=== PATIENT | male | born 1965 | race Caucasian/White ===

== ENCOUNTER 2016-08-10 16:01 | Emergency (ER) | payer OTHER ==
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
[2016-08-10 16:53] LABS: Basophils % (A) 0 %; CH 30.3; CHCM 35.5; Eosinophils # (A) 0.1 k/uL (0-0.7); Eosinophils % (A) 1 %; HDW 2.39; HGB 14.5 gm/dL (13.0-17.5); Luc % (Auto) 4; Lymphocytes % (A) 25 %; MCH 29.4 pg (25.0-35.0); MCHC 34.4 g/dL (31.0-37.0); MCV 85.5 fL (80.0-100.0); Mean Platelet Volume 6.6; Monocytes # (A) 0.4 k/uL (0-1.0); Monocytes % (A) 6 %; Neutrophils # (A) 5.1 k/uL (1.3-7.7); Neutrophils % (A) 64 %; RBC 4.92 m/uL (4.30-5.90); RDW 12.1 % (11.5-15.5); WBC (Perox) 7.83
[2016-08-10 17:05] LABS: ALT 38 U/L (21-72); AST 32 U/L (17-59); Alkaline Phosphatase 45 U/L (38-126); Anion Gap 7 mmol/L; Blood Urea Nitrogen 19 mg/dL (9-20); Calcium 7.9 mg/dL (8.4-10.2); Carbon Dioxide 29 mmol/L (22-30); Chloride 106 mmol/L (98-107); Glucose 89 mg/dL (74-99); Non-African American GFR(MDRD) >60 (>60 ml/min/1.73 sqM); Potassium 3.8 mmol/L (3.5-5.1); Sodium 142 mmol/L (137-145); Total Bilirubin 1.6 mg/dL (0.2-1.3); Total Protein 6.5 g/dL (6.3-8.2)
--- NOTE | 2016-08-10 17:14 | XR ---
EXAMINATION TYPE: XR chest 2V DATE OF EXAM: 08/10/2016 5:04 PM COMPARISON: 04/23/2012 HISTORY: Nausea and vomiting TECHNIQUE: Frontal and lateral views of the chest are obtained. FINDINGS: Heart and mediastinum are normal. Lungs are clear. Diaphragm is normal. Bony thorax appear s normal. IMPRESSION: Normal chest. No change.
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
[2016-08-10] MEDS ORDERED: ONDANSETRON ODT 4 MG TAB PO STA (18:44)
[2016-08-10] MEDS ORDERED: CEPHALEXIN 500MG STARTER PACK 4 CAP BTL PO STA (18:45)
[2016-08-10 18:50] LABS: Appearance,Urine Clear (Clear); Bilirubin,Urine Negative (Negative); Glucose,Urine (UA) Negative (Negative); Ketones,Urine Negative (Negative); Leukocyte Esterase,Urine Negative (Negative); Nitrite,Urine Negative (Negative); Protein,Urine Negative (Negative); UA Billing (MACRO vs. MICRO) CHEM; Urobilinogen,Urine <2.0 mg/dL (<2.0)
[2016-08-10] MEDS ORDERED: IBUPROFEN 600 MG TAB PO STA (20:01)
[2016-08-10 20:15] VITALS: BP 143/81; PULSE 60; RESP 18; TEMP 97.6
== END 2016-08-10 20:14 | disposition home or self-care (01) ==
LOC: EC 16:01
DX: F07.81 Postconcussional syndrome (principal); M54.2 Cervicalgia; R11.0 Nausea; Z91.041 Radiographic dye allergy status; Z91.030 Bee allergy status; W01.198A Fall on same level from slipping, tripping and stumbling with subsequent striking against other object, initial encounter
CPT/HCPCS: 36415; 70450; 70486; 71020; 72125; 80053; 81003; 85025; 87086; 99284

== ENCOUNTER 2016-12-02 10:39 | Observation (INO) | payer OTHER ==
[2016-12-02] MEDS ORDERED: SODIUM CHLORIDE 0.9% 1,000 ML IV STA ×2 (10:40)
[2016-12-02] MEDS ORDERED: FAMOTIDINE 20 MG/2 ML VIAL IV STA (10:41)
[2016-12-02] MEDS ORDERED: methylPREDNISolone SOD SUCCI 125 MG/2 ML VIAL IV STA (10:41)
[2016-12-02] MEDS ORDERED: diphenhydrAMINE 50 MG/ML 1 ML VIAL IVP STA (10:41)
[2016-12-02] MEDS ORDERED: RX INFO: IV CONTRAST WAS GIVEN 1 EACH MISC MISCELLANE PRN (10:41)
[2016-12-02 11:02] LABS: Basophils # (A) 0.1 k/uL (0-0.2); Basophils % (A) 1 %; CH 31.2; Eosinophils # (A) 0.1 k/uL (0-0.7); Eosinophils % (A) 1 %; HCT 41.7 % (39.0-53.0); HDW 2.41; HGB 14.4 gm/dL (13.0-17.5); Luc # (Auto) 0.29; Luc % (Auto) 3; Lymphocytes # (A) 2.4 k/uL (1.0-4.8); Lymphocytes % (A) 23 %; MCH 30.1 pg (25.0-35.0); MCHC 34.6 g/dL (31.0-37.0); Mean Platelet Volume 7.6; Monocytes # (A) 0.9 k/uL (0-1.0); Monocytes % (A) 8 %; Neutrophils # (A) 6.8 k/uL (1.3-7.7); Neutrophils % (A) 64 %; RBC 4.79 m/uL (4.30-5.90); RDW 13.6 % (11.5-15.5); WBC 10.5 k/uL (3.8-10.6)
[2016-12-02 11:20] LABS: Partial Thromboplastin Time 22.7 sec (22.0-30.0); Prothrombin Time 10.5 sec (9.0-12.0)
[2016-12-02 11:21] LABS: ALT 32 U/L (21-72); AST 23 U/L (17-59); Alkaline Phosphatase 34 U/L (38-126); Anion Gap 10 mmol/L; Blood Urea Nitrogen 16 mg/dL (9-20); Calcium 7.7 mg/dL (8.4-10.2); Carbon Dioxide 23 mmol/L (22-30); Chloride 109 mmol/L (98-107); Glucose 103 mg/dL (74-99); Magnesium 1.6 mg/dL (1.6-2.3); Non-African American GFR(MDRD) >60 (>60 ml/min/1.73 sqM); Phosphorus 5.2 mg/dL (2.5-4.5); Sodium 142 mmol/L (137-145); Total Bilirubin 1.1 mg/dL (0.2-1.3); Total Protein 6.1 g/dL (6.3-8.2)
[2016-12-02 11:28] LABS: Creatine Kinase 125 U/L (55-170)
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
[2016-12-02 11:30] LABS: Potassium 4.3 mmol/L (3.5-5.1)
[2016-12-02 11:42] LABS: Creatine Kinase MB 2.1 ng/mL (0.0-2.4); Troponin I <0.012 ng/mL (0.000-0.034)
--- NOTE | 2016-12-02 13:25 | CT ---
EXAMINATION TYPE: CT angio head neck DATE OF EXAM: 12/02/2016 COMPARISON: CT 08/10/2016 HISTORY: 51-year-old male blindness for 20 minutes, eye pain TECHNIQUE: Contiguous axial scanning of the brain and neck performed with IV Contrast, patient inject ed with 65 ml mL of Omnipaque 350. Coronal/sagittal MIP reconstructions performed. 3-D reconstruction s generated on a dedicated independent workstation. Detailed analysis with 3-D vessel probe of the ca rotid vasculature. CT DLP: 424.0 mGycm Automated exposure control for dose reduction was used. FINDINGS: NECK: Visualized upper lungs are clear. There is bovine configuration to the aortic arch. Arch vessels are grossly patent. The vertebral arteries including their origins are patent. The bilateral common and internal carotid arteries are patent. There is very mild atherosclerotic toña cification at the right carotid bulb without any significant narrowing. There is asymmetric effacement of the left aryepiglottic fold, axial image 61 which should be correla mikey with patient's symptoms and direct visualization. Head: The internal carotid, vertebral, and basilar arteries are patent. There is fusiform dilatation of 3.5 mm involving the terminal basilar artery. Otherwise, no aneurysma l change seen. The anterior and posterior circulations appear grossly patent. IMPRESSION: 1. NECK: NO GREAT VESSEL/ICA STENOSIS. 2. BRAIN: NO LARGE VESSEL INTRACRANIAL OCCLUSION. 3.5 MM FUSIFORM ECTASIA OF THE DISTAL BASILAR ARTER Y. 3. ASYMMETRIC EFFACEMENT OF THE LEFT ARYEPIGLOTTIC FOLD. CLINICAL CORRELATION RECOMMENDED. DIRECT VIS UALIZATION CAN EXCLUDE AN UNDERLYING MUCOSAL SPACE LESION.
[2016-12-02] MEDS ORDERED: ASPIRIN 325 MG TAB PO STA (13:32)
[2016-12-02] MEDS ORDERED: SODIUM CHLORIDE 0.9% 1,000 ML IV SCH (13:45)
[2016-12-02 15:43] VITALS: BMI 25.7
[2016-12-02] MEDS ORDERED: DICYCLOMINE 10 MG CAP PO PRN (16:48)
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
[2016-12-02] MEDS ORDERED: CALCIUM CARB-VIT D 500MG-200UN 1 EACH TAB PO SCH (17:00)
--- NOTE | 2016-12-02 17:44 | US ---
EXAMINATION TYPE: US carotid duplex BILAT DATE OF EXAM: 12/02/2016 COMPARISON: CTA same day CLINICAL HISTORY: 51 year-old male evaluate for stenosis. headache. Temp lt eye blindness. TECHNIQUE: Carotid duplex ultrasound examination. Indirect Doppler criteria was utilized. FINDINGS: Minimal atherosclerotic change in the right greater than left carotid bulbs. EXAM MEASUREMENTS: RIGHT: Peak Systolic Velocity (PSV) cm/sec ----- Right CCA: 66.9 ----- Right ICA: 82.2 ----- Right ECA: 98.7 ICA/CCA ratio: 1.2 RIGHT: End Diastole cm/sec ----- Right CCA: 20.6 ----- Right ICA: 35.9 ----- Right ECA: 13.9 LEFT: Peak Systolic Velocity (PSV) cm/sec ----- Left CCA: 93.2 ----- Left ICA: 83.3 ----- Left ECA: 77.8 ICA/CCA ratio: 0.9 LEFT: End Diastole cm/sec ----- Left CCA: 29.3 ----- Left ICA: 40.3 ----- Left ECA: 10.6 VERTEBRALS (direction of flow): Right Vertebral: Antegrade Left Vertebral: Antegrade Rhythm: Normal IMPRESSION: No hemodynamically significant stenosis appreciated in either internal carotid artery. Criteria for Assigning % of Stenosis / Diameter reduction (Estimation based on the indirect measurements of the internal carotid artery velocities (ICA PSV). 1. Normal (no stenosis)=ICA PSV < 125 cm/s: ratio < 2.0: ICA EDV<40 cm/s. 2. Less than 50% stenosis=ICA PSV < 125 cm/s: ratio < 2.0: ICA EDV<40 cm/s. 3. 50 to 69% stenosis=ICA PSV of 125 to 230 cm/s: ration 2.0 ? 4.0: ICA EDV 40-100 cm/s. 4. Greater than 70% stenosis to near occlusion= ICA PSV > 230 cm/s: ratio > 4.0: ICA EDV > 100 cm/s. 5. Near occlusion= ICA PSV velocities may be low or undetectable: variable ratio and ICA EDV. 6. Total occlusion=unable to detect flow.
--- NOTE | 2016-12-02 18:24 | ECHOF ---
Referral Reason:Thrombus MEASUREMENTS -------- HEIGHT: 180.3 cm WEIGHT: 86.2 kg BP: 151/90 IVSd: 1.0 cm (0.6 - 1.1) LVIDd: 4.6 cm (3.9 - 5.3) LVPWd: 1.2 cm (0.6 - 1.1) IVSs: 1.7 cm LVIDs: 2.4 cm LVPWs: 1.5 cm Ao Diam: 3.5 cm (2.0 - 3.7) AV Cusp: 2.2 cm (1.5 - 2.6) LA Diam: 3.1 cm (2.7 - 3.8) MV EXCURSION: 25.054 mm (> 18.000) MV EF SLOPE: 215 mm/s (70 - 150) EPSS: 0.4 cm MV E [place]: 0.57 m/s MV DecT: 195 ms MV A [place]: 0.33 m/s MV E/A Ratio: 1.74 RAP: 5.00 mmHg RVSP: 17.13 mmHg FINDINGS -------- Resting bradycardia (HR<60bpm). This was a technically good study. Left ventricular wall thickness is normal. Overall left ventricular systolic function is normal with, an EF between 55 - 60 %. The right ventricle is normal in size and function. The left atrium is normal in size. The right atrium is normal in size. The aortic valve is trileaflet, and appears structurally normal. No aortic stenosis or regurgitation. There is trace mitral regurgitation. Trace tricuspid regurgitation present. The right ventricular systolic pressure, as measured by Doppler, is 17.13mmHg. Pulmonic valve appears structurally normal. The aortic root size is normal. Normal inferior vena cava with normal inspiratory collapse consistent with estimated right atrial pressure of 5 mmHg. The pericardium is normal. CONCLUSIONS -------- 1. Resting bradycardia (HR<60bpm). 2. Trace tricuspid regurgitation present. 3. The right ventricular systolic pressure, as measured by Doppler, is 17.13mmHg. 4. Pulmonic valve appears structurally normal. 5. The aortic root size is normal. 6. Normal inferior vena cava with normal inspiratory collapse consistent with estimated right atrial pressure of 5 mmHg. 7. The pericardium is normal. 8. This was a technically good study. 9. Left ventricular wall thickness is normal. 10. Overall left ventricular systolic function is normal with, an EF between 55 - 60 %. 11. The right ventricle is normal in size and function. 12. The left atrium is normal in size. 13. The right atrium is normal in size. 14. The aortic valve is trileaflet, and appears structurally normal. No aortic stenosis or regurgitation. 15. There is trace mitral regurgitation. VAPOR COATER: Ness Hinojosa RDCS
[2016-12-02] MEDS: HYDROcodone/APAP 10-325MG 1 EACH TAB PO PRN ×2 (18:25→21:49)
--- NOTE | 2016-12-02 18:39 | CT ---
EXAMINATION TYPE: CT brain wo con DATE OF EXAM: 12/02/2016 COMPARISON: 08/10/2016 HISTORY: Swelling and vision loss. CT DLP: 1066.8 mGycm Automated exposure control for dose reduction was used. FINDINGS: Ventricles have normal size. There is no mass effect nor midline shift. There is no sign of intracran ial hemorrhage. The calvarium is intact. IMPRESSION: NEGATIVE CT SCAN OF THE BRAIN. NO CHANGE.
[2016-12-02] MEDS: ETODOLAC 400 MG TAB PO SCH (20:14)
[2016-12-02] MEDS: CALCITRIOL 0.25 MCG CAP PO SCH ×2 (20:14→23:48)
[2016-12-02] MEDS: PREGABALIN 50 MG CAP PO SCH (20:16)
[2016-12-02] MEDS: MELATONIN 5 MG TABLET PO SCH (23:47)
[2016-12-03] MEDS: CALCIUM CARB-VIT D 500MG-200UN 1 EACH TAB PO SCH ×5 (06:29→23:34)
[2016-12-03] MEDS: LEVOTHYROXINE 100 MCG TAB PO SCH (06:30)
[2016-12-03] MEDS: CALCITRIOL 0.25 MCG CAP PO SCH ×5 (06:30→23:34)
[2016-12-03 07:13] LABS: Basophils % (A) 0 %; CH 30.6; CHCM 35.1; Eosinophils % (A) 0 %; HCT 40.4 % (39.0-53.0); HDW 2.37; HGB 13.9 gm/dL (13.0-17.5); Luc # (Auto) 0.38; Luc % (Auto) 2; Lymphocytes # (A) 1.1 k/uL (1.0-4.8); Lymphocytes % (A) 5 %; MCH 30.2 pg (25.0-35.0); MCHC 34.5 g/dL (31.0-37.0); MCV 87.7 fL (80.0-100.0); Mean Platelet Volume 7.2; Monocytes % (A) 5 %; Neutrophils % (A) 88 %; RBC 4.61 m/uL (4.30-5.90); RDW 12.9 % (11.5-15.5); WBC 20.5 k/uL (3.8-10.6); WBC (Perox) 20.71
[2016-12-03] MEDS: HYDROcodone/APAP 10-325MG 1 EACH TAB PO PRN ×2 (07:15→16:01)
[2016-12-03 07:53] LABS: ALT 32 U/L (21-72); AST 17 U/L (17-59); Alkaline Phosphatase 45 U/L (38-126); Anion Gap 11 mmol/L; Blood Urea Nitrogen 17 mg/dL (9-20); Calcium 7.7 mg/dL (8.4-10.2); Carbon Dioxide 22 mmol/L (22-30); Chloride 107 mmol/L (98-107); Cholesterol 179 mg/dL (<200); Glucose 138 mg/dL (74-99); HDL Cholesterol 66 mg/dL (40-60); Magnesium 1.6 mg/dL (1.6-2.3); Non-African American GFR(MDRD) >60 (>60 ml/min/1.73 sqM); Potassium 4.2 mmol/L (3.5-5.1); Sodium 140 mmol/L (137-145); Total Bilirubin 0.4 mg/dL (0.2-1.3); Total Protein 5.5 g/dL (6.3-8.2)
[2016-12-03] MEDS: ETODOLAC 400 MG TAB PO SCH ×3 (08:26→20:34)
[2016-12-03] MEDS: PREGABALIN 50 MG CAP PO SCH ×2 (08:28→20:33)
[2016-12-03] MEDS ORDERED: predniSONE 20 MG TAB PO SCH (09:00)
--- NOTE | 2016-12-03 09:02 | P.PN ---
Progress Note - Text Hospitalist Interval Note: Patient seen and examined at bedside. His headache is much improved. He has not had any more visual disturbances. Telemetry, echo, and carotid Dopplers were all negative. Suspect complex migraine as ESR and CRP negative. Currently awaiting neurologic evaluation. Patient appears stable for discharge once cleared by neurology. Formal progress note or discharge summary to follow pending neurology evaluation.
[2016-12-03] MEDS: ASPIRIN 325 MG TAB PO SCH (11:20)
--- NOTE | 2016-12-03 13:35 | P.PN ---
Subjective Principal diagnosis: left visual loss and headache Patient is a 51-year-old male with a past medical history of thyroid cancer status post thyroid and parathyroidectomy, arthritis with neurodegenerative condition, and posttraumatic stress disorder who presented via EMS with left-sided visual loss and headache. In the ER he underwent an extensive evaluation. His initial vital signs were unremarkable. Initial blood work showed a slightly low calcium and slightly high phosphorus which he states is chronic for him. CTA of the head and neck was unremarkable. He was admitted to the selective care unit for further evaluation of possible TIA. He complained of a left-sided headache associated with the visual loss. ESR and CRP were within normal limits. CT of the head was normal. Echocardiogram and carotid Dopplers were normal. Neurology consultation was requested. By the morning after admission he had not had any recurrent visual deficits. He continued to have slight left-sided headache. Patient seen and examined at bedside. He denies any chest pain, shortness of breath, nausea, vomiting, or diarrhea. He continues to have a left sided headache which is now a pressure in nature and is a 1 out of 10. He does have some pressure behind his eyes as well. He denies any recurrent visual loss. He does not have any blurry vision or double vision. Objective - Vital Signs Vital signs: Vital Signs Temp 97.0 F L 12/03/16 12:00 Pulse 64 12/03/16 12:00 Resp 16 12/03/16 12:00 BP 138/79 12/03/16 12:00 Pulse Ox 97 12/03/16 12:00 Intake & Output 12/02/16 12/03/16 12/03/16 18:59 06:59 18:59 Intake Total 1200 1087 Balance 1200 1087 Weight 86.183 kg 86.7 kg Intake: IV 10 Invasive Line 1 10 Intake, IV Titration 1200 Amount Sodium Chloride 0.9% 1, 1200 000 ml @ 100 mls/hr IV . Q10H [facility] Rx#:[id number] Oral 1077 Other: Voiding Method Toilet Toilet Urinal Urinal # Voids 1 - Exam General: non toxic, no distress, appears at stated age Derm: no rashes, no lesions Head: atraumatic, normocephalic, symmetric Eyes: EOMI, no lid lag, anicteric sclera ENT: no post nasal drip, no thrush Mouth: no lip lesion, mucus membranes moist Cardiovascular: S1S2 reg, no murmur, positive posterior tibial pulse bilateral, Lungs: CTA bilateral, no rhonchi, no rales , no accessory muscle use Abdominal: soft, nontender to palpation, no guarding, no appreciable organomegaly Ext: no gross muscle atrophy, no edema, no contractures Neuro: CN II-XI grossly intact, no focal neuro deficits Psych: Alert, oriented, appropriate affect - Labs CBC & Chem 7: 12/03/16 06:38 12/03/16 06:00 Labs: Abnormal Lab Results - Last 24 Hours (Table) 12/03/16 12/03/16 Range/Units 06:00 06:38 WBC 20.5 H (3.8-10.6) k/uL Neutrophils # 18.0 H (1.3-7.7) k/uL Glucose 138 H (74-99) mg/dL Calcium 7.7 L (8.4-10.2) mg/dL Total Protein 5.5 L (6.3-8.2) g/dL Albumin 3.2 L (3.5-5.0) g/dL HDL Cholesterol 66 H (40-60) mg/dL Assessment and Plan Plan: #Transient left sided visual loss associated with headache -head CT negative - 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 -ESR and CRP normal, stop prednisone. -Ophthalmology and neurology consultation pending. #Hypocalcemia -Per patient this is his normal range will continue with calcium supplementation -Hypothyroidism, surgical -Continue Synthroid #Arthritis -Continue with NSAIDs, as needed [place], and add prednisone #Degenerative joint disease -Pain control DVT prophylaxis: SCD Discussed with: Patient, nursing Anticipated discharge: today if cleared by neurology Anticipated discharge place: home A total of 30 minutes was spent on the care of this complex patient more than 50 % of the time was spent in counseling and care coordination.
[2016-12-03] MEDS: BUTA/APAP/CAF/COD 50-325-40-30 CAP PO PRN (20:32)
[2016-12-03] MEDS: MELATONIN 5 MG TABLET PO SCH (20:34)
--- NOTE | 2016-12-03 22:39 | CONS ---
CONSULTATION DATE OF SERVICE: 12/03/2016. CHIEF COMPLAINT: Transient ischemic attack. HISTORY OF PRESENT ILLNESS: Mr. Chapman is a pleasant 51-year-old, male, who is being evaluated by the Neurology Service per the request of Dr. Coello for a transient ischemic attack. The patient states that he was driving to work yesterday when he suddenly noticed visual changes involving his left eye. He noticed that the left visual field in the left eye was quite distorted. His symptoms lasted approximately 20 minutes and resolved spontaneously. He states that he did have a similar episode approximately 6 years ago, but he was not placed on any anti-platelet therapy. A CT scan of the brain was done when he arrived to the emergency room and no intracranial abnormalities were seen. The patient's symptoms had resolved by the time he arrived to the emergency room. A carotid Doppler was done, which showed no hemodynamically significant stenosis. His comprehensive metabolic profile was normal except for mild hypocalcemia at 7.7. His alkaline phosphatase was slightly elevated at 5.2. His cardiac enzymes were normal and his fasting lipid panel was normal. His CBC showed leukocytosis at 20.5. At the time of my evaluation, the patient is lying in his bed and appears to be in no acute distress. He denies any recurrence of any visual changes. He denies any lateralizing numbness or weakness. He is complaining of a headache, which he describes as a dull to burning pain involving his left parietal region. He rates it at 3/10 in intensity. PAST MEDICAL HISTORY: Thyroid cancer, rheumatological disorder, degenerative joint disease, degenerative disk disease, history of lumbar spine surgery, thyroidectomy, parathyroidectomy. He also has a history of posttraumatic stress disorder. SOCIAL HISTORY: He denies any tobacco, alcohol, or drug use. FAMILY HISTORY: Positive for heart disease and dyslipidemia. HOME MEDICATIONS: Reviewed in the chart. ALLERGIES: Iodine, IV contrast, bee stings. REVIEW OF SYSTEMS: CONSTITUTIONAL: Negative. EYES: As mentioned above. EENT: Negative. CARDIOVASCULAR: Negative. RESPIRATORY: Negative. NEUROLOGICAL: As mentioned above. GASTROINTESTINAL: Negative. MUSCULOSKELETAL: Positive for frequent joint pain and low back pain. DERMATOLOGICAL: Negative. ENDOCRINE: Positive for hypothyroidism status post thyroidectomy. PSYCHIATRIC: Positive for history of posttraumatic stress disorder. PHYSICAL EXAM: VITAL SIGNS: Temperature of 98.6, pulse 75, respirations 17, blood pressure 127/76. GENERAL APPEARANCE: The patient is a well-developed male, who appears to be in no acute distress. HEENT: Normocephalic, atraumatic. No facial asymmetry is seen, extraocular muscles are intact. NECK: Supple with no masses felt. CARDIOVASCULAR: Regular rate and rhythm. ABDOMEN: Nontender nondistended. EXTREMITIES: Mild joint swelling both hands. No significant edema is seen. NEUROLOGIC: The patient is alert aware and oriented x3. Speech and language are normal. Cranial nerve testing showed no facial asymmetry. His visual field testing is intact. Strength is full in all 4 extremities. Sensory exam was normal to light touch in all 4 extremities. No tremors or seizure-like activity is seen. ASSESSMENT: 1. Transient ischemic attack. 2. Left eye visual changes, resolved. 3. Headache. 4. Leukocytosis. RECOMMENDATIONS: The patient does appear to have suffered a transient ischemic attack with a transient episode of distorted vision involving the left visual field. His symptoms continue to be resolving and he denies any recurrence. He has been started on aspirin 325 mg daily. The patient was told to continue this regimen after discharge. I will order a serum homocystine level. His fasting lipid panel was normal. I will also order an EEG along with an MRI/MRA of the brain without contrast, mostly due to his continued headache. I do recommend further workup regarding his leukocytosis. His neck is quite supple on my examination, and I doubt any intracranial etiology for his leukocytosis. Continue neuro checks. I will continue to follow with you. Further recommendations to follow. Thank you for allowing me to participate in the care of your patient. If you have any questions, please feel free to contact me. MMBLAISEL / IJN: [id number] /
[2016-12-04] MEDS: HYDROcodone/APAP 10-325MG 1 EACH TAB PO PRN (04:25)
[2016-12-04] MEDS: BUTA/APAP/CAF/COD 50-325-40-30 CAP PO PRN (06:07)
[2016-12-04] MEDS: LEVOTHYROXINE 100 MCG TAB PO SCH (06:08)
[2016-12-04 07:57] LABS: CH 29.8; CHCM 33.7; HCT 40.9 % (39.0-53.0); HDW 2.36; HGB 13.8 gm/dL (13.0-17.5); MCHC 33.8 g/dL (31.0-37.0); MCV 88.8 fL (80.0-100.0); Mean Platelet Volume 7.6; RBC 4.61 m/uL (4.30-5.90); RDW 12.2 % (11.5-15.5); WBC 13.2 k/uL (3.8-10.6)
[2016-12-04] MEDS: ETODOLAC 400 MG TAB PO SCH ×2 (09:07→16:01)
[2016-12-04] MEDS: CALCITRIOL 0.25 MCG CAP PO SCH ×3 (09:08→16:01)
[2016-12-04] MEDS: CALCIUM CARB-VIT D 500MG-200UN 1 EACH TAB PO SCH ×3 (09:08→16:01)
[2016-12-04] MEDS: ASPIRIN 325 MG TAB PO SCH (09:09)
[2016-12-04] MEDS: PREGABALIN 50 MG CAP PO SCH (09:10)
[2016-12-04 10:09] VITALS: RESP 16
--- NOTE | 2016-12-04 10:36 | P.PN ---
Subjective Principal diagnosis: left visual loss and headache Patient is a 51-year-old male with a past medical history of thyroid cancer status post thyroid and parathyroidectomy, arthritis with neurodegenerative condition, and posttraumatic stress disorder who presented via EMS with left-sided visual loss and headache. In the ER he underwent an extensive evaluation. His initial vital signs were unremarkable. Initial blood work showed a slightly low calcium and slightly high phosphorus which he states is chronic for him. CTA of the head and neck was unremarkable. He was admitted to the selective care unit for further evaluation of possible TIA. He complained of a left-sided headache associated with the visual loss. ESR and CRP were within normal limits. CT of the head was normal. Echocardiogram and carotid Dopplers were normal. Neurology consultation was requested. By the morning after admission he had not had any recurrent visual deficits. He continued to have slight left-sided headache. Neurology evaluated him and felt that this was likely a TIA. They recommended MRI, MRA, and EEG for further evaluation. On the evening of 01/02 his headache came back with increasing intensity Patient seen and examined at bedside. He continues to have a left-sided headache. He has not had recurrent visual changes. Denies any chest pain, shortness of breath, nausea, or vomiting. He states that his pain medications are helping. Objective - Vital Signs Vital signs: Vital Signs Temp 97.3 F L 12/04/16 08:00 Pulse 75 12/04/16 08:00 Resp 16 12/04/16 08:00 BP 131/76 12/04/16 08:00 Pulse Ox 96 12/04/16 08:00 Intake & Output 12/03/16 12/04/16 12/04/16 18:59 06:59 18:59 Intake Total 1841 250 Balance 1841 250 Weight 88.4 kg Intake: IV 10 10 Invasive Line 1 10 Normal Saline 10 Oral 1831 240 Other: Voiding Method Toilet Toilet Urinal Urinal # Voids 3 1 - Exam General: non toxic, no distress, appears at stated age Derm: no rashes, no lesions Head: atraumatic, normocephalic, symmetric Eyes: EOMI, no lid lag, anicteric sclera ENT: no post nasal drip, no thrush Mouth: no lip lesion, mucus membranes moist Cardiovascular: S1S2 reg, no murmur, positive posterior tibial pulse bilateral, Lungs: CTA bilateral, no rhonchi, no rales , no accessory muscle use Abdominal: soft, nontender to palpation, no guarding, no appreciable organomegaly Ext: no gross muscle atrophy, no edema, no contractures Neuro: CN II-XI grossly intact, no focal neuro deficits Psych: Alert, oriented, appropriate affect - Labs CBC & Chem 7: 12/04/16 06:05 12/03/16 06:00 Labs: Abnormal Lab Results - Last 24 Hours (Table) 12/04/16 Range/Units 06:05 WBC 13.2 H (3.8-10.6) k/uL Assessment and Plan Plan: #TIA Transient left sided visual loss associated with headache -head CT negative - refused to work with PT, [employer]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 - neuro recs appreciated MRI/MRA/EEG pending # Headache - MRI and MRA pending - neuro recs appreciated - continue with fioricet # leukocytosis secnodary to steroids - improving off steroids #Hypocalcemia -Per patient this is his normal range will continue with calcium supplementation -Hypothyroidism, surgical -Continue Synthroid #Arthritis -Continue with NSAIDs, as needed [place], and add prednisone #Degenerative joint disease -Pain control Likely home once OK with neuro and testing back. DVT prophylaxis: SCD Discussed with: Patient, nursing Anticipated discharge: today if cleared by neurology Anticipated discharge place: home A total of 30 minutes was spent on the care of this complex patient more than 50 % of the time was spent in counseling and care coordination.
--- NOTE | 2016-12-04 11:21 | MR ---
EXAMINATION TYPE: MR angio head wo con DATE OF EXAM: 12/04/2016 COMPARISON: 12/02/2016 CT HISTORY: Headache, TIA TECHNIQUE: Utilizing 3-D buvc-fo-bqozcu intracranial MRA of the [place] of [place] was performed. FINDINGS: The vertebrobasilar and carotid systems are patent. There is mild ectasia of the distal basilar dora ry stable from the recent CT scan. There is no sizable saccular aneurysm or vascular malformation. IMPRESSION: 1. No evidence of sizable saccular aneurysm. Mild fusiform prominence of the distal basilar artery st able from the CTA report of 12/02/2016.
--- NOTE | 2016-12-04 11:28 | MR ---
EXAMINATION TYPE: MR brain wo con DATE OF EXAM: 12/04/2016 COMPARISON: CT brain 12/02/2016 HISTORY: Headache, TIA T1-weighted sagittal, T2, FLAIR, and diffusion axial, and T2 coronal coronal views of the brain are s ubmitted. There is no evidence of acute ischemia. The ventricles, basal cisterns, and sulci overlying the conv exities are consistent with the patient's age. There is no mass effect. Craniocervical junction maintained. Sella turcica has a normal appearance. No cerebellopontine angle mass. Changes of chronic sinusitis noted. White matter: There are 2 punctate less than 5 mm areas of abnormal signal in the right parietal whit e matter. No lesions perpendicular to the ventricular system. No callosal lesions. IMPRESSION: 1. No acute intracranial process. 2. There are 2 nonspecific less than 5 mm areas of abnormal white matter signal.
[2016-12-04 14:38] VITALS: BP 128/79; PULSE 73; TEMP 97.1
--- NOTE | 2016-12-04 15:03 | P.DS ---
Providers Date of admission: 12/02/16 13:32 Expected date of discharge: 12/04/16 Attending physician: Alcira Coello DO Consults: 12/02/16 16:44 Consult Physician Routine Consulting Provider: Zhou Moore Consult Reason/Comments: headache and loss of vision Do you want consulting provider notified?: Yes 12/02/16 16:45 Consult Physician Routine Consulting Provider: Travis Mckenna Consult Reason/Comments: vision loss left eye- transient with headache Do you want consulting provider notified?: Yes Primary care physician: Physician Nonstaff - Discharge Diagnosis(es) (1) Migraine with aura Status: Acute (2) Leukocytosis Status: Acute (3) Visual field loss Status: Acute (4) TIA (transient ischemic attack) Status: Acute (5) Hypocalcemia Status: Acute Hospital Course: Patient is a 51-year-old male with a past medical history of thyroid cancer status post thyroid and parathyroidectomy, arthritis with neurodegenerative condition, and posttraumatic stress disorder who presented via EMS with left-sided visual loss and headache. In the ER he underwent an extensive evaluation. His initial vital signs were unremarkable. Initial blood work showed a slightly low calcium and slightly high phosphorus which he states is chronic for him. CTA of the head and neck was unremarkable. He was admitted to the selective care unit for further evaluation of possible TIA. He complained of a left-sided headache associated with the visual loss. ESR and CRP were within normal limits. CT of the head was normal. Echocardiogram and carotid Dopplers were normal. Neurology consultation was requested. By the morning after admission he had not had any recurrent visual deficits. He continued to have slight left-sided headache. Neurology evaluated him and felt that this was likely a TIA. They recommended MRI, MRA, and EEG for further evaluation. On the evening of 01/02 his headache came back with increasing intensity. He was placed on Fioricet with codeine by neurology. He underwent MRI and MRA which demonstrated 25 mm white matter changes and a fusiform prominence of the basilar artery. EEG was obtained. By the afternoon of the his headache had greatly improved. His pain level was the best it had been at months. He had not had any re-current visual field deficits. He was determined stable for outpatient follow-up with neurology. He was started on aspirin and Fioricet. [facility] Patient seen and examined at bedside. Headache has subsided, no recurrent visual field deficits. States his swelling has improved and he feels the best he has felt in years. For physical exam please see progress note for December 04 A total of 25 minutes of time were spent preparing this complex discharge summary . Pertinent Studies: MRA of the brain 12/04-mild fusiform predominance of the distal basilar artery MRI of the brain-2 nonspecific less than 5 mm areas of abnormal white matter signal CT Brain-no acute process CTA head and neck- mild fusiform predominance of the distal basilar artery Echocardiogram-preserved ejection fraction, no valvular abnormalities Carotid Dopplers-no significant flow-limiting lesions Procedures: None Patient Condition at Discharge: Stable Plan - Discharge Summary New Discharge Prescriptions: New Aspirin EC [Ecotrin Low Dose] 81 mg PO DAILY #[address] Mustafa/APAP/Caf/Cod [id number] [Fioricet w/Cod 78-264-06-30MG] 2 each PO Q6HR PRN #30 cap PRN Reason: Headache Continue Calcitriol [Rocaltrol] 0.25 mcg PO 5XD Dicyclomine [Bentyl] 20 mg PO HS PRN PRN Reason: RECTAL SPASMS Calcium Carbonate [Calcium] 600 mg PO DAILY Pregabalin [Lyrica] 150 mg PO BID Etodolac [Lodine] 400 mg PO TID HYDROcodone/APAP 10-325MG [[place] 10-325] 1 tab PO TID PRN PRN Reason: Pain Levothyroxine Sodium [Synthroid] 100 mcg PO DAILY Discharge Medication List Calcitriol [Rocaltrol] 0.25 mcg PO 5XD 12/02/16 [History] Calcium Carbonate [Calcium] 600 mg PO DAILY 12/02/16 [History] Dicyclomine [Bentyl] 20 mg PO HS PRN 12/02/16 [History] Etodolac [Lodine] 400 mg PO TID 12/02/16 [History] HYDROcodone/APAP 10-325MG [[place] 10-325] 1 tab PO TID PRN 12/02/16 [History] Levothyroxine Sodium [Synthroid] 100 mcg PO DAILY 12/02/16 [History] Pregabalin [Lyrica] 150 mg PO BID 12/02/16 [History] Aspirin EC [Ecotrin Low Dose] 81 mg PO DAILY #30 tablet. 12/04/16 [Rx] [place]/APAP/Caf/Cod [id number] [Fioricet w/Cod [id number]] 2 each PO Q6HR PRN #30 cap 12/04/16 [Rx] Follow up Appointment(s)/Referral(s): Zhou Moore MD [STAFF PHYSICIAN] - 1 Week (Message left on appointment line with patients name, , and phone number. Office will call with appointment.) Nonstaff,Physician [Primary Care Provider] - 12/06/16 4:00 pm (Called the [facility] in [place] and attempted to make appointment with the [facility] which patient sees. Spoke with Michael at the [facility] and appointment made. ) Patient Instructions/Handouts: Transient Ischemic Attack (DC) Activity/Diet/Wound Care/Special Instructions: low cholesterol diet, activity as tolerated. Seek medical attention if visual changes reoccur or headache gets worse. Discharge Disposition: HOME SELF-CARE
--- NOTE | 2016-12-04 20:45 | EEG ---
ELECTROENCEPHALOGRAM REPORT DATE OF SERVICE: 12/04/2016 REASON FOR TESTING: Transient ischemic attack. DESCRIPTION OF THE PROCEDURE: This EEG was performed using a 21 channel digital electroencephalograph, following international 10-20 system. DESCRIPTION OF THE RECORDING: From the beginning of the tracing, and with patient's eyes closed, the background rhythm was mostly consisting of 8-9 Hz alpha frequency in the posterior occipital leads. No obvious asymmetry is seen. Photic stimulation was performed with a good driving response seen. No pathological waves were elicited. Hyperventilation was not performed. The patient remains awake throughout the tracing. No epileptiform discharges were seen. His EKG lead showed a regular rate and rhythm. INTERPRETATION: This awake EEG can be considered within normal limits. There is no asymmetry seen. No epileptiform discharges were noticed. The absence of epileptiform discharges does not rule out the diagnosis of epilepsy, therefore clinical correlation is recommended. MMJUAN / NURIA: [id number] /
== END 2016-12-04 16:18 | disposition home or self-care (01) ==
LOC: EC 10:39 → 6SEL 13:32
PROVIDERS: ADMIT Internal Medicine; ATTEND Internal Medicine
DX: G43.109 Migraine with aura, not intractable, without status migrainosus (principal); G45.9 Transient cerebral ischemic attack, unspecified; H53.122 Transient visual loss, left eye; E83.51 Hypocalcemia; E89.0 Postprocedural hypothyroidism; D72.829 Elevated white blood cell count, unspecified; T38.0X5A Adverse effect of glucocorticoids and synthetic analogues, initial encounter; F43.10 Post-traumatic stress disorder, unspecified; E66.9 Obesity, unspecified; Z68.25 Body mass index [BMI] 25.0-25.9, adult; M19.90 Unspecified osteoarthritis, unspecified site; Z91.030 Bee allergy status; Z91.041 Radiographic dye allergy status; Z85.850 Personal history of malignant neoplasm of thyroid; Z87.820 Personal history of traumatic brain injury; Z82.49 Family history of ischemic heart disease and other diseases of the circulatory system; Z79.899 Other long term (current) drug therapy
CPT/HCPCS: 99285 ×2; 96374 ×2; 96375 ×3; 96361 ×6; 36415; 94760; 95819; 93306; 92523; 80061; 80053 ×2; 85652; 82550; 82553; 83735 ×2; 84100; 84484; 85025 ×2; 85027; 85610; 85730; 86140; 83090; 93880; 70496; 70450; 70498; 70544; 70551; G0378 ×3; J1200; J2930; Q9967; 96366

== ENCOUNTER → 2017-07-22 | Day surgery (SDC) | payer OTHER ==
[2017-07-17 16:10] VITALS: BMI 27.6
[~2017-07-22] MED LIST: IV FLUID CONTINUATION 1,000 ML IV ONE; LACTATED RINGERS 1,000 ML IV ONE; LACTATED RINGERS 1,000 ML IV SCH; LIDOCAINE 1% 20 ML VIAL (10MG/ML) FOR IV START INTRADERMA ONE
[2017-07-22 07:40] VITALS: TEMP 97.9
[2017-07-22 07:49] LABS: Glucose,Whole Blood 94 mg/dL (75-99)
[2017-07-22 08:33] VITALS: RESP 18
[2017-07-22 08:56] VITALS: BP 152/98; PULSE 61
--- NOTE | 2017-07-22 09:11 | P.PCN ---
Date of Procedure: 07/22/17 Surgeon: Morris Ceballos Pathology: none sent Condition: stable Disposition: PACU Description of Procedure: PREOPERATIVE DIAGNOSIS: 1) Lumbar post laminectomy syndrome; 2) knee OA POSTOPERATIVE DIAGNOSIS: 1) Lumbar post laminectomy syndrome; 2) knee OA PROCEDURE: 1. Caudal epidural steroid injection under fluoroscopic guidance. 2. Caudal epidurogram. 3. Right knee injection with fluoroscopy ANESTHESIA: Local with 1% lidocaine; IV sedation with Versed/fentanyl EBL: None. PROCEDURE INDICATION: This is a patient with postlaminectomy syndrome and knee arthritis with uncontrolled pain who presents for caudal ALL and right knee injection today. No use of blood thinners. PROCEDURE DESCRIPTION: The patient was seen and identified in the preoperative area. Risks, benefits, complications, and alternatives were discussed with the patient including but not limited to bleeding, infection, nerve damage, incomplete pain relief, and allergic reactions to medications. The patient agreed to proceed with the procedure and signed the consent. IV was started, and vital signs were stable. Patient was taken to the OR and time out was completed to verify correct procedure, laterality, and allergies to medications. The patient was placed in the supine position on the procedure table and right knee was prepped and draped in the usual sterile fashion. The medial joint space between the patella and tibia was identified by fluoroscopy. Block solution was prepared with 40 mg of Kenalog in 7 ml of 0.5% bupivacaine preservative-free. After localization with 1% lidocaine, a 22-gauge 3.5-inch needle was advanced through the aforementioned site into the intraarticular space, and after negative aspiration , all 8 mL of block solution was injected. Needle was withdrawn intact, skin was cleansed, and bandage was applied. The patient was then placed in the prone position on procedure table and a pillow was placed under the abdomen to reduce lumbar lordosis. The lumbosacral area was prepped and draped in the usual sterile fashion. Vital signs were closely monitored during the procedure. Using lateral fluoroscopy the anterior-posterior plates of the sacrum were identified and the skin and deeper tissues corresponding into sacrococcygeal ligament were anesthetized using approximately 3 mL of 1% lidocaine. Then under fluoroscopy, a 3-1/2-inch 20-gauge Tuohy epidural needle/22-guage 3-1/2 inch spinal needle was guided through the sacrococcygeal ligament, and into the epidural space. After negative aspiration, 1 mL of Isovue 200 contrast dye was injected with excellent epidurogram. Again after negative aspiration for CSF, blood, and with no paresthesias, a solution containing Depo Medrol 40 mg, 2ml of 1% preservative free lidocaine with 7 ml of preservative free normal saline ( total of 10 ml) solution was injected with washout of epidurogram. Needle was withdrawn intact. Skin was cleansed, and bandage was applied. COMPLICATIONS: None. COMMENTS: DISPOSITION / PLANS: The patient was placed in a supine position and transferred to the recovery area in a stable condition for observation and was discharged from the recovery room after meeting discharge criteria. Home discharge instructions given to the patient by the staff. The patient was reexamined prior to discharge. The patient will schedule a follow up in clinic in 4-6 weeks to discuss efficacy.
--- NOTE | 2017-07-22 09:35 | FL ---
EXAMINATION TYPE: FL guided pain mgmt statistic DATE OF EXAM: 07/22/2017 FLUOROSCOPY Fluoroscopy time of 16 seconds was used during caudal epidural steroid injection as well as right kne e injection. 2 image/s document/s the procedure.
== END ==
LOC: ORPAIN 07:18
PROVIDERS: ATTEND Anesthesiology
DX: M96.1 Postlaminectomy syndrome, not elsewhere classified (principal); M17.11 Unilateral primary osteoarthritis, right knee; I10 Essential (primary) hypertension; F32.9 Major depressive disorder, single episode, unspecified; Z88.8 Allergy status to other drugs, medicaments and biological substances; Z91.030 Bee allergy status; Z91.041 Radiographic dye allergy status
CPT/HCPCS: 20610; 62323; J2250; J1030; J3301; J3010; 99152

== ENCOUNTER → 2017-08-12 | Outpatient (CLI) | payer OTHER ==
[2017-08-12 14:12] VITALS: BP 143/96; PULSE 76; RESP 16
--- NOTE | 2017-08-12 14:24 | P.PN ---
Progress Note - Text Progress Note Date: 08/12/17 Patient returns for followup for chronic back and right knee pain. Patient recently underwent LESI + R knee injection, which provided some relief for interval since procedure. Patient continues on medications for pain from [facility] with some relief. Patient denies adverse drug effects from medications. Today , pt denies new-onset weakness, bowel/bladder incontinence, or any other signs or symptoms of cauda equina syndrome. There are no signs of acute intoxication, and no indications of medication diversion or overuse. In addition to above, 13-point review of systems is also negative for chest pain , shortness of breath, changes in vision, changes in hearing, new onset weakness , abdominal pain, diarrhea, extreme fatigue, malaise, fever, skin changes, homicidal or suicidal ideation, or bowel or bladder incontinence. Vital Signs: Reviewed in EMR Gen: WDWN, AAOx3, NAD HEENT: NCAT, EOMI, hearing grossly normal Pulm: resp unlabored Abd: soft, NT, ND Neck: supple, trachea midline ROM in flexion lumbar spine: reduced ROM in extension lumbar spine: reduced Lumbar paravertebral tenderness: + Facet loading: + bilateral SI joint tenderness: + R side Herbert's test: neg Straight leg raise: + RLE at 10 degrees Imaging: Reviewed in EMR Assessment: 1. lumbar radiculitis 2. knee OA 3. chronic pain syndrome Plan: 1. Explanation: Opioid and psychological risk scores were reviewed. Diagnoses , prognoses, and multiple treatment options including but not limited to physical therapy, interventional therapies, adjuvant medical therapies, narcotic medication therapies, and surgery were discussed with the patient and all questions were answered to the patient's satisfaction. 2. Opioid agreement: no opioids prescribed today 3. Counseling: The patient was counseled extensively on BODY MASS INDEX, EXERCISE. Specifically, the patient was instructed regarding the importance of weight control, and exercise in the context of both chronic pain and overall health. 4. Procedures: repeat LESI + R knee injection 5. Consultations: None 6. Investigations: MAPS queried and appropriate 7. Medications: none prescribed 8. Morphine equivalents per day prescribed: zero 9. Disposition: f/u for procedure as scheduled. TENS unit prescribed. PQRS measures: 1-Patient's medications are documented in the chart. 2-Tobacco use is negative 3-Patient has not had a pneumococcal vaccine. 4-Advanced care planning discussed, patient unable to give. 5-Opioid contract NOT signed with the patient. 6-Pain positive, follow-up visit or procedure scheduled 7-Patient's blood pressure measured and documented, and patient will follow up with the primary care due to hypertension. 8-Patient's weight was measured, and body mass index ABOVE the normal limits, and counseling was done. Patient instructed to follow up with PCP. 9-Patient WAS NOT identified as an unhealthy alcohol user.
== END | disposition home or self-care (01) ==
LOC: PNWHC3 13:33
PROVIDERS: ATTEND Anesthesiology
DX: G89.4 Chronic pain syndrome (principal); M25.561 Pain in right knee; M54.9 Dorsalgia, unspecified; M54.16 Radiculopathy, lumbar region; M17.9 Osteoarthritis of knee, unspecified; Z79.891 Long term (current) use of opiate analgesic
CPT/HCPCS: 99211

== ENCOUNTER 2017-08-19 07:33 | Day surgery (SDC) | payer OTHER ==
[2017-08-14 16:17] VITALS: BMI 27.1
[2017-08-19 08:00] VITALS: RESP 16; TEMP 97.7
[2017-08-19] MEDS ORDERED: LACTATED RINGERS 1,000 ML IV ONE (08:03)
[2017-08-19] MEDS ORDERED: LIDOCAINE 1% 20 ML VIAL (10MG/ML) FOR IV START INTRADERMA ONE (08:04)
[2017-08-19 08:45] VITALS: PULSE 68
[2017-08-19] MEDS ORDERED: IV FLUID CONTINUATION 1,000 ML IV ONE (08:47)
[2017-08-19 08:56] VITALS: BP 126/80
--- NOTE | 2017-08-19 09:22 | P.PCN ---
Date of Procedure: 08/19/17 Surgeon: Morris Ceballos Pathology: none sent Condition: stable Disposition: PACU Description of Procedure: PREOPERATIVE DIAGNOSIS: 1) Lumbar post laminectomy syndrome; 2) knee OA POSTOPERATIVE DIAGNOSIS: 1) Lumbar post laminectomy syndrome; 2) knee OA PROCEDURE: 1. Caudal epidural steroid injection under fluoroscopic guidance. 2. Right knee injection with fluoroscopy ANESTHESIA: Local with 1% lidocaine; IV sedation with Versed/fentanyl EBL: None. PROCEDURE INDICATION: This is a patient with postlaminectomy syndrome and knee arthritis with uncontrolled pain who presents for caudal ALL and right knee injection today after good relief from first procedure done in July. No use of blood thinners. PROCEDURE DESCRIPTION: The patient was seen and identified in the preoperative area. Risks, benefits, complications, and alternatives were discussed with the patient including but not limited to bleeding, infection, nerve damage, incomplete pain relief, and allergic reactions to medications. The patient agreed to proceed with the procedure and signed the consent. IV was started, and vital signs were stable. Patient was taken to the OR and time out was completed to verify correct procedure, laterality, and allergies to medications. The patient was placed in the supine position on the procedure table and right knee was prepped and draped in the usual sterile fashion. The medial joint space between the patella and tibia was identified by fluoroscopy. Block solution was prepared with 40 mg of Kenalog in 7 ml of 0.5% ropivacaine preservative-free. After localization with 1% lidocaine, a 22-gauge 3.5-inch needle was advanced through the aforementioned site into the intraarticular space, and after negative aspiration , all 8 mL of block solution was injected. Needle was withdrawn intact, skin was cleansed, and bandage was applied. The patient was then placed in the prone position on procedure table and a pillow was placed under the abdomen to reduce lumbar lordosis. The lumbosacral area was prepped and draped in the usual sterile fashion. Vital signs were closely monitored during the procedure. Using lateral fluoroscopy the anterior-posterior plates of the sacrum were identified and the skin and deeper tissues corresponding into sacrococcygeal ligament were anesthetized using approximately 3 mL of 1% lidocaine. Then under fluoroscopy, a 3-1/2-inch 18-gauge Tuohy epidural needle was guided through the sacrococcygeal ligament, and into the epidural space. Again after negative aspiration for CSF, blood, and with no paresthesias, a solution containing Depo Medrol 40 mg, 2ml of 1% preservative free lidocaine with 7 ml of preservative free normal saline (total of 10 ml) solution was injected with washout of epidurogram. Needle was withdrawn intact. Skin was cleansed, and bandage was applied. COMPLICATIONS: None. COMMENTS: DISPOSITION / PLANS: The patient was placed in a supine position and transferred to the recovery area in a stable condition for observation and was discharged from the recovery room after meeting discharge criteria. Home discharge instructions given to the patient by the staff. The patient was reexamined prior to discharge and there were no issues. The patient will schedule a follow up in clinic in 4-6 weeks to discuss efficacy, as he has been taking oral steroids for the last three months.
--- NOTE | 2017-08-19 09:25 | FL ---
EXAMINATION TYPE: FL guided pain mgmt statistic DATE OF EXAM: 08/19/2017 COMPARISON: NONE HISTORY: Right knee injection and caudal injection. TECHNIQUE: Fluoroscopy. FINDINGS/IMPRESSION: Fluoroscopic guidance was provided during procedure performed by Dr. Ceballos. A total of 9 seconds of fluoroscopic time was utilized during the procedure and 2 spot images was acqui red during a right knee and caudal injection.
[2017-08-19] MEDS ORDERED: LACTATED RINGERS 1,000 ML IV SCH (09:30)
== END 2017-08-19 09:14 | disposition home or self-care (01) ==
LOC: ORPAIN 07:33
PROVIDERS: ATTEND Anesthesiology
DX: G89.4 Chronic pain syndrome (principal); M96.1 Postlaminectomy syndrome, not elsewhere classified; M17.11 Unilateral primary osteoarthritis, right knee; Z91.041 Radiographic dye allergy status; Z88.8 Allergy status to other drugs, medicaments and biological substances; Z79.52 Long term (current) use of systemic steroids
CPT/HCPCS: 62323; 20610; J2250; J1030; J3301; J3010; 99152

== ENCOUNTER → 2017-09-04 | Outpatient (CLI) | payer OTHER ==
[2017-09-04 13:08] VITALS: BP 126/87; PULSE 79; RESP 16
--- NOTE | 2017-09-04 13:36 | P.PN ---
Subjective Progress Note Date: 09/04/17 Principal diagnosis: Neck pain This is a 52-year-old with history of widespread body pain and swelling all over the body that has resolved. The patient states that he has a mysterious autoimmune disease. He had an injection in the right knee joints and the caudal epidural steroid injection by our clinic previously which helped his pain tremendously as she states. Today he is here for neck pain and he states that he has multiple ruptured disc in his cervical spine. I do not have any access to his cervical spine MRI. His pain does not radiate down his arms. He occasionally gets numbness and tingling in both hands but he denies any weakness in the upper or lower extremities or any bowel or bladder dysfunction. Objective - Vital Signs Vital signs: Vital Signs Temp Pulse 79 09/04/17 12:57 Resp 16 09/04/17 12:57 BP 126/87 09/04/17 12:57 Pulse Ox 97 09/04/17 12:57 Intake & Output 09/03/17 09/04/17 09/04/17 18:59 06:59 18:59 Weight 91.626 kg - Constitutional General appearance: Present: average body habitus - EENT Eyes: Present: PERRLA - Respiratory Respiratory: bilateral: CTA - Cardiovascular Rhythm: regular Heart sounds: normal: S1, S2 - Neurologic Neurologic: Present: CNII-XII intact - Psychiatric Psychiatric: Present: A&O x's 3, appropriate affect, intact judgment & insight - Additional findings Additional findings: Neuro exam of the upper extremities showed normal muscle strength bilaterally and symmetrically and normal deep tendon reflexes. He has tenderness in the left side of his cervical spine in the paravertebral area. Assessment and Plan Plan: This is a 52-year-old male with axial neck pain and normal neurologic examination the upper extremities. The patient may benefit from getting trigger point injections in the cervical paravertebral area mostly on the left side of the spine. We do not prescribe medications for this patient. The procedure was explained to the patient and he was agreeable to it.
== END | disposition home or self-care (01) ==
LOC: PNWHC3 12:45
PROVIDERS: ATTEND Anesthesiology
DX: M54.2 Cervicalgia (principal)
CPT/HCPCS: 99211

== ENCOUNTER 2017-09-23 07:24 | Day surgery (SDC) | payer OTHER ==
--- NOTE | 2017-09-18 07:57 | P.PCN ---
Date of Procedure: 09/18/17 Procedure(s) Performed: Preoperative diagnoses= 1-myofascial pain syndrome and cervical paravertebral muscles and suprascapular muscles Postoperative diagnoses= same as preoperative diagnosis. Procedure= right-sided trapezius muscle, and right suprascapular muscle steroid injections Anesthesia= moderate sedation with Versed 1 mg and fentanyl 50 micrograms . Estimated blood loss=minimal. Procedure indication= the patient had a history of severe and chronic cervical and upper back pain, diagnosed with a myofascial pain syndrome she is here to have trigger point injections Procedure description= the patient was seen and identified in the preoperative holding area, risks and benefits and alternative of the procedure and possible complications discussed with the patient, and he agreed with the preceding, patient signed the consent, an IV was started, and vital signs were monitored and were stable throughout the procedure, patient was placed in the sitting position or table and the cervical and upper back area was prepped and draped in standard fashion, then after that the right trapezius muscle on the right suprascapular muscle each one of them injected with ropivacaine 0.5% , total of 6 ML of the ropivacaine mixed with 40 mg of Kenalog and 3 ML of the mixture injected at each muscle after negative aspiration and there was no paresthesia during the injection ,Patient tolerated the procedure well without any complication, The patient returned to supine position after the back was cleaned and a Band- Aid applied, the patient transported to recovery room in stable condition and he was monitored for 30 minutes before he was discharged home and then patient was reexamined before going home and patient was discharged in stable condition and patient will follow up with the pain clinic in a few weeks
[2017-09-18 14:58] VITALS: BMI 27.1
[~2017-09-23 07:24] MED LIST changes: -IV FLUID CONTINUATION 1,000 ML IV ONE; -LACTATED RINGERS 1,000 ML IV ONE; -LIDOCAINE 1% 20 ML VIAL (10MG/ML) FOR IV START INTRADERMA ONE
[2017-09-23 08:41] VITALS: TEMP 97.7
[2017-09-23] MEDS ORDERED: LIDOCAINE 1% 20 ML VIAL (10MG/ML) FOR IV START INTRADERMA ONE (09:05)
--- NOTE | 2017-09-23 09:35 | P.PCN ---
Date of Procedure: 09/23/17 Preoperative Diagnosis: Myofascial pain on the left side of the posterior neck Postoperative Diagnosis: Same as above Procedure(s) Performed: Trigger point injection in the left trapezius muscle, left splenius capitis, and left latissimus dorsi Anesthesia: other (IV conscious sedation with 2 mg of Versed and 100 mg of fentanyl) Surgeon: Zonia Tobias Pathology: none sent Condition: stable Disposition: PACU Description of Procedure: The patient was seen in preop holding area consent was obtained then he was brought into the procedure room and placed in the right lateral ventricles position. Skin was prepped with Chloraprep. The trigger points were previously marked at the skin level. I then used 25-gauge 1-1/2 inch needle to go through the skin and into the muscles mentioned above and injected 2 MLS of a mixture solution in each muscle and the solution contains 5 MLS of ropivacaine 0.5% +40 mg of Kenalog. Patient tolerated procedure well. He was taken to PACU in stable condition. We will see him in the office in as follow- up.
[2017-09-23] MEDS ORDERED: IV FLUID CONTINUATION 1,000 ML IV ONE (09:36)
[2017-09-23 09:39] VITALS: RESP 18
[2017-09-23 09:51] VITALS: BP 124/78; PULSE 78
== END 2017-09-23 10:10 | disposition home or self-care (01) ==
LOC: ORPAIN 07:24
PROVIDERS: ATTEND Anesthesiology
DX: M79.1 Myalgia (principal); Z88.8 Allergy status to other drugs, medicaments and biological substances; Z91.030 Bee allergy status; Z91.041 Radiographic dye allergy status
CPT/HCPCS: 20553; J2250; J3301; J3010

== ENCOUNTER → 2017-10-22 | Outpatient (CLI) | payer OTHER ==
[2017-10-22 14:06] VITALS: BP 120/80; PULSE 80; RESP 18; TEMP 98.7
--- NOTE | 2017-10-23 21:02 | P.PAINPG ---
Subjective Progress Note Date: 10/22/17 This is follow-up visit for this patient with a history of severe and chronic low back pain secondary , diagnosed with postlaminectomy pain syndrome, in the past we have done a caudal epidural steroid injections which helped his low back pain significantly, recently he was diagnosed with myofascial pain syndrome and cervical area and we did trigger point injection in the left side cervical paravertebral muscles left latissimus dorsi muscle, left trapezius muscles, he reported a trigger point injection helped his neck pain significantly, and his complaining of recurrence of the pain on the left side cervical area Patients currently on Lyrica 50 mg twice a day and Tylenol 3 twice a day Ant prescription refills from his primary care Patient denies any side effects of the medication, denies excessive drowsiness or sleepiness, denies suicidal ideation, and reports that the current pain medication is helping to control the pain ,and improve activity of daily living , is complaining of some pain and numbness from the wrist area to the inguinal areas on both hands Patient denies any motor or sensory deficit , patient denies any fever or night sweats, denies any change in the bowel movements or urination Physical Examinations : 1-Constitutional : Cooperative , not in acute distress . 2-HEENT : nech ; supple , no Lymphadenopathy , no Thyromegaly , normal thyroid size . eyes : no ptosis , no icterus, no photophobia . ENT : normal of hearing , normal oropharynx , no Thrush . 3- Respiratory : Chest clear to auscultations Bilaterally , no wheezing , no Rhonchi . 4- Cardiovascular : regular rate and rhythem , S1 , S2 , no S3 , no S4. 5- Gastrointestinal : abdomen soft no tenderness , bowel sounds positive all four quadrents , no organomegally . 6- Genitourinary : Defferred . 7- neurologic: Cranial nerve II to XII intact , no focal neurological deffecit . 8- Psychatric: alert , oriented X 3 , appropriate affect , intact judgment and insight . 9- Lymphatic : no Lymphadenopathy . 10- Musculoskeltal : exams of the cervical spine = motor strength normal bilateral upper extremities Positive trigger points in the left side cervical paravertebral muscles and latissimus dorsi muscle and left trapezius muscles exams of the [place] spine =motor strength lower extremities ,thigh and legs .5/5 Assessment and plan = Chronic low back pain secondary to lumbar postlaminectomy pain syndrome, low back pain improved after caudal epidural steroid injection Myofascial pain syndrome cervical paravertebral muscles, patient had excellent pain relief after trigger point injection, and currently is complaining of recurrence of the pain on the left side ,and he would be good candidate to have repeat trigger points in the left side cervical paravertebral muscles. Bilateral wrist and hand pain and numbness could be secondary to carpal tunnel syndrome , patient seen Dr. Melara in the past, and he would like to follow up with him Objective - Vital Signs Vital signs: Vital Signs Temp 98.7 F 10/22/17 13:56 Pulse 80 10/22/17 13:56 Resp 18 10/22/17 13:56 BP 120/80 10/22/17 13:56 Pulse Ox PQRS Measure Charge Sheet Measure #130: Documentation of Current Meds in Medical Chart: Patient's medications documented in chart Measure #226: Tobacco Use: Screen & Cessation Intervention: Pt not a tobacco user Measure #111: Pneumonia Vaccination: Pneumococcal vaccine NOT administered or previously given Measure #47: Advance Care Plan: Advance care planning discussed & documented, pt chose/unable to give Measure #412: Opioid Treatment Agreement: No documentation of signed opioid treatment agreement Measure #408: Opioid Therapy Follow-up Evaluation: Patient had NO f/u eval minimum every 3 months during opioid therapy Measure #317: Preventitive Care & Scrn High Bld Press & F/U: Normal blood pressure, f/u not required Measure #128: Body Mass Index (BMI) Screening & Follow-up: BMI documented ABOVE normal parameters - f/u documented Measure #131: Pain Assessment & Follow-up: Pain positive & plan documented, Follow-up scheduled Measure #431: Unhealthy Alcohol Use Preventative Care & Scrn: Patient not identified as an unhealthy alcohol user PQRS Narrative: Smoking Status Never smoker Do You Want the Pneumonia No Vaccine AT THIS TIME? Blood Pressure 120/80 Pain Intensity [Upper Back] 4 Pain Intensity [Neck] 6 Hx Alcohol Use (MH) No Home Medications: Ambulatory Orders Calcitriol [Rocaltrol] 0.25 mcg PO 5XD 12/02/16 Aspirin EC [Ecotrin Low Dose] 81 mg PO DAILY #30 tablet. 12/04/16 Acetaminophen-Codeine 300-30mg [Tylenol #3] 1 tab PO BID PRN 06/16/17 Calcium Citrate/Vitamin D3 [Calcium Cit 315-Vit D3 250mg Tab] 1 each PO 5XD 11/25 DULoxetine HCL [Cymbalta] 20 mg PO DAILY 06/16/17 SUMAtriptan SUCCINATE [Imitrex] 50 mg PO DIRECTED PRN 06/16/17 Thyroid,Pork [[place] Thyroid] 180 mg PO DAILY 06/16/17 Vitamin E (Unknown Dose) 1 cap PO DAILY 06/16/17 predniSONE 5 mg PO DAILY 06/16/17 Pregabalin [Lyrica] 150 mg PO BID 09/23/17 Methotrexate Sodium [Methotrexate] PO WEEKLY 10/22/17 Controlled Substance Measures - Controlled Substance Measures Is patient prescribed a controlled substance at discharge?: No When asked, does pt state using other controlled substances?: No If prescribed controlled substance>3 days was MAPS reviewed?: No If Rx opioid, was Start Talking consent form obtained?: No If opioid is for acute pain is fill amount 7 days or less?: No Was information provided regarding opioid addiction?: No
== END | disposition home or self-care (01) ==
LOC: PNWHC3 13:34
PROVIDERS: ATTEND Specialist
DX: G89.29 Other chronic pain (principal); M96.1 Postlaminectomy syndrome, not elsewhere classified; M79.1 Myalgia; Z79.899 Other long term (current) drug therapy; Z79.82 Long term (current) use of aspirin
CPT/HCPCS: 99211

== ENCOUNTER 2017-11-19 06:34 | Day surgery (SDC) | payer OTHER ==
[2017-11-19 07:02] VITALS: RESP 16; TEMP 97.8
[2017-11-19] MEDS ORDERED: LACTATED RINGERS 1,000 ML IV ONE (07:09)
[2017-11-19] MEDS ORDERED: LIDOCAINE 1% 20 ML VIAL (10MG/ML) FOR IV START INTRADERMA ONE (07:10)
[2017-11-19 07:28] LABS: Glucose,Whole Blood 99 mg/dL (75-99)
[2017-11-19] MEDS ORDERED: IV FLUID CONTINUATION 1,000 ML IV ONE (07:38)
--- NOTE | 2017-11-19 07:39 | P.PCN ---
Date of Procedure: 11/19/17 Surgeon: Jose Souza Description of Procedure: Preoperative Diagnosis: myofascial pain syndrome of left trapezius Postoperative diagnosis: Same Anesthesia: Local Surgeon: Jose Souza MD Indications for procedure: This is a patient with myofascial pain and palpable trigger points in left trapezius muscles. The patient consents for an injection after an explanation of risks including but not limited to bleeding and infection, benefits, and alternatives and the patient has signed a consent form indicating understanding of all of them. Description of procedure: After informed consent was obtained the patient's back was sterilely prepped in the usual fashion with ChloraPrep. 3 trigger points were identified via palpation of the indicated muscles and marked sterilely. Each trigger point was injected with a 25-gauge half inch needle, with 1 mL of solution consisting of 0.5% Marcaine and 40 mg of Kenalog. The patient's vital signs were stable afterwards and the procedure was tolerated well. Patient was discharged home with follow-up instructions. The patient was specifically instructed to follow his blood sugar closely after this procedure as he may experience hyperglycemia from the steroid medication. This can be repeated on an as-needed basis.
[2017-11-19] MEDS ORDERED: LACTATED RINGERS 1,000 ML IV SCH (08:00)
[2017-11-19 08:09] VITALS: BP 127/82; PULSE 58
== END 2017-11-19 08:19 | disposition home or self-care (01) ==
LOC: ORPAIN 06:34
PROVIDERS: ATTEND Anesthesiology
DX: G89.29 Other chronic pain (principal); M79.1 Myalgia; M96.1 Postlaminectomy syndrome, not elsewhere classified; Z79.899 Other long term (current) drug therapy; Z79.82 Long term (current) use of aspirin; Z79.890 Hormone replacement therapy; Z79.52 Long term (current) use of systemic steroids; Z88.8 Allergy status to other drugs, medicaments and biological substances; Z91.041 Radiographic dye allergy status
CPT/HCPCS: 20552; J3301

== ENCOUNTER → 2018-01-07 | Day surgery (SDC) | payer OTHER ==
[2018-01-05 16:06] VITALS: BMI 26.0
[2018-01-07 07:00] VITALS: RESP 16; TEMP 98.4
--- NOTE | 2018-01-07 07:31 | P.PCN ---
Date of Procedure: 01/07/18 Surgeon: Zonia Tobias Pathology: none sent Condition: stable Disposition: PACU Description of Procedure: Preoperative Diagnosis: myofascial pain syndrome of left trapezius, and left cervical paravertebral musculature Postoperative diagnosis: Same Anesthesia: Local Surgeon: Zonia Tobias MD Indications for procedure: This is a patient with myofascial pain and palpable trigger points in left trapezius muscles, and left cervical paravertebral musculature. The patient consents for an injection after an explanation of risks including but not limited to bleeding and infection, benefits, and alternatives and the patient has signed a consent form indicating understanding of all of them. Description of procedure: After informed consent was obtained the patient's back was sterilely prepped in the usual fashion with ChloraPrep. 3 trigger points were identified via palpation of the indicated muscles and marked sterilely. Each trigger point was injected with a 25-gauge half inch needle, with 1 mL of solution consisting of 0.5% Marcaine and 40 mg of Kenalog. The patient's vital signs were stable afterwards and the procedure was tolerated well. A total of 30 mg of Kenalog were given. Patient was discharged home with follow-up instructions. The patient was specifically instructed to follow his blood sugar closely after this procedure as he may experience hyperglycemia from the steroid medication. This can be repeated on an as-needed basis.
[2018-01-07 08:07] VITALS: BP 133/99; PULSE 110
== END | disposition home or self-care (01) ==
LOC: ORPAIN 06:36
PROVIDERS: ATTEND Anesthesiology
DX: M79.18 Myalgia, other site (principal); Z88.8 Allergy status to other drugs, medicaments and biological substances; Z91.041 Radiographic dye allergy status
CPT/HCPCS: 20552; J3301

== ENCOUNTER → 2018-01-26 | Outpatient (CLI) | payer OTHER ==
[2018-01-26 12:58] VITALS: BP 128/87; PULSE 83; RESP 16
--- NOTE | 2018-01-26 14:17 | P.PN ---
Subjective Progress Note Date: 01/26/18 Principal diagnosis: Polyarthritis Kathy presents today for follow-up. He continues to complain of polyarthralgia pain in his hands and his knees. He reports that his right knee is starting to bother him again. He's had a knee injection there previously which significantly improved his pain. 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 He reports that his hands continue to bother him and he continues to participate in occupational therapy but he feels that over the past 1 or 2 months has not improved significantly. To refresh your all of this arthritic pain began after he started Synthroid about 12 years ago and significantly improve after stopping the Synthroid and switching to thyroid [place]. At this point he continues to work with his doctors but feels that [facility] not [facility] and is not coordinated very well. He is inquiring about some type of injections for his hands but is unsure if there is anything that can help all of his hand symptoms Objective - Vital Signs Vital signs: Vital Signs Temp Pulse 83 01/26/18 12:52 Resp 16 01/26/18 12:52 BP 128/87 01/26/18 12:52 Pulse Ox 99 01/26/18 12:52 Intake & Output 01/25/18 01/26/18 01/26/18 18:59 06:59 18:59 Weight 88.451 kg - Exam General: Awake and alert oriented 3 no distress Respiratory exam: No audible wheezing no accessory muscle usage Cardiovascular exam: regular rate, palpable bilateral pulses, no lower extremity edema Abdominal exam: No distention nontender to palpation Cervical spine: Normal alignment, Spurling's negative, facet loading negative Lumbar spine: Loss of lumbar lordosis, normal alignment, non-tender to palpation over bilateral paraspinal muscles, facet loading is positive negative Straight leg raise is negative. Sacroiliac joints: Nontender to palpation, ILAN is negative, [place] negative Right knee: Nontender to palpation no obvious swelling, Moura cysts palpable in the medial aspect of the posterior knee. There is pain with internal and external rotation to knee joint. Neuro exam: Normal sensation in bilateral upper extremities, deep tendon reflexes are 2+ bilateral upper extremities. Normal sensation in bilateral lower extremities. Deep tendon reflexes are 2+ in lower extremities Psych exam: Cooperative, appropriate mood Assessment and Plan Assessment: Knee osteoarthritis Polyarthralgia Plan: Plan is to perform a right knee steroid injection under fluoroscopy. I will also prescribe the patient biomed cream for his hands to see if the office of any improvement in his symptoms. Patient continues take prednisone 5 mg daily and is trying to get off of the medications so as to looking for other options to stop the prednisone and this but we will try the biomed cream at this time Time with Patient: Less than 30
== END | disposition home or self-care (01) ==
LOC: PNWHC3 12:19
PROVIDERS: ATTEND Hospitalist
DX: M17.10 Unilateral primary osteoarthritis, unspecified knee (principal); M71.20 Synovial cyst of popliteal space [Baker], unspecified knee; M25.542 Pain in joints of left hand; M25.541 Pain in joints of right hand; M25.562 Pain in left knee; M25.561 Pain in right knee; Z79.52 Long term (current) use of systemic steroids
CPT/HCPCS: 99211

== ENCOUNTER 2018-02-01 09:47 | Emergency (ER) | payer OTHER ==
[2018-02-01 09:56] VITALS: BP 126/82; PULSE 80; RESP 16; TEMP 97.8
[2018-02-01] MEDS ORDERED: LIDOCAINE 1% INJ 10MG/ML (20 ML MDV) SQ STA (10:04)
[2018-02-01] MEDS ORDERED: KETOROLAC 60 MG/2 ML VIAL IM STA (10:29)
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
--- NOTE | 2018-02-01 10:44 | XR ---
EXAMINATION TYPE: XR hand complete LT DATE OF EXAM: 02/01/2018 CLINICAL HISTORY: pain TECHNIQUE: Frontal, lateral and oblique images of the left hand are obtained. COMPARISON: None. FINDINGS: There is no acute fracture/dislocation evident. The joint spaces appear within normal limi ts. Subcutaneous air throughout the fourth digit compatible with laceration. No foreign body seen. IMPRESSION: There is no acute fracture or dislocation. ICD 10 NO FRACTURE, INITIAL EVALUATION
[2018-02-01] MEDS ORDERED: ceFAZolin 1,000 MG VIAL IM STA (12:05)
== END 2018-02-01 13:41 | disposition home or self-care (01) ==
LOC: EC 09:47
DX: S61.215A Laceration without foreign body of left ring finger without damage to nail, initial encounter (principal); E07.9 Disorder of thyroid, unspecified; Z85.850 Personal history of malignant neoplasm of thyroid; Z90.89 Acquired absence of other organs; Z79.52 Long term (current) use of systemic steroids; Z79.899 Other long term (current) drug therapy; Z88.8 Allergy status to other drugs, medicaments and biological substances; Z91.041 Radiographic dye allergy status; W29.8XXA Contact with other powered hand tools and household machinery, initial encounter; Y92.009 Unspecified place in unspecified non-institutional (private) residence as the place of occurrence of the external cause; Y93.89 Activity, other specified
CPT/HCPCS: 73130; 99283; 12001; 96372 ×2; J0690; J2001; J1885

== ENCOUNTER 2018-02-16 06:10 | Day surgery (SDC) | payer OTHER ==
[2018-02-12 15:39] VITALS: BMI 27.1
[2018-02-16] MEDS ORDERED: LACTATED RINGERS 1,000 ML IV ONE (06:40)
[2018-02-16] MEDS ORDERED: LIDOCAINE 1% 20 ML VIAL (10MG/ML) FOR IV START INTRADERMA ONE (06:40)
[2018-02-16 06:48] VITALS: RESP 16; TEMP 98.2
[2018-02-16 06:48] LABS: Glucose,Whole Blood 95 mg/dL (75-99)
[2018-02-16] MEDS ORDERED: SODIUM CHLORIDE 0.9% 500 ML 500 ML IV SCH (07:00)
[2018-02-16] MEDS ORDERED: IV FLUID CONTINUATION 1,000 ML IV ONE (07:28)
--- NOTE | 2018-02-16 07:30 | P.PCN ---
Date of Procedure: 02/16/18 Procedure(s) Performed: Procedure= Right Knee joints steroid injection under fluoroscopy guidance Preoperative diagnosis= 1-right knee arthralgia Postoperative diagnosis=1-right knee arthralgia Complication = none Condition= stable Anesthesia= moderate sedation with intravenous Versed 2 mg , and fentanyl 50 micrograms . Indication for the procedure= patient complaining of Right pain,failed conservative treatment, for this reason he was good candidate for right knee joint steroid injection. Description of the procedure= procedure risk and benefits discussed with the patient, including but not limited, risk of infection and bleeding, and ALLERGIC reaction to the medication and not complete pain relief and patient agreed with the preceding patient taken to the operating room, placed in supine position or standard monitors applied to the patient then after induction of anesthesia back prepped with chlorhexidine 3 times , Then under strict sterile technique, first I did the right knee joint the which was identified under fluoroscopy guidance been local infiltration of the skin and subcu interstitial with lidocaine 1% then 22-gauge Quincke Needle advanced slowly under fluoroscopy and placed in the right knee joint needle placement confirmed with AP and oblique and lateral view and after appropriate needle placement confirmed and after negative aspiration, or heme , then Ropivacaine 0.5% 5 mL, and 40 mg of Kenalog mixed together and injected in the right knee joint after negative aspiration patient tolerated the procedure well without any complication. He will follow up in clinic in a few weeks
[2018-02-16 07:48] VITALS: BP 142/77; PULSE 73
--- NOTE | 2018-02-16 08:52 | FL ---
Fluoroscopy HISTORY: Pain 5 seconds fluoroscopy time supplied to the referring clinician. 1 intraoperative C-arm images docume nt the procedure. See dictated report from anesthesia.
== END 2018-02-16 08:00 | disposition home or self-care (01) ==
LOC: ORPAIN 06:10
PROVIDERS: ATTEND Specialist
DX: M17.11 Unilateral primary osteoarthritis, right knee (principal); K21.9 Gastro-esophageal reflux disease without esophagitis; E03.9 Hypothyroidism, unspecified; Z88.8 Allergy status to other drugs, medicaments and biological substances; Z91.041 Radiographic dye allergy status
CPT/HCPCS: 20610; J2250; J3301; J3010

== ENCOUNTER → 2018-03-30 | Outpatient (CLI) | payer OTHER ==
[2018-03-30 15:04] VITALS: BP 134/90; PULSE 79; RESP 16
--- NOTE | 2018-03-31 06:46 | P.PN ---
Subjective Progress Note Date: 03/30/18 This is follow-up visit for this patient with a history of severe and chronic low back pain secondary , diagnosed with postlaminectomy pain syndrome, in the past we have done a caudal epidural steroid injections which helped his low back pain significantly, recently he was diagnosed with myofascial pain syndrome and cervical area and we did trigger point injection in the left side cervical paravertebral muscles left latissimus dorsi muscle, left trapezius muscles, he reported a trigger point injection helped his neck pain significantly, and his complaining of recurrence of the pain on the left side cervical area, is complaining of numbness and tingling sensation in the upper extremity Patients currently on Lyrica 50 mg twice a day and Tylenol 3 twice a day [place] prescription refills from his primary care Patient denies any side effects of the medication, denies excessive drowsiness or sleepiness, denies suicidal ideation, and reports that the current pain medication is helping to control the pain ,and improve activity of daily living , is complaining of some pain and numbness from the wrist area to the inguinal areas on both hands Patient denies any motor or sensory deficit , patient denies any fever or night sweats, denies any change in the bowel movements or urination Physical Examinations : 1-Constitutional : Cooperative , not in acute distress . 2-HEENT : nech ; supple , no Lymphadenopathy , no Thyromegaly , normal thyroid size . eyes : no ptosis , no icterus, no photophobia . ENT : normal of hearing , normal oropharynx , no Thrush . 3- Respiratory : Chest clear to auscultations Bilaterally , no wheezing , no Rhonchi . 4- Cardiovascular : regular rate and rhythem , S1 , S2 , no S3 , no S4. 5- Gastrointestinal : abdomen soft no tenderness , bowel sounds positive all four quadrents , no organomegally . 6- Genitourinary : Defferred . 7- neurologic: Cranial nerve II to XII intact , no focal neurological deffecit . 8- Psychatric: alert , oriented X 3 , appropriate affect , intact judgment and insight . 9- Lymphatic : no Lymphadenopathy . 10- Musculoskeltal : exams of the cervical spine = motor strength normal bilateral upper extremities Positive trigger points in the left side cervical paravertebral muscles and latissimus dorsi muscle and left trapezius muscles exams of the Lumber spine =motor strength lower extremities ,thigh and legs .5/5 Assessment and plan = Chronic low back pain secondary to lumbar postlaminectomy pain syndrome, low back pain improved after caudal epidural steroid injection side ,and he would be good candidate to have repeat trigger points in the left side cervical paravertebral muscles. This is follow-up visit for this patient with a history of severe and chronic low back pain secondary , diagnosed with postlaminectomy pain syndrome, in the past we have done a caudal epidural steroid injections which helped his low back pain significantly, recently he was diagnosed with myofascial pain syndrome and cervical area and we did trigger point injection in the left side cervical paravertebral muscles left latissimus dorsi muscle, left trapezius muscles, he reported a trigger point injection helped his neck pain significantly, and his complaining of recurrence of the pain on the left side cervical area Patients currently on Lyrica 50 mg twice a day and Tylenol 3 twice a day [place] prescription refills from his primary care Patient denies any side effects of the medication, denies excessive drowsiness or sleepiness, denies suicidal ideation, and reports that the current pain medication is helping to control the pain ,and improve activity of daily living , is complaining of some pain and numbness from the wrist area to the inguinal areas on both hands Patient denies any motor or sensory deficit , patient denies any fever or night sweats, denies any change in the bowel movements or urination Physical Examinations : 1-Constitutional : Cooperative , not in acute distress . 2-HEENT : nech ; supple , no Lymphadenopathy , no Thyromegaly , normal thyroid size . eyes : no ptosis , no icterus, no photophobia . ENT : normal of hearing , normal oropharynx , no Thrush . 3- Respiratory : Chest clear to auscultations Bilaterally , no wheezing , no Rhonchi . 4- Cardiovascular : regular rate and rhythem , S1 , S2 , no S3 , no S4. 5- Gastrointestinal : abdomen soft no tenderness , bowel sounds positive all four quadrents , no organomegally . 6- Genitourinary : Defferred . 7- neurologic: Cranial nerve II to XII intact , no focal neurological deffecit . 8- Psychatric: alert , oriented X 3 , appropriate affect , intact judgment and insight . 9- Lymphatic : no Lymphadenopathy . 10- Musculoskeltal : exams of the cervical spine = motor strength normal bilateral upper extremities Positive trigger points in the left side cervical paravertebral muscles and latissimus dorsi muscle and left trapezius muscles exams of the Lumber spine =motor strength lower extremities ,thigh and legs .07/12 Assessment and plan = Cervical radiculopathy= we will order MRI of the cervical spine to evaluate if there is any herniated disc in the cervical area Chronic low back pain secondary to lumbar postlaminectomy pain syndrome, low back pain improved after caudal epidural steroid injection. Patient will follow up with the pain clinic in 3 weeks hopefully by that time he will have the results of the MRI of the cervical spine PQRS Measure Charge Sheet Measure #130: Documentation of Current Meds in Medical Chart: Patient's medications documented in chart Measure #226: Tobacco Use: Screen & Cessation Intervention: Pt not a tobacco user Measure #111: Pneumonia Vaccination: Pneumococcal vaccine NOT administered or previously given Measure #47: Advance Care Plan: Advance care planning discussed & documented, pt chose/unable to give Measure #412: Opioid Treatment Agreement: No documentation of signed opioid treatment agreement Measure #408: Opioid Therapy Follow-up Evaluation: Patient had NO f/u eval minimum every 3 months during opioid therapy Measure #317: Preventitive Care & Scrn High Bld Press & F/U: Normal blood pressure, f/u not required Measure #128: Body Mass Index (BMI) Screening & Follow-up: BMI documented ABOVE normal parameters - f/u documented Measure #131: Pain Assessment & Follow-up: Pain positive & plan documented, Follow-up scheduled Measure #431: Unhealthy Alcohol Use Preventative Care & Scrn: Patient not identified as an unhealthy alcohol user PQRS Narrative: - Controlled Substance Measures Is patient prescribed a controlled substance at discharge?: No When asked, does pt state using other controlled substances?: No If prescribed controlled substance>3 days was MAPS reviewed?: No If Rx opioid, was Start Talking consent form obtained?: No If opioid is for acute pain is fill amount 7 days or less?: No Was information provided regarding opioid addiction?: No Objective - Vital Signs Vital signs: Vital Signs Temp Pulse 79 03/30/18 14:59 Resp 16 03/30/18 14:59 BP 134/90 03/30/18 14:59 Pulse Ox 96 03/30/18 14:59 Intake & Output 03/30/18 03/30/18 03/31/18 06:59 18:59 06:59 Weight 91.626 kg
== END | disposition home or self-care (01) ==
LOC: PNWHC3 14:06
PROVIDERS: ATTEND Specialist
DX: G89.29 Other chronic pain (principal); M54.5 Low back pain; M96.1 Postlaminectomy syndrome, not elsewhere classified; M79.18 Myalgia, other site; M54.12 Radiculopathy, cervical region; Z79.891 Long term (current) use of opiate analgesic
CPT/HCPCS: 99211

== ENCOUNTER → 2018-04-22 | Outpatient (CLI) | payer OTHER ==
[2018-04-22 11:37] VITALS: BP 135/90; PULSE 75; RESP 16; TEMP 98.2
--- NOTE | 2018-04-22 12:16 | P.PN ---
Subjective Progress Note Date: 04/22/18 This is follow-up visit for this patient with a history of severe and chronic low back pain secondary , diagnosed with postlaminectomy pain syndrome, in the past we have done a caudal epidural steroid injections which helped his low back pain significantly, recently he was diagnosed with myofascial pain syndrome and cervical area and we did trigger point injection in the left side cervical paravertebral muscles left latissimus dorsi muscle, left trapezius muscles, he reported a trigger point injection helped his neck pain significantly, and his complaining of recurrence of the pain on the left side cervical area, is complaining of numbness and tingling sensation in the upper extremity Patients currently on Lyrica 150 mg twice a day and Tylenol 3 twice a day ,he is getting prescription refills from his primary care Patient denies any side effects of the medication, denies excessive drowsiness or sleepiness, denies suicidal ideation, and reports that the current pain medication is helping to control the pain ,and improve activity of daily living , is complaining of some pain and numbness from the wrist area to the inguinal areas on both hands Patient denies any motor or sensory deficit , patient denies any fever or night sweats, denies any change in the bowel movements or urination Last visit we ordered a prescription for MRI of the cervical spine to be done at the [facility] and he reported that they've declined, patient had previous computed tomography scan of the cervical spine done in August 2016 which showed patient had C3 through C7 disc space narrowing and multilevel spondylosis Physical Examinations : 1-Constitutional : Cooperative , not in acute distress . 2-HEENT : nech ; supple , no Lymphadenopathy , no Thyromegaly , normal thyroid size . eyes : no ptosis , no icterus, no photophobia . ENT : normal of hearing , normal oropharynx , no Thrush . 3- Respiratory : Chest clear to auscultations Bilaterally , no wheezing , no Rhonchi . 4- Cardiovascular : regular rate and rhythem , S1 , S2 , no S3 , no S4. 5- Gastrointestinal : abdomen soft no tenderness , bowel sounds positive all four quadrents , no organomegally . 6- Genitourinary : Defferred . 7- neurologic: Cranial nerve II to XII intact , no focal neurological deffecit . 8- Psychatric: alert , oriented X 3 , appropriate affect , intact judgment and insight . 9- Lymphatic : no Lymphadenopathy . 10- Musculoskeltal : exams of the cervical spine = motor strength normal bilateral upper extremities Positive trigger points in the left side cervical paravertebral muscles and latissimus dorsi muscle and left trapezius muscles Positive facet loading test cervical area exams of the Lumber spine =motor strength lower extremities ,thigh and legs ./5 Assessment and plan = Chronic low back pain secondary to lumbar postlaminectomy pain syndrome, low back pain improved after caudal epidural steroid injection Chronic neck pain secondary to cervical degenerative disc disease, and cervical spondylosis Patient will be good candidate to have cervical epidural steroid injections, procedure risk and benefits and alternatives discussed with the patient agreed with proceeding PQRS Measure Charge Sheet Measure #130: Documentation of Current Meds in Medical Chart: Patient's medications documented in chart Measure #226: Tobacco Use: Screen & Cessation Intervention: Pt not a tobacco user Measure #111: Pneumonia Vaccination: Pneumococcal vaccine NOT administered or previously given Measure #47: Advance Care Plan: Advance care planning discussed & documented, pt chose/unable to give Measure #412: Opioid Treatment Agreement: No documentation of signed opioid treatment agreement Measure #408: Opioid Therapy Follow-up Evaluation: Patient had NO f/u eval minimum every 3 months during opioid therapy Measure #317: Preventitive Care & Scrn High Bld Press & F/U: Normal blood pressure, f/u not required Measure #128: Body Mass Index (BMI) Screening & Follow-up: BMI documented ABOVE normal parameters - f/u documented Measure #131: Pain Assessment & Follow-up: Pain positive & plan documented, Follow-up scheduled Measure #431: Unhealthy Alcohol Use Preventative Care & Scrn: Patient not identified as an unhealthy alcohol user PQRS Narrative: - Controlled Substance Measures Is patient prescribed a controlled substance at discharge?: No When asked, does pt state using other controlled substances?: No If prescribed controlled substance>3 days was MAPS reviewed?: No If Rx opioid, was Start Talking consent form obtained?: No If opioid is for acute pain is fill amount 7 days or less?: No Was information provided regarding opioid addiction?: No Objective - Vital Signs Vital signs: Vital Signs Temp 98.2 F 04/22/18 11:34 Pulse 75 04/22/18 11:34 Resp 16 04/22/18 11:34 BP 135/90 04/22/18 11:34 Pulse Ox Intake & Output 04/21/18 04/22/18 04/22/18 18:59 06:59 18:59 Weight 92.986 kg
== END | disposition home or self-care (01) ==
LOC: PNWHC3 11:19
PROVIDERS: ATTEND Specialist
DX: G89.29 Other chronic pain (principal); M54.5 Low back pain; M96.1 Postlaminectomy syndrome, not elsewhere classified; M50.30 Other cervical disc degeneration, unspecified cervical region; M47.812 Spondylosis without myelopathy or radiculopathy, cervical region; Z79.899 Other long term (current) drug therapy
CPT/HCPCS: 99211

== ENCOUNTER 2018-05-18 07:56 | Day surgery (SDC) | payer OTHER ==
[2018-05-14 09:00] VITALS: BMI 27.8
[~2018-05-18 07:56] MED LIST changes: -LACTATED RINGERS 1,000 ML IV SCH; +SODIUM CHLORIDE 0.9% 500 ML 500 ML IV SCH
[2018-05-18 08:45] VITALS: RESP 16; TEMP 97.6
[2018-05-18] MEDS ORDERED: LACTATED RINGERS 1,000 ML IV ONE (08:45)
[2018-05-18 08:48] LABS: Glucose,Whole Blood 101 mg/dL (75-99)
--- NOTE | 2018-05-18 09:52 | P.PCN ---
Date of Procedure: 05/18/18 Surgeon: Zonia Tobias Pathology: none sent Condition: stable Disposition: PACU Description of Procedure: PROCEDURE 1. Cervical epidural steroid injection under fluoroscopic guidance, C7-T1 left paramedian approach. 2. Cervical epidurogram. : PREOPERATIVE DIAGNOSIS: Cervical DDD ,cervical spondylosis without myelopathy POSTOPERATIVE DIAGNOSIS: : Same as above ANESTHESIA: Local anesthesia with 1% lidocaine and IV moderate conscious sedation with Versed and Fentanyl . EBL: 0 PROCEDURE DESCRIPTION / TECHNIQUE: The patient was seen and identified in the preoperative area. Risks, benefits, complications, including but not limited to infections ,bleeding , allergic reactions to the medications ,and not complete pain relief, and alternatives were discussed with the patient, the patient agreed to proceed with the procedure and signed the consent. Patient was taken to the OR and time out was completed. The patient was placed in the prone position on the procedure table. A pillow was placed under the patients chest to increase the flexion of the cervical spine . The cervical area was prepped and draped in the usual sterile fashion. Vital signs were closely monitored during the procedure. Conscious sedation was used during the procedure to decrease patients anxiety. Using anterior-posterior fluoroscopy, the C7-T1 interlaminar space was identified and the skin over this site was marked and then infiltrated with 1% lidocaine subcutaneously. Subsequently, a 20-gauge 3-1/2-inch Tuohy epidural needle was inserted and advanced toward the epidural space by means of loss of resistance to air technique and guided by AP and lateral fluoroscopy. The needle tip contacted the lamina of T1 vertebra first, then it was walked off bone and into the epidural space using the loss of to air and fluoroscopic guidance to identify the epidural space. The correct needle position in the epidural space was verified with the injection of 1 mL of the water soluble contrast dye Isovue and observing an excellent epidurogram with the epidural spread of the dye, after negative aspiration for blood and CSF and in the absence of paresthesias. Again after negative aspiration, a 5 ml mixture containing 10 mg of Decadron and 4 ml of preservative free Normal Saline solution was injected and a washout of epidurogram was seen. Needle was withdrawn intact, skin was cleansed, and bandages were applied.
[2018-05-18] MEDS ORDERED: IV FLUID CONTINUATION 1,000 ML IV ONE (09:57)
--- NOTE | 2018-05-18 10:16 | FL ---
EXAMINATION TYPE: FL guided pain mgmt statistic DATE OF EXAM: 05/18/2018 HISTORY: Pain 5 sec fl time used 1 image scanned into pacs
[2018-05-18 10:25] VITALS: BP 134/86; PULSE 64
== END 2018-05-18 10:37 | disposition home or self-care (01) ==
LOC: ORPAIN 07:56
PROVIDERS: ATTEND Anesthesiology
DX: G89.29 Other chronic pain (principal); M47.812 Spondylosis without myelopathy or radiculopathy, cervical region; M50.30 Other cervical disc degeneration, unspecified cervical region; Z91.041 Radiographic dye allergy status; Z88.8 Allergy status to other drugs, medicaments and biological substances; Z79.899 Other long term (current) drug therapy; Z79.891 Long term (current) use of opiate analgesic
CPT/HCPCS: 62321; J2250; J1100; J3010

== ENCOUNTER 2018-06-01 06:04 | Day surgery (SDC) | payer OTHER ==
[2018-05-26 11:08] VITALS: BMI 27.8
[2018-06-01 06:34] VITALS: RESP 16; TEMP 98.1
[2018-06-01 06:43] LABS: Glucose,Whole Blood 110 mg/dL (75-99)
[2018-06-01] MEDS ORDERED: LIDOCAINE 1% 20 ML VIAL (10MG/ML) FOR IV START INTRADERMA ONE (06:44)
[2018-06-01] MEDS ORDERED: LACTATED RINGERS 1,000 ML IV ONE (06:44)
[2018-06-01] MEDS ORDERED: SODIUM CHLORIDE 0.9% 500 ML 500 ML IV SCH (06:45)
--- NOTE | 2018-06-01 07:23 | P.PCN ---
Date of Procedure: 06/01/18 Procedure(s) Performed: . PROCEDURE 1. Cervical epidural steroid injection under fluoroscopic guidance, C7-T1 PREOPERATIVE DIAGNOSIS: 1- Cervical Degenerative Disc Diseases. 2-cervical spondylosis with cervical Facet arthropathy without myelopathy POSTOPERATIVE DIAGNOSIS: : 1- Cervical Degenerative Disc Diseases. 2-cervical spondylosis with cervical Facet arthropathy without myelopathy ANESTHESIA: Local anesthesia with lidocaine 1 % , and moderate sedation, with Versed 2 mg and Fentanyl 50 mcg. EBL 0 PROCEDURE INDICATION: The patient with neck pain and radiculitis unresponsive to conservative treatment consents for procedure. PROCEDURE DESCRIPTION / TECHNIQUE: The patient was seen and identified in the preoperative area. Risks, benefits, complications, including but not limited to infections ,bleeding , allergic reactions to the medications ,and not complete pain releife, and alternatives were discussed with the patient, the patient agreed to proceed with the procedure and signed the consent. Patient was taken to the OR and time out was completed. The patient was placed in the prone position on the procedure table. A pillow was placed under the patients chest to increase the cervical interlaminar space. The cervical area was prepped and draped in the usual sterile fashion. Vital signs were closely monitored during the procedure. Conscious sedation was used during the procedure to decrease patients anxiety. Using anterior-posterior fluoroscopy, the C7-T1 interlaminar space was identified and the skin over this site was marked and then infiltrated with 1% lidocaine subcutaneously. Subsequently, a 20-gauge 3-1/2-inch Tuohy epidural needle was inserted and advanced toward the epidural space by means of the ``hanging-drop technique and guided by AP and lateral fluoroscopy. after negative aspiration for blood and CSF and in the absence of paresthesias. mixture containing 20 mg Dexamethasone and 2 ml of preservative-free normal saline injected after negative aspiration(IVP dye was not injected because patient has ALLERGY to dye ) . Needle was withdrawn intact, skin was cleansed, and bandages were applied. Complications= none. Disposition= patient was placed in supine position and transferred to the recovery room area in stable condition and there was no evidence of upper or lower extremity motor or sensory deficit after the procedure patient was discharged from recovery room after discharge criteria met and home discharge instructions was given by the staff and patient will follow with the pain clinic in 2-4 weeks
[2018-06-01] MEDS ORDERED: IV FLUID CONTINUATION 1,000 ML IV ONE (07:24)
[2018-06-01 07:55] VITALS: BP 129/88; PULSE 70
--- NOTE | 2018-06-01 08:10 | FL ---
Fluoroscopy INDICATION: Pain FINDINGS: Fluoroscopy time: 3 seconds. Images obtained: 1. IMPRESSIONS: 1. Documentation of fluoroscopy.
== END 2018-06-01 08:02 | disposition home or self-care (01) ==
LOC: ORPAIN 06:04
PROVIDERS: ATTEND Specialist
DX: M50.30 Other cervical disc degeneration, unspecified cervical region (principal); M47.812 Spondylosis without myelopathy or radiculopathy, cervical region; K21.9 Gastro-esophageal reflux disease without esophagitis; Z88.8 Allergy status to other drugs, medicaments and biological substances; Z86.73 Personal history of transient ischemic attack (TIA), and cerebral infarction without residual deficits; Z91.041 Radiographic dye allergy status
CPT/HCPCS: 62321; J2250; J1100; J3010

== ENCOUNTER → 2018-06-18 | Outpatient (CLI) | payer OTHER ==
[2018-06-18 13:33] VITALS: BP 132/90; PULSE 84; RESP 16
--- NOTE | 2018-06-18 13:52 | P.PN ---
Subjective Progress Note Date: 06/18/18 This is follow-up visit for this patient with a history of severe and chronic low back pain secondary , diagnosed with postlaminectomy pain syndrome, lumbar area, And he had severe neck pain diagnosed with cervical spondylosis, and cervical degenerative disc disease, recently we have done cervical epidural steroid injections 2, and he reports his neck pain improved , and he is able to function better than before, and he is currently on Lyrica standard milligrams twice a day and [place] 5/325 twice a day, is getting prescriptions from PCP, he denies any side effect of the medication he denies any excessive drowsiness and sleepiness, he continued to have severe muscle spasm and tenderness in the cervical area ,he is going to start physical therapy for that reason, he denies any motor or sensory deficits Physical Examinations : 1-Constitutional : Cooperative , not in acute distress . 2-HEENT : nech ; supple , no Lymphadenopathy , no Thyromegaly , normal thyroid size . eyes : no ptosis , no icterus, no photophobia . ENT : normal of hearing , normal oropharynx , no Thrush . 3- Respiratory : Chest clear to auscultations Bilaterally , no wheezing , no Rhonchi . 4- Cardiovascular : regular rate and rhythem , S1 , S2 , no S3 , no S4. 5- Gastrointestinal : abdomen soft no tenderness , bowel sounds positive all four quadrents , no organomegally . 6- Genitourinary : Defferred . 7- neurologic: Cranial nerve II to XII intact , no focal neurological deffecit . 8- Psychatric: alert , oriented X 3 , appropriate affect , intact judgment and insight . 9- Lymphatic : no Lymphadenopathy . 10- Musculoskeltal : exams of the cervical spine = motor strength normal bilateral upper extremities Positive trigger points in the left side cervical paravertebral muscles and latissimus dorsi muscle and left trapezius muscles Positive facet loading test cervical area exams of the Lumber spine =motor strength lower extremities ,thigh and legs .5/5 Assessment and plan = Chronic low back pain secondary to lumbar postlaminectomy pain syndrome, low back pain improved after caudal epidural steroid injection Chronic neck pain secondary to cervical degenerative disc disease, and cervical spondylosis , neck pain improved after cervical epidural steroid injections Myofascial pain syndrome and cervical area, patient already scheduled to have physical therapy soon Plan he will follow up with the pain clinic when necessary PQRS Measure Charge Sheet Measure #130: Documentation of Current Meds in Medical Chart: Patient's medications documented in chart Measure #226: Tobacco Use: Screen & Cessation Intervention: Pt not a tobacco user Measure #111: Pneumonia Vaccination: Pneumococcal vaccine NOT administered or previously given Measure #47: Advance Care Plan: Advance care planning discussed & documented, pt chose/unable to give Measure #412: Opioid Treatment Agreement: No documentation of signed opioid treatment agreement Measure #408: Opioid Therapy Follow-up Evaluation: Patient had NO f/u eval minimum every 3 months during opioid therapy Measure #317: Preventitive Care & Scrn High Bld Press & F/U: Normal blood pressure, f/u not required Measure #128: Body Mass Index (BMI) Screening & Follow-up: BMI documented ABOVE normal parameters - f/u documented Measure #131: Pain Assessment & Follow-up: Pain positive & plan documented, Follow-up scheduled Measure #431: Unhealthy Alcohol Use Preventative Care & Scrn: Patient not identified as an unhealthy alcohol user PQRS Narrative: - Controlled Substance Measures Is patient prescribed a controlled substance at discharge?: No When asked, does pt state using other controlled substances?: No If prescribed controlled substance>3 days was MAPS reviewed?: No If Rx opioid, was Start Talking consent form obtained?: No If opioid is for acute pain is fill amount 7 days or less?: No Was information provided regarding opioid addiction?: No Objective - Vital Signs Vital signs: Vital Signs Temp Pulse 84 06/18/18 13:20 Resp 16 06/18/18 13:20 BP 132/90 06/18/18 13:20 Pulse Ox Intake & Output 06/17/18 06/18/18 06/18/18 18:59 06:59 18:59 Weight 92.533 kg
== END | disposition home or self-care (01) ==
LOC: PNWHC3 12:59
PROVIDERS: ATTEND Specialist
DX: G89.29 Other chronic pain (principal); M96.1 Postlaminectomy syndrome, not elsewhere classified; M50.30 Other cervical disc degeneration, unspecified cervical region; M47.812 Spondylosis without myelopathy or radiculopathy, cervical region; M79.18 Myalgia, other site
CPT/HCPCS: 99211

== ENCOUNTER → 2018-10-06 | Outpatient (CLI) | payer OTHER ==
[2018-10-06 13:29] VITALS: BP 159/85; PULSE 87; RESP 16
--- NOTE | 2018-10-06 13:50 | P.PN ---
Subjective Progress Note Date: 10/06/18 This is a 53-year-old with history of chronic neck mid back and lower back pain. The patient had lumbar fusion on the lower back. This pain today is mostly in the neck area which gets worse with neck movement. The pain radiates down to the shoulders however it does not go down his arms. He has positional numbness in his arms as she states. He denies any weakness in the upper or lower extremities. The patient uses [place] from his primary care physician. Today, pt denies new-onset weakness, bowel/bladder incontinence, or any other signs or symptoms of cauda equina syndrome. There are no signs of acute intoxication, and no indications of medication diversion or overuse. In addition to above, 13-point review of systems is also negative for chest pain, shortness of breath, changes in vision, changes in hearing, new onset weakness, abdominal pain, diarrhea, extreme fatigue, malaise, fever, skin changes, homicidal or suicidal ideation, or bowel or bladder incontinence. Vital Signs: Reviewed in EMR Gen: AAOx3, NAD HEENT: PERRLA,hearing grossly normal Pulm: resp unlabored,CTA Heart:S1,S2, No Mur Neck: supple, trachea midline Neuro exam of the upper extremities: Normal muscle strength and deep tendon reflexes Straight leg raising test: Herbert's test: Range of motion of the lumbar spine: Facet loading test: Tenderness in the paravertebral musculature: Positive tenderness in the cervical paravertebral musculature Positive tenderness on the left side of his mid thoracic spine Neuro: CN II-XII grossly intact, Imaging: Reviewed in EMR/chart Assessment: Cervical spondylosis without myelopathy Lumbar postlaminectomy pain syndrome Thoracic myofascial pain Probable arthritis treated with Humira Plan: 1. Explanation: Opioid and psychological risk scores were reviewed. Diagnoses, prognoses, and multiple treatment options including but not limited to physical therapy, interventional therapies, adjuvant medical therapies, narcotic medication therapies, and surgery were discussed with the patient and all questions were answered to the patient's satisfaction. 2. Opioid agreement: Signed with the patient and the patient is warned not to use opioids while driving or before driving and not to combine opioids with benzodiazepines or alcohol. 3. Counseling: The patient was counseled extensively on SMOKING CESSATION, BODY MASS INDEX, EXERCISE. Specifically, the patient was instructed regarding the importance of smoking cessation, obesity, and exercise in the context of both chronic pain and overall health. 4. Procedures: Scheduled for bilateral cervical medial branch diagnostic block under fluoroscopic guidance for levels C4, C5, and C6 and possibly C7 and if this level is clear on x-ray. He also needed trigger point injection in the thoracic paravertebral musculature. 5. Consultations: None 6. Investigations: None 7. Medications: None 8. Disposition: Proceed with the above-mentioned procedure as soon as possible 9. Maps were reviewed and were appropriate. PQRS measures: 1-Patient's medications are documented in the chart. 2-Tobacco use is negative, counseling given 3-Patient has had a pneumococcal vaccine. 4-Advanced care planning discussed, patient unable to give 5-Opioid contract signed with the patient. 6-Pain positive, follow-up visit or procedure scheduled 7-Patient's blood pressure measured and documented above/ normal limits. The patient will follow up with his primary care physician. 8-Patient's weight was measured, and body mass index ABOVE the normal limits, and counseling was done. Patient instructed to follow up with PCP. 9-Patient WAS NOT identified as an unhealthy alcohol user. C Objective - Vital Signs Vital signs: Vital Signs Temp Pulse 87 10/06/18 13:19 Resp 16 10/06/18 13:19 BP 159/85 10/06/18 13:19 Pulse Ox 99 10/06/18 13:19
== END | disposition home or self-care (01) ==
LOC: PNWHC3 13:04
PROVIDERS: ATTEND Anesthesiology
DX: M47.812 Spondylosis without myelopathy or radiculopathy, cervical region (principal); M96.1 Postlaminectomy syndrome, not elsewhere classified; M79.18 Myalgia, other site; Z79.891 Long term (current) use of opiate analgesic
CPT/HCPCS: 99211

== ENCOUNTER 2018-10-13 06:30 | Day surgery (SDC) | payer OTHER ==
[2018-10-12 10:33] VITALS: BMI 25.9
[2018-10-13 06:51] VITALS: RESP 16; TEMP 97.7
[2018-10-13] MEDS ORDERED: LACTATED RINGERS 1,000 ML IV ONE (06:56)
[2018-10-13] MEDS ORDERED: LIDOCAINE 1% 20 ML VIAL (10MG/ML) FOR IV START INTRADERMA ONE (06:57)
[2018-10-13 07:00] LABS: Glucose,Whole Blood 96 mg/dL (75-99)
--- NOTE | 2018-10-13 08:22 | P.PCN ---
Date of Procedure: 10/13/18 Procedure(s) Performed: PREOPERATIVE DIAGNOSIS: Cervical Spondylosis with Facet Arthropathy.without myelopathy POSTOPERATIVE DIAGNOSIS: Cervical Spondylosis Facet Arthropathy. Without myelopathy PROCEDURES: Diagnostic , C4 , C5 , C6 bilateral medial branch blocks, with fluoroscopic guidance ( 3 levels bilateral ) ANESTHESIA: Moderate sedation with Versed and fentanyl EBL: Minimal PROCEDURE INDICATION: The patient with neck pain secondary to cervical arthropathy unresponsive to more conservative treatments. PROCEDURE DESCRIPTION / TECHNIQUE: The patient was seen and identified in the preoperative area. Risks, benefits, complications, and alternatives were discussed with the patient, the patient agreed to proceed with the procedure and signed the consent. IV was started. Vital signs remained stable throughout the procedure. Patient was taken to the OR and time out was completed. The patient was placed in the prone position on the procedure table. A pillow was placed under the patients chest to increase the cervical interlaminar space. The cervical area was prepped and draped in the usual sterile fashion. Critical pause was taken. Vital signs were closely monitored during the procedure. Conscious sedation was used during the procedure to decrease patients anxiety. Using cross-table lateral fluoroscopy, the centroid of the trapezoid of the right side of the first level was identified, marked, . Subsequently, a 25 G spinal needle was advanced guided by fluoroscopy to the centroid of the trapezoid . [place] tip position was confirmed at the centroid of the trapezoids anteroposterior fluoroscopy. Subsequently, .5 mL of 0.5% ropivacaine with 7.5 mg of Depo-Medrol was injected at each level. COMPLICATIONS: No acute complications. COMMENTS: DISPOSITION / PLANS: The patient was placed in a supine position and transferred to the recovery area in a stable condition for observation and was discharged from the recovery room after meeting discharge criteria. Home discharge instructions given to the patient by the staff. The patient was reexamined prior to discharge. He will follow up for second diagnostic medial branch block
[2018-10-13] MEDS ORDERED: IV FLUID CONTINUATION 1,000 ML IV ONE (08:23)
[2018-10-13 08:43] VITALS: BP 137/90; PULSE 64
[2018-10-13] MEDS ORDERED: LACTATED RINGERS 1,000 ML IV SCH (09:00)
--- NOTE | 2018-10-13 10:29 | FL ---
Fluoroscopy INDICATION: Pain FINDINGS: Fluoroscopy time: 32 seconds. Images obtained: 5. IMPRESSIONS: 1. Documentation of fluoroscopy.
== END 2018-10-13 09:00 | disposition home or self-care (01) ==
LOC: ORPAIN 06:30
PROVIDERS: ATTEND Student in an Organized Health Care Education/Training Program
DX: M47.812 Spondylosis without myelopathy or radiculopathy, cervical region (principal); Z88.8 Allergy status to other drugs, medicaments and biological substances; Z91.030 Bee allergy status; Z91.041 Radiographic dye allergy status
CPT/HCPCS: 64490; 64491; 64492; J2250; J1030; J3010; 99152; 99153

== ENCOUNTER 2018-10-27 06:15 | Day surgery (SDC) | payer OTHER ==
[2018-10-21 10:47] VITALS: BMI 25.6
[~2018-10-27 06:15] MED LIST changes: +LACTATED RINGERS 1,000 ML IV SCH; -SODIUM CHLORIDE 0.9% 500 ML 500 ML IV SCH
[2018-10-27 06:59] VITALS: RESP 16; TEMP 98
[2018-10-27] MEDS ORDERED: LIDOCAINE 1% 20 ML VIAL (10MG/ML) FOR IV START SQ ONE (07:00)
[2018-10-27 07:21] LABS: Glucose,Whole Blood 87 mg/dL (75-99)
[2018-10-27] MEDS ORDERED: IV FLUID CONTINUATION 1,000 ML IV ONE (08:03)
[2018-10-27 08:23] VITALS: BP 171/96; PULSE 69
--- NOTE | 2018-10-27 08:43 | FL ---
Fluoroscopy HISTORY: Pain 22 seconds fluoroscopy time supplied to the referring clinician. 4 intraoperative C-arm images docum ent the procedure. See dictated report from anesthesia.
== END 2018-10-27 08:38 | disposition home or self-care (01) ==
LOC: ORPAIN 06:15
PROVIDERS: ATTEND Specialist
DX: M47.812 Spondylosis without myelopathy or radiculopathy, cervical region (principal)
CPT/HCPCS: 64490; 64491; J2250; J1030; J3010; 99152; 99153

== ENCOUNTER → 2018-11-16 | Outpatient (CLI) | payer OTHER ==
[2018-11-16 14:18] VITALS: BP 135/99; PULSE 87; RESP 16
--- NOTE | 2018-11-16 14:26 | P.PAINPG ---
Subjective Progress Note Date: 11/16/18 This is a follow-up visit for this 54 years old male with a chronic history of severe neck pain and he is diagnosed with cervical spondylosis with cervical facet arthropathy without myelopathy, recently we have done diagnostic medial branch block cervical area bilaterally C4, C5, C6, patient reported that he had excellent pain relief after each diagnostic medial branch block,(with an 80% improvement of his neck pain ), and also patient had improvement in his functions, and if it and the pain relief was only for short-term, patient here today to discuss the results of the procedure, he denies any motor or sensory deficits he denies any fever or night sweats, and there is no change in the bowel movement or urination he continue to use [place] 5/325 every 6 hours when necessary , and Lyrica 300 mg twice a day, he denies any side effects from the medication, and he is getting prescription refills from his primary care Objective - Vital Signs Vital signs: Vital Signs Temp Pulse 87 11/16/18 14:16 Resp 16 11/16/18 14:16 BP 135/99 11/16/18 14:16 Pulse Ox 98 11/16/18 14:16 Intake & Output 11/15/18 11/16/18 11/16/18 18:59 06:59 18:59 Weight 85.729 kg - Exam Physical Examinations : -Constitutiona : Cooperative , not in acute distress . -HEENT : nech : supple , no Lymphadenopathy , normal thyroid size . eyes : no ptosis , no icterus, no photophobia . . - musculoskeltal : Cervical Spine motor stregnth in the deltoid and biceps, normal right side , normal Left side motor stregnth biceps and the wrist extensors normal right side ,normal left side . motor stregnth in the triceps muscle . normal Right side , normal Left side deep tendon reflexes normal at the biceps , normal at Brachioradialis , normal at triceps. cervical facet loading test: Positive Bilaterally Lumber spine moter stegnth lower extremities ,thigh and legs 5/5 Right side , 5/5 Left side Assessment and Plan Plan: Assessment and plan= cervical spondylosis with cervical facet arthropathy with radiculopathy Patient had excellent result after diagnostic medial branch block cervical area C4/C5/C6 , we'll schedule patient for RFA of the medial branch cervical area to the left side first , then the right side later Time with Patient: Less than 30 PQRS Measure Charge Sheet Measure #130: Documentation of Current Meds in Medical Chart: Patient's medications documented in chart Measure #226: Tobacco Use: Screen & Cessation Intervention: Pt not a tobacco user Measure #111: Pneumonia Vaccination: Pneumococcal vaccine NOT administered or previously given Measure #47: Advance Care Plan: Advance care planning discussed & documented, pt chose/unable to give Measure #412: Opioid Treatment Agreement: No documentation of signed opioid treatment agreement Measure #408: Opioid Therapy Follow-up Evaluation: Patient had NO f/u eval minimum every 3 months during opioid therapy Measure #317: Preventitive Care & Scrn High Bld Press & F/U: Normal blood pres sure, f/u not required Measure #128: Body Mass Index (BMI) Screening & Follow-up: BMI documented ABOVE normal parameters - f/u documented Measure #131: Pain Assessment & Follow-up: Pain positive & plan documented, Follow-up scheduled Measure #431: Unhealthy Alcohol Use Preventative Care & Scrn: Patient not identified as an unhealthy alcohol user PQRS Narrative: Smoking Status Never smoker Blood Pressure 135/99 Pain Intensity [Left Posterior 7 Neck] Scale Used Numeric (1 - 10) Hx Alcohol Use (MH) No Home Medications: Ambulatory Orders Calcitriol [Rocaltrol] 0.25 mcg PO BID 12/02/16 Aspirin EC [Ecotrin Low Dose] 81 mg PO DAILY #30 tablet. 12/04/16 SUMAtriptan SUCCINATE [Imitrex] 50 mg PO DIRECTED PRN 06/16/17 Thyroid,Pork [[place] Thyroid] 180 mg PO DAILY 06/16/17 Chlorthalidone 12.5 mg PO DAILY 03/30/18 Folic Acid 1 mg PO DAILY 03/30/18 Melatonin 6 mg PO HS PRN 03/30/18 Calcium Carbonate 500 mg PO DAILY 06/18/18 HYDROcodone/APAP 5-325MG [[place] 5-325] 1 tab PO Q6HR PRN 06/18/18 Multivitamins, Thera [Multivitamin (formulary)] 1 tab PO DAILY 06/18/18 Pregabalin [Lyrica] 300 mg PO BID 06/18/18 predniSONE 7.5 mg PO DAILY 10/06/18 Humira(Unknown Dose) 1 injection SQ Q14D 10/12/18 Controlled Substance Measures - Controlled Substance Measures Is patient prescribed a controlled substance at discharge?: No
== END | disposition home or self-care (01) ==
LOC: PNWHC3 13:20
PROVIDERS: ATTEND Specialist
DX: M47.22 Other spondylosis with radiculopathy, cervical region (principal); M46.92 Unspecified inflammatory spondylopathy, cervical region; Z79.899 Other long term (current) drug therapy; Z79.82 Long term (current) use of aspirin; Z79.891 Long term (current) use of opiate analgesic
CPT/HCPCS: 99211

== ENCOUNTER 2018-11-23 06:14 | Day surgery (SDC) | payer OTHER ==
[2018-11-23] MEDS ORDERED: LACTATED RINGERS 1,000 ML IV SCH (06:42)
[2018-11-23 06:57] VITALS: RESP 16; TEMP 97.7
[2018-11-23 06:59] LABS: Glucose,Whole Blood 98 mg/dL (75-99)
[2018-11-23] MEDS ORDERED: IV FLUID CONTINUATION 1,000 ML IV ONE (07:40)
--- NOTE | 2018-11-23 07:50 | P.PCN ---
Date of Procedure: 11/23/18 Procedure(s) Performed: PREOPERATIVE DIAGNOSIS: Cervical spondylosis with Facet Arthropathy without myelopathy. POSTOPERATIVE DIAGNOSIS: Cervical spondylosis with Facet Arthropathy without myelopathy. PROCEDURES: Radiofrequency thermocoagulation,Left C4, C5, C6 medial branch with Fluroscopy [place]. (fluoroscopy was available in etiology department ) (to denervate the left side facet joint at C4- 5, and C5- 6 ) ANESTHESIA: Local with Ropivacaine 0.5 % , moderate sedation with fentanyl 100 micrograms and Versed. 2 mg EBL: Minimal PROCEDURE INDICATION: The patient with neck pain secondary to cervical arthropathy who had more than 50% relief of her pain with previous diagnostic cervical medial branch block. PROCEDURE DESCRIPTION / TECHNIQUE: The patient was seen and identified in the preoperative area. Risks, benefits, complications, and alternatives were discussed with the patient, the patient agreed to proceed with the procedure and signed the consent. IV was started. Vital signs remained stable throughout the procedure. Patient was taken to the OR and time out was completed. The patient was placed in the prone position on the procedure table. A pillow was placed under the patients chest to increase the cervical interlaminar space. The cervical area was prepped and draped in the usual sterile fashion. Critical pause was taken. Vital signs were closely monitored during the procedure. Conscious sedation was used during the procedure to decrease patients anxiety. Using cross-table lateral fluoroscopy, the centroid of the trapezoid of left C4, C5, and C6 were identified, marked, and localized with 1% lidocaine. Subsequen tly, a 20 [id number] radiofrequency cannula with a 10-mm active tip was advanced guided by fluoroscopy to the centroid of the trapezoid of left C4, C5, and C6 . Needle tip position was confirmed at the centroid of the trapezoids of left C4, C5, and C6 with anteroposterior fluoroscopy. Each site then underwent sensory testing at 50 Hz and 0 to 1 volt and motor testing at 2 Hz and 0 to 3 volt with local stimulation, but no radicular symptoms down the arm. Thereafter left C4,C5 and C6 sites underwent radiofrequency thermocoagulation at 80 degrees celsius for 90 seconds after injecting 0.5 ml of PF Ropivacaine 0.5 %. After thermocoagulation, 1 ml of the block solution containing Depo-Medrol 40 mg and 3 mL of preservative-free normal saline was injected at the left C4, C5, and C6 levels after negative aspiration of CSF and blood and with no paresthesias. Cannulas were retracted while injecting lidocaine 1% until the needle is out. Skin was cleansed and bandages were applied. COMPLICATIONS: No acute complications. DISPOSITION / PLANS: The patient was placed in a supine position and transferred to the recovery area in a stable condition for observation and was discharged from the recovery room after meeting discharge criteria. Home discharge instructions given to the patient by the staff. The patient was reexamined prior to discharge. The patient will schedule a follow up in the clinic in 2-4 weeks.
--- NOTE | 2018-11-23 07:50 | FL ---
EXAMINATION TYPE: FL guided pain mgmt statistic DATE OF EXAM: 11/23/2018 CLINICAL HISTORY: Neck pain. TECHNIQUE: Fluoroscopy. COMPARISON: None. FINDINGS: Fluoroscopic guidance was provided during pain relief procedure performed by Dr. Livingston . A total of 17 seconds of fluoroscopic time was utilized during the procedure and two spot images a re acquired. Images acquired shows needle localization from a posterior approach at several levels i n the mid cervical spine. IMPRESSION: As Above.
[2018-11-23 08:01] VITALS: BP 138/93; PULSE 74
== END 2018-11-23 08:16 | disposition home or self-care (01) ==
LOC: ORPAIN 06:14
PROVIDERS: ATTEND Specialist
DX: M47.812 Spondylosis without myelopathy or radiculopathy, cervical region (principal); Z88.8 Allergy status to other drugs, medicaments and biological substances; Z91.041 Radiographic dye allergy status
CPT/HCPCS: 64633; 64634; J2250; J1030; J3010; 99152

== ENCOUNTER → 2018-12-07 | Day surgery (SDC) | payer OTHER ==
[2018-12-03 09:13] VITALS: BMI 25.4
[~2018-12-07] MED LIST changes: +IV FLUID CONTINUATION 1,000 ML IV ONE; +LIDOCAINE 1% 20 ML VIAL (10MG/ML) FOR IV START INTRADERMA ONE
[2018-12-07 06:35] VITALS: TEMP 97.4
[2018-12-07 06:58] LABS: Glucose,Whole Blood 94 mg/dL (75-99)
[2018-12-07 07:45] VITALS: RESP 18
--- NOTE | 2018-12-07 07:58 | P.PCN ---
Date of Procedure: 12/07/18 Procedure(s) Performed: PREOPERATIVE DIAGNOSIS: Cervical spondylosis POSTOPERATIVE DIAGNOSIS: Same PROCEDURES: Radiofrequency thermocoagulation of the C4, C5, C6 medial branches with fluoroscopic guidance on the right side for facets C4-C5 and C5-C6 SURGEON: Dustin Ponce M.D. ANESTHESIA: Moderate sedation with intravenous versed and fentanyl and local infiltration with lidocaine 1% 5 ml , sedation time 24 minutes Fluoroscopy was used for the procedure and fluoroscopic images were saved to the radiology portion of patient's chart. EBL: Minimal PROCEDURE INDICATION: The patient with low back pain secondary to cervical facet arthropathy who had more than 50% relief of pain with previous diagnostic cervical medial branch block. PROCEDURE DESCRIPTION / TECHNIQUE: The patient was seen and identified in the preoperative area. Risks, benefits, complications, including but not limited to risk of infection ,bleeding , allergic reactions to the medications and incomplete pain relief , and alternatives were discussed with the patient, the patient agreed to proceed with the procedure and signed the consent. IV was started. The operative site was marked. Patient was taken to the OR and time out was completed. The patient was placed in the prone position on the procedure table. The cervical area was prepped and draped in the usual sterile fashion. . Vital signs were closely monitored during the procedure .IV sedation was used during the procedure to decrease patients anxiety. Using AP and then oblique fluoroscopy, the waist corresponding to the connection between the superior and transverse articular processes of the above-mentioned levels were identified, marked, and localized with 1% lidocaine. Subsequently, an 18 -jm radiofrequency cannula with a 10-mm active tip was advanced guided by fluoroscopy to the midpoint of the centroid on the lateral view of the corresponding cervical vertebral bodies at each site then underwent motor testing at 2.5 Hz and 0 to 3 volt with local stimulation, but no radicular symptoms down the arms. Then the sites underwent radiofrequency thermocoagulation at 80 degrees celsius for 90 seconds after injecting 1 ml of PF lidocaine 4% per level. Cannulas were removed, the skin was cleansed and bandages were applied. COMPLICATIONS: No acute complications. DISPOSITION / PLANS: The patient was placed in a supine position and transferred to the recovery area in a stable condition for observation and was discharged from the recovery room after meeting discharge criteria. Home discharge instructions given to the patient by the staff. The patient will follow up in clinic in 2-4 weeks.
[2018-12-07 07:59] VITALS: PULSE 75
[2018-12-07 08:05] VITALS: BP 128/82
--- NOTE | 2018-12-07 08:29 | FL ---
EXAMINATION TYPE: FL guided pain mgmt statistic DATE OF EXAM: 12/07/2018 FLUOROSCOPY Fluoroscopy time of 15 seconds was used during right facet block. 5 image/s document/s the procedure .
== END ==
LOC: ORPAIN 06:03
PROVIDERS: ATTEND Anesthesiology
DX: M47.812 Spondylosis without myelopathy or radiculopathy, cervical region (principal); Z88.8 Allergy status to other drugs, medicaments and biological substances; Z91.041 Radiographic dye allergy status
CPT/HCPCS: 64633; 64634; J2250; J3010; 99152; 99153

== ENCOUNTER → 2019-01-04 | Outpatient (CLI) | payer OTHER ==
[2019-01-04 12:42] VITALS: BP 135/87; PULSE 85; RESP 16
--- NOTE | 2019-01-05 20:14 | P.PAINPG ---
Subjective Progress Note Date: 01/04/19 This is a follow-up visit for this 54 years old male with a chronic history of severe neck pain and he is diagnosed with cervical spondylosis with cervical facet arthropathy without myelopathy, recently we have done RFA medial branch block cervical area bilaterally C4, C5, C6, patient reported that he had excellent pain relief , he had some neck pain localized in the left side cervical area, and also patient had improvement in his functions, he denies any motor or sensory deficits he denies any fever or night sweats, and there is no change in the bowel movement or urination he continue to use [place] 5/325 every 6 hours when necessary , and Lyrica 300 mg twice a day, he denies any side effects from the medication, and he is getting prescription refills from his primary care, he is currently complaining of severe mid back pain localized around the mid back area is not radiated to the front, in the mid back pain increases with activity, he denies any motor or sensory deficit Objective - Vital Signs Vital signs: Vital Signs Temp Pulse 85 01/04/19 12:38 Resp 16 01/04/19 12:38 BP 135/87 01/04/19 12:38 Pulse Ox 97 01/04/19 12:38 - Exam Physical Examinations : -Constitutiona : Cooperative , not in acute distress . -HEENT : nech : supple , no Lymphadenopathy , normal thyroid size . eyes : no ptosis , no icterus, no photophobia . - neurologic : Cranial nerve II to XII intact , no focal neurological deffecit . -psychatric : alert , oriented X 3 , appropriate affect , intact judgment and insight . -Lymphatic : no Lymphadenopathy . - musculoskeltal : Cervical Spine motor stregnth in the deltoid and biceps, normal right side , normal Left side motor stregnth biceps and the wrist extensors normal right side ,normal left side . motor stregnth in the triceps muscle . normal Right side , normal Left side deep tendon reflexes normal at the biceps , normal at Brachioradialis , normal at triceps. Positive trigger point on the left side cervical paravertebral muscles Thoracic spine= positive facet loading test midthoracic spine area around T5 to T7 bilaterally. Lumber spine moter stegnth lower extremities ,thigh and legs 5/5 Right side , 5/5 Left side ly. Assessment and Plan Plan: Assessment and plan= chronic neck pain secondary to cervical spondylosis and neck pain improved after the frequency thermocoagulation of the cervical Medial branches. Midback pain mostly secondary to thoracic spondylosis= you have any diagnostic study for the thoracic spine and we will order MRI of the thoracic spine to identify the etiology, the patient will follow up in the pain clinic in 2 weeks. Patient should continue to use his current medication [place] 5/325 every 6 hours and Lyrica 300 mg 3 times a day, is getting prescription refills from his primary care Time with Patient: Less than 30 PQRS Measure Charge Sheet Measure #130: Documentation of Current Meds in Medical Chart: Patient's medications documented in chart Measure #226: Tobacco Use: Screen & Cessation Intervention: Pt not a tobacco user Measure #111: Pneumonia Vaccination: Pneumococcal vaccine administered or previously received Measure #47: Advance Care Plan: Advance care planning discussed & documented, pt chose/unable to give Measure #412: Opioid Treatment Agreement: No documentation of signed opioid treatment agreement Measure #408: Opioid Therapy Follow-up Evaluation: Patient had NO f/u eval minimum every 3 months during opioid therapy Measure #317: Preventitive Care & Scrn High Bld Press & F/U: Normal blood pressure, f/u not required Measure #128: Body Mass Index (BMI) Screening & Follow-up: BMI documented ABOVE normal parameters - f/u documented Measure #131: Pain Assessment & Follow-up: Pain positive & plan documented, Follow-up scheduled Measure #431: Unhealthy Alcohol Use Preventative Care & Scrn: Patient not identified as an unhealthy alcohol user PQRS Narrative: Smoking Status Never smoker Blood Pressure 135/87 Pain Intensity [Posterior Neck 4 ] Pain Intensity [Bilateral Hand 4 ] Scale Used Numeric (1 - 10) Hx Alcohol Use (MH) No Home Medications: Ambulatory Orders Calcitriol [Rocaltrol] 0.25 mcg PO BID 12/02/16 Aspirin EC [Ecotrin Low Dose] 81 mg PO DAILY #30 tablet. 12/04/16 SUMAtriptan SUCCINATE [Imitrex] 50 mg PO DIRECTED PRN 06/16/17 Thyroid,Pork [[place] Thyroid] 180 mg PO DAILY 06/16/17 Folic Acid 1 mg PO DAILY 03/30/18 Melatonin 6 mg PO HS PRN 03/30/18 Calcium Carbonate 500 mg PO DAILY 06/18/18 HYDROcodone/APAP 5-325MG [[place] 5-325] 1 tab PO Q6HR PRN 06/18/18 Multivitamins, Thera [Multivitamin (formulary)] 1 tab PO DAILY 06/18/18 Pregabalin [Lyrica] 300 mg PO BID 06/18/18 predniSONE 7.5 mg PO DAILY 10/06/18 Humira(Unknown Dose) 1 injection SQ Q14D 10/12/18 Chlorthalidone [[place]] 12.5 mg PO DAILY 12/03/18 Controlled Substance Measures - Controlled Substance Measures Is patient prescribed a controlled substance at discharge?: No
== END | disposition home or self-care (01) ==
LOC: PNWHC3 12:04
PROVIDERS: ATTEND Specialist
DX: G89.29 Other chronic pain (principal); M47.812 Spondylosis without myelopathy or radiculopathy, cervical region; M47.814 Spondylosis without myelopathy or radiculopathy, thoracic region; Z79.899 Other long term (current) drug therapy; Z79.82 Long term (current) use of aspirin; Z79.891 Long term (current) use of opiate analgesic
CPT/HCPCS: 99211

== ENCOUNTER → 2019-01-18 | Outpatient (CLI) | payer OTHER ==
[2019-01-18 12:06] VITALS: BP 129/80; PULSE 86; RESP 16
--- NOTE | 2019-01-18 12:30 | P.PN ---
Progress Note - Text Progress Note Date: 01/18/19 This is a follow-up visit for this 54 years old male, with chronic history of severe neck pain and mid back pain, is very close with cervical spondylosis, cervical facet arthropathy his neck pain improved after the radiofrequency ablation of the medial branch cervical area, she is currently complaining of severe mid back pain and last visit the order MRI of the thoracic spine to be done , and patient was scheduled today, hoping that he already done the MRI of the thoracic spine, Patient came to the , and he reported that the MRI is not done yet for this reason, patient will be rescheduled, and will evaluate the results of the MRI and patient will be seen in the pain clinic after we have the MRI report of the thoracic spine
== END | disposition home or self-care (01) ==
LOC: PNWHC3 11:39
PROVIDERS: ATTEND Specialist
DX: M47.892 Other spondylosis, cervical region (principal); G89.29 Other chronic pain
CPT/HCPCS: 99211

== ENCOUNTER → 2019-02-10 | Outpatient (CLI) | payer OTHER ==
--- NOTE | 2019-02-10 18:24 | MR ---
EXAMINATION TYPE: MR thoracic spine wo con DATE OF EXAM: 02/10/2019 COMPARISON: NONE HISTORY: back pain for the last four years TECHNIQUE: Multiplanar, multisequence imaging of thoracic spine is performed without contrast FINDINGS: Spinal cord shows normal course, caliber, and signal as it courses the thoracic spine. Cecelia tebral body heights and alignment are satisfactory. There are multilevel posterior disc herniations e fface the anterior thecal sac T1-T2 through the T5-T6 level on sagittal images with the distal blanker operator ior disc herniations efface the anterior thecal sac T7-T8 through the T10-T11 level. Bone marrow sign al intensity is preserved. Mild to moderate multilevel anterior spurring. Review of the axial images shows no additional significant disc herniation or marked spinal canal rosio nosis. Some multilevel pkyr-ri-[id number] facet degenerative changes are present. Visualized thorax and upper abdomen show no suspicious abnormality. IMPRESSION: Multilevel mild to moderate degenerative changes as detailed above.
== END | disposition home or self-care (01) ==
LOC: RADMRIMAIN 16:40
PROVIDERS: ATTEND Specialist
DX: M47.814 Spondylosis without myelopathy or radiculopathy, thoracic region (principal)
CPT/HCPCS: 72146

== ENCOUNTER 2019-03-15 06:12 | Day surgery (SDC) | payer OTHER ==
[2019-03-09 10:45] VITALS: BMI 27.1
[~2019-03-15 06:12] MED LIST changes: -IV FLUID CONTINUATION 1,000 ML IV ONE; -LIDOCAINE 1% 20 ML VIAL (10MG/ML) FOR IV START INTRADERMA ONE; +MIDAZOLAM 2 MG/2 ML VIAL ONE
[2019-03-15 06:29] VITALS: RESP 16; TEMP 97.4
--- NOTE | 2019-03-15 07:27 | P.PCN ---
Date of Procedure: 03/15/19 Procedure(s) Performed: PREOPERATIVE DIAGNOSIS : thoracic spondylosis with Facet Arthropathy wit hout myelopathy POSTOPERATIVE DIAGNOSIS: same PROCEDURE: first Diagnostic thoracic medial branch block with fluoroscopy at T5, T6, T7 [bilateral] ANESTHESIA: Local anesthetic; moderate IV sedation with Versed 2 mg, sedation time 17 minutes Fluoroscopy was used for the procedure and images were saved in the radiology portion of the chart. Surgeon: Dustin Ponce MD PROCEDURE INDICATION: thoracic back pain without radiculopathy, not responsive to conservative management. PROCEDURE DESCRIPTION: the patient was seen and identified in the preop holding area , risks and benefits and possible complications of the procedure and alternatives were discussed with the patient, and the patient agreed to proceed with the procedure and signed the consent . IV was started , vital signs were monitored during the procedure and fluoroscopy was used to maximize the benefit and accuracy of the needle placement, and sedation was given to decrease patient anxiety. Patient was taken to the procedure room and placed in prone position. The thoracic region was prepped using chlorhexidineX-2. Under strict sterile technique using AP fluoroscopy and ipsilateral oblique fluoroscopy ,the superolateral aspect of the transverse process of the above-mentioned levels for the respective medial branches were identified. Subsequently, after local infiltration of skin with lidocaine 1% 0.2 mL at each level , a 25-gauge 3.5" Quincke-type needle was placed at the superior lateral aspect of the transverse process at the appropriate level, and the needle was advanced until the periosteum contacted, needle was walked just off the transverse process. Then, 0.5 mL of [lidocaine 4%] was injected at each level and the needle subsequently removed . Contrast dye was not used for this procedure as the patient is ALLERGIC to contrast dye At the end of the procedure and the needles were removed and a bandage applied after the skin was cleaned. The patient was taken to recovery room in stable condition and monitors in the recovery room for 20-30 minutes and discharged home in stable condition after discharge criteria met and patient will follow up in clinic in 2 weeks EBL: Minimal COMPLICATION: None.
[2019-03-15 07:49] VITALS: BP 132/81; PULSE 66
[2019-03-15] MEDS ORDERED: IV FLUID CONTINUATION 1,000 ML IV ONE (07:49)
--- NOTE | 2019-03-15 09:01 | FL ---
EXAMINATION TYPE: FL guided pain mgmt statistic DATE OF EXAM: 03/15/2019 FLUOROSCOPY Fluoroscopy time of 7 seconds was used during medial branch block, bilateral thoracic spine. 6 image /s document/s the procedure.
== END 2019-03-15 07:57 | disposition home or self-care (01) ==
LOC: ORPAIN 06:12
PROVIDERS: ATTEND Anesthesiology
DX: M47.814 Spondylosis without myelopathy or radiculopathy, thoracic region (principal); M51.34 Other intervertebral disc degeneration, thoracic region; Z91.041 Radiographic dye allergy status; Z88.8 Allergy status to other drugs, medicaments and biological substances
CPT/HCPCS: 64490; 64491; J2250; 99152

== ENCOUNTER 2019-03-22 22:52 | Emergency (ER) | payer OTHER ==
[2019-03-22 23:00] VITALS: RESP 18; TEMP 98.4
[2019-03-22] MEDS ORDERED: KETOROLAC 60 MG/2 ML VIAL IM STA (23:26)
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
--- NOTE | 2019-03-22 23:58 | XR ---
EXAMINATION TYPE: XR chest 2V DATE OF EXAM: 03/22/2019 COMPARISON: 08/10/2016 HISTORY: Nausea and vomiting TECHNIQUE: 2 views FINDINGS: Heart and mediastinum are normal. Lungs are clear. Diaphragm is normal. Bony thorax appears normal. IMPRESSION: Normal chest. No change.
--- NOTE | 2019-03-23 00:05 | XR ---
EXAMINATION TYPE: XR cervical spine comp DATE OF EXAM: 03/22/2019 COMPARISON: NONE HISTORY: Pain TECHNIQUE: 5 views FINDINGS: Cervical vertebra have normal alignment. There is some disc space narrowing from C3 to C5. There is mild anterior spurring also at C5-6. Posterior elements are intact. There are no cervical ri bs. Atlantoaxial facet joint is normal. IMPRESSION: Mild multilevel spondylotic changes. No fracture seen.
--- NOTE | 2019-03-23 00:07 | XR ---
EXAMINATION TYPE: XR shoulder complete LT DATE OF EXAM: 03/22/2019 COMPARISON: NONE HISTORY: Pain. Fall on the ice. TECHNIQUE: 3 views FINDINGS: There is some spurring at the AC joint. I see no fracture nor dislocation. There is small c alcification at the greater tuberosity of the humerus. Glenohumeral joint is intact. IMPRESSION: There is evidence of old injury at the AC joint with spur formation. Mild calcific tendin itis. No acute fracture seen.
[2019-03-23] MEDS ORDERED: CYCLOBENZAPRINE 10MG STARTER 3 TAB BTL PO STA (00:44)
--- NOTE | 2019-03-23 00:46 | ED ---
Disposition Clinical Impression: Fall, Acromioclavicular sprain Disposition: HOME SELF-CARE Condition: Stable Instructions (If sedation given, give patient instructions): Acromioclavicular Separation (ED), Fall Prevention (ED), How to Use a Sling (ED) Additional Instructions: Continue to wear sling. Complete range of motion exercises of left shoulder 4 times per day. Follow up with orthopedic consult tomorrow. Follow with primary care provider tomorrow. Return to ER if condition worsens. Is patient prescribed a controlled substance at d/c from ED?: No Referrals: Carolyn Mart MD [Primary Care Provider] - 1-2 days Cory Valle MD [STAFF PHYSICIAN] - 1-2 days
[2019-03-23 01:13] VITALS: BP 166/89; PULSE 84
== END 2019-03-23 01:13 | disposition home or self-care (01) ==
LOC: EC 22:52
DX: S43.52XA Sprain of left acromioclavicular joint, initial encounter (principal); E07.9 Disorder of thyroid, unspecified; Z79.899 Other long term (current) drug therapy; Z79.82 Long term (current) use of aspirin; Z79.52 Long term (current) use of systemic steroids; Z88.8 Allergy status to other drugs, medicaments and biological substances; Z91.030 Bee allergy status; Z91.048 Other nonmedicinal substance allergy status; Z86.73 Personal history of transient ischemic attack (TIA), and cerebral infarction without residual deficits; Z85.850 Personal history of malignant neoplasm of thyroid; W00.0XXA Fall on same level due to ice and snow, initial encounter; Y93.01 Activity, walking, marching and hiking
CPT/HCPCS: 72050; 73030; 71046; 99284; 96372; J1885

== ENCOUNTER → 2019-03-30 | Day surgery (SDC) | payer OTHER ==
[2019-03-26 12:59] VITALS: BMI 27.1
[~2019-03-30] MED LIST changes: +LIDOCAINE 1% 20 ML VIAL (10MG/ML) FOR IV START INTRADERMA ONE; +ROPIVACAINE 5MG/ML 20ML VIAL ONE; +fentaNYL (PF) 50 MCG/ML 2 ML AMP ONE; +methylPREDNISolone ACETATE 40 MG/ML 1 ML VIAL ONE
[2019-03-30 06:38] VITALS: RESP 16; TEMP 97.6
--- NOTE | 2019-03-30 07:30 | P.PCN ---
Date of Procedure: 03/30/19 (]) Procedure(s) Performed: PREOPERATIVE DIAGNOSIS : thoracic spondylosis with Facet Arthropathy without myelopathy POSTOPERATIVE DIAGNOSIS: same PROCEDURE: 2 nd Diagnostic thoracic medial branch block with fluoroscopy at T5, T6, T7 [bilateral] (fluoroscopy images available at radiology department ) ANESTHESIA: moderate IV sedation with Versed 2 mg, and fentanyl 100 g PROCEDURE INDICATION: thoracic back pain without radiculopathy, not responsive to conservative management. PROCEDURE DESCRIPTION: the patient was seen and identified in the preop holding area , risks and benefits and possible complications of the procedure and alternatives were discussed with the patient, and the patient agreed to proceed with the procedure and signed the consent . IV was started , vital signs were monitored during the procedure and fluoroscopy was used to maximize the benefit and accuracy of the needle placement, and sedation was given to decrease patient anxiety. Patient was taken to the procedure room and placed in prone position. The thoracic region was prepped using chlorhexidineX-2. Under strict sterile technique using AP fluoroscopy and ipsilateral oblique fluoroscopy ,the superolateral aspect of the transverse process of the above-mentioned levels for the respective medial branches were identified. Subsequently, after local infiltration of skin with lidocaine 1% 0.2 mL at each level , a 25-gauge 3.5" Quincke-type needle was placed at the superior lateral aspect of the transverse process at the appropriate level, and the needle was advanced until the periosteum contacted, needle was walked just off the transverse process. Then, 0.5 mL of ropivacaine 0.5% was injected at each level and the needle subsequently removed . Total of 3 ML of ropivacaine 0.5% mixed with 40 mg of Depo-Medrol and half mL of the mixture was used at each level Contrast dye was not used for this procedure as the patient is ALLERGIC to contrast dye At the end of the procedure and the needles were removed and a bandage applied after the skin was cleaned. The patient was taken to recovery room in stable condition and monitors in the recovery room for 20-30 minutes and discharged home in stable condition after discharge criteria met and patient will follow up in clinic in 2 weeks EBL: Minimal COMPLICATION: None.
[2019-03-30 08:03] VITALS: BP 130/84; PULSE 66
--- NOTE | 2019-03-30 08:15 | FL ---
EXAMINATION TYPE: FL guided pain mgmt statistic DATE OF EXAM: 03/30/2019 HISTORY: Fluoroscopy time 15 seconds of fluoroscopy provided. IMPRESSION: 1. Fluoroscopy time.
--- NOTE | 2019-03-30 08:33 | XR ---
EXAMINATION TYPE: XR chest 1V portable DATE OF EXAM: 03/30/2019 COMPARISON: Chest x-ray 8 days ago. HISTORY: Posterior thoracic spine facet block rule out pneumothorax. TECHNIQUE: 2 AP portable frontal upright views of the chest are obtained. FINDINGS: There is poor inspiration on current first image with bibasilar opacities, second image sh ows improved inspiration and resolution of bibasilar opacities. No pneumothorax noted bilaterally The cardiac silhouette size is within normal limits. The osseous structures are intact. IMPRESSION: No pneumothorax appreciated.
== END ==
LOC: ORPAIN 06:17
PROVIDERS: ATTEND Specialist
DX: M47.816 Spondylosis without myelopathy or radiculopathy, lumbar region (principal); M47.814 Spondylosis without myelopathy or radiculopathy, thoracic region; Z91.041 Radiographic dye allergy status
CPT/HCPCS: 71045; 64490; 64491 ×2; 64492; J2250; J1030; J3010; J2795; 99152

== ENCOUNTER → 2019-04-28 | Outpatient (CLI) | payer OTHER ==
[2019-04-28 13:20] VITALS: BP 135/93; PULSE 86; RESP 16
--- NOTE | 2019-04-28 13:40 | P.PAINPG ---
Subjective Progress Note Date: 04/28/19 Tyrone is a 54-year-old gentleman who presents today for follow-up after having 2 thoracic medial branch blocks. He reports that the first injection worked excellent had excellent relief, the second injection also offered him significant benefit but he felt that the injection site was very painful that d ay. He is unsure why he was much more painful than is the first time. But after discussion he did feel that he had significant benefit from the injection. He's had this procedure done on the cervical spine with excellent relief. As for his pain he feels pain across the thoracic spine symptoms radiating up the spine and into the top of his lower back. He denies any significant numbness or tingling in the area just pain with movement twisting and turning and bending. He denies any lower extremity weakness. Denies any bowel or bladder incontinence. Denies any chest pain shortness of breath or irregular heartbeats. Denies any syncope vision or hearing changes. Objective - Vital Signs Vital signs: Vital Signs Temp Pulse 86 04/28/19 13:12 Resp 16 04/28/19 13:12 BP 135/93 04/28/19 13:12 Pulse Ox 92 L 04/28/19 13:12 Intake & Output 04/27/19 04/28/19 04/28/19 18:59 06:59 18:59 Weight 88.904 kg - Exam General: Awake and alert oriented 3 no distress Respiratory exam: No audible wheezing no accessory muscle usage Cardiovascular exam: regular rate, palpable bilateral pulses, no lower extremity edema Abdominal exam: No distention nontender to palpation Cervical spine: Normal alignment, Spurling's negative, facet loading negative, Data Technical Lead strength is 5/5, galeas negative Thoracic spine: There is a normal alignment, there is no erythema swelling or fluctuance noted over the thoracic spine. There is no tenderness to light touch. There is tenderness to deep palpation over the thoracic spine. There is pain with twisting and bending of the thoracic spine. Lumbar spine: There is a preserved lordosis,, normal alignment, tender to palpa tion over bilateral paraspinal muscles, facet loading is positive bilaterally. Straight leg raise is negative. Limited range of motion due to pain with flexion, extension and side bending. Neuro exam: Normal sensation in bilateral upper extremities, deep tendon reflexes are 2+ bilateral upper extremities. Normal sensation in bilateral lower extremities. Deep tendon reflexes are 2+ in lower extremities Psych exam: Cooperative, appropriate mood Assessment and Plan Assessment: #1 thoracic spondylosis without myelopathy #2 cervical spondylosis without myelopathy Plan: After discussing the medial branch blocks with the patient in detail. We will discuss potentially moving with radiofrequency ablation. The patient wants to move forward with that at this time. We discussed the preop, Intra-Op, postoperative expectations. Patient like to move forward with the left side before the right side. We'll schedule patient for the procedure as soon as possible. I've answered all his questions regarding the procedure, we discussed risks benefits and alternatives to the procedure in detail the office. PQRS Measure Charge Sheet Measure #130: Documentation of Current Meds in Medical Chart: Patient's medications documented in chart Measure #226: Tobacco Use: Screen & Cessation Intervention: Pt not a tobacco user Measure #111: Pneumonia Vaccination: Pneumococcal vaccine administered or previously received Measure #47: Advance Care Plan: Advance care planning discussed & documented, plan or surrogate given Measure #412: Opioid Treatment Agreement: No documentation of signed opioid treatment agreement Measure #317: Preventitive Care & Scrn High Bld Press & F/U: Normal blood pressure, f/u not required Measure #128: Body Mass Index (BMI) Screening & Follow-up: BMI documented within normal parameters Measure #131: Pain Assessment & Follow-up: Pain positive & plan documented Measure #431: Unhealthy Alcohol Use Preventative Care & Scrn: Patient not identified as an unhealthy alcohol user PQRS Narrative: Smoking Status Never smoker Blood Pressure 135/93 Pain Intensity [Upper Back] 6 Pain Intensity [Neck] 6 Scale Used Numeric (1 - 10) Hx Alcohol Use (MH) No Home Medications: Ambulatory Orders Calcitriol [Rocaltrol] 0.5 mcg PO DAILY 12/02/16 Thyroid,Pork [[place] Thyroid] 180 mg PO DAILY 06/16/17 Folic Acid 1 mg PO DAILY 03/30/18 Melatonin 6 mg PO HS PRN 03/30/18 Calcium Carbonate 4 tab PO DAILY 06/18/18 Multivitamins, Thera [Multivitamin (formulary)] 1 tab PO DAILY 06/18/18 predniSONE 7.5 mg PO DAILY 10/06/18 Humira(Unknown Dose) 1 injection SQ Q14D 10/12/18 Methotrexate Sodium [Methotrexate] 20 mg PO MO 01/18/19 Aspirin EC [Ecotrin Low Dose] 81 mg PO Q48H 03/09/19 HYDROcodone/APAP 5-325MG [[place] 5-325] 1 tab PO TID 03/09/19 Baclofen(Unknown Dose) 1 tab PO DIRECTED PRN 04/27/19 Baclofen 1 tab PO BID 04/28/19 Hydrochlorothiazide 1 tab PO DAILY 04/28/19 Controlled Substance Measures - Controlled Substance Measures Is patient prescribed a controlled substance at discharge?: No
== END | disposition home or self-care (01) ==
LOC: PNWHC3 12:57
PROVIDERS: ATTEND Hospitalist
DX: M47.812 Spondylosis without myelopathy or radiculopathy, cervical region (principal); M47.814 Spondylosis without myelopathy or radiculopathy, thoracic region; Z79.890 Hormone replacement therapy; Z79.52 Long term (current) use of systemic steroids; Z79.899 Other long term (current) drug therapy; Z79.82 Long term (current) use of aspirin; Z79.891 Long term (current) use of opiate analgesic
CPT/HCPCS: 99211

== ENCOUNTER 2019-05-13 06:18 | Day surgery (SDC) | payer OTHER ==
[2019-05-12 13:09] VITALS: BMI 26.6
[~2019-05-13 06:18] MED LIST changes: -LIDOCAINE 1% 20 ML VIAL (10MG/ML) FOR IV START INTRADERMA ONE; -MIDAZOLAM 2 MG/2 ML VIAL ONE; -ROPIVACAINE 5MG/ML 20ML VIAL ONE; -fentaNYL (PF) 50 MCG/ML 2 ML AMP ONE; -methylPREDNISolone ACETATE 40 MG/ML 1 ML VIAL ONE
[2019-05-13 06:39] VITALS: RESP 16; TEMP 97.7
[2019-05-13] MEDS ORDERED: LIDOCAINE 1% (10MG/ML) FOR IV START INTRADERMA ONE (06:40)
[2019-05-13] MEDS ORDERED: fentaNYL (PF) 50 MCG/ML 2 ML AMP ONE (07:07)
[2019-05-13] MEDS ORDERED: methylPREDNISolone ACETATE 40 MG/ML 1 ML VIAL ONE (07:07)
[2019-05-13] MEDS ORDERED: MIDAZOLAM 2 MG/2 ML VIAL ONE (07:07)
[2019-05-13] MEDS ORDERED: ROPIVACAINE 5MG/ML 20ML VIAL ONE (07:07)
--- NOTE | 2019-05-13 07:33 | P.PCN ---
Date of Procedure: 05/13/19 Procedure(s) Performed: PREOPERATIVE DIAGNOSIS: 1-Thoracic Spondylosis with Facet Arthropathy without myelopathy. POSTOPERATIVE DIAGNOSIS: 1-thoracic Spondylosis with Facet Arthropathy without myelopathy. PROCEDURES : Left Radiofrequency thermocoagulation, T5 , T6 , and T7 medial branch, with fluoroscopic guidance (fluoroscopy images available in the radiology department) ( to denervate the facet joint at T5-6 ,and T6-7 levels ) ANESTHESIA: Moderate sedation with intravenous versed 2 mg and fentaneyl 100 mcg, and local infiltration with Ropivacaine 0.5 % . EBL: Minimal PROCEDURE INDICATION: The patient with low back pain secondary to thoracic fac et arthropathy who had more than 50% relief of her pain with previous diagnostic thoracic medial branch block with bupivacaine. PROCEDURE DESCRIPTION / TECHNIQUE: The patient was seen and identified in the preoperative area. Risks, benefits, complications, including but not limited to risk of infection ,bleeding , allergic reactions to the medications and no complete pain releife , and alternatives were discussed with the patient, the patient agreed to proceed with the procedure and signed the consent. IV was started. Vital signs remained stable throughout the procedure. Patient was taken to the OR and time out was completed. The patient was placed in the prone position on the procedure table. The thoracic area was prepped and draped in the usual sterile fashion. . Vital signs were closely monitored during the procedure .IV sedation was used during the procedure to decrease patients anxiety. Using AP and then oblique fluoroscopy, the ``eye of the Winston dog corresponding to the connection between the superior and transverse articular processes of left T5, T6 ,T7 identified, marked, and localized with 1% lidocaine. Subsequently, a 20 [id number] radiofrequency cannula with a 10-mm active tip was advanced guided by fluoroscopy to each of the``eyes of the Winston dog at left T5, T6, T7 Each site then underwent sensory testing at 50 Hz and 0 to 1 volt and motor testing at 2.5 Hz and 0 to 3 volt with local stimulation, but no radicular symptoms down the legs. Thereafter the LEFT T5, T6 ,T7 sites underwent radiofrequency thermocoagulation at 80 degrees celsius for 90 seconds after injecting 0.5 ml of PF Ropivacaine 1ml, then after the thermocoagulation done , 1 ml of the block solution containing Depo-Medrol 40 mg and 3 ml of Ropivacaine 0.5% was injected at each levels after negative aspiration of CSF and blood and with no paresthesias. Cannulas were retracted while injecting lidocaine 1% until the needle is out. At the end of the procedure, the skin was cleansed and bandages were applied. COMPLICATIONS: No acute complications. DISPOSITION / PLANS: The patient was placed in a supine position and transferred to the recovery area in a stable condition for observation and was discharged from the recovery room after meeting discharge criteria. Home discharge instructions given to the patient by the staff. The patient was reexamined prior to discharge. The patient will schedule a follow up in the clinic in 2-4 weeks.
[2019-05-13] MEDS ORDERED: IV FLUID CONTINUATION 1,000 ML IV ONE (07:38)
[2019-05-13 07:48] VITALS: BP 122/77; PULSE 77
--- NOTE | 2019-05-13 09:31 | FL ---
EXAMINATION TYPE: FL guided pain mgmt statistic DATE OF EXAM: 05/13/2019 FLUOROSCOPY Fluoroscopy time of 19 seconds was used during thoracic spine facet block pain management. 5 image/s document/s the procedure.
== END 2019-05-13 08:03 | disposition home or self-care (01) ==
LOC: ORPAIN 06:18
PROVIDERS: ATTEND Specialist
DX: M47.814 Spondylosis without myelopathy or radiculopathy, thoracic region (principal); M47.812 Spondylosis without myelopathy or radiculopathy, cervical region; Z88.8 Allergy status to other drugs, medicaments and biological substances; Z91.030 Bee allergy status; Z91.041 Radiographic dye allergy status
CPT/HCPCS: 64633; 64634; J2250; J1030; J3010; J2795; 99152

== ENCOUNTER 2019-08-16 16:10 | Inpatient (IN) | payer OTHER ==
[2019-08-16] MEDS ORDERED: KETOROLAC 30 MG/ML 1 ML VIAL IM STA (17:14)
--- NOTE | 2019-08-16 17:43 | XR ---
EXAMINATION TYPE: XR knee 4V LT DATE OF EXAM: 08/16/2019 COMPARISON: NONE HISTORY: Pain on the patella TECHNIQUE: 4 views FINDINGS: Joint spaces are fairly normal. I see no fracture nor dislocation. There is spurring on the superior patella. There is spurring at the tibial tubercle. There is no sign of joint effusion. 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 Minor spurring on the patella. No fracture seen.
--- NOTE | 2019-08-16 18:37 | US ---
EXAMINATION TYPE: US venous doppler duplex LE LT DATE OF EXAM: 08/16/2019 6:19 PM COMPARISON: NONE CLINICAL HISTORY: pain. Pain left leg x 1 day. Patient fell today. No hx of DVT. SIDE PERFORMED: Left TECHNIQUE: The lower extremity deep venous system is examined utilizing real time linear array sonog mamadou with graded compression, doppler sonography and color-flow sonography. VESSELS IMAGED: External Iliac Vein (EIV) Common Femoral Vein Deep Femoral Vein Greater Saphenous Vein * Femoral Vein Popliteal Vein Small Saphenous Vein * Proximal Calf Veins (* superficial vessels) Left Leg: No evidence of DVT in veins imaged at this time from prox calf veins to EIV. Medial left k nee there appears to be a complex area measurin.9 x 3.4 x 2.3 cm. IMPRESSION: No evidence of left leg deep vein thrombosis. Popliteal cyst is noted.
[2019-08-16 20:02] LABS: HCT 38.4 % (39.0-53.0); HGB 13.3 gm/dL (13.0-17.5); MCH 29.3 pg (25.0-35.0); MCHC 34.7 g/dL (31.0-37.0); MCV 84.6 fL (80.0-100.0); Mean Platelet Volume 7.5; Platelet Count 210 k/uL (150-450); RBC 4.54 m/uL (4.30-5.90); RDW 11.7 % (11.5-15.5)
[2019-08-16 20:07] LABS: INR 0.9 (<1.2); Ionized Calcium 6.4 mg/dL (4.5-5.3); Partial Thromboplastin Time 22.5 sec (22.0-30.0); Prothrombin Time 9.7 sec (9.0-12.0)
[2019-08-16 20:17] LABS: Albumin 4.3 g/dL (3.5-5.0); Calcium 12.2 mg/dL (8.4-10.2); Magnesium 2.1 mg/dL (1.6-2.3); Phosphorus 3.8 mg/dL (2.5-4.5); Total Bilirubin 0.6 mg/dL (0.2-1.3); Total Protein 6.9 g/dL (6.3-8.2)
[2019-08-16] MEDS ORDERED: SODIUM CHLORIDE 0.9% 1,000 ML IV ONE (20:32)
[2019-08-16] MEDS ORDERED: NALOXONE 0.4 MG/ML 1 ML VIAL IV PRN (20:34)
--- NOTE | 2019-08-16 20:36 | ED ---
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 Patient was that he always has pain in his joints however the last 24 hours the pain is getting worse. She reports the pain is worse with ambulation. Denies any recent falls or trauma. Denies any other complaints at this time. Systemic: Pt denies fatigue, fever/chills, rash. Pt denies weakness, night sweats, weight loss. Neuro: Pt denies headache, visual disturbances, syncope or pre-syncope. HEENT: Pt denies ocular discharge or irritation, otalgia, rhinorrhea, pharyngitis or notable lymphadenopathy. Cardiopulmonary: Pt denies chest pain, SOB, heart palpitations, dyspnea on exertion. Abdominal/GI: Pt denies abdominal pain, n/v/d. : Pt denies dysuria, burning w/ urination, frequency/urgency. Denies new onset urinary or bowel incontinence. Neuro: Pt denies new onset weakness, paresthesias. - Related Data Home Medications Medication Instructions Recorded Confirmed Calcitriol [Rocaltrol] 0.5 mcg PO QID 12/02/16 08/16/19 Thyroid,Pork [[place] Thyroid] 180 mg PO DAILY 06/16/17 08/16/19 Folic Acid 1 mg PO DAILY 03/30/18 08/16/19 Melatonin 6 mg PO HS PRN 03/30/18 08/16/19 Calcium Carbonate 500 mg PO QID 06/18/18 08/16/19 Multivitamins, Thera [Multivitamin 1 tab PO DAILY 06/18/18 08/16/19 (formulary)] predniSONE 7.5 mg PO DAILY 10/06/18 08/16/19 Methotrexate Sodium [Methotrexate] 20 mg PO MO 01/18/19 08/16/19 Aspirin EC [Ecotrin Low Dose] 81 mg PO Q48H 03/09/19 08/16/19 HYDROcodone/APAP 5-325MG [[place] 1 tab PO TID 03/09/19 08/16/19 5-325] Baclofen 10 mg PO BID 04/28/19 08/16/19 Hydrochlorothiazide 25 mg PO DAILY 04/28/19 08/16/19 Cholecalciferol [Vitamin D3 (25 5,000 unit PO DAILY 08/16/19 08/16/19 Mcg = 1000 Iu)] Allergies Allergy/AdvReac Type Severity Reaction Status Date / Time Iodinated Contrast Media Allergy Rash/Hives Verified 08/16/19 21:20 venom-honey bee Allergy Anaphylaxis Verified 08/16/19 21:20 gabapentin AdvReac Severe states Verified 08/16/19 21:20 "HIGH" for 2 days. bupropion AdvReac stomache Verified 08/16/19 21:20 upset,tinnitus,dizziness Review of Systems ROS Statement: Those systems with pertinent positive or pertinent negative responses have been documented in the HPI. ROS Other: All systems not noted in ROS Statement are negative. Past Medical History Past Medical History: Cancer, CVA/TIA, GERD/Reflux, Hypertension, Musculoskeletal Disorder, Osteoarthritis (OA), Thyroid Disorder Additional Past Medical History / Comment(s): Thyroid Cancer , TIA, hadtemporary blindness DJD, DDD, ruptured/herniated discs, BACK X6, & NECK X6. 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 PAIN PROCEDURES. Past Anesthesia/Blood Transfusion Reactions: No Reported Reaction Past Psychological History: PTSD Smoking Status: Never smoker Past Alcohol Use History: None Reported Past Drug Use History: None Reported - Past Family History Brother(s) Family Medical History: Hyperlipidemia Father Family Medical History: Coronary Artery Disease (CAD), Hyperlipidemia Additional Family Medical History / Comment(s): Uncle-myocardial infarction in his 40s Mother Family Medical History: No Reported History General Exam - General Exam Comments Initial Comments: Constitutional: NAD, AOX3, Pt has pleasant affect. HEENT: NC/AT, trachea midline, neck supple. External ears appear normal, without discharge. Mucous membranes moist. Eyes PERRLA, EOM intact. There is no scleral icterus. No pallor noted. Cardiopulmonary: RRR, no murmurs, rubs or gallops, no JVD noted. Lungs CTAB in anterior and posterior omalley. No peripheral edema. Abdominal exam: Abdomen soft and non-distended. Abdomen non-tender to palpation in all 4 quadrants. Bowel sounds active in LLQ. No hepatosplenomegaly. No ecchymosis Neuro: CN II-XII grossly intact. No nuchal rigidity. No raccon eyes, no saldana sign. MSK: No posterior calf tenderness bilaterally, homans sign negative bilaterally. Posterior tibialis and radial pulse +2 bilaterally. Sensation intact in upper and lower extremities. Anterior knee mildly tender to palpation. Range of motion is intact as well as strength, this does cause him some discomfort. No external skin changes. Popliteal region is mildly tender to palpation. 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 Patient was that he always has pain in his joints however the last 24 hours the pain is getting worse. She reports the pain is worse with ambulation. Denies any recent falls or trauma. Denies any other complaints at this time. Patient vital signs are stable, afebrile. Physical exam displayed: No posterior calf tenderness bilaterally, homans sign negative bilaterally. Posterior tibialis and radial pulse +2 bilaterally. Sensation intact in upper and lower extremities. Anterior knee mildly tender to palpation. Range of motion is intact as well as strength, this does cause him some discomfort. No external skin changes. Popliteal region is mildly tender to palpation. Plain film of the displayed old tibial tubercle osteochondrosis. Minor spurring of patella. No fracture. Ultrasound displayed no evidence of left deep pain thrombosis. Popliteal cyst is noted. Patient primary care provider called emergency department and doesn't wish patient to be admitted. Of investigations were obtained. Calcium is 12.2. Denies calcium 6.4. Creatinine is 1.83. His increased from his baseline. Patient was administered a 1 L normal saline bolus. We'll be admitted for further evaluation. Case discussed with Dr. Reed. - Lab Data Result diagrams: 08/16/19 19:43 08/16/19 19:43 Lab Results 08/16/19 08/16/19 08/16/19 Range/Units 19:43 19:43 19:43 WBC 7.0 (3.8-10.6) k/uL RBC 4.54 (4.30-5.90) m/uL Hgb 13.3 (13.0-17.5) gm/dL Hct 38.4 L (39.0-53.0) % MCV 84.6 (80.0-100.0) fL MCH 29.3 (25.0-35.0) pg MCHC 34.7 (31.0-37.0) g/dL RDW 11.7 (11.5-15.5) % Plt Count 210 (150-450) k/uL Neutrophils % (Manual) 59 % Lymphocytes % (Manual) 25 % Monocytes % (Manual) 14 % Eosinophils % (Manual) 1 % Basophils % (Manual) 1 % Neutrophils # (Manual) 4.13 (1.3-7.7) k/uL Lymphocytes # (Manual) 1.75 (1.0-4.8) k/uL Monocytes # (Manual) 0.98 (0-1.0) k/uL Eosinophils # (Manual) 0.07 (0-0.7) k/uL Basophils # (Manual) 0.07 (0-0.2) k/uL Nucleated RBCs 0 (0-0) /100 WBC Manual Slide Review Performed PT 9.7 (9.0-12.0) sec INR 0.9 (<1.2) APTT 22.5 (22.0-30.0) sec Sodium 138 (137-145) mmol/L Potassium 4.0 (3.5-5.1) mmol/L Chloride 104 (98-107) mmol/L Carbon Dioxide 28 (22-30) mmol/L Anion Gap 6 mmol/L BUN 35 H (9-20) mg/dL Creatinine 1.83 H (0.66-1.25) mg/dL Est GFR (CKD-EPI)AfAm 48 (>60 ml/min/1.73 sqM) Est GFR (CKD-EPI)NonAf 41 (>60 ml/min/1.73 sqM) Glucose 104 H (74-99) mg/dL Calcium 12.2 H (8.4-10.2) mg/dL Ionized Calcium [place] 6.4 H* (4.5-5.3) mg/dL Phosphorus 3.8 (2.5-4.5) mg/dL Magnesium 2.1 (1.6-2.3) mg/dL Total Bilirubin 0.6 (0.2-1.3) mg/dL AST 36 (17-59) U/L ALT 34 (4-49) U/L Alkaline Phosphatase 63 (38-126) U/L Troponin I (0.000-0.034) ng/mL Total Protein 6.9 (6.3-8.2) g/dL Albumin 4.3 (3.5-5.0) g/dL 08/16/19 Range/Units 19:43 WBC (3.8-10.6) k/uL RBC (4.30-5.90) m/uL Hgb (13.0-17.5) gm/dL Hct (39.0-53.0) % MCV (80.0-100.0) fL MCH (25.0-35.0) pg MCHC (31.0-37.0) g/dL RDW (11.5-15.5) % Plt Count (150-450) k/uL Neutrophils % (Manual) % Lymphocytes % (Manual) % Monocytes % (Manual) % Eosinophils % (Manual) % Basophils % (Manual) % Neutrophils # (Manual) (1.3-7.7) k/uL Lymphocytes # (Manual) (1.0-4.8) k/uL Monocytes # (Manual) (0-1.0) k/uL Eosinophils # (Manual) (0-0.7) k/uL Basophils # (Manual) (0-0.2) k/uL Nucleated RBCs (0-0) /100 WBC Manual Slide Review PT (9.0-12.0) sec INR (<1.2) APTT (22.0-30.0) sec Sodium (137-145) mmol/L Potassium (3.5-5.1) mmol/L Chloride (98-107) mmol/L Carbon Dioxide (22-30) mmol/L Anion Gap mmol/L BUN (9-20) mg/dL Creatinine (0.66-1.25) mg/dL Est GFR (CKD-EPI)AfAm (>60 ml/min/1.73 sqM) Est GFR (CKD-EPI)NonAf (>60 ml/min/1.73 sqM) Glucose (74-99) mg/dL Calcium (8.4-10.2) mg/dL Ionized Calcium [place] (4.5-5.3) mg/dL Phosphorus (2.5-4.5) mg/dL Magnesium (1.6-2.3) mg/dL Total Bilirubin (0.2-1.3) mg/dL AST (17-59) U/L ALT (4-49) U/L Alkaline Phosphatase (38-126) U/L Troponin I <0.012 (0.000-0.034) ng/mL Total Protein (6.3-8.2) g/dL Albumin (3.5-5.0) g/dL - EKG Data -: EKG Interpreted by Me (and Dr. Reed ) EKG Comments: Ventricular rate 66, purulent 134, QRS 94, QT/QTC 394/113. Normal sinus rhythm, normal EKG, no concern for acute ischemia at this time. Disposition Clinical Impression: Knee pain, MARK (acute kidney injury), Hypercalcemia Disposition: ADMITTED IP TO THIS HOSP Condition: Serious Is patient prescribed a controlled substance at d/c from ED?: No
[2019-08-16 20:51] LABS: Basophils # (M) 0.07 k/uL (0-0.2); Eosinophils # (M) 0.07 k/uL (0-0.7); Lymphocytes # (M) 1.75 k/uL (1.0-4.8); Monocytes # (M) 0.98 k/uL (0-1.0); Neutrophils # (M) 4.13 k/uL (1.3-7.7); Neutrophils % (M) 59 %; Nucleated Red Blood Cells 0 /100 WBC (0-0); Total Cells Counted 100
--- NOTE | 2019-08-16 21:13 | CT ---
EXAMINATION TYPE: CT knee LT wo con DATE OF EXAM: 08/16/2019 COMPARISON: None HISTORY: Left knee pain. CT DLP: 137 mGycm Automated exposure control for dose reduction was used. There is a mild knee joint effusion. There is spurring on the superior anterior patella. There is spu rring at the tibial tubercle. Joint spaces are fairly normal. I see no evidence of a fracture. There is no evidence of focal bone destruction. IMPRESSION: Mild spurring. No significant joint space narrowing. Small knee joint effusion. No fracture seen.
[2019-08-16] MEDS: SODIUM CHLORIDE 0.9% 1,000 ML IV SCH (21:26)
[2019-08-16 21:50] LABS: Appearance,Urine Clear (Clear); Bilirubin,Urine Negative (Negative); Blood,Urine Negative (Negative); Color,Urine Yellow; Glucose,Urine (UA) Negative (Negative); Ketones,Urine Negative (Negative); Leukocyte Esterase,Urine Trace (Negative); Nitrite,Urine Negative (Negative); PH, Urine 6.5 (5.0-8.0); Protein,Urine Negative (Negative); RBC,Urine 1 /hpf (0-5); Specific Gravity,Urine 1.017 (1.001-1.035); Urobilinogen,Urine <2.0 mg/dL (<2.0); WBC,Urine 4 /hpf (0-5)
[2019-08-16] MEDS ORDERED: HYDROcodone/APAP 5-325MG 1 EACH TAB PO PRN (23:30)
[2019-08-16] MEDS: MORPHINE SULFATE 4 MG/ML SYRINGE IVP PRN (23:36)
[2019-08-17] MEDS: MORPHINE SULFATE 4 MG/ML SYRINGE IVP PRN ×2 (05:07→22:31)
[2019-08-17] MEDS ORDERED: MELATONIN 3 MG TABLET PO PRN (08:05)
--- NOTE | 2019-08-17 08:54 | US ---
EXAMINATION TYPE: US kidneys/renal and bladder DATE OF EXAM: 08/17/2019 COMPARISON: NONE CLINICAL HISTORY: mark. MARK, exam done portable. EXAM MEASUREMENTS: Right Kidney: 12.0 x 4.4 x 5.6 cm Left Kidney: 11.8 x 6.2 x 5.2 cm Right Kidney: no hydronephrosis or masses seen Left Kidney: no hydronephrosis, 0.4cm echogenic focus mid pole Bladder: wnl Bilateral Jets seen: yes IMPRESSION: 1. Nonobstructing left renal calculus.
[2019-08-17] MEDS ORDERED: CALCITRIOL 0.25 MCG CAP PO SCH (09:00)
[2019-08-17] MEDS ORDERED: ASPIRIN 81 MG PO SCH (09:00)
[2019-08-17 09:21] LABS: Albumin 3.3 g/dL (3.5-5.0); Calcium 10.2 mg/dL (8.4-10.2); Magnesium 1.8 mg/dL (1.6-2.3); Potassium 4.2 mmol/L (3.5-5.1); Total Bilirubin 0.6 mg/dL (0.2-1.3); Total Protein 5.6 g/dL (6.3-8.2)
[2019-08-17] MEDS: SODIUM CHLORIDE 0.9% 1,000 ML IV SCH ×4 (09:32→22:38)
[2019-08-17] MEDS: MULTIVITAMINS, THERA 1 EACH TAB PO SCH (10:03)
[2019-08-17] MEDS: FOLIC ACID 1 MG TAB PO SCH (10:03)
[2019-08-17] MEDS: BACLOFEN 10 MG TAB PO SCH ×2 (10:04→22:38)
[2019-08-17] MEDS: predniSONE 2.5 MG TAB PO SCH (10:04)
--- NOTE | 2019-08-17 10:36 | P.NPCON ---
History of Present Illness - Reason for Consult acute renal failure - History of Present Illness Reason for consultation: Acute kidney injury and hypercalcemia History of present illness: Patient is a 54-year-old male seen in renal consultation for acute kidney injury and hypercalcemia. Patient denies any prior history of kidney disease. Creatinine was 1.83 on admission and is down to 1.56 today. He is maintained on normal saline at 100 mL an hour. Calcium level was 12.1 admission and is down to 10.2 today. Patient presented to the hospital due to knee pain. Patient states he has arthritis and has been maintained on 7.5 mg of prednisone daily. He states about 2-3 weeks ago the dose was decreased to 5 mg daily and since then he's been having worsening pain in his joints. He denies any trauma or falls. No vomiting or diarrhea. Oral intake is good. He has history of thyroid cancer and is status post thyroid and parathyroidectomy. Patient states he takes 4 tablets of calcium supplementation daily along with 2 mcg of calcitriol daily. Patient states he was also taking hydrochlorothiazide which was stopped 5 days ago. He does admit to taking a multivitamin daily patient states he took 2 doses of Motrin yesterday but denies nonsteroidal use on a regular basis. No chest pain or shortness of breath. No edema. Hemodynamically stable. Vital signs are stable. General: The patient appeared well nourished and normally developed. HEENT: Head exam is unremarkable. Neck is without jugular venous distension. LUNGS: Lungs are clear to auscultation and percussion. Breath sounds decreased. HEART: Rate and Rhythm are regular. ABDOMEN: Nontender, nondistended. EXTREMITITES: No clubbing, cyanosis, or edema. Past Medical History Past Medical History: Cancer, CVA/TIA, GERD/Reflux, Hypertension, Musculoskeletal Disorder, Osteoarthritis (OA), Thyroid Disorder Additional Past Medical History / Comment(s): Thyroid Cancer , TIA, hadtemporary blindness DJD, DDD, ruptured/herniated discs, BACK X6, & NECK X6. 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 PAIN PROCEDURES. Past Anesthesia/Blood Transfusion Reactions: No Reported Reaction Past Psychological History: PTSD Smoking Status: Never smoker Past Alcohol Use History: None Reported Past Drug Use History: None Reported - Past Family History Brother(s) Family Medical History: Hyperlipidemia Father Family Medical History: Coronary Artery Disease (CAD), Hyperlipidemia Additional Family Medical History / Comment(s): Uncle-myocardial infarction in his 40s Mother Family Medical History: No Reported History Medications and Allergies Home Medications Medication Instructions Recorded Confirmed Type Calcitriol [Rocaltrol] 0.5 mcg PO QID 12/02/16 08/16/19 History Thyroid,Pork [[place] Thyroid] 180 mg PO DAILY 06/16/17 08/16/19 History Folic Acid 1 mg PO DAILY 03/30/18 08/16/19 History Melatonin 6 mg PO HS PRN 03/30/18 08/16/19 History Calcium Carbonate 500 mg PO QID 06/18/18 08/16/19 History Multivitamins, Thera [Multivitamin 1 tab PO DAILY 06/18/18 08/16/19 History (formulary)] predniSONE 7.5 mg PO DAILY 10/06/18 08/16/19 History Methotrexate Sodium [Methotrexate] 20 mg PO MO 01/18/19 08/16/19 History Aspirin EC [Ecotrin Low Dose] 81 mg PO Q48H 03/09/19 08/16/19 History HYDROcodone/APAP 5-325MG [[place] 1 tab PO TID 03/09/19 08/16/19 History 5-325] Baclofen 10 mg PO BID 04/28/19 08/16/19 History Hydrochlorothiazide 25 mg PO DAILY 04/28/19 08/16/19 History Cholecalciferol [Vitamin D3 (25 5,000 unit PO DAILY 08/16/19 08/16/19 History Mcg = 1000 Iu)] Allergies Allergy/AdvReac Type Severity Reaction Status Date / Time Iodinated Contrast Media Allergy Rash/Hives Verified 08/16/19 21:20 venom-honey bee Allergy Anaphylaxis Verified 08/16/19 21:20 gabapentin AdvReac Severe states Verified 08/16/19 21:20 "HIGH" for 2 days. bupropion AdvReac stomache Verified 08/16/19 21:20 upset,tinnitus,dizziness Physical Exam Vitals: Vital Signs Temp Pulse Pulse Resp BP BP Pulse Ox 08/17/19 05:00 97.6 F 73 18 136/78 99 08/17/19 00:00 18 08/16/19 23:00 98.1 F 67 18 161/85 99 08/16/19 22:00 98.0 F 75 20 160/90 99 08/16/19 20:00 67 20 168/99 99 08/16/19 19:46 74 18 189/97 99 08/16/19 17:36 78 18 146/80 95 08/16/19 16:23 98 F 94 18 168/80 98 Intake and Output 08/16/19 08/17/19 08/17/19 22:59 06:59 14:59 Intake Total 1200 500 Balance 1200 500 Intake: Intake, IV Titration 200 Amount Sodium Chloride 0.9% 1, 200 000 ml @ 100 mls/hr IV . Q10H YESSY Rx#:[id number] Oral 1000 500 Other: # Voids 1 Weight 83.007 kg Results - Lab Results Most recent lab results Calcium 10.2 mg/dL (8.4-10.2) 08/17/19 08:16 Phosphorus 3.8 mg/dL (2.5-4.5) 08/16/19 19:43 Magnesium 1.8 mg/dL (1.6-2.3) 08/17/19 08:16 08/16/19 19:43 08/17/19 08:16 Assessment and Plan Plan: Assessment: 1. Acute kidney injury mostly prerenal secondary to hypercalcemia. Improving. Creatinine 1.83 on admission and is down to 1.56 today. UA benign. 2. Hypercalcemia secondary to calcium supplementation, calcitriol as well as multivitamin. He was also on hydrochlorothiazide which was stopped 5 days prior to admission. Better. Corrected calcium 10.5 today. 3. History of thyroid cancer status post thyroidectomy and parathyroidectomy. 4. Arthritis. Plan: I will decrease the rate of normal saline to 100 mL an hour. Continue to hold calcium and vitamin D supplementation. Avoid nephrotoxins. Repeat electrolytes in the morning. Thank you for the consultation. I will continue to follow the patient with you during his hospital stay.
--- NOTE | 2019-08-17 13:01 | P.HPIM ---
History of Present Illness H&P Date: 08/17/19 Chief Complaint: Joint pain, left knee weakness This is a 54-year-old male patient of Dr. Cintia Mart with past medical history of thyroid cancer status post 3 surgeries for lumpectomies with removal of the parathyroid as well, possible rheumatoid arthritis or reactive arthritis from elevated calcium, TIA, hypertension, gastroesophageal reflux disease, degenerative disc disease in the cervical spine and lumbar spine. Patient gives history that for the past 3 years his calcium level has been running at 9.5. Hydrochlorothiazide was recently stopped and his calcium went up to 10.2. He states he has been on chronic prednisone at 7.5 mg daily were trying to taper it but he developed significant pain in his joints especially his hands along with swelling and loss of wrinkles. For the past [address] Mart increased his prednisone back to 7.5. He has been seen by rheumatology in [place] as well as endocrinology. Patient follows with Dr. Nikki Mart locally for endocrinology. He gives history that he lost use of his hands or about 5 years and was placed on [place] Thyroid the past 2-3 years with improvement. He states he also developed significant weakness in general, abnormal gait and his left knee gave out causing a fall. Patient normally takes calcium supplement 4 tablets daily along with 2 g of calcitriol daily, Motrin yesterday. Patient presented to [facility] emergency center for evaluation. He was afebrile, heart rate 94, blood pressure 168/80, pulse ox 98% on room air. WBC unremarkable. Elective lites within normal limits, BUN 35 and creatinine 1.83, blood sugar 104. Calcium 12.2 and ionized calcium 6.4. Liver function tests normal, magnesium 2.1. Troponin negative. EKG was a sinus rhythm with no acute ST changes. Left knee x-ray showed an old tibial tubercle osteochondrosis. Minor spurring on the patella. No fracture. Ultrasound of the left lower extremity negative for DVT. CAT scan of the left knee revealed mild spurring. No significant joint space narrowing. Small knee joint effusion. No fracture. Renal ultrasound revealed nonobstructing left renal calculus. No hydronephrosis. Patient was admitted to the [facility] floor and consults requested with nephrology, orthopedics. Review of Systems Constitutional: Reports fatigue, Reports weakness, Denies chills, Denies fever Eyes: denies blurred vision, denies pain Ears, nose, mouth and throat: Denies dysphagia, Denies headache, Denies nasal congestion, Denies nasal discharge, Denies sore throat, Denies vertigo Cardiovascular: Denies chest pain, Denies dyspnea on exertion, Denies edema, Denies leg edema, Denies lightheadedness, Denies shortness of breath, Denies syncope Respiratory: Denies cough, Denies cough with sputum, Denies dyspnea, Denies excessive sputum, Denies hemoptysis, Denies home oxygen, Denies respiratory infections, Denies sleep apnea, Denies wheezing Gastrointestinal: Denies abdominal pain, Denies diarrhea, Denies loss of appetite, Denies nausea, Denies vomiting Musculoskeletal: Reports gait dysfunction, Reports muscle weakness, Denies myalgias Musculoskeletal: bilateral: hand pain, hand stiffness, hand swelling, knee pain, knee stiffness, knee swelling Integumentary: Denies pruritus, Denies rash, Denies wounds Neurological: Reports gait dysfunction, Denies change in mentation, Denies change in speech, Denies headaches, Denies numbness, Denies weakness Psychiatric: Denies anxiety, Denies depression Endocrine: Reports fatigue, Denies weight change Past Medical History Past Medical History: Cancer, CVA/TIA, GERD/Reflux, Hypertension, Musculoskele rosmery Disorder, Osteoarthritis (OA), Thyroid Disorder Additional Past Medical History / Comment(s): Thyroid Cancer , TIA, hadtemporary blindness DJD, DDD, ruptured/herniated discs, BACK X6, & NECK X6. 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 PAIN PROCEDURES. Past Anesthesia/Blood Transfusion Reactions: No Reported Reaction Past Psychological History: PTSD Smoking Status: Never smoker Past Alcohol Use History: None Reported Additional Past Alcohol Use History / Comment(s): Patient is a lifelong non- smoker, no marijuana or illicit drug use. 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 Past Drug Use History: None Reported - Past Family History Brother(s) Family Medical History: Hyperlipidemia Additional Family Medical History / Comment(s): Patient has one brother with history of diabetes. Father Family Medical History: Coronary Artery Disease (CAD), Hyperlipidemia Additional Family Medical History / Comment(s): Father is alive at age 77 with history of coronary artery disease and obstructive sleep apnea. Mother Family Medical History: No Reported History Additional Family Medical History / Comment(s): Mother is alive at age 77 with no major medical problems. Sister(s) Additional Family Medical History / Comment(s): Patient has 1 sister with no major medical problems. Patient is for children with no major medical problems. Medications and Allergies Home Medications Medication Instructions Recorded Confirmed Type Calcitriol [Rocaltrol] 0.5 mcg PO QID 12/02/16 08/16/19 History Thyroid,Pork [[place] Thyroid] 180 mg PO DAILY 06/16/17 08/16/19 History Folic Acid 1 mg PO DAILY 03/30/18 08/16/19 History Melatonin 6 mg PO HS PRN 03/30/18 08/16/19 History Calcium Carbonate 500 mg PO QID 06/18/18 08/16/19 History Multivitamins, Thera [Multivitamin 1 tab PO DAILY 06/18/18 08/16/19 History (formulary)] predniSONE 7.5 mg PO DAILY 10/06/18 08/16/19 History Methotrexate Sodium [Methotrexate] 20 mg PO MO 01/18/19 08/16/19 History Aspirin EC [Ecotrin Low Dose] 81 mg PO Q48H 03/09/19 08/16/19 History HYDROcodone/APAP 5-325MG [[place] 1 tab PO TID 03/09/19 08/16/19 History 5-325] Baclofen 10 mg PO BID 04/28/19 08/16/19 History Hydrochlorothiazide 25 mg PO DAILY 04/28/19 08/16/19 History Cholecalciferol [Vitamin D3 (25 5,000 unit PO DAILY 08/16/19 08/16/19 History Mcg = 1000 Iu)] Allergies Allergy/AdvReac Type Severity Reaction Status Date / Time Iodinated Contrast Media Allergy Rash/Hives Verified 08/16/19 21:20 venom-honey bee Allergy Anaphylaxis Verified 08/16/19 21:20 gabapentin AdvReac Severe states Verified 08/16/19 21:20 "HIGH" for 2 days. bupropion AdvReac stomache Verified 08/16/19 21:20 upset,tinnitus,dizziness Physical Exam Vitals: Vital Signs Temp Pulse Pulse Resp BP BP Pulse Ox 08/17/19 05:00 97.6 F 73 18 136/78 99 08/17/19 00:00 18 08/16/19 23:00 98.1 F 67 18 161/85 99 08/16/19 22:00 98.0 F 75 20 160/90 99 08/16/19 20:00 67 20 168/99 99 08/16/19 19:46 74 18 189/97 99 08/16/19 17:36 78 18 146/80 95 08/16/19 16:23 98 F 94 18 168/80 98 Intake and Output 08/16/19 08/17/19 08/17/19 22:59 06:59 14:59 Intake Total 1200 500 Balance 1200 500 Intake: Intake, IV Titration 200 Amount Sodium Chloride 0.9% 1, 200 000 ml @ 100 mls/hr IV . Q10H YESSY Rx#:[id number] Oral 1000 500 Other: # Voids 1 Weight 83.007 kg Gen: This is a 54-year-old male. He is resting in bed appears to be comfortable and in no acute distress. HEENT: Head is atraumatic, normocephalic. Pupils equal, round. Sclerae is anicteric. NECK: Supple. No JVD. No lymphadenopathy. No thyromegaly. LUNGS: Clear to auscultation. No wheezes or rhonchi. No intercostal retractions. HEART: Regular rate and rhythm. No murmur. ABDOMEN: Soft. Bowel sounds are present. No masses. No tenderness. EXTREMITIES: No pedal edema. No calf tenderness. Patient has generalized swelling to the bilateral hands, bilateral knees with possible effusion left knee NEUROLOGICAL: Patient is awake, alert and oriented x3. Cranial nerves 2 through 12 are grossly intact. Results CBC & Chem 7: 08/16/19 19:43 08/17/19 08:16 Labs: Abnormal Lab Results - Last 24 Hours (Table) 08/16/19 08/16/19 08/16/19 Range/Units 19:43 19:43 21:25 Hct 38.4 L (39.0-53.0) % BUN 35 H (9-20) mg/dL Creatinine 1.83 H (0.66-1.25) mg/dL Glucose 104 H (74-99) mg/dL Calcium 12.2 H (8.4-10.2) mg/dL Ionized Calcium Tracy 6.4 H* (4.5-5.3) mg/dL Ur Leukocyte Esterase Trace H (Negative) Thrombosis Risk Factor Assmnt - DVT/VTE Prophylaxis DVT/VTE Prophylaxis: Pharmacologic Prophylaxis ordered Assessment and Plan Plan: 1. Acute kidney injury secondary to hypercalcemia. Consult with nephrology. Continue IV fluids decreased 100 mL per hour. Hold calcium and vitamin D supplementation, avoid nephrotoxic agents, repeat BMP in the morning. Hold hydrochlorothiazide 2. Hypercalcemia secondary to calcium supplementation and hypoparathyroid. 3. Acute arthralgia possibly reactive to the hypercalcemia. Patient will need follow-up with rheumatology as an outpatient. Patient has had some type of arthralgia or rheumatoid arthritis in the past and had tried Humira. Hold methotrexate. Okay to continue prednisone 7.5 mg daily. 4 Left knee pain possible effusion. [facility]. Patient is requesting to see Dr. Melara.]. 5. History of thyroid cancer status post thyroidectomy and parathyroidectomy.Continue [place] Thyroid 180 mg daily. 6 Chronic pain with joint pain and degenerative disc disease. Continue baclofen, [place]. 7. GI prophylaxis. Protonix. 8. DVT prophylaxis. Heparin subcu. 9. COVID-19testing in process. Patient will be admitted to the hospital for a minimum of 2 night stay. Discharge plan:Home Impression and plan of care have been directed as dictated by the signing physician. Cari Mcclellan nurse practitioner acting as scribe for signing physician.
--- NOTE | 2019-08-17 13:31 | P.CNOR ---
History of Present Illness - [facility] Consult date: 08/17/19 Requesting physician: Golden Melara Consult reason: joint pain (Left knee pain) History of present illness: Patient is a very pleasant 54-year-old male who is seen and examined at the bedside for further evaluation in regards to his left knee. He was ambulating yesterday and while taking small steps he must have stepped wrong causing increased pain to his left knee. He's had significant difficulty with mobility and ambulation since that time. He needed assistance with ambulation. He is brought to the emergency department for further evaluation. Patient states he does have chronic changes at his bilateral knees. His osteoarthritis of the right knee is greater than the left knee. He states his left knee pain has been debilitating. He does have some swelling of the left knee. Multiple imaging modalities of the left knee were taken in the emergency department along with a venous ultrasound Doppler. He was admitted to medicine. He is being further evaluated for acute kidney injury and hypercalcemia. He denies any other current injuries other than his left knee pain and swelling and difficulty with ambulation. His past medical history includes hypertension, thyroid cancer, CVA/TIA, and chronic bilateral knee pain. Patient also states he is a patient of Dr. Golden Melara and followed with him in the outpatient setting but has been unable to follow up recently after his [facility] insurance was changed. Past Medical History Past Medical History: Cancer, CVA/TIA, GERD/Reflux, Hypertension, Musculoskele rosmery Disorder, Osteoarthritis (OA), Thyroid Disorder Additional Past Medical History / Comment(s): Thyroid Cancer , TIA, hadtemporary blindness DJD, DDD, ruptured/herniated discs, BACK X6, & NECK X6. 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 PAIN PROCEDURES. Past Anesthesia/Blood Transfusion Reactions: No Reported Reaction Past Psychological History: PTSD Smoking Status: Never smoker Past Alcohol Use History: None Reported Past Drug Use History: None Reported - Past Family History Brother(s) Family Medical History: Hyperlipidemia Father Family Medical History: Coronary Artery Disease (CAD), Hyperlipidemia Additional Family Medical History / Comment(s): Uncle-myocardial infarction in his 40s Mother Family Medical History: No Reported History Sister(s) Additional Family Medical History / Comment(s): Patient has 1 sister with no major medical problems. Patient is for children with no major medical problems. Medications and Allergies Home Medications Medication Instructions Recorded Confirmed Type Calcitriol [Rocaltrol] 0.5 mcg PO QID 12/02/16 08/16/19 History Thyroid,Pork [[place] Thyroid] 180 mg PO DAILY 06/16/17 08/16/19 History Folic Acid 1 mg PO DAILY 03/30/18 08/16/19 History Melatonin 6 mg PO HS PRN 03/30/18 08/16/19 History Calcium Carbonate 500 mg PO QID 06/18/18 08/16/19 History Multivitamins, Thera [Multivitamin 1 tab PO DAILY 06/18/18 08/16/19 History (formulary)] predniSONE 7.5 mg PO DAILY 10/06/18 08/16/19 History Methotrexate Sodium [Methotrexate] 20 mg PO MO 01/18/19 08/16/19 History Aspirin EC [Ecotrin Low Dose] 81 mg PO Q48H 03/09/19 08/16/19 History HYDROcodone/APAP 5-325MG [[place] 1 tab PO TID 03/09/19 08/16/19 History 5-325] Baclofen 10 mg PO BID 04/28/19 08/16/19 History Hydrochlorothiazide 25 mg PO DAILY 04/28/19 08/16/19 History Cholecalciferol [Vitamin D3 (25 5,000 unit PO DAILY 08/16/19 08/16/19 History Mcg = 1000 Iu)] Allergies Allergy/AdvReac Type Severity Reaction Status Date / Time Iodinated Contrast Media Allergy Rash/Hives Verified 08/16/19 21:20 venom-honey bee Allergy Anaphylaxis Verified 08/16/19 21:20 gabapentin AdvReac Severe states Verified 08/16/19 21:20 "HIGH" for 2 days. bupropion AdvReac stomache Verified 08/16/19 21:20 upset,tinnitus,dizziness Physical Examination Physical Exam: Patient is awake, alert, and oriented 3 Vital signs stable Good chest excursion with deep inspiration and expiration No signs or symptoms of DVT; no calf pain bilaterally; calves are soft to palpation Significant difficulty with active range of motion left knee Difficulty but better range of motion of the right knee Evidence of mild to moderate swelling over the left medial superior portion of the knee Evidence of mild swelling over the left lateral superior portion of the knee No significant pain with palpation along the joint line of the left knee No obvious instability of the left knee No increased left knee pain with valgus stress Increased left lateral knee pain with varus stress No erythema, bruising, or obvious sign of infection at the left knee Dorsiflexion and plantarflexion positive sustained bilateral lower extremities Significant difficulty with standing or any significant weightbearing on the left lower extremity In a standing position he does have some increased swelling over the left lateral superior portion of the knee by the patella Results Pertinent studies: CT of the left knee taken on 08/16/2019: Mild knee joint effusion; spurring along the superior anterior patella; spurring of the tibial tubercle; joint space appears to be fairly well maintained; no evidence of fracture; no evidence of focal bone destruction X-rays of the left knee taken on 08/16/2019: Old tibial tubercle osteochondrosis; minor spurring of the patella; no evidence of fracture of the left knee; joint space is fairly well maintained Venous ultrasound Doppler of the left lower extremity taken on 08/16/2019: No evidence of DVT; left medial knee appears to be a complex area measuring 5.9 cm x 3.4 cm x 2.3 cm - Labs Labs: Abnormal Lab Results - Last 24 Hours (Table) 08/16/19 08/16/19 08/16/19 Range/Units 19:43 19:43 21:25 Hct 38.4 L (39.0-53.0) % Chloride (98-107) mmol/L BUN 35 H (9-20) mg/dL Creatinine 1.83 H (0.66-1.25) mg/dL Glucose 104 H (74-99) mg/dL Calcium 12.2 H (8.4-10.2) mg/dL Ionized Calcium Tracy 6.4 H* (4.5-5.3) mg/dL Total Protein (6.3-8.2) g/dL Albumin (3.5-5.0) g/dL Ur Leukocyte Esterase Trace H (Negative) 08/17/19 Range/Units 08:16 Hct (39.0-53.0) % Chloride 109 H (98-107) mmol/L BUN 33 H (9-20) mg/dL Creatinine 1.56 H (0.66-1.25) mg/dL Glucose (74-99) mg/dL Calcium (8.4-10.2) mg/dL Ionized Calcium Tracy (4.5-5.3) mg/dL Total Protein 5.6 L (6.3-8.2) g/dL Albumin 3.3 L (3.5-5.0) g/dL Ur Leukocyte Esterase (Negative) H & H 08/16/19 Range/Units 19:43 Hgb 13.3 (13.0-17.5) gm/dL Hct 38.4 L (39.0-53.0) % Coagulation 08/16/19 Range/Units 19:43 INR 0.9 (<1.2) Result Diagrams: 08/16/19 19:43 08/17/19 08:16 Assessment and Plan Assessment: Assessment: Left knee pain Left knee swelling Left knee mild joint effusion Inability ambulate on the left lower extremity due to left knee pain Hypercalcemia Acute kidney injury Hypertension Chronic bilateral knee pain History of thyroid cancer History of thyroidectomy and parathyroidectomy History of CVA/TIA (1) Left knee pain Current Visit: Yes Status: Acute Code(s): M25.562 - PAIN IN LEFT KNEE SNOMED Code(s): 00537569 (2) Effusion of left knee Current Visit: Yes Status: Acute Code(s): M25.462 - EFFUSION, LEFT KNEE SNOMED Code(s): 809172620223640 (3) Inability to ambulate due to knee Current Visit: Yes Status: Acute Code(s): R26.2 - DIFFICULTY IN WALKING, NOT ELSEWHERE CLASSIFIED SNOMED Code(s): 502411525 (4) Hypertension Current Visit: Yes Status: Acute Code(s): I10 - ESSENTIAL (PRIMARY) HYPERTENSION SNOMED Code(s): 23986585 (5) Chronic knee pain Current Visit: Yes Status: Acute Code(s): M25.569 - PAIN IN UNSPECIFIED KNEE; G89.29 - OTHER CHRONIC PAIN SNOMED Code(s): 14694308 (6) History of TIA (transient ischemic attack) Current Visit: Yes Status: Acute Code(s): Z86.73 - PRSNL HX OF TIA (TIA), AND CEREB INFRC W/O RESID DEFICITS SNOMED Code(s): 552319390 (7) MARK (acute kidney injury) Current Visit: Yes Status: Acute Code(s): N17.9 - ACUTE KIDNEY FAILURE, UNSPECIFIED SNOMED Code(s): 31209470 (8) Hypercalcemia Current Visit: Yes Status: Acute Code(s): E83.52 - HYPERCALCEMIA SNOMED Code(s): 54362698 (9) History of thyroid cancer Current Visit: No Status: Chronic Code(s): Z85.850 - PERSONAL HISTORY OF MALIGNANT NEOPLASM OF THYROID SNOMED Code(s): 103083926 Plan: Plan: 1. Patient will be discussed in detail with Dr. Golden Melara. Patient states he is known have chronic bilateral knee pain with osteoarthritis greater in the right knee than the left. He states he was taking small steps yesterday when he stepped wrong on his left lower extremity. Since that time he has been experiencing significant pain at the left knee most significant to the lateral left knee and experiences significant difficulty with ambulation on the left lower extremity due to his knee pain. He also has swelling at the left knee. He has been a patient of Dr. Golden Melara but has been unable to have further evaluation after his [facility] insurance has been changed. Multiple imaging modalities of the left knee have been taken. He does have evidence of a mild left knee joint effusion. He does not have evidence of fracture at the left knee. His left knee joint space appears to be adequately maintained. He does have evide nce of some increased swelling at the left lateral knee but the patella while attempting to stand on left lower extremity. Given his significant symptoms and physical exam findings, we'll plan to obtain an MRI of the left knee for further evaluation. Once his MRI has been completed and interpreted, it will be reviewed by Dr. Golden Melara as well. We will follow up with the patient and discussed a plan of care proceeding forward. He may weight-bear as tolerated on the left lower extremity in his room. 2. Patient will continue be seen and examined by medicine and nephrology for further evaluation for his other medical diagnoses including acute kidney injury and hypercalcemia Time with Patient: Greater than 30 (Including obtaining history, physical examination, reviewing of imaging, and dictation.)
[2019-08-17] MEDS: THYROID, PORK 30 MG TAB PO SCH (16:42)
--- NOTE | 2019-08-17 17:47 | MR ---
EXAMINATION TYPE: MR knee LT wo con DATE OF EXAM: 08/17/2019 COMPARISON: CT 08/16/2019 and radiograph HISTORY: 54-year-old male left Knee pain, swelling and inability to ambulate TECHNIQUE: Multiplanar, multisequence imaging of the left knee is performed without IV contrast. FINDINGS: The ACL and PCL are intact. Mild edematous change in either side of the intact MCL fibers. LCL complex appears intact. There is capsular edema throughout with a moderate knee joint effusion and periarticular soft tissue edema especially posteriorly. Nonspecific subcutaneous anterior soft tissue swelling also noted. Some thickening and intermediate signal involving the mid deep proximal patellar tendon fibers. Exten sor mechanism otherwise intact. Medial meniscus shows a large horizontal cleavage tear extending throughout the posterior horn and arnulfo dy and a partial posterior root tear. Mild extrusion of the meniscal body. Overall medial compartment articular cartilage volume is maintained. There is an oblique tear extending throughout the posterior horn of the lateral meniscus and a small inner margin radial tear at the meniscal body. Overall lateral compartment articular cartilage volume is maintained. Focal superficial cartilage fissuring along the lateral patellar facet. Moderate-sized leaking Moura's cyst measuring 6.0 x 3.2 cm. Mild generalized synovial thickening noted. No marrow edema or evidence for acute or healing fracture. Normal popliteal artery anatomy. Mild generalized muscular atrophy. No suspicious bone marrow replace ment. IMPRESSION: 1. Low-grade MCL sprain. 2. Large horizontal cleavage tear involving the posterior horn and body of the medial meniscus and a partial posterior root tear as well. 3. Oblique tear extending throughout the posterior horn of the lateral meniscus with a small inner ma rgin radial tear at the meniscal body. 4. Moderate knee joint effusion with mild chronic synovitis. Extensive periarticular soft tissue phyllis a suspected to relate to joint fluid extravasation. There is generalized soft tissue swelling and a m oderate-sized leaking Moura cyst measuring 6.0 cm. 5. Focal superficial cartilage fissuring along the lateral patellar facet. Mild proximal patellar ten dinosis.
[2019-08-18] MEDS: MORPHINE SULFATE 4 MG/ML SYRINGE IVP PRN (04:23)
[2019-08-18] MEDS: FOLIC ACID 1 MG TAB PO SCH (07:25)
[2019-08-18] MEDS: MULTIVITAMINS, THERA 1 EACH TAB PO SCH (07:25)
[2019-08-18] MEDS: predniSONE 2.5 MG TAB PO SCH (07:25)
[2019-08-18] MEDS: BACLOFEN 10 MG TAB PO SCH (07:25)
--- NOTE | 2019-08-18 07:50 | P.DS ---
Providers Date of admission: 08/16/19 21:05 Expected date of discharge: 08/18/19 Attending physician: Carolyn Mart MD Consults: 08/16/19 20:34 Consult Physician Stat Consulting Provider: Jesus Alberto Broussard Consult Reason/Comments: marco antonio, hypercalcemia, hx parathyroid ca Do you want consulting provider notified?: Yes 08/17/19 08:03 Consult Physician Routine Consulting Provider: Golden Melara Consult Reason/Comments: knee pain Do you want consulting provider notified?: Yes Primary care physician: Carolyn Mart MD Hospital Course: This is a 54-year-old male patient of Dr. Cintia Mart with past medical history of thyroid cancer status post 3 surgeries for lumpectomies with removal of the parathyroid as well, possible rheumatoid arthritis or reactive arthritis from elevated calcium, TIA, hypertension, gastroesophageal reflux disease, degenerative disc disease in the cervical spine and lumbar spine. Patient gives history that for the past 3 years his calcium level has been running at 9.5. Hydrochlorothiazide was recently stopped and his calcium went up to 10.2. He states he has been on chronic prednisone at 7.5 mg daily were trying to taper it but he developed significant pain in his joints especially his hands along with swelling and loss of wrinkles. For the past [address] Mart increased his prednisone back to 7.5. He has been seen by rheumatology in [place] as well as endocrinology. Patient follows with Dr. Nikki Mart locally for endocrinology. He gives history that he lost use of his hands or about 5 years and was placed on [place] Thyroid the past 2-3 years with improvement. He states he also developed significant weakness in general, abnormal gait and his left knee gave out causing a fall. Patient normally takes calcium supplement 4 tablets daily along with 2 g of calcitriol daily, Motrin yesterday. Patient presented to [facility] emergency center for evaluation. He was afebrile, heart rate 94, blood pressure 168/80, pulse ox 98% on room air. WBC unremarkable. Elective lites within normal limits, BUN 35 and creatinine 1.83, blood sugar 104. Calcium 12.2 and ionized calcium 6.4. Liver function tests normal, magnesium 2.1. Troponin negative. EKG was a sinus rhythm with no acute ST changes. Left knee x-ray showed an old tibial tubercle osteochondrosis. Minor spurring on the patella. No fracture. Ultrasound of the left lower extremity negative for DVT. CAT scan of the left knee revealed mild spurring. No significant joint space narrowing. Small knee joint effusion. No fracture. Renal ultrasound revealed nonobstructing left renal calculus. No hydronephrosis. Patient was admitted to the [facility] floor and consults requested with nephrology, orthopedics. 08/17: Patient denies any new complaints. Discomfort in hands and knees seem to be slightly improved from yesterday. Covid 19 not detected. Repeat lab work reveals BUN of 26, creatinine 1.33, calcium 9.9. MRI of the knee revealed low grade MCL sprain. Large horizontal cleavage tear involving the posterior horn and body of the medial meniscus and partial posterior tear as well. Oblique tear extending throughout the posterior horn of the lateral meniscus with small inner margin radial tear at the meniscal body. Moderate knee joint effusion with mild chronic synovitis. Extensive periarticular soft tissue edema s uspected to relate to joint fluid extravasation. Generalized soft tissue swelling and moderate sized Moura's cyst 6 cm. Focal superficial cartilage fissuring along the lateral patellar facet. Mild proximal patellar tendinosis. Orthopedics discussed with the patient plan for left knee arthroscopy for medial and lateral meniscal tears to be done as an outpatient. Patient may be weightbearing as tolerated and follow up in the office in one week. Case discussed with Dr. Broussard and instructions to decrease calcitriol to 0.5 g daily and calcium carbonate 2 tablets daily with recheck of CMP on Friday. Patient to follow-up with Dr. Cintia Mart on Friday for repeat lab work. Patient to follow-up with Dr. Broussard and 1-2 weeks. Patient will also follow-up with endocrinology, Dr. Nikki Mart. Discharge diagnoses: 1. Acute kidney injury secondary to hypercalcemia. 2. Hypercalcemia secondary to calcium supplementation and hypoparathyroid. 3. Acute arthralgia possibly reactive to the hypercalcemia. Patient will need follow-up with rheumatology as an outpatient. 4 Left knee pain small effusion secondary to medial and lateral meniscal tears. 5. History of thyroid cancer status post thyroidectomy and parathyroidectomy. 6 Chronic pain with joint pain and degenerative disc disease. 7. COVID-19 infection not present. Discharge plan:Home Impression and plan of care have been directed as dictated by the signing physician. Cari Mcclellan nurse practitioner acting as scribe for signing physician. Patient Condition at Discharge: Good Plan - Discharge Summary New Discharge Prescriptions: New Calcium Carbonate 500 mg PO BID #30 tablet Continue Thyroid,Pork [[place] Thyroid] 180 mg PO DAILY Folic Acid 1 mg PO DAILY Melatonin 6 mg PO HS PRN PRN Reason: Insomnia Multivitamins, Thera [Multivitamin (formulary)] 1 tab PO DAILY Methotrexate Sodium [Methotrexate] 20 mg PO MO HYDROcodone/APAP 5-325MG [[place] 5-325] 1 tab PO TID PRN PRN Reason: Pain Aspirin EC [Ecotrin Low Dose] 81 mg PO Q48H Cholecalciferol [Vitamin D3 (25 Mcg = 1000 Iu)] 5,000 unit PO DAILY predniSONE 7.5 mg PO DAILY Baclofen 5 mg PO TID Venlafaxine HCl ER [Effexor XR] 37.5 mg PO DAILY Changed Calcitriol [Rocaltrol] 0.5 mcg PO DAILY #0 Discontinued Calcium Carbonate 500 mg PO QID Hydrochlorothiazide 25 mg PO DIRECTED Discharge Medication List Thyroid,Pork [[place] Thyroid] 180 mg PO DAILY 06/16/17 [History] Folic Acid 1 mg PO DAILY 03/30/18 [History] Melatonin 6 mg PO HS PRN 03/30/18 [History] Multivitamins, Thera [Multivitamin (formulary)] 1 tab PO DAILY 06/18/18 [History] Methotrexate Sodium [Methotrexate] 20 mg PO MO 01/18/19 [History] Aspirin EC [Ecotrin Low Dose] 81 mg PO Q48H 03/09/19 [History] HYDROcodone/APAP 5-325MG [[place] 5-325] 1 tab PO TID PRN 03/09/19 [History] Cholecalciferol [Vitamin D3 (25 Mcg = 1000 Iu)] 5,000 unit PO DAILY 08/16/19 [History] Baclofen 5 mg PO TID 08/17/19 [History] Venlafaxine HCl ER [Effexor XR] 37.5 mg PO DAILY 08/17/19 [History] predniSONE 7.5 mg PO DAILY 08/17/19 [History] Calcitriol [Rocaltrol] 0.5 mcg PO DAILY #0 08/18/19 [Rx] Calcium Carbonate 500 mg PO BID #30 tablet 08/18/19 [Rx] Follow up Appointment(s)/Referral(s): Golden Melara DO [Doctor of Osteopathic Medicine] - 1 Week Vasquez Mart MD [REFERRING] - 1 Week Carolyn Mart MD [Primary Care Provider] - 08/23/19 Jesus Alberto Broussard DO [STAFF PHYSICIAN] - 2 Weeks Ambulatory/Diagnostic Orders: Comprehensive Metabolic Panel [LAB.AMB] Location: None Selected Activity/Diet/Wound Care/Special Instructions: [facility]. Discharge Disposition: HOME SELF-CARE
[2019-08-18 08:04] LABS: Albumin 3.2 g/dL (3.5-5.0); Calcium 9.9 mg/dL (8.4-10.2); Magnesium 1.7 mg/dL (1.6-2.3); Potassium 4.6 mmol/L (3.5-5.1); Total Bilirubin 0.6 mg/dL (0.2-1.3); Total Protein 5.6 g/dL (6.3-8.2)
--- NOTE | 2019-08-18 09:18 | P.PN ---
Subjective Progress Note Date: 08/18/19 This is a 54-year-old male who is admitted for acute kidney injury and hypercalcemia. Orthopedics was consulted due to left knee pain. Patient is seen and evaluated at bedside today with Dr. Golden Melara. Patient states that he continues to have pain in the left knee with weightbearing, but he denies any new complaints today. Patient denies any fever/chills, numbness, weakness, tingling, abdominal pain, shortness of breath or chest pain. Objective - Vital Signs Vital signs: Vital Signs Temp 98.0 F 08/18/19 05:00 Pulse 72 08/18/19 05:00 Resp 18 08/18/19 05:00 BP 145/69 08/18/19 05:00 Pulse Ox 97 08/18/19 05:00 Intake & Output 08/17/19 08/18/19 08/18/19 18:59 06:59 18:59 Intake Total 2240 1750 Balance 2240 1750 Intake: Intake, IV Titration 800 1250 Amount Sodium Chloride 0.9% 1, 800 1250 000 ml @ 100 mls/hr IV . Q10H [facility] Rx#:[id number] Oral 1440 500 Other: Voiding Method Toilet Toilet # Voids 4 3 - Exam On exam there is a mild effusion. There is tenderness to palpation over the medial and lateral aspects of the left knee. Patient has good range of motion of the left knee. There is no erythema and skin is intact. Sensation intact. Calf is soft and nontender to palpation. Neurovascular status and circulatory status are intact. - Labs CBC & Chem 7: 08/16/19 19:43 08/18/19 07:05 Labs: Abnormal Lab Results - Last 24 Hours (Table) 08/17/19 08/18/19 Range/Units 08:16 07:05 Chloride 109 H 109 H (98-107) mmol/L BUN 33 H 26 H (9-20) mg/dL Creatinine 1.56 H 1.33 H (0.66-1.25) mg/dL Total Protein 5.6 L 5.6 L (6.3-8.2) g/dL Albumin 3.3 L 3.2 L (3.5-5.0) g/dL Assessment and Plan (1) Tear of medial meniscus of left knee Current Visit: Yes Status: Acute Code(s): S83.242A - OTH TEAR OF MEDIAL MENISCUS, CURRENT INJURY, LEFT KNEE, INIT SNOMED Code(s): 232201750 (2) Tear of lateral meniscus of left knee Current Visit: Yes Status: Acute Code(s): S83.282A - OTH TEAR OF LAT MENSC, CURRENT INJURY, LEFT KNEE, INIT SNOMED Code(s): 529970859 (3) Left knee pain Current Visit: Yes Status: Acute Code(s): M25.562 - PAIN IN LEFT KNEE SNOMED Code(s): 47609055 Plan: An MRI of the left knee dated 08/17/2019 shows: 1. Low-grade MCL sprain. 2. Large horizontal cleavage tear involving the posterior horn and body of the medial meniscus and a partial posterior root tear as well. 3. Oblique tear extending throughout the posterior horn of the lateral meniscus with a small inner margin radial tear the meniscal body. 4. Moderate knee joint effusion with mild chronic synovitis. Extensive periarticular soft tissue edema suspected to relate to joint fluid extravasation. There is generalized soft tissue swelling and a moderate sized leaking Moura's cyst measuring 6.0 cm. 5. Focal superficial cartilage fissuring along the lateral patellar facet. Mild proximal patellar tendinosis. MRI results are discussed at bedside. Left knee arthroscopy is discussed as a treatment option due to medial and lateral meniscal tears, but this would be done on an outpatient basis. In the meantime, physical therapy is recommended for mobilization and pain relief. Patient may be weightbearing as tolerated. Patient is to follow-up in the office as an outpatient in one week and is receptive to this plan.
[2019-08-18] MEDS: THYROID, PORK 30 MG TAB PO SCH (10:32)
[2019-08-18] MEDS: SODIUM CHLORIDE 0.9% 1,000 ML IV SCH (10:35)
[2019-08-18 11:28] VITALS: BP 167/94; PULSE 71; RESP 17; TEMP 99.1
--- NOTE | 2019-08-18 13:08 | P.PN ---
Subjective Patient is seen in follow-up for acute kidney injury and hypercalcemia. Renal function continues to improve. Creatinine 1.33 today. Calcium down to 9.9. Oral intake is good. He is maintained on IV fluids. No edema. Good urine output. Vital signs are stable. General: The patient appeared well nourished and normally developed. HEENT: Head exam is unremarkable. Neck is without jugular venous distension. LUNGS: Lungs are clear to auscultation and percussion. Breath sounds decreased. HEART: Rate and Rhythm are regular. ABDOMEN: Soft, nontender. EXTREMITITES: No clubbing, cyanosis, or edema. Objective - Vital Signs Vital signs: Vital Signs Temp 99.1 F 08/18/19 11:27 Pulse 71 08/18/19 11:27 Resp 17 08/18/19 11:27 BP 167/94 08/18/19 11:27 Pulse Ox 99 08/18/19 11:27 Intake & Output 08/17/19 08/18/19 08/18/19 18:59 06:59 18:59 Intake Total 2240 1750 360 Balance 2240 1750 360 Intake: Intake, IV Titration 800 1250 Amount Sodium Chloride 0.9% 1, 800 1250 000 ml @ 100 mls/hr IV . Q10H [facility] Rx#:[id number] Oral 1440 500 360 Other: Voiding Method Toilet Toilet Toilet # Voids 4 3 - Labs CBC & Chem 7: 08/16/19 19:43 08/18/19 07:05 Labs: Abnormal Lab Results - Last 24 Hours (Table) 08/18/19 Range/Units 07:05 Chloride 109 H (98-107) mmol/L BUN 26 H (9-20) mg/dL Creatinine 1.33 H (0.66-1.25) mg/dL Total Protein 5.6 L (6.3-8.2) g/dL Albumin 3.2 L (3.5-5.0) g/dL Assessment and Plan Plan: Assessment: 1. Acute kidney injury mostly prerenal secondary to hypercalcemia. Improving. Creatinine 1.83 on admission and is down to 1.33 today. UA benign. 2. Hypercalcemia secondary to calcium supplementation, calcitriol as well as multivitamin. He was also on hydrochlorothiazide which was stopped 5 days prior to admission. Better. Corrected calcium 10.3 today. 3. History of thyroid cancer status post thyroidectomy and parathyroidectomy. 4. Arthritis. Plan: Hep-Lock IV fluids. Continue to hold calcium supplementation and calcitriol for the next 48 hours. He may resume gradually over the weekend with calcitriol 0.5 g daily and 2 tablets of calcium carbonate. Repeat CMP on Friday and follow-up with PCP within 1 week and endocrinology as well. Follow up in our office in 1-2 weeks. Discussed with the primary team
== END 2019-08-18 16:45 | disposition home or self-care (01) | DRG 563 ==
LOC: EC 16:10 → 5NMEDONC 21:05
PROVIDERS: ADMIT Internal Medicine; ATTEND Internal Medicine
DX: S83.282A Other tear of lateral meniscus, current injury, left knee, initial encounter (principal); N17.9 Acute kidney failure, unspecified; S83.242A Other tear of medial meniscus, current injury, left knee, initial encounter; S83.412A Sprain of medial collateral ligament of left knee, initial encounter; E83.52 Hypercalcemia; E89.0 Postprocedural hypothyroidism; F43.10 Post-traumatic stress disorder, unspecified; G89.29 Other chronic pain; I10 Essential (primary) hypertension; M06.9 Rheumatoid arthritis, unspecified; M17.0 Bilateral primary osteoarthritis of knee; E89.2 Postprocedural hypoparathyroidism; M71.22 Synovial cyst of popliteal space [Baker], left knee; M65.9 Synovitis and tenosynovitis, unspecified; N20.0 Calculus of kidney; K21.9 Gastro-esophageal reflux disease without esophagitis; M25.462 Effusion, left knee; T45.2X5A Adverse effect of vitamins, initial encounter; Z11.59 Encounter for screening for other viral diseases; Z79.52 Long term (current) use of systemic steroids; Z79.899 Other long term (current) drug therapy; Z79.82 Long term (current) use of aspirin; Z79.891 Long term (current) use of opiate analgesic; Z79.890 Hormone replacement therapy; Z88.8 Allergy status to other drugs, medicaments and biological substances; Z91.030 Bee allergy status; Z91.041 Radiographic dye allergy status; Z86.73 Personal history of transient ischemic attack (TIA), and cerebral infarction without residual deficits; Z85.850 Personal history of malignant neoplasm of thyroid; Z85.89 Personal history of malignant neoplasm of other organs and systems; Z87.820 Personal history of traumatic brain injury; Z82.49 Family history of ischemic heart disease and other diseases of the circulatory system; Z83.3 Family history of diabetes mellitus
CPT/HCPCS: 36415; 76770; 80053; 81001; 82330; 83735; 84100; 84484; 85025; 85610; 85730; 93005; 96360; 96372; 99285

== ENCOUNTER 2019-08-29 20:48 | Emergency (ER) | payer OTHER ==
[2019-08-29 21:01] VITALS: TEMP 98.5
[2019-08-29] MEDS ORDERED: MORPHINE SULFATE 4 MG/ML SYRINGE IV STA (21:11)
--- NOTE | 2019-08-29 21:14 | ED ---
General Adult HPI - General Chief complaint: Dental/Oral Stated complaint: Tooth pain Time Seen by Provider: 08/29/19 21:03 Source: patient, RN notes reviewed, old records reviewed Mode of arrival: ambulatory - History of Present Illness Initial comments: 54-year-old male patient past history significant for thyroid cancer, status post thyroidectomy presents to ED for 2 complaints. Patient reports that he had 3 teeth removed in his left upper jaw on . He states that he has had difficult to control pain since. Patient reports that last 2 hours has been having heart palpitations as well. Denies any chest pain. Denies any other plants any other areas of pain. Denies shortness of breath. Systemic: Pt denies fatigue, fever/chills, rash. Pt denies weakness, night sweats, weight loss. Neuro: Pt denies headache, visual disturbances, syncope or pre-syncope. HEENT: Pt denies ocular discharge or irritation, otalgia, rhinorrhea, pharyngitis or notable lymphadenopathy. Cardiopulmonary: Pt denies chest pain, SOB, dyspnea on exertion. Abdominal/GI: Pt denies abdominal pain, n/v/d. : Pt denies dysuria, burning w/ urination, frequency/urgency. Denies new onset urinary or bowel incontinence. MSK: Pt denies myalgia, loss of strength or function in extremities. Neuro: Pt denies new onset weakness, paresthesias. - Related Data Home Medications Medication Instructions Recorded Confirmed Thyroid,Pork [[place] Thyroid] 180 mg PO DAILY 06/16/17 08/16/19 Folic Acid 1 mg PO DAILY 03/30/18 08/16/19 Melatonin 6 mg PO HS PRN 03/30/18 08/16/19 Multivitamins, Thera [Multivitamin 1 tab PO DAILY 06/18/18 08/16/19 (formulary)] Methotrexate Sodium [Methotrexate] 20 mg PO MO 01/18/19 08/16/19 Aspirin EC [Ecotrin Low Dose] 81 mg PO Q48H 03/09/19 08/16/19 HYDROcodone/APAP 5-325MG [[place] 1 tab PO TID PRN 03/09/19 08/16/19 5-325] Cholecalciferol [Vitamin D3 (25 5,000 unit PO DAILY 08/16/19 08/16/19 Mcg = 1000 Iu)] Baclofen 5 mg PO TID 08/17/19 08/17/19 Venlafaxine HCl ER [Effexor XR] 37.5 mg PO DAILY 08/17/19 08/17/19 predniSONE 7.5 mg PO DAILY 08/17/19 08/17/19 Previous Rx's Medication Instructions Recorded Calcitriol [Rocaltrol] 0.5 mcg PO DAILY #0 08/18/19 Calcium Carbonate 500 mg PO BID #30 tablet 08/18/19 Allergies Allergy/AdvReac Type Severity Reaction Status Date / Time Iodinated Contrast Media Allergy Rash/Hives Verified 08/29/19 21:01 venom-honey bee Allergy Anaphylaxis Verified 08/29/19 21:01 gabapentin AdvReac Severe states Verified 08/29/19 21:01 "HIGH" for 2 days. bupropion AdvReac stomache Verified 08/29/19 21:01 upset,tinnitus,dizziness Review of Systems ROS Statement: Those systems with pertinent positive or pertinent negative responses have been documented in the HPI. ROS Other: All systems not noted in ROS Statement are negative. Past Medical History Past Medical History: Cancer, CVA/TIA, GERD/Reflux, Hypertension, Musculoskeletal Disorder, Osteoarthritis (OA), Thyroid Disorder Additional Past Medical History / Comment(s): Thyroid Cancer , TIA, hadtemporary blindness DJD, DDD, ruptured/herniated discs, BACK X6, & NECK X6. 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 PAIN PROCEDURES. Past Anesthesia/Blood Transfusion Reactions: No Reported Reaction Past Psychological History: PTSD Smoking Status: Never smoker Past Alcohol Use History: None Reported Past Drug Use History: None Reported - Past Family History Brother(s) Family Medical History: Hyperlipidemia Additional Family Medical History / Comment(s): Patient has one brother with history of diabetes. Father Family Medical History: Coronary Artery Disease (CAD), Hyperlipidemia Additional Family Medical History / Comment(s): Uncle-myocardial infarction in his 40s Mother Family Medical History: No Reported History Additional Family Medical History / Comment(s): Mother is alive at age 77 with no major medical problems. Sister(s) Additional Family Medical History / Comment(s): Patient has 1 sister with no major medical problems. Patient is for children with no major medical problems. General Exam - General Exam Comments Initial Comments: Constitutional: NAD, AOX3, Pt has pleasant affect. HEENT: NC/AT, trachea midline, neck supple, no lymphadenopathy. Posterior pharynx non erythematous, without exudates. External ears appear normal, without discharge. Mucous membranes moist. Eyes PERRLA, EOM intact. There is no scleral icterus. No pallor noted. Cardiopulmonary: RRR, no murmurs, rubs or gallops, no JVD noted. Lungs CTAB in anterior and posterior omalley. No peripheral edema. Abdominal exam: Abdomen soft and non-distended. Abdomen non-tender to palpation in all 4 quadrants. Bowel sounds active in LLQ. No hepatosplenomegaly. No ecchymosis Neuro: CN II-XII grossly intact. No nuchal rigidity. No raccon eyes, no saldana sign, no hemotympanum. No cervical spinal tenderness. MSK: No posterior calf tenderness bilaterally, homans sign negative bilaterally. Posterior tibialis and radial pulse +2 bilaterally. Sensation intact in upper and lower extremities. Full active ROM in upper and lower extremities, 5/5 stregnth. Course Vital Signs 08/29/19 08/29/19 08/29/19 20:56 21:31 22:00 Temperature 98.5 F Pulse Rate 84 68 60 Respiratory 20 18 10 L Rate Blood Pressure 143/95 123/85 127/83 O2 Sat by Pulse 99 98 99 Oximetry 08/29/19 22:29 Temperature 98.5 F Pulse Rate 60 Respiratory 10 L Rate Blood Pressure 127/83 O2 Sat by Pulse 99 Oximetry Medical Decision Making - Medical Decision Making 54-year-old male patient past history significant for thyroid cancer, status post thyroidectomy presents to ED for 2 complaints. Patient reports that he had 3 teeth removed in his left upper jaw on . He states that he has had difficult to control pain since. Patient reports that last 2 hours has been boone ving heart palpitations as well. Denies any chest pain. Denies any other plants any other areas of pain. Denies shortness of breath. Patient vital signs are stable, afebrile. Physical exam doesn't display post surgical changes to the left upper jaw originally was having pain however there is no discharge lifting erythema or fluctuance signs of infection. Physical exam is otherwise noncompressive. Laboratory investigations were obtained. These are also noncompressive. Troponin is negative. EKG displayed normal sinus rhythm. Patient reports that after his pain was treated his palpitations stopped and he believes that they're secondary to the pain. A repeat EKG was performed which d isplayed sinus bradycardia. Patient will be discharged will follow up with primary care provider as well as cardiology and that oral surgeon perform the surgery tomorrow. Will return to ER if condition worsens. Pain is well- controlled in ED. Case discussed with Dr. Garcia. - Lab Data Result diagrams: 08/29/19 21:08/29/19 21: Lab Results 08/29/19 08/29/19 08/29/19 Range/Units : 21: 21: WBC 9.4 (3.8-10.6) k/uL RBC 4.32 (4.30-5.90) m/uL Hgb 12.1 L (13.0-17.5) gm/dL Hct 36.3 L (39.0-53.0) % MCV 84.0 (80.0-100.0) fL MCH 28.0 (25.0-35.0) pg MCHC 33.4 (31.0-37.0) g/dL RDW 12.3 (11.5-15.5) % Plt Count 233 (150-450) k/uL Neutrophils % 55 % Lymphocytes % 33 % Monocytes % 6 % Eosinophils % 2 % Basophils % 1 % Neutrophils # 5.1 (1.3-7.7) k/uL Lymphocytes # 3.1 (1.0-4.8) k/uL Monocytes # 0.6 (0-1.0) k/uL Eosinophils # 0.1 (0-0.7) k/uL Basophils # 0.1 (0-0.2) k/uL Sodium 137 (137-145) mmol/L Potassium 3.7 (3.5-5.1) mmol/L Chloride 105 (98-107) mmol/L Carbon Dioxide 27 (22-30) mmol/L Anion Gap 5 mmol/L BUN 20 (9-20) mg/dL Creatinine 1.16 (0.66-1.25) mg/dL Est GFR (CKD-EPI)AfAm 83 (>60 ml/min/1.73 sqM) Est GFR (CKD-EPI)NonAf 72 (>60 ml/min/1.73 sqM) Glucose 108 H (74-99) mg/dL Calcium 8.5 (8.4-10.2) mg/dL Phosphorus 2.9 (2.5-4.5) mg/dL Magnesium 1.7 (1.6-2.3) mg/dL Total Bilirubin 0.6 (0.2-1.3) mg/dL AST 27 (17-59) U/L ALT 23 (4-49) U/L Alkaline Phosphatase 52 (38-126) U/L Troponin I <0.012 (0.000-0.034) ng/mL Total Protein 6.4 (6.3-8.2) g/dL Albumin 4.0 (3.5-5.0) g/dL - EKG Data -: EKG Interpreted by Me (and Dr. Garcia ) EKG Comments: 1) ventricular rate 70, SD interval 126, QRS 94, QT/QTc 408/440. Normal sensation, normal EKG, no concern for acute ischemia or arrhythmia at this time. 2) ventricular rate 53, SD interval 124, QRS 94, QT/QTc 452/424. Sinus bradycardia, otherwise normal EKG. No concern for acute ischemia. No signific ant change from prior EKG. Disposition Clinical Impression: Pain, dental, Heart palpitations Disposition: HOME SELF-CARE Condition: Stable Instructions (If sedation given, give patient instructions): Toothache (ED), Heart Palpitations (ED) Additional Instructions: Follow-up with oral surgeon who performed surgery tomorrow. Follow-up with quill stripper tomorrow. Follow-up with primary care provider tomorrow. Return to ER if condition worsens in any way. Is patient prescribed a controlled substance at d/c from ED?: No Referrals: Carolyn Mart MD [Primary Care Provider] - 1-2 days Jerry Snider MD [STAFF PHYSICIAN] - 1-2 days
[2019-08-29 21:32] LABS: Basophils # (A) 0.1 k/uL (0-0.2); Basophils % (A) 1 %; Eosinophils # (A) 0.1 k/uL (0-0.7); Eosinophils % (A) 2 %; HCT 36.3 % (39.0-53.0); HGB 12.1 gm/dL (13.0-17.5); Lymphocytes # (A) 3.1 k/uL (1.0-4.8); Lymphocytes % (A) 33 %; MCHC 33.4 g/dL (31.0-37.0); Mean Platelet Volume 7.3; Monocytes # (A) 0.6 k/uL (0-1.0); Monocytes % (A) 6 %; Neutrophils # (A) 5.1 k/uL (1.3-7.7); Neutrophils % (A) 55 %; Platelet Count 233 k/uL (150-450); RBC 4.32 m/uL (4.30-5.90); RDW 12.3 % (11.5-15.5); WBC 9.4 k/uL (3.8-10.6)
[2019-08-29 21:44] LABS: Calcium 8.5 mg/dL (8.4-10.2); Magnesium 1.7 mg/dL (1.6-2.3); Phosphorus 2.9 mg/dL (2.5-4.5); Potassium 3.7 mmol/L (3.5-5.1); Total Bilirubin 0.6 mg/dL (0.2-1.3); Total Protein 6.4 g/dL (6.3-8.2)
[2019-08-29 22:29] VITALS: BP 127/83; PULSE 60
[2019-08-29 23:01] VITALS: RESP 16
== END 2019-08-29 23:04 | disposition home or self-care (01) ==
LOC: EC 20:48
DX: K08.89 Other specified disorders of teeth and supporting structures (principal); R00.2 Palpitations; I10 Essential (primary) hypertension; Z79.890 Hormone replacement therapy; Z79.51 Long term (current) use of inhaled steroids; Z79.82 Long term (current) use of aspirin; Z79.899 Other long term (current) drug therapy; Z91.041 Radiographic dye allergy status; Z91.030 Bee allergy status; Z88.8 Allergy status to other drugs, medicaments and biological substances; Z85.850 Personal history of malignant neoplasm of thyroid; Z86.73 Personal history of transient ischemic attack (TIA), and cerebral infarction without residual deficits
CPT/HCPCS: 36415; 93005; 80053; 83735; 84100; 84484; 85025; 99284; 96374; J2270

== ENCOUNTER 2020-06-08 02:57 | Inpatient (IN) | payer OTHER ==
[2020-06-08] MEDS ORDERED: ACETAMINOPHEN TAB 500 MG TAB PO STA (03:16)
[2020-06-08] MEDS ORDERED: ALBUTEROL HFA INHALER INHALATION STA (03:16)
[2020-06-08] MEDS ORDERED: KETOROLAC 15 MG/ML 1 ML VIAL IVP STA (03:16)
[2020-06-08] MEDS ORDERED: DEXAMETHASONE SOD PHOSPHATE 10 MG/ML 1 ML VIAL IV STA (03:16)
[2020-06-08] MEDS ORDERED: SODIUM CHLORIDE 0.9% 1,000 ML IV STA (03:16)
--- NOTE | 2020-06-08 03:17 | ED ---
SOB HPI - General Chief Complaint: Shortness of Breath Stated Complaint: Covid+ Time Seen by Provider: 06/08/20 03:04 Source: patient, EMS, RN notes reviewed, old records reviewed Mode of arrival: EMS Limitations: no limitations - History of Present Illness Initial Comments: This is a 55-year-old male who presents today for evaluation regarding weakness severe weakness with known history of nausea vomiting and diarrhea. Shortness of breath and cough. Persistent pain and a syncopal event tonight. with past medical history of thyroid cancer status p'possible rheumatoid arthritis or reactive arthritis from elevated calcium, TIA, hypertension, gastroesophageal reflux disease, degenerative disc disease in the cervical spine and lumbar spine. Patient states that he started feeling sick on Friday with shortness of breath and cough as well as generalized body aches. He states he passed out last night and that made him come into the hospital. MD Complaint: shortness of breath, cough, anxiety -: days(s) Severity: severe Severity scale (1-10): 9 Quality: aching Consistency: constant Improves With: oxygen, rest Context: recent URI, anxiety, recent illness Associated Symptoms: chest pain, fever, cough, sputum production, nausea/vomiting Treatments Prior to Arrival: oxygen - Related Data Home Medications Medication Instructions Recorded Confirmed Calcium Carbonate 1,000 mg PO BID-W/MEALS 06/08/20 06/08/20 Capsaicin Cream [Trixaicin Cream] 1 applic TOPICAL TID 06/08/20 06/08/20 Fluoride (Sodium) [Sodium Fluoride] 1 applic DENTAL HS 06/08/20 06/08/20 Ketoconazole 2% Cream [Nizoral 2%] 1 applic TOPICAL BID 06/08/20 06/08/20 Lidocaine 5% Oint [Xylocaine 5% 1 applic TOPICAL TID PRN 06/08/20 06/08/20 Oint] Pregabalin [Lyrica] 200 mg PO BID 06/08/20 06/08/20 Thyroid,Pork [[place] Thyroid] 120 mg PO DAILY 06/08/20 06/08/20 calcitrioL [Rocaltrol] 0.25 mcg PO DAILY 06/08/20 06/08/20 hydroCHLOROthiazide [Hydrodiuril] 25 mg PO DAILY 06/08/20 06/08/20 predniSONE 8 mg PO DAILY 06/08/20 06/08/20 Allergies Allergy/AdvReac Type Severity Reaction Status Date / Time Iodinated Contrast Media Allergy Rash/Hives Verified 06/08/20 11:03 venom-honey bee Allergy Anaphylaxis Verified 06/08/20 11:03 gabapentin AdvReac Severe states Verified 06/08/20 11:03 "HIGH" for 2 days. bupropion AdvReac stomache Verified 06/08/20 11:03 upset,tinnitus,dizziness Review of Systems ROS Statement: Those systems with pertinent positive or pertinent negative responses have been documented in the HPI. ROS Other: All systems not noted in ROS Statement are negative. Past Medical History Past Medical History: Cancer, CVA/TIA, GERD/Reflux, Hypertension, Musculoskeletal Disorder, Osteoarthritis (OA), Thyroid Disorder Additional Past Medical History / Comment(s): Thyroid Cancer , TIA, hadtemporary blindness DJD, DDD, ruptured/herniated discs, BACK X6, & NECK X6. 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 PAIN PROCEDURES. Past Anesthesia/Blood Transfusion Reactions: No Reported Reaction Past Psychological History: PTSD Smoking Status: Never smoker Past Alcohol Use History: None Reported Past Drug Use History: None Reported - Past Family History Brother(s) Family Medical History: Hyperlipidemia Additional Family Medical History / Comment(s): Patient has one brother with history of diabetes. Father Family Medical History: Coronary Artery Disease (CAD), Hyperlipidemia Additional Family Medical History / Comment(s): Uncle-myocardial infarction in his 40s Mother Family Medical History: No Reported History Additional Family Medical History / Comment(s): Mother is alive at age 77 with no major medical problems. Sister(s) Additional Family Medical History / Comment(s): Patient has 1 sister with no major medical problems. Patient is for children with no major medical problems. General Exam Limitations: no limitations General appearance: alert, in no apparent distress, anxious Head exam: Present: atraumatic, normocephalic, normal inspection Eye exam: Present: normal appearance, PERRL, EOMI. Absent: scleral icterus, conjunctival injection, periorbital swelling ENT exam: Present: normal exam, mucous membranes moist Neck exam: Present: normal inspection. Absent: tenderness, meningismus, lymphadenopathy Respiratory exam: Present: normal lung sounds bilaterally. Absent: respiratory distress, wheezes, rales, rhonchi, stridor Cardiovascular Exam: Present: regular rate, normal rhythm, normal heart sounds. Absent: systolic murmur, diastolic murmur, rubs, gallop, clicks GI/Abdominal exam: Present: soft, normal bowel sounds. Absent: distended, tenderness, guarding, rebound, rigid Extremities exam: Present: normal inspection, full ROM, normal capillary refill. Absent: tenderness, pedal edema, joint swelling, calf tenderness Back exam: Present: normal inspection Neurological exam: Present: alert, oriented X3, CN II-XII intact Psychiatric exam: Present: normal affect, normal mood Skin exam: Present: warm, dry, intact, normal color. Absent: rash Course Vital Signs 06/08/20 06/08/20 06/08/20 03:01 06:42 08:57 Temperature 99.7 F H 97.9 F Pulse Rate 69 56 L 56 L Respiratory 17 17 18 Rate Blood Pressure 121/77 120/67 130/85 O2 Sat by Pulse 95 97 97 Oximetry 06/08/20 06/08/20 06/08/20 10:09 11:48 12:49 Temperature Pulse Rate 63 73 61 Respiratory 16 18 18 Rate Blood Pressure 123/80 115/79 115/78 O2 Sat by Pulse 97 98 96 Oximetry 06/08/20 06/08/20 06/08/20 13:46 14:08 16:27 Temperature Pulse Rate 60 60 58 L Respiratory 18 18 18 Rate Blood Pressure 121/78 129/87 145/91 O2 Sat by Pulse 96 98 98 Oximetry 06/08/20 06/08/20 17:30 21:02 Temperature 97.1 F L Pulse Rate 61 56 L Respiratory 18 18 Rate Blood Pressure 140/85 130/61 O2 Sat by Pulse 98 97 Oximetry - Reevaluation(s) Reevaluation #1: Medical record is reviewed Patient persistent shortness of breath here in the ER and a syncopal event, no recurrent syncope Patient informed results questions answered Medical Decision Making - Medical Decision Making 55 male DF for evaluation of a syncopal event, known history of coronavirus. CT negative for PE. Patient be admitted for evaluation of syncope and treatment of coronavirus - Lab Data Result diagrams: 06/08/20 03:34 06/08/20 03:34 Lab Results 06/08/20 06/08/20 06/08/20 Range/Units 03:34 03:34 03:34 WBC 4.8 (3.8-10.6) k/uL RBC 4.54 (4.30-5.90) m/uL Hgb 13.3 (13.0-17.5) gm/dL Hct 37.9 L (39.0-53.0) % MCV 83.3 (80.0-100.0) fL MCH 29.3 (25.0-35.0) pg MCHC 35.2 (31.0-37.0) g/dL RDW 11.7 (11.5-15.5) % Plt Count 187 (150-450) k/uL MPV 7.4 Neutrophils % 76 % Lymphocytes % 15 % Monocytes % 7 % Eosinophils % 0 % Basophils % 0 % Neutrophils # 3.7 (1.3-7.7) k/uL Lymphocytes # 0.7 L (1.0-4.8) k/uL Monocytes # 0.3 (0-1.0) k/uL Eosinophils # 0.0 (0-0.7) k/uL Basophils # 0.0 (0-0.2) k/uL PT 10.7 (9.0-12.0) sec INR 1.0 (<1.2) APTT 24.1 (22.0-30.0) sec D-Dimer (<0.60) mg/L FEU Sodium 137 (137-145) mmol/L Potassium 3.2 L (3.5-5.1) mmol/L Chloride 105 (98-107) mmol/L Carbon Dioxide 26 (22-30) mmol/L Anion Gap 6 mmol/L BUN 17 (9-20) mg/dL Creatinine 0.90 (0.66-1.25) mg/dL Est GFR (CKD-EPI)AfAm >90 (>60 ml/min/1.73 sqM) Est GFR (CKD-EPI)NonAf >90 (>60 ml/min/1.73 sqM) Glucose 106 H (74-99) mg/dL Plasma Lactic Acid Vivek (0.7-2.0) mmol/L Calcium 5.5 L* (8.4-10.2) mg/dL Magnesium 1.6 (1.6-2.3) mg/dL Total Bilirubin 0.6 (0.2-1.3) mg/dL AST 36 (17-59) U/L ALT 25 (4-49) U/L Alkaline Phosphatase 52 (38-126) U/L Lactate Dehydrogenase 895 H (313-618) U/L C-Reactive Protein 21.7 H (<10.0) mg/L Total Protein 5.7 L (6.3-8.2) g/dL Albumin 3.3 L (3.5-5.0) g/dL 06/08/20 06/08/20 Range/Units 03:34 03:34 WBC (3.8-10.6) k/uL RBC (4.30-5.90) m/uL Hgb (13.0-17.5) gm/dL Hct (39.0-53.0) % MCV (80.0-100.0) fL MCH (25.0-35.0) pg MCHC (31.0-37.0) g/dL RDW (11.5-15.5) % Plt Count (150-450) k/uL MPV Neutrophils % % Lymphocytes % % Monocytes % % Eosinophils % % Basophils % % Neutrophils # (1.3-7.7) k/uL Lymphocytes # (1.0-4.8) k/uL Monocytes # (0-1.0) k/uL Eosinophils # (0-0.7) k/uL Basophils # (0-0.2) k/uL PT (9.0-12.0) sec INR (<1.2) APTT (22.0-30.0) sec D-Dimer 6.09 H (<0.60) mg/L FEU Sodium (137-145) mmol/L Potassium (3.5-5.1) mmol/L Chloride (98-107) mmol/L Carbon Dioxide (22-30) mmol/L Anion Gap mmol/L BUN (9-20) mg/dL Creatinine (0.66-1.25) mg/dL Est GFR (CKD-EPI)AfAm (>60 ml/min/1.73 sqM) Est GFR (CKD-EPI)NonAf (>60 ml/min/1.73 sqM) Glucose (74-99) mg/dL Plasma Lactic Acid Vivek 1.0 (0.7-2.0) mmol/L Calcium (8.4-10.2) mg/dL Magnesium (1.6-2.3) mg/dL Total Bilirubin (0.2-1.3) mg/dL AST (17-59) U/L ALT (4-49) U/L Alkaline Phosphatase (38-126) U/L Lactate Dehydrogenase (313-618) U/L C-Reactive Protein (<10.0) mg/L Total Protein (6.3-8.2) g/dL Albumin (3.5-5.0) g/dL - EKG Data -: EKG Interpreted by Me (EKG is sinus rhythm 64 RI 126 QRS 88 QTc 466) - Radiology Data Radiology results: report reviewed (CT chest negative for PE), image reviewed Critical Care Time Critical Care Time: Yes Total Critical Care Time: 31 Disposition Clinical Impression: Coronavirus infection, Syncope, History of thyroid cancer, MARK (acute kidney injury) Disposition: ADMITTED IP TO THIS HOSP Condition: Good Is patient prescribed a controlled substance at d/c from ED?: No
[2020-06-08] MEDS ORDERED: ONDANSETRON 4 MG/2 ML VIAL IVP STA (03:39)
[2020-06-08 03:54] LABS: Basophils % (A) 0 %; Eosinophils % (A) 0 %; HCT 37.9 % (39.0-53.0); HGB 13.3 gm/dL (13.0-17.5); Lymphocytes # (A) 0.7 k/uL (1.0-4.8); Lymphocytes % (A) 15 %; MCH 29.3 pg (25.0-35.0); MCHC 35.2 g/dL (31.0-37.0); MCV 83.3 fL (80.0-100.0); Mean Platelet Volume 7.4; Monocytes # (A) 0.3 k/uL (0-1.0); Monocytes % (A) 7 %; Neutrophils # (A) 3.7 k/uL (1.3-7.7); Neutrophils % (A) 76 %; Platelet Count 187 k/uL (150-450); RBC 4.54 m/uL (4.30-5.90); RDW 11.7 % (11.5-15.5); WBC 4.8 k/uL (3.8-10.6)
[2020-06-08] MEDS ORDERED: NALOXONE 0.4 MG/ML 1 ML VIAL IV PRN (04:07)
[2020-06-08] MEDS ORDERED: ONDANSETRON 4 MG/2 ML VIAL IVP PRN (04:07)
[2020-06-08] MEDS ORDERED: MORPHINE SULFATE 4 MG/ML SYRINGE IV PRN (04:07)
[2020-06-08 04:08] LABS: Partial Thromboplastin Time 24.1 sec (22.0-30.0); Prothrombin Time 10.7 sec (9.0-12.0)
[2020-06-08] MEDS ORDERED: methylPREDNISolone SOD SUCCI 125 MG/2 ML VIAL IV STA (04:11)
[2020-06-08] MEDS ORDERED: FAMOTIDINE 20 MG/2 ML VIAL IV STA (04:11)
[2020-06-08] MEDS ORDERED: diphenhydrAMINE 50 MG/ML 1 ML VIAL IVP STA (04:11)
--- NOTE | 2020-06-08 04:15 | XR ---
EXAM: XR Chest, 1 View CLINICAL HISTORY: ITS.REASON XR Reason: Suspected COVID-19 pneumonia TECHNIQUE: Frontal view of the chest. COMPARISON: 03/30/2019 FINDINGS: Lungs: Unremarkable. No consolidation. Pleural space: Unremarkable. No pneumothorax. Heart: Unremarkable. No cardiomegaly. Mediastinum: Unremarkable. Bones/joints: Unremarkable. IMPRESSION: No acute pulmonary process
[2020-06-08 04:22] LABS: ALT 25 U/L (4-49); AST 36 U/L (17-59); African American GFR (CKD) >90 (>60 ml/min/1.73 sqM); Albumin 3.3 g/dL (3.5-5.0); Alkaline Phosphatase 52 U/L (38-126); Anion Gap 6 mmol/L; Blood Urea Nitrogen 17 mg/dL (9-20); C Reactive Protein 21.7 mg/L (<10.0); Carbon Dioxide 26 mmol/L (22-30); Chloride 105 mmol/L (98-107); Glucose 106 mg/dL (74-99); LDH 895 U/L (313-618); Magnesium 1.6 mg/dL (1.6-2.3); Non-African American GFR(CKD) >90 (>60 ml/min/1.73 sqM); Potassium 3.2 mmol/L (3.5-5.1); Sodium 137 mmol/L (137-145); Total Bilirubin 0.6 mg/dL (0.2-1.3); Total Protein 5.7 g/dL (6.3-8.2)
[2020-06-08 05:51] LABS: Calcium 5.5 mg/dL (8.4-10.2)
--- NOTE | 2020-06-08 05:57 | CT ---
EXAM: CT Angiography Chest With Intravenous Contrast CLINICAL HISTORY: ITS.REASON CT Reason: syncope TECHNIQUE: Axial computed tomographic angiography images of the chest with intravenous contrast. CTDI is 20.37 mGy and DLP is 508.9 mGy-cm. This CT exam was performed using one or more of the following dose reduction techniques: automated exposure control, adjustment of the mA and/or kV according to patient size, and/or use of iterative reconstruction technique. MIP reconstructed images were created and reviewed. COMPARISON: No relevant prior studies available. FINDINGS: Pulmonary arteries: Unremarkable. No pulmonary embolism. Aorta: No acute findings. No thoracic aortic aneurysm. Lungs: Patchy peripheral areas of ground-glass and nodular consolidation, most prominent in the posterior bilateral bases. No mass. No consolidation. Pleural space: Unremarkable. No significant effusion. No pneumothorax. Heart: Unremarkable. No cardiomegaly. No significant pericardial effusion. No evidence of RV dysfunction. Bones/joints: No acute fracture. No dislocation. Soft tissues: Unremarkable. Lymph nodes: Unremarkable. No enlarged lymph nodes. IMPRESSION: 1. No acute pulmonary embolism. 2. Patchy peripheral areas of ground-glass and nodular consolidation, most prominent in the posterior bilateral bases consistent with multifocal infection, compatible with COVID pneumonia.
[2020-06-08] MEDS: SODIUM CHLORIDE 0.9% 1,000 ML IV SCH (06:41)
[2020-06-08] MEDS ORDERED: POTASSIUM CHLORIDE ER 20 MEQ TAB.ER PO STA (09:24)
[2020-06-08] MEDS: dexAMETHasone 2 MG TAB PO SCH (10:07)
[2020-06-08] MEDS: ASCORBIC ACID 500 MG TAB PO SCH (10:07)
[2020-06-08] MEDS: ZINC SULFATE 220 MG CAP PO SCH (11:44)
--- NOTE | 2020-06-08 12:28 | P.CNPUL ---
History of Present Illness Consult date: 06/08/20 Requesting physician: Carolyn Mart Reason for consult: dyspnea, cough, hypoxemia, pneumonia, abnormal CXR/CT Chief complaint: Shortness of breath, cough, body aches. History of present illness: 55-year-old male, who presents to the emergency department, really the morning on June 08, complaining of shortness of breath. Currently, the patient's on 2 L nasal cannula. Is getting saline 100 mL an hour. He apparently tested +2 days ago. He's been sick for 6 days, with aches, cough, shortness of breath, and possible loss of consciousness/syncope. Currently, the patient seemed to be relatively stable. As mentioned, he's on 2 L. He does feel short of breath and very weak. He has a history of osteoarthritis, hypothyroidism, CVA, GERD, hypertension, thyroid cancer, TIA, degenerative disc disease, chronic back pain, and closed head injury, 1998. White count is 4.8, hemoglobin 13.3, hematocrit 37.9, PT 10.7, INR 1, PTT 24.1, and d-dimer 6.09. Platelet count is normal. Sodium is 137, potassium 3.2, chloride 105, CO2 26, anion gap 6, BUN 17, and creatinine 0.90. Chest x-ray was negative, CT angiogram showed evidence of patchy peripheral groundglass opacities, and was negative for pulmonary embolism. Review of Systems REVIEW OF SYSTEMS: CONSTITUTIONAL: Fatigue, body aches, weakness. NEUROLOGIC: Syncope/loss of consciousness. HEENT: [ Negative.] CARDIAC: [Negative.] PULMONARY: Cough, shortness of breath, painful cough. GI: [Negative.] : [Negative.] RHEUMATOLOGIC: [ Negative.] IMMUNOLOGIC: [ Negative.] ENDOCRINE: [Negative. ] DERMATOLOGIC: [Negative.] Past Medical History Past Medical History: Cancer, CVA/TIA, GERD/Reflux, Hypertension, Musculoskeletal Disorder, Osteoarthritis (OA), Thyroid Disorder Additional Past Medical History / Comment(s): Thyroid Cancer , TIA, hadtemporary blindness DJD, DDD, ruptured/herniated discs, BACK X6, & NECK X6. 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 PAIN PROCEDURES. Past Anesthesia/Blood Transfusion Reactions: No Reported Reaction Past Psychological History: PTSD Smoking Status: Never smoker Past Alcohol Use History: None Reported Past Drug Use History: None Reported - Past Family History Brother(s) Family Medical History: Hyperlipidemia Additional Family Medical History / Comment(s): Patient has one brother with history of diabetes. Father Family Medical History: Coronary Artery Disease (CAD), Hyperlipidemia Additional Family Medical History / Comment(s): Uncle-myocardial infarction in his 40s Mother Family Medical History: No Reported History Additional Family Medical History / Comment(s): Mother is alive at age 77 with no major medical problems. Sister(s) Additional Family Medical History / Comment(s): Patient has 1 sister with no major medical problems. Patient is for children with no major medical problems. Medications and Allergies Home Medications Medication Instructions Recorded Confirmed Type Calcium Carbonate 1,000 mg PO BID-W/MEALS 06/08/20 06/08/20 History Capsaicin Cream [Trixaicin Cream] 1 applic TOPICAL TID 06/08/20 06/08/20 History Fluoride (Sodium) [Sodium Fluoride] 1 applic DENTAL HS 06/08/20 06/08/20 History Ketoconazole 2% Cream [Nizoral 2%] 1 applic TOPICAL BID 06/08/20 06/08/20 History Lidocaine 5% Oint [Xylocaine 5% 1 applic TOPICAL TID PRN 06/08/20 06/08/20 History Oint] Pregabalin [Lyrica] 200 mg PO BID 06/08/20 06/08/20 History Thyroid,Pork [[place] Thyroid] 120 mg PO DAILY 06/08/20 06/08/20 History calcitrioL [Rocaltrol] 0.25 mcg PO DAILY 06/08/20 06/08/20 History hydroCHLOROthiazide [Hydrodiuril] 25 mg PO DAILY 06/08/20 06/08/20 History predniSONE 8 mg PO DAILY 06/08/20 06/08/20 History Allergies Allergy/AdvReac Type Severity Reaction Status Date / Time Iodinated Contrast Media Allergy Rash/Hives Verified 06/08/20 11:03 venom-honey bee Allergy Anaphylaxis Verified 06/08/20 11:03 gabapentin AdvReac Severe states Verified 06/08/20 11:03 "HIGH" for 2 days. bupropion AdvReac stomache Verified 06/08/20 11:03 upset,tinnitus,dizziness Physical Exam Osteopathic Statement: *. No significant issues noted on an osteopathic structural exam other than those noted in the History and Physical/Consult. Vitals: Vital Signs Temp Pulse Resp BP Pulse Ox 06/08/20 11:48 73 18 115/79 98 06/08/20 10:09 63 16 123/80 97 06/08/20 08:57 97.9 F 56 L 18 130/85 97 06/08/20 06:42 56 L 17 120/67 97 06/08/20 03:01 99.7 F H 69 17 121/77 95 Intake and Output 06/07/20 06/08/20 06/08/20 22:59 06:59 14:59 Other: Weight 86.183 kg No acute distress, oriented 3. Patient on 2 L nasal cannula. HEENT examination is grossly unremarkable. Mucous membranes are moist. No oral lesions. Neck supple. Full range of motion. No adenopathy thyromegaly or neck vein distention. Cardiovascular examination reveals regular rhythm rate. S1-S2 normal. No S3 or S4. No discernible murmur noted. Heart rate is 73 bpm. Lungs reveal bilateral rhonchi and crackles. Breath sounds equal bilaterally. No wheezes. Patient coughs on deep inspiration. Abdomen soft bowel sounds are heard. No masses or tenderness. Extremities are intact. No cyanosis clubbing or edema. Skin is without rash or lesion. Neurologic examination is brief but nonfocal. Results - Laboratory Findings CBC and BMP: 06/08/20 03:34 06/08/20 03:34 PT/INR, D-dimer PT 10.7 sec (9.0-12.0) 06/08/20 03:34 INR 1.0 (<1.2) 06/08/20 03:34 D-Dimer 6.09 mg/L FEU (<0.60) H 06/08/20 03:34 Abnormal lab findings: Abnormal Labs 06/08/20 06/08/20 06/08/20 03:34 03:34 03:34 Hct 37.9 L Lymphocytes # 0.7 L D-Dimer 6.09 H Potassium 3.2 L Glucose 106 H Calcium 5.5 L* Lactate Dehydrogenase 895 H C-Reactive Protein 21.7 H Total Protein 5.7 L Albumin 3.3 L - Diagnostic Findings Chest x-ray: image reviewed CT scan - chest: image reviewed Assessment and Plan Assessment: Acute hypoxemia, secondary to COVID 19 pneumonitis/pneumonia. Thyroid cancer, status post thyroidectomy, surgical hypothyroidism. History of gastroesophageal reflux disease. History of hypertension. History of CVA/TIA. Degenerative joint disease/degenerative disc disease. Chronic knee and back pain. History of closed head injury 1998. Status post vocal cord surgery. Lifelong nonsmoker. Plan: Plan dated 06/08/2020. The patient should receive vitamin C, vitamin D3, and zinc. The patient also should get Decadron 6 mg a day. The patient should get Lovenox 40 mg subcu daily. In addition, the patient would be a candidate for REM. Additional recommendations and suggestions are forthcoming. Prognosis is guarded. We will continue to follow make recommendations were appropriate. Repeat chest x-ray, and inflammatory markers should be done every 2 or 3 days. Prognosis is guarded. Time with Patient: Greater than 30
[2020-06-08] MEDS ORDERED: REMDESIVIR 200 MG in SODIUM CHLORIDE 0.9% 250 ML IVPB ONE (13:00)
[2020-06-08] MEDS ORDERED: LIDOCAINE 5% OINTMENT 50 GM JAR TOPICAL PRN (14:07)
--- NOTE | 2020-06-08 14:14 | P.HPIM ---
History of Present Illness H&P Date: 06/08/20 Chief Complaint: CALE HISTORY OF PRESENT ILLNESS This is a 55-year-old male patient of Dr. Alatorre with past medical history of thyroid cancer status post 3 surgeries for lumpectomies with removal of the parathyroid as well, possible rheumatoid arthritis or reactive arthritis from elevated calcium, TIA, hypertension, gastroesophageal reflux disease, degenerative disc disease in the cervical spine and lumbar spine. Patient states that he started feeling sick on Friday with shortness of breath and cough as well as generalized body aches. He states he passed out last night and that made him come into the hospital. Patient presented to [facility] emergency center for evaluation. WBC 4.8, hemoglobin 13.3, platelet count 187. D-dimer 6.09. Sodium 137, potassium 3.2, chloride 105, CO2 26, BUN 17 and creatinine 0.9. Chest x-ray showed no acute cardio pulmonary finding. CT angiogram revealed patchy peripheral groundglass opacities negative for pulmonary embolism. Patient was ordered for admission to the [facility] floor and consult with pulmonary medicine. REVIEW OF SYSTEMS Constitutional: Reports fever, Reports chills, no night sweats. No weight change. No weakness, fatigue or lethargy. No daytime sleepiness. EENT: No headache. No blurred vision or double vision, no loss of vision. No loss of Hearing, no ringing in the ears, no dizziness. No nasal drainage or congestion. No epistaxis. No sore throat. Lungs: Reports shortness of breath, Reports cough, Reports sputum production. No wheezing. Cardiovascular: No chest pain, no lower extremity edema. No palpitations. No paroxysmal nocturnal dyspnea. No orthopnea. No lightheadedness or dizziness. Reports syncopal episodes. Abdominal: No abdominal pain. No nausea, vomiting. No diarrhea. No constipation. No bloody or tarry stools.. No loss of appetite. Genitourinary: No dysuria, increased frequency, urgency. No urinary retention. Musculoskeletal: Reports myalgias. No muscle weakness, no gait dysfunction, no frequent falls. No back pain. No neck pain. Integumentary: No wounds, no lesions. No rash or pruritus. No unusual bruising. No change in hair or nails. Neurologic: No aphasia. No facial droop. No change in mentation. No head injury. No headache. No paralysis. No paresthesia. Psychiatric: No depression. No anxiety. No mood swings. Endocrine: No abnormal blood sugars. No weight change. No excessive sweating or thirst. No cold intolerance. SOCIAL HISTORY The patient states he is a lifelong nonsmoker, no alcohol use or abuse, no illicit drug use. 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 FAMILY HISTORY Father is alive at age 70 with history of coronary artery disease and obstructive sleep apnea. Mother is alive at age 78 with no major medical problems. Patient has 1 sister with no major medical problems. He has one brother with diabetes. Patient has 4 children with no major medical problems. PHYSICAL EXAMINATION Gen: This is a 55-year-old male patient. He is resting on the ear surgery and appears to be comfortable and in no acute distress. HEENT: Head is atraumatic, normocephalic. Pupils equal, round. Sclerae is anicteric. NECK: Supple. No JVD. No lymphadenopathy. No thyromegaly. LUNGS: Rhonchi and crackles bilaterally. No intercostal retractions. HEART: Regular rate and rhythm. No murmur. ABDOMEN: Soft. Bowel sounds are present. No masses. No tenderness. EXTREMITIES: No pedal edema. No calf tenderness. NEUROLOGICAL: Patient is awake, alert and oriented x3. Cranial nerves 2 through 12 are grossly intact. ASSESSMENT AND PLAN 1. Acute hypoxic respiratory failure secondary to COVID-19 pneumonia. Pulmonary medicine consult appreciated. Patient is on vitamin C, vitamin D3 and zinc, Decadron 6 mg daily, Lovenox 40 mg subcu daily. Medicine has ordered Remdesivir, repeat chest x-ray inflammatory markers. 2. Elevated inflammatory markers secondary to Covid 19. 3. Hypokalemia status post replacement. He is events 4. History of thyroid cancer status post thyroidectomy and parathyroidectomy. Continue [place] Thyroid 120 mg daily. 5. Hypertension. Hold hydrochlorothiazide. 6. Chronic pain Syndrome. Continue Lyrica 200 mg twice daily. 7. GI prophylaxis. Protonix. 8. DVT prophylaxis. Lovenox. Patient will be admitted to the hospital for a minimum of 2 night stay. DISCHARGE PLAN Home. Impression and plan of care have been directed as dictated by the signing physician. Cari Mcclellan nurse practitioner acting as scribe for signing physician. Past Medical History Past Medical History: Cancer, CVA/TIA, GERD/Reflux, Hypertension, Musculoskeletal Disorder, Osteoarthritis (OA), Thyroid Disorder Additional Past Medical History / Comment(s): Thyroid Cancer , TIA, hadtemporary blindness DJD, DDD, ruptured/herniated discs, BACK X6, & NECK X6. 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 PAIN PROCEDURES. Past Anesthesia/Blood Transfusion Reactions: No Reported Reaction Past Psychological History: PTSD Smoking Status: Never smoker Past Alcohol Use History: None Reported Past Drug Use History: None Reported - Past Family History Brother(s) Family Medical History: Hyperlipidemia Additional Family Medical History / Comment(s): Patient has one brother with history of diabetes. Father Family Medical History: Coronary Artery Disease (CAD), Hyperlipidemia Additional Family Medical History / Comment(s): Uncle-myocardial infarction in his 40s Mother Family Medical History: No Reported History Additional Family Medical History / Comment(s): Mother is alive at age 77 with no major medical problems. Sister(s) Additional Family Medical History / Comment(s): Patient has 1 sister with no major medical problems. Patient is for children with no major medical problems. Medications and Allergies Home Medications Medication Instructions Recorded Confirmed Type Calcium Carbonate 1,000 mg PO BID-W/MEALS 06/08/20 06/08/20 History Capsaicin Cream [Trixaicin Cream] 1 applic TOPICAL TID 06/08/20 06/08/20 History Fluoride (Sodium) [Sodium Fluoride] 1 applic DENTAL HS 06/08/20 06/08/20 History Ketoconazole 2% Cream [Nizoral 2%] 1 applic TOPICAL BID 06/08/20 06/08/20 History Lidocaine 5% Oint [Xylocaine 5% 1 applic TOPICAL TID PRN 06/08/20 06/08/20 History Oint] Pregabalin [Lyrica] 200 mg PO BID 06/08/20 06/08/20 History Thyroid,Pork [[place] Thyroid] 120 mg PO DAILY 06/08/20 06/08/20 History calcitrioL [Rocaltrol] 0.25 mcg PO DAILY 06/08/20 06/08/20 History hydroCHLOROthiazide [Hydrodiuril] 25 mg PO DAILY 06/08/20 06/08/20 History predniSONE 8 mg PO DAILY 06/08/20 06/08/20 History Allergies Allergy/AdvReac Type Severity Reaction Status Date / Time Iodinated Contrast Media Allergy Rash/Hives Verified 06/08/20 11:03 venom-honey bee Allergy Anaphylaxis Verified 06/08/20 11:03 gabapentin AdvReac Severe states Verified 06/08/20 11:03 "HIGH" for 2 days. bupropion AdvReac stomache Verified 06/08/20 11:03 upset,tinnitus,dizziness Physical Exam Vitals: Vital Signs Temp Pulse Resp BP Pulse Ox 06/08/20 08:57 97.9 F 56 L 18 130/85 97 06/08/20 06:42 56 L 17 120/67 97 06/08/20 03:01 99.7 F H 69 17 121/77 95 Intake and Output 06/07/20 06/08/20 06/08/20 22:59 06:59 14:59 Other: Weight 86.183 kg Results CBC & Chem 7: 06/08/20 03:34 06/08/20 03:34 Labs: Abnormal Lab Results - Last 24 Hours (Table) 06/08/20 06/08/20 06/08/20 Range/Units 03:34 03:34 03:34 Hct 37.9 L (39.0-53.0) % Lymphocytes # 0.7 L (1.0-4.8) k/uL D-Dimer 6.09 H (<0.60) mg/L FEU Potassium 3.2 L (3.5-5.1) mmol/L Glucose 106 H (74-99) mg/dL Calcium 5.5 L* (8.4-10.2) mg/dL Lactate Dehydrogenase 895 H (313-618) U/L C-Reactive Protein 21.7 H (<10.0) mg/L Total Protein 5.7 L (6.3-8.2) g/dL Albumin 3.3 L (3.5-5.0) g/dL
[2020-06-08] MEDS: CALCIUM CARBONATE 500 MG CHEWABLE PO SCH (20:16)
[2020-06-08] MEDS: CAPSAICIN 0.025% CREAM 60 GM TUBE TOPICAL SCH (20:20)
[2020-06-08] MEDS: PREGABALIN 100 MG CAP PO SCH (21:10)
[2020-06-08] MEDS ORDERED: CALCIUM GLUCONATE 1 GM in SODIUM CHLORIDE 0.9% 100 ML IVPB ONE (23:45)
[2020-06-09] MEDS: CLOTRIMAZOLE 1% CREAM 30 GM TUBE TOPICAL SCH ×3 (04:57→21:12)
[2020-06-09] MEDS: CAPSAICIN 0.025% CREAM 60 GM TUBE TOPICAL SCH ×4 (04:57→21:13)
[2020-06-09] MEDS: dexAMETHasone 2 MG TAB PO SCH (10:20)
[2020-06-09] MEDS: PANTOPRAZOLE 40 MG TABLET PO SCH (10:22)
[2020-06-09] MEDS: CHOLECALCIFEROL 25 MCG (1000 IU) TABLET PO SCH (10:22)
[2020-06-09] MEDS: ZINC SULFATE 220 MG CAP PO SCH (10:22)
[2020-06-09] MEDS: PREGABALIN 100 MG CAP PO SCH ×2 (10:22→21:13)
[2020-06-09] MEDS: CALCIUM CARBONATE 500 MG CHEWABLE PO SCH ×5 (10:22→21:13)
[2020-06-09] MEDS: ENOXAPARIN 40 MG/0.4 ML SYRINGE SQ SCH (10:24)
[2020-06-09] MEDS: THYROID, PORK 30 MG TAB PO SCH (10:24)
[2020-06-09] MEDS: ASCORBIC ACID 500 MG TAB PO SCH (10:28)
[2020-06-09] MEDS: SODIUM CHLORIDE 0.9% 1,000 ML IV SCH ×3 (10:49→21:12)
--- NOTE | 2020-06-09 13:05 | P.PN ---
Subjective Progress Note Date: 06/09/20 Principal diagnosis: Shortness of breath, cough, chest congestion. 55-year-old male, who presents to the emergency department, really the morning on June 08, complaining of shortness of breath. Currently, the patient's on 2 L nasal cannula. Is getting saline 100 mL an hour. He apparently tested +2 days ago. He's been sick for 6 days, with aches, cough, shortness of breath, and possible loss of consciousness/syncope. Currently, the patient seemed to be relatively stable. As mentioned, he's on 2 L. He does feel short of breath and very weak. He has a history of osteoarthritis, hypothyroidism, CVA, GERD, hypertension, thyroid cancer, TIA, degenerative disc disease, chronic back pain, and closed head injury, 1998. White count is 4.8, hemoglobin 13.3, hematocrit 37.9, PT 10.7, INR 1, PTT 24.1, and d-dimer 6.09. Platelet count is normal. Sodium is 137, potassium 3.2, chloride 105, CO2 26, anion gap 6, BUN 17, and creatinine 0.90. Chest x-ray was negative, CT angiogram showed evidence of patchy peripheral groundglass opacities, and was negative for pulmonary embolism. Progress note dated 06/09/2020. 55-year-old male that I saw yesterday in the emergency department. The patient came in complaining of shortness of breath. Currently, the patient's on 2 L nasal cannula, and saline at 75 mL an hour. He's feeling about the same today as he did yesterday. No better, and no worse. He apparently tested positive for COVID 2 days ago. He's been sick for 6 days now 7, with aches, cough, shortness of breath, and possible syncope. The patient has a history of osteoarthritis, hypothyroidism, CVA, GERD, hypertension, thyroid cancer, TIA, degenerative disc disease, chronic back pain, and closed head injury in 1998. No new labs today. Objective - Vital Signs Vital signs: Vital Signs Temp 97.9 F 06/09/20 08:00 Pulse 60 06/09/20 08:00 Resp 18 06/09/20 08:00 BP 179/81 06/09/20 08:00 Pulse Ox 94 L 06/09/20 08:00 Intake & Output 06/08/20 06/09/20 06/09/20 18:59 06:59 18:59 Weight 86.183 kg Other: Voiding Method Toilet Toilet - Exam No acute distress, oriented 3. Patient on 2 L nasal cannula. HEENT examination is grossly unremarkable. Mucous membranes are moist. No oral lesions. Neck supple. Full range of motion. No adenopathy thyromegaly or neck vein distention. Cardiovascular examination reveals regular rhythm rate. S1-S2 normal. No S3 or S4. No discernible murmur noted. Heart rate is 60 bpm. Lungs reveal bilateral rhonchi and crackles. Breath sounds equal bilaterally. No wheezes. Patient coughs on deep inspiration. Lung examination is unchanged. Abdomen soft bowel sounds are heard. No masses or tenderness. Extremities are intact. No cyanosis clubbing or edema. Skin is without rash or lesion. Neurologic examination is brief but nonfocal. - Labs CBC & Chem 7: 06/08/20 03:34 06/08/20 03:34 Assessment and Plan Assessment: Acute hypoxemia, secondary to COVID 19 pneumonitis/pneumonia. Thyroid cancer, status post thyroidectomy, surgical hypothyroidism. History of gastroesophageal reflux disease. History of hypertension. History of CVA/TIA. Degenerative joint disease/degenerative disc disease. Chronic knee and back pain. History of closed head injury 1998. Status post vocal cord surgery. Lifelong nonsmoker. Plan: Plan dated 06/09/2020. Currently, the patient is on albuterol inhaler, ascorbic acid, vitamin D3, Decadron, Lovenox, zinc, and REM. The patient should have a repeat chest x-ray in the morning. In addition, inflammatory markers can be measured again in the morning. The patient is on day 2 of REM. Additional recommendations and suggestions are forthcoming. Prognosis is guarded. He certainly is no worse today, but not any better. Time with Patient: Less than 30
--- NOTE | 2020-06-09 13:27 | P.PN ---
Subjective Progress Note Date: 06/09/20 HISTORY OF PRESENT ILLNESS This is a 55-year-old male patient of Dr. Alatorre with past medical history of thyroid cancer status post 3 surgeries for lumpectomies with removal of the parathyroid as well, possible rheumatoid arthritis or reactive arthritis from elevated calcium, TIA, hypertension, gastroesophageal reflux disease, degenerative disc disease in the cervical spine and lumbar spine. Patient states that he started feeling sick on Friday with shortness of breath and cough as well as generalized body aches. He states he passed out last night and that made him come into the hospital. Patient presented to [facility] emergency center for evaluation. WBC 4.8, hemoglobin 13.3, platelet count 187. D-dimer 6.09. Sodium 137, potassium 3.2, chloride 105, CO2 26, BUN 17 and creatinine 0.9. Chest x-ray showed no acute cardio pulmonary finding. CT angiogram revealed patchy peripheral groundglass opacities negative for pulmonary embolism. Patient was ordered for admission to the [facility] floor and consult with pulmonary medicine. 06/09: Patient is seen on the observation unit as an overflow waiting for [facility] bed. He states his shortness of breath is about the same as yesterday. He does have increased shortness of breath with exertion. His appetite is good. He does have chest pain from coughing. Cough is nonproductive. Patient is status post Remdesivir day #2/5. Patient is seen and followed by pulmonary medicine. REVIEW OF SYSTEMS Constitutional: Reports fever, Reports chills, no night sweats. No weight change. No weakness, fatigue or lethargy. No daytime sleepiness. EENT: No headache. No blurred vision or double vision, no loss of vision. No loss of Hearing, no ringing in the ears, no dizziness. No nasal drainage or congestion. No epistaxis. No sore throat. Lungs: Reports shortness of breath, Reports cough, Reports sputum production. No wheezing. Cardiovascular: No chest pain, no lower extremity edema. No palpitations. No paroxysmal nocturnal dyspnea. No orthopnea. No lightheadedness or dizziness. Reports syncopal episodes. Abdominal: No abdominal pain. No nausea, vomiting. No diarrhea. No constipation. No bloody or tarry stools.. No loss of appetite. Genitourinary: No dysuria, increased frequency, urgency. No urinary retention. Musculoskeletal: Reports myalgias. No muscle weakness, no gait dysfunction, no frequent falls. No back pain. No neck pain. Integumentary: No wounds, no lesions. No rash or pruritus. No unusual bruising. No change in hair or nails. Neurologic: No aphasia. No facial droop. No change in mentation. No head injury. No headache. No paralysis. No paresthesia. Psychiatric: No depression. No anxiety. No mood swings. Endocrine: No abnormal blood sugars. No weight change. No excessive sweating or thirst. No cold intolerance. PHYSICAL EXAMINATION Gen: This is a 55-year-old male patient. He is resting in bedy and appears to be comfortable and in no acute distress at rest. HEENT: Head is atraumatic, normocephalic. Pupils equal, round. Sclerae is anicteric. NECK: Supple. No JVD. No lymphadenopathy. No thyromegaly. LUNGS: Rhonchi and crackles bilaterally. No intercostal retractions. HEART: Regular rate and rhythm. No murmur. ABDOMEN: Soft. Bowel sounds are present. No masses. No tenderness. EXTREMITIES: No pedal edema. No calf tenderness. NEUROLOGICAL: Patient is awake, alert and oriented x3. Cranial nerves 2 through 12 are grossly intact. ASSESSMENT AND PLAN 1. Acute hypoxic respiratory failure secondary to COVID-19 pneumonia. Pulmonary medicine consult appreciated. Patient is on vitamin C, vitamin D3 and zinc, Decadron 6 mg daily, Lovenox 40 mg subcu daily. Patient has been started on Remdesivir day #2 /5, repeat inflammatory markers. 2. Elevated inflammatory markers secondary to Covid 19. 3. Hypokalemia status post replacement. 4. History of thyroid cancer status post thyroidectomy and parathyroidectomy. Continue [place] Thyroid 120 mg daily. 5. Hypertension. Hold hydrochlorothiazide. 6. Chronic pain Syndrome. Continue Lyrica 200 mg twice daily. 7. GI prophylaxis. Protonix. 8. DVT prophylaxis. Lovenox. DISCHARGE PLAN Home. Impression and plan of care have been directed as dictated by the signing physician. Cari Mcclellan nurse practitioner acting as scribe for signing physic binu. Objective - Vital Signs Vital signs: Vital Signs Temp 97.8 F 06/09/20 05:38 Pulse 53 L 06/09/20 05:38 Resp 16 06/09/20 05:38 BP 121/71 06/09/20 05:38 Pulse Ox 95 06/09/20 05:38 Intake & Output 06/08/20 06/09/20 06/09/20 18:59 06:59 18:59 Other: Voiding Method Toilet - Labs CBC & Chem 7: 06/08/20 03:34 06/08/20 03:34
[2020-06-09] MEDS: REMDESIVIR 100 MG in SODIUM CHLORIDE 0.9% 250 ML IVPB SCH (14:06)
[2020-06-09] MEDS: HYDROcodone/APAP 5-325MG 1 EACH TAB PO SCH (21:13)
[2020-06-10] MEDS: SODIUM CHLORIDE 0.9% 1,000 ML IV SCH ×2 (08:17→15:48)
[2020-06-10] MEDS: THYROID, PORK 30 MG TAB PO SCH (08:24)
[2020-06-10] MEDS: ZINC SULFATE 220 MG CAP PO SCH (08:25)
[2020-06-10] MEDS: PANTOPRAZOLE 40 MG TABLET PO SCH (08:25)
[2020-06-10] MEDS: PREGABALIN 100 MG CAP PO SCH ×2 (08:25→21:34)
[2020-06-10] MEDS: ASCORBIC ACID 500 MG TAB PO SCH (08:25)
[2020-06-10] MEDS: CALCIUM CARBONATE 500 MG CHEWABLE PO SCH ×5 (08:25→21:33)
[2020-06-10] MEDS: HYDROcodone/APAP 5-325MG 1 EACH TAB PO SCH ×3 (08:25→21:33)
[2020-06-10] MEDS: ENOXAPARIN 40 MG/0.4 ML SYRINGE SQ SCH (08:26)
[2020-06-10] MEDS: dexAMETHasone 2 MG TAB PO SCH (08:26)
[2020-06-10] MEDS: CHOLECALCIFEROL 25 MCG (1000 IU) TABLET PO SCH (08:26)
[2020-06-10] MEDS: CAPSAICIN 0.025% CREAM 60 GM TUBE TOPICAL SCH ×3 (08:27→21:35)
[2020-06-10] MEDS: CLOTRIMAZOLE 1% CREAM 30 GM TUBE TOPICAL SCH ×2 (08:27→21:35)
[2020-06-10 10:28] VITALS: BMI 25.7
[2020-06-10 11:22] LABS: HCT 37.4 % (39.6-50.0); HGB 12.3 g/dL (13.0-17.0); MCH 28.3 pg (27.0-32.0); MCHC 32.9 g/dL (32.0-37.0); MCV 86.2 fL (80.0-97.0); Mean Platelet Volume 11.1 fL (9.5-12.2); Platelet Count 205 X 10*3/uL (140-440); RBC 4.34 X 10*6/uL (4.40-5.60); RDW 11.9 % (11.5-14.5); WBC 13.81 X 10*3/uL (4.50-10.00)
[2020-06-10 12:41] LABS: African American GFR (CKD) 117.4 (60.0-200.0); Albumin 3.5 g/dL (3.80-4.90); Albumin/Globulin Ratio 2.19 (1.60-3.17); Anion Gap 5.2 mmol/L (4.00-12.00); BUN/Creat Ratio 23.75 Ratio (12.00-20.00); C Reactive Protein 0.5 mg/dL (0.0-0.8); Calcium 5.7 mg/dL (8.7-10.3); Carbon Dioxide 24.8 mmol/L (21.6-31.8); Globulin 1.6 g/dL (1.6-3.3); Non-African American GFR(CKD) 101.3 (60.0-200.0); Total Bilirubin 0.5 mg/dL (0.3-1.2); Total Protein 5.1 g/dL (6.2-8.2)
[2020-06-10] MEDS: REMDESIVIR 100 MG in SODIUM CHLORIDE 0.9% 250 ML IVPB SCH (13:58)
--- NOTE | 2020-06-10 15:36 | P.PN ---
Subjective Progress Note Date: 06/10/20 Principal diagnosis: CoVID 19 pneumonitis 55-year-old male, who presents to the emergency department, really the morning on June 08, complaining of shortness of breath. Currently, the patient's on 2 L nasal cannula. Is getting saline 100 mL an hour. He apparently tested +2 days ago. He's been sick for 6 days, with aches, cough, shortness of breath, and possible loss of consciousness/syncope. Currently, the patient seemed to be relatively stable. As mentioned, he's on 2 L. He does feel short of breath and very weak. He has a history of osteoarthritis, hypothyroidism, CVA, GERD, hypertension, thyroid cancer, TIA, degenerative disc disease, chronic back pain, and closed head injury, 1998. White count is 4.8, hemoglobin 13.3, hematocrit 37.9, PT 10.7, INR 1, PTT 24.1, and d-dimer 6.09. Platelet count is normal. Sodium is 137, potassium 3.2, chloride 105, CO2 26, anion gap 6, BUN 17, and creatinine 0.90. Chest x-ray was negative, CT angiogram showed evidence of patchy peripheral groundglass opacities, and was negative for pulmonary embolism. Progress note dated 06/09/2020. 55-year-old male that I saw yesterday in the emergency department. The patient came in complaining of shortness of breath. Currently, the patient's on 2 L nasal cannula, and saline at 75 mL an hour. He's feeling about the same today as he did yesterday. No better, and no worse. He apparently tested positive for COVID 2 days ago. He's been sick for 6 days now 7, with aches, cough, shortness of breath, and possible syncope. The patient has a history of osteoarthritis, hypothyroidism, CVA, GERD, hypertension, thyroid cancer, TIA, degenerative disc disease, chronic back pain, and closed head injury in 1998. No new labs today. The patient is seen today 06/10/2020 in follow-up on the regular medical floor. He is currently resting comfortably in bed. Awake and alert in no acute distress. Currently maintaining O2 saturations in the 90s on 2 L/m per nasal cannula. This is day #3 of Remdesivir. He is making continued on Lovenox, dexamethasone, vitamin supplements. Paula count 13.8. Hemoglobin 12.3. D- dimer 2.31. Sodium 142. Potassium 4.0. Creatinine 0.8. Glucose 132. LDH 355. C-reactive protein 0.5. Objective - Vital Signs Vital signs: Vital Signs Temp 97.8 F 06/10/20 14:15 Pulse 62 06/10/20 10:09 Resp 16 06/10/20 14:15 BP 128/74 06/10/20 14:15 Pulse Ox 94 L 06/10/20 14:15 Intake & Output 06/09/20 06/10/20 06/10/20 18:59 06:59 18:59 Intake Total 440 1280 Balance 440 1280 Weight 86.183 kg 86.183 kg Intake: Oral 440 1280 Other: Voiding Method Toilet Toilet Toilet # Voids 1 2 2 - Exam GENERAL EXAM: Alert, 55-year-old gentleman, on 2 L nasal cannula, comfortable in no apparent distress. HEAD: Normocephalic. EYES: Normal reaction of pupils, equal size. NOSE: Clear with pink turbinates. THROAT: No erythema or exudates. NECK: No masses, no JVD. CHEST: No chest wall deformity. LUNGS: Equal air entry with crackles in the bilateral posterior bases. CVS: S1 and S2 normal with no audible murmur, regular rhythm. ABDOMEN: No hepatosplenomegaly, normal bowel sounds, no guarding or rigidity. SPINE: No scoliosis or deformity SKIN: No rashes CENTRAL NERVOUS SYSTEM: No focal deficits, tone is normal in all 4 extremities. EXTREMITIES: There is no peripheral edema. No clubbing, no cyanosis. Peripheral pulses are intact. - Labs CBC & Chem 7: 06/10/20 07:23 06/10/20 07:23 Labs: Abnormal Lab Results - Last 24 Hours (Table) 06/10/20 06/10/20 06/10/20 Range/Units 07:23 07:23 07:23 WBC 13.81 H (4.50-10.00) X 10*3/uL RBC 4.34 L (4.40-5.60) X 10*6/uL Hgb 12.3 L (13.0-17.0) g/dL Hct 37.4 L (39.6-50.0) % D-Dimer 2.31 H (<0.60) mg/L FEU Chloride 112 H (96-109) mmol/L BUN/Creatinine Ratio 23.75 H (12.00-20.00) Ratio Glucose 132 H (70-110) mg/dL Calcium 5.7 L* (8.7-10.3) mg/dL Lactate Dehydrogenase 355 H (120-246) U/L Total Protein 5.1 L (6.2-8.2) g/dL Albumin 3.50 L (3.80-4.90) g/dL Assessment and Plan Assessment: 1 Acute hypoxemic respiratory failure secondary to CoVID 19 pneumonitis/pneumonia 2 History of thyroid cancer status post thyroidectomy, surgical hypothyroidism 3 Gastroesophageal reflux disease. 4 Hypertension 5 History of CVA/TIA 6 Degenerative joint disease 7 Chronic back and knee pain 8 History of closed head injury 1998 9 History of vocal cord surgery Plan: The patient was seen and evaluated by Dr. Eulalio Jones #3 of Remdesivir Continue Lovenox, Decadron, vitamin supplements Titrate down the FiO2 as tolerated We'll continue to follow I, the cosigning physician, performed a history & physical examination of the patient. Lungs sounds with crackles in the bilateral posterior bases. Maintaining good O2 saturations in the 90s on 2 L/m per nasal cannula. I discussed the assessment and plan of care with my nurse practitioner, Delaney Wing. I attest to the above note as dictated by her.
[2020-06-10] MEDS ORDERED: CALCIUM GLUCONATE 2 GM in SODIUM CHLORIDE 0.9% 100 ML IVPB ONE (22:00)
--- NOTE | 2020-06-10 22:00 | P.PN ---
Subjective Progress Note Date: 06/10/20 HISTORY OF PRESENT ILLNESS This is a 55-year-old male patient of Dr. Alatorre with past medical history of thyroid cancer status post 3 surgeries for lumpectomies with removal of the parathyroid as well, possible rheumatoid arthritis or reactive arthritis from elevated calcium, TIA, hypertension, gastroesophageal reflux disease, degenerative disc disease in the cervical spine and lumbar spine. Patient states that he started feeling sick on Friday with shortness of breath and cough as well as generalized body aches. He states he passed out last night and that made him come into the hospital. Patient presented to [facility] emergency center for evaluation. WBC 4.8, hemoglobin 13.3, platelet count 187. D-dimer 6.09. Sodium 137, potassium 3.2, chloride 105, CO2 26, BUN 17 and creatinine 0.9. Chest x-ray showed no acute cardio pulmonary finding. CT angiogram revealed patchy peripheral groundglass opacities negative for pulmonary embolism. Patient was ordered for admission to the [facility] floor and consult with pulmonary medicine. /2: Patient is seen on the observation unit as an overflow waiting for [facility] bed. He states his shortness of breath is about the same as yesterday. He does have increased shortness of breath with exertion. His appetite is good. He does have chest pain from coughing. Cough is nonproductive. Patient is status post Remdesivir day #2/5. Patient is seen and followed by pulmonary medicine. 4/3: Patient is remaining symptomatic hypoxic require O2 close to 5 L at this point. Continue to have significant shortness of breath with minimum exertion continue Remdesivir day #3/5, continue supportive care, still seen pulmonary. His calcium level still mildly low but has low of the mean most likely pseudo- hypocalcemia related to the severity of the Covid 19 and the low of the mean and protein with low protein intake, will do calcium gluconate IV and request ionized calcium level tomorrow. REVIEW OF SYSTEMS Constitutional: Reports fever, Reports chills, no night sweats. No weight change. No weakness, fatigue or lethargy. No daytime sleepiness. EENT: No headache. No blurred vision or double vision, no loss of vision. No loss of Hearing, no ringing in the ears, no dizziness. No nasal drainage or congestion. No epistaxis. No sore throat. Lungs: Reports shortness of breath, Reports cough, Reports sputum production. No wheezing. Cardiovascular: No chest pain, no lower extremity edema. No palpitations. No paroxysmal nocturnal dyspnea. No orthopnea. No lightheadedness or dizziness. Reports syncopal episodes. Abdominal: No abdominal pain. No nausea, vomiting. No diarrhea. No constipation. No bloody or tarry stools.. No loss of appetite. Genitourinary: No dysuria, increased frequency, urgency. No urinary retention. Musculoskeletal: Reports myalgias. No muscle weakness, no gait dysfunction, no frequent falls. No back pain. No neck pain. Integumentary: No wounds, no lesions. No rash or pruritus. No unusual bruising. No change in hair or nails. Neurologic: No aphasia. No facial droop. No change in mentation. No head injury. No headache. No paralysis. No paresthesia. Psychiatric: No depression. No anxiety. No mood swings. Endocrine: No abnormal blood sugars. No weight change. No excessive sweating or thirst. No cold intolerance. PHYSICAL EXAMINATION Gen: This is a 55-year-old male patient. He is resting in bedy and appears to be comfortable and in no acute distress at rest. HEENT: Head is atraumatic, normocephalic. Pupils equal, round. Sclerae is anicteric. NECK: Supple. No JVD. No lymphadenopathy. No thyromegaly. LUNGS: Rhonchi and crackles bilaterally. No intercostal retractions. HEART: Regular rate and rhythm. No murmur. ABDOMEN: Soft. Bowel sounds are present. No masses. No tenderness. EXTREMITIES: No pedal edema. No calf tenderness. NEUROLOGICAL: Patient is awake, alert and oriented x3. Cranial nerves 2 through 12 are grossly intact. ASSESSMENT AND PLAN 1. Acute hypoxic respiratory failure secondary to COVID-19 pneumonia. Pulmonary medicine consult appreciated. Patient is on vitamin C, vitamin D3 and zinc, Decadron 6 mg daily, Lovenox 40 mg subcu daily. Patient has been started on Remdesivir day #2 /5, repeat inflammatory markers. 2. Hypocalcemia: Most likely pseudo-hypocalcemia calcium gluconate will be giving IV and request ionized calcium tomorrow morning. 3. Hypokalemia status post replacement. 4. History of thyroid cancer status post thyroidectomy and parathyroidectomy. Continue [place] Thyroid 120 mg daily. 5. Hypertension. Hold hydrochlorothiazide. Blood pressure remained slightly bit low but well controlled 6. Chronic pain Syndrome. Continue Lyrica 200 mg twice daily. 7. GI prophylaxis. Protonix. 8. DVT prophylaxis. Lovenox. DISCHARGE PLAN Home. In the next 2 days. Objective - Vital Signs Vital signs: Vital Signs Temp 97.4 F L 06/10/20 06:01 Pulse 53 L 06/10/20 06:01 Resp 16 06/10/20 06:01 BP 107/71 06/10/20 06:01 Pulse Ox 97 06/10/20 06:01 Intake & Output 06/09/20 06/09/20 06/10/20 06:59 18:59 06:59 Intake Total 440 Balance 440 Weight 86.183 kg Intake: Oral 440 Other: Voiding Method Toilet Toilet Toilet # Voids 1 2 - Labs CBC & Chem 7: 06/10/20 07:23 06/10/20 07:23
[2020-06-11] MEDS: SODIUM CHLORIDE 0.9% 1,000 ML IV SCH ×3 (01:53→20:17)
[2020-06-11] MEDS: THYROID, PORK 30 MG TAB PO SCH (06:32)
[2020-06-11 07:20] LABS: ALT 52 U/L (4-49); AST 48 U/L (17-59); African American GFR (CKD) >90 (>60 ml/min/1.73 sqM); Albumin 2.7 g/dL (3.5-5.0); Albumin/Globulin Ratio 1.2; Alkaline Phosphatase 44 U/L (38-126); Anion Gap 5 mmol/L; Blood Urea Nitrogen 17 mg/dL (9-20); Carbon Dioxide 23 mmol/L (22-30); Chloride 110 mmol/L (98-107); Globulin 2.3 g/dL; Glucose 131 mg/dL (74-99); Non-African American GFR(CKD) >90 (>60 ml/min/1.73 sqM); Sodium 138 mmol/L (137-145); Total Bilirubin 0.4 mg/dL (0.2-1.3)
[2020-06-11 07:21] LABS: Ionized Calcium 3.4 mg/dL (4.5-5.3)
[2020-06-11] MEDS: CHOLECALCIFEROL 25 MCG (1000 IU) TABLET PO SCH (08:11)
[2020-06-11] MEDS: CALCIUM CARBONATE 500 MG CHEWABLE PO SCH ×3 (08:11→17:32)
[2020-06-11] MEDS: dexAMETHasone 2 MG TAB PO SCH (08:11)
[2020-06-11] MEDS: PANTOPRAZOLE 40 MG TABLET PO SCH (08:11)
[2020-06-11] MEDS: PREGABALIN 100 MG CAP PO SCH ×2 (08:11→20:15)
[2020-06-11] MEDS: HYDROcodone/APAP 5-325MG 1 EACH TAB PO SCH ×3 (08:11→20:16)
[2020-06-11] MEDS: ASCORBIC ACID 500 MG TAB PO SCH (08:11)
[2020-06-11] MEDS: ENOXAPARIN 40 MG/0.4 ML SYRINGE SQ SCH (08:12)
[2020-06-11] MEDS: ZINC SULFATE 220 MG CAP PO SCH (08:13)
[2020-06-11] MEDS: CLOTRIMAZOLE 1% CREAM 30 GM TUBE TOPICAL SCH ×2 (08:23→20:16)
[2020-06-11] MEDS: CAPSAICIN 0.025% CREAM 60 GM TUBE TOPICAL SCH ×3 (08:23→20:16)
[2020-06-11 09:08] LABS: HGB 11.9 g/dL (13.0-17.0); MCH 28.7 pg (27.0-32.0); MCHC 33.1 g/dL (32.0-37.0); MCV 86.7 fL (80.0-97.0); Mean Platelet Volume 11.6 fL (9.5-12.2); Platelet Count 207 X 10*3/uL (140-440); RBC 4.15 X 10*6/uL (4.40-5.60); RDW 11.9 % (11.5-14.5)
[2020-06-11] MEDS ORDERED: CALCIUM CARBONATE 500 MG CHEWABLE PO PRN (09:08)
[2020-06-11] MEDS ORDERED: CALCIUM GLUCONATE 2 GM in SODIUM CHLORIDE 0.9% 100 ML IVPB ONE (09:30)
--- NOTE | 2020-06-11 10:36 | P.PN ---
Subjective Progress Note Date: 06/11/20 HISTORY OF PRESENT ILLNESS This is a 55-year-old male patient of Dr. Alatorre with past medical history of thyroid cancer status post 3 surgeries for lumpectomies with removal of the parathyroid as well, possible rheumatoid arthritis or reactive arthritis from elevated calcium, TIA, hypertension, gastroesophageal reflux disease, degenerative disc disease in the cervical spine and lumbar spine. Patient states that he started feeling sick on Friday with shortness of breath and cough as well as generalized body aches. He states he passed out last night and that made him come into the hospital. Patient presented to [facility] emergency center for evaluation. WBC 4.8, hemoglobin 13.3, platelet count 187. D-dimer 6.09. Sodium 137, potassium 3.2, chloride 105, CO2 26, BUN 17 and creatinine 0.9. Chest x-ray showed no acute cardio pulmonary finding. CT angiogram revealed patchy peripheral groundglass opacities negative for pulmonary embolism. Patient was ordered for admission to the [facility] floor and consult with pulmonary medicine. 4/2: Patient is seen on the observation unit as an overflow waiting for [facility] bed. He states his shortness of breath is about the same as yesterday. He does have increased shortness of breath with exertion. His appetite is good. He does have chest pain from coughing. Cough is nonproductive. Patient is status post Remdesivir day #2/5. Patient is seen and followed by pulmonary medicine. 4/3: Patient is remaining symptomatic hypoxic require O2 close to 5 L at this point. Continue to have significant shortness of breath with minimum exertion continue Remdesivir day #3/5, continue supportive care, still seen pulmonary. His calcium level still mildly low but has low of the mean most likely pseudo- hypocalcemia related to the severity of the Covid 19 and the low of the mean and protein with low protein intake, will do calcium gluconate IV and request ionized calcium level tomorrow. 4/4: Still quite but symptomatic hypoxic and had generalized fatigue and body ache, continue antiviral medication, patient still hypocalcemic ionized calcium was low today patient will have blood symptom gluconate and calcium carbonate orally parathyroid hormone level was requested repeat calcium level tomorrow. Titrate PTOT and try to wean patient off oxygen gradually is down to 3 L so far. REVIEW OF SYSTEMS Constitutional: Reports fever, Reports chills, no night sweats. No weight change. No weakness, fatigue or lethargy. No daytime sleepiness. EENT: No headache. No blurred vision or double vision, no loss of vision. No loss of Hearing, no ringing in the ears, no dizziness. No nasal drainage or congestion. No epistaxis. No sore throat. Lungs: Reports shortness of breath, Reports cough, Reports sputum production. No wheezing. Cardiovascular: No chest pain, no lower extremity edema. No palpitations. No paroxysmal nocturnal dyspnea. No orthopnea. No lightheadedness or dizziness. Reports syncopal episodes. Abdominal: No abdominal pain. No nausea, vomiting. No diarrhea. No constipation. No bloody or tarry stools.. No loss of appetite. Genitourinary: No dysuria, increased frequency, urgency. No urinary retention. Musculoskeletal: Reports myalgias. No muscle weakness, no gait dysfunction, no frequent falls. No back pain. No neck pain. Integumentary: No wounds, no lesions. No rash or pruritus. No unusual bruising. No change in hair or nails. Neurologic: No aphasia. No facial droop. No change in mentation. No head injury. No headache. No paralysis. No paresthesia. Psychiatric: No depression. No anxiety. No mood swings. Endocrine: No abnormal blood sugars. No weight change. No excessive sweating or thirst. No cold intolerance. PHYSICAL EXAMINATION Gen: This is a 55-year-old male patient. He is resting in bedy and appears to be comfortable and in no acute distress at rest. HEENT: Head is atraumatic, normocephalic. Pupils equal, round. Sclerae is anicteric. NECK: Supple. No JVD. No lymphadenopathy. No thyromegaly. LUNGS: Rhonchi and crackles bilaterally. No intercostal retractions. HEART: Regular rate and rhythm. No murmur. ABDOMEN: Soft. Bowel sounds are present. No masses. No tenderness. EXTREMITIES: No pedal edema. No calf tenderness. NEUROLOGICAL: Patient is awake, alert and oriented x3. Cranial nerves 2 through 12 are grossly intact. ASSESSMENT AND PLAN 1. Acute hypoxic respiratory failure secondary to COVID-19 pneumonia. Pulmonary medicine consult appreciated. Patient is on vitamin C, vitamin D3 and zinc, Decadron 6 mg daily, Lovenox 40 mg subcu daily. Patient has been started on Remdesivir day #4 /5, repeat inflammatory markers. 2. Hypocalcemia: Most likely pseudo-hypocalcemia calcium gluconate will be giving IV along with calcium carbonate was changed to 4 times a day repeat PTH and CMP tomorrow 3. Hypokalemia status post replacement. 4. History of thyroid cancer status post thyroidectomy and parathyroidectomy. Continue [place] Thyroid 120 mg daily. 5. Hypertension. Hold hydrochlorothiazide. Blood pressure remained slightly bit low but well controlled 6. Chronic pain Syndrome. Continue Lyrica 200 mg twice daily. 7. GI prophylaxis. Protonix. 8. DVT prophylaxis. Lovenox. DISCHARGE PLAN Home. In the next 2 days. Objective - Vital Signs Vital signs: Vital Signs Temp 98.2 F 06/11/20 02:20 Pulse 62 06/11/20 02:20 Resp 17 06/11/20 02:20 BP 138/72 06/11/20 02:20 Pulse Ox 98 06/11/20 02:20 Intake & Output 06/10/20 06/10/20 06/11/20 06:59 18:59 06:59 Intake Total 1280 100 Balance 1280 100 Weight 86.183 kg Intake: Oral 1280 100 Other: Voiding Method Toilet Toilet Toilet # Voids 2 2 - Labs CBC & Chem 7: 06/11/20 06:39 06/11/20 06:39 Labs: Abnormal Lab Results - Last 24 Hours (Table) 06/10/20 06/10/20 06/10/20 Range/Units 07:23 07:23 07:23 WBC 13.81 H (4.50-10.00) X 10*3/uL RBC 4.34 L (4.40-5.60) X 10*6/uL Hgb 12.3 L (13.0-17.0) g/dL Hct 37.4 L (39.6-50.0) % D-Dimer 2.31 H (<0.60) mg/L FEU Chloride 112 H (96-109) mmol/L BUN/Creatinine Ratio 23.75 H (12.00-20.00) Ratio Glucose 132 H (70-110) mg/dL Calcium 5.7 L* (8.7-10.3) mg/dL Lactate Dehydrogenase 355 H (120-246) U/L Total Protein 5.1 L (6.2-8.2) g/dL Albumin 3.50 L (3.80-4.90) g/dL
[2020-06-11] MEDS: REMDESIVIR 100 MG in SODIUM CHLORIDE 0.9% 250 ML IVPB SCH (14:09)
--- NOTE | 2020-06-11 15:42 | P.PN ---
Subjective Progress Note Date: 06/11/20 Principal diagnosis: CoVID 19 pneumonitis 55-year-old male, who presents to the emergency department, really the morning on June 08, complaining of shortness of breath. Currently, the patient's on 2 L nasal cannula. Is getting saline 100 mL an hour. He apparently tested +2 days ago. He's been sick for 6 days, with aches, cough, shortness of breath, and possible loss of consciousness/syncope. Currently, the patient seemed to be relatively stable. As mentioned, he's on 2 L. He does feel short of breath and very weak. He has a history of osteoarthritis, hypothyroidism, CVA, GERD, hypertension, thyroid cancer, TIA, degenerative disc disease, chronic back pain, and closed head injury, 1998. White count is 4.8, hemoglobin 13.3, hematocrit 37.9, PT 10.7, INR 1, PTT 24.1, and d-dimer 6.09. Platelet count is normal. Sodium is 137, potassium 3.2, chloride 105, CO2 26, anion gap 6, BUN 17, and creatinine 0.90. Chest x-ray was negative, CT angiogram showed evidence of patchy peripheral groundglass opacities, and was negative for pulmonary embolism. Progress note dated 06/09/2020. 55-year-old male that I saw yesterday in the emergency department. The patient came in complaining of shortness of breath. Currently, the patient's on 2 L nasal cannula, and saline at 75 mL an hour. He's feeling about the same today as he did yesterday. No better, and no worse. He apparently tested positive for COVID 2 days ago. He's been sick for 6 days now 7, with aches, cough, shortness of breath, and possible syncope. The patient has a history of osteoarthritis, hypothyroidism, CVA, GERD, hypertension, thyroid cancer, TIA, degenerative disc disease, chronic back pain, and closed head injury in 1998. No new labs today. The patient is seen today 06/10/2020 in follow-up on the regular medical floor. He is currently resting comfortably in bed. Awake and alert in no acute distress. Currently maintaining O2 saturations in the 90s on 2 L/m per nasal cannula. This is day #3 of Remdesivir. He is making continued on Lovenox, dexamethasone, vitamin supplements. Paula count 13.8. Hemoglobin 12.3. D- dimer 2.31. Sodium 142. Potassium 4.0. Creatinine 0.8. Glucose 132. LDH 355. C-reactive protein 0.5. The patient is seen today 06/11/2020 in follow-up on the regular medical floor. Currently sitting up in bed. Awake and alert in no acute distress. He is breathing bit easier today compared to yesterday. Still with a dry nonproductive cough. He is maintaining O2 saturations in the 90s on room air now. This is day #4 of Remdesivir. White count 10.6. Hemoglobin 11.9. Sodium 138. Potassium 4.0. Creatinine 0.68. Calcium 6.0. He remains on dexamethasone, Lovenox, vitamin supplements. Objective - Vital Signs Vital signs: Vital Signs Temp 98.1 F 06/11/20 14:00 Pulse 51 L 06/11/20 14:00 Resp 16 06/11/20 14:00 BP 142/78 06/11/20 14:00 Pulse Ox 94 L 06/11/20 14:00 Intake & Output 06/10/20 06/11/20 06/11/20 18:59 06:59 18:59 Intake Total 1280 100 200 Balance 1280 100 200 Weight 86.183 kg Intake: Oral 1280 100 200 Other: Voiding Method Toilet Toilet Toilet # Voids 2 1 2 - Exam GENERAL EXAM: Alert, 55-year-old gentleman, on room air, comfortable in no apparent distress. HEAD: Normocephalic. EYES: Normal reaction of pupils, equal size. NOSE: Clear with pink turbinates. THROAT: No erythema or exudates. NECK: No masses, no JVD. CHEST: No chest wall deformity. LUNGS: Equal air entry with crackles in the bilateral posterior bases. CVS: S1 and S2 normal with no audible murmur, regular rhythm. ABDOMEN: No hepatosplenomegaly, normal bowel sounds, no guarding or rigidity. SPINE: No scoliosis or deformity SKIN: No rashes CENTRAL NERVOUS SYSTEM: No focal deficits, tone is normal in all 4 extremities. EXTREMITIES: There is no peripheral edema. No clubbing, no cyanosis. Fatuma pheral pulses are intact. - Labs CBC & Chem 7: 06/11/20 06:39 06/11/20 06:39 Labs: Abnormal Lab Results - Last 24 Hours (Table) 06/11/20 06/11/20 Range/Units 06:39 06:39 WBC 10.60 H (4.50-10.00) X 10*3/uL RBC 4.15 L (4.40-5.60) X 10*6/uL Hgb 11.9 L (13.0-17.0) g/dL Hct 36.0 L (39.6-50.0) % Chloride 110 H (98-107) mmol/L Glucose 131 H (74-99) mg/dL Calcium 6.0 L* (8.4-10.2) mg/dL Ionized Calcium [place] 3.4 L* (4.5-5.3) mg/dL ALT 52 H (4-49) U/L Total Protein 5.0 L (6.3-8.2) g/dL Albumin 2.7 L (3.5-5.0) g/dL Assessment and Plan Assessment: 1 Acute hypoxemic respiratory failure secondary to CoVID 19 pneumoni tis/pneumonia, receiving Remdesivir 2 History of thyroid cancer status post thyroidectomy, surgical hypothyroidism 3 Gastroesophageal reflux disease. 4 Hypertension 5 History of CVA/TIA 6 Degenerative joint disease 7 Chronic back and knee pain 8 History of closed head injury 1998 9 History of vocal cord surgery Plan: The patient was seen and evaluated by Dr. Eulalio winslow and on room air Day #4 of Remdesivir Continue Lovenox, Decadron, vitamin supplements Probable home in a.m. We'll continue to follow I, the cosigning physician, performed a history & physical examination of the patient. Lungs sounds with crackles in the bilateral posterior bases. Maintaining good O2 saturations in the 90s on room air. I discussed the assessment and plan of care with my nurse practitioner, Delaney Wing. I attest to the above note as dictated by her.
[2020-06-12] MEDS: SODIUM CHLORIDE 0.9% 1,000 ML IV SCH (00:09)
[2020-06-12] MEDS: THYROID, PORK 30 MG TAB PO SCH (06:13)
[2020-06-12] MEDS: PREGABALIN 100 MG CAP PO SCH ×2 (08:10→08:13)
[2020-06-12] MEDS: CALCIUM CARBONATE 500 MG CHEWABLE PO SCH (08:10)
[2020-06-12] MEDS: CHOLECALCIFEROL 25 MCG (1000 IU) TABLET PO SCH (08:10)
[2020-06-12] MEDS: ASCORBIC ACID 500 MG TAB PO SCH (08:10)
[2020-06-12] MEDS: ZINC SULFATE 220 MG CAP PO SCH (08:10)
[2020-06-12] MEDS: PANTOPRAZOLE 40 MG TABLET PO SCH (08:10)
[2020-06-12] MEDS: ENOXAPARIN 40 MG/0.4 ML SYRINGE SQ SCH (08:10)
[2020-06-12] MEDS: dexAMETHasone 2 MG TAB PO SCH (08:10)
[2020-06-12] MEDS: HYDROcodone/APAP 5-325MG 1 EACH TAB PO SCH (08:11)
[2020-06-12] MEDS: CAPSAICIN 0.025% CREAM 60 GM TUBE TOPICAL SCH (08:11)
[2020-06-12] MEDS ORDERED: IBUPROFEN 600 MG TAB PO PRN (08:11)
[2020-06-12] MEDS: CLOTRIMAZOLE 1% CREAM 30 GM TUBE TOPICAL SCH (08:11)
[2020-06-12 08:51] LABS: HCT 36.3 % (39.6-50.0); HGB 12.2 g/dL (13.0-17.0); MCH 28.7 pg (27.0-32.0); MCHC 33.6 g/dL (32.0-37.0); MCV 85.4 fL (80.0-97.0); Mean Platelet Volume 11.5 fL (9.5-12.2); Platelet Count 216 X 10*3/uL (140-440); RBC 4.25 X 10*6/uL (4.40-5.60); RDW 11.8 % (11.5-14.5)
[2020-06-12 09:42] VITALS: BP 149/87; PULSE 56; RESP 17; TEMP 98.1
[2020-06-12] MEDS: REMDESIVIR 100 MG in SODIUM CHLORIDE 0.9% 250 ML IVPB SCH (11:53)
[2020-06-12 12:04] LABS: African American GFR (CKD) 117.4 (60.0-200.0); Albumin 3.3 g/dL (3.80-4.90); Albumin/Globulin Ratio 2.2 (1.60-3.17); Anion Gap 6.6 mmol/L (4.00-12.00); BUN/Creat Ratio 21.25 Ratio (12.00-20.00); Calcium 6.2 mg/dL (8.7-10.3); Carbon Dioxide 24.4 mmol/L (21.6-31.8); Globulin 1.5 g/dL (1.6-3.3); Non-African American GFR(CKD) 101.3 (60.0-200.0); Potassium 3.9 mmol/L (3.5-5.5); Total Bilirubin 0.5 mg/dL (0.3-1.2); Total Protein 4.8 g/dL (6.2-8.2)
--- NOTE | 2020-06-12 12:07 | P.DS ---
Providers Date of admission: 06/08/20 04:07 Expected date of discharge: 06/12/20 Attending physician: Carolyn Mart MD Consults: 06/08/20 04:07 Consult Physician Routine Consulting Provider: Kendy Maxwell Consult Reason/Comments: [email or web address] Do you want consulting provider notified?: Yes Primary care physician: Vasquez Mart MD Hospital Course: HISTORY OF PRESENT ILLNESS This is a 55-year-old male patient of Dr. Mart with past medical history of thyroid cancer status post 3 surgeries for lumpectomies with removal of the parathyroid as well, possible rheumatoid arthritis or reactive arthritis from elevated calcium, TIA, hypertension, gastroesophageal reflux disease, degenerative disc disease in the cervical spine and lumbar spine. Patient states that he started feeling sick on Friday with shortness of breath and cough as well as generalized body aches. He states he passed out last night and that made him come into the hospital. Patient presented to emergency center for evaluation. WBC 4.8, hemoglobin 13.3, platelet count 187. D-dimer 6.09. Sodium 137, potassium 3.2, chloride 105, CO2 26, BUN 17 and creatinine 0.9. Chest x-ray showed no acute cardio pulmonary finding. CT angiogram revealed patchy peripheral groundglass opacities negative for pulmonary embolism. Patient [facility] and consult with pulmonary medicine. 4/2: Patient is seen on the observation unit as an overflow waiting for [facility] bed. He states his shortness of breath is about the same as yesterday. He does have increased shortness of breath with exertion. His appetite is good. He does have chest pain from coughing. Cough is nonproductive. Patient is status post Remdesivir day #2/5. Patient is seen and followed by pulmonary medicine. 4/3: Patient is remaining symptomatic hypoxic require O2 close to 5 L at this point. Continue to have significant shortness of breath with minimum exertion continue Remdesivir day #3/5, continue supportive care, still seen pulmonary. His calcium level still mildly low but has low of the mean most likely pseudo- hypocalcemia related to the severity of the Covid 19 and the low of the mean and protein with low protein intake, will do calcium gluconate IV and request ionized calcium level tomorrow. 4/4: Still quite but symptomatic hypoxic and had generalized fatigue and body ache, continue antiviral medication, patient still hypocalcemic ionized calcium was low today patient will have blood symptom gluconate and calcium carbonate orally parathyroid hormone level was requested repeat calcium level tomorrow. Titrate PTOT and try to wean patient off oxygen gradually is down to 3 L so far. 06/12: Patient is on day #5/5 all Remdesivir. Patient remains afebrile, heart rate in the 50s, BP 147/67, PO 92% on NRB. Pulse ox was 95% and ambulating in his room. We will increase his calcitriol for home to 0.5 g daily. Patient was complaining of chest fluttering for which camera machinist was added as well as EKG which showed a normal sinus rhythm. No arrhythmias were noted. Respiratory status is stable and patient will be discharged home today in stable condition. ASSESSMENT AND PLAN 1. Acute hypoxic respiratory failure secondary to COVID-19 pneumonia. 2. Hypocalcemia secondary to hypoparathyroidism. 3. Hypokalemia. 4. History of thyroid cancer status post thyroidectomy and parathyroidectomy. 5. Hypertension. 6. Chronic pain Syndrome. DISCHARGE PLAN Home. Impression and plan of care have been directed as dictated by the signing physician. Cari Mcclellan nurse practitioner acting as scribe for signing physician. Patient Condition at Discharge: Good Plan - Discharge Summary Discharge Rx Participant: No New Discharge Prescriptions: New Ascorbic Acid [Vitamin C] 1,000 mg PO DAILY tab Ergocalciferol (Vitamin D2) [Vitamin D2 (2000 Iu)] 50 mcg PO DAILY #30 tab Dexamethasone [Decadron] 6 mg PO DAILY #10 tablet Zinc Sulfate [Orazinc] 220 mg PO DAILY cap Continue Thyroid,Pork [[place] Thyroid] 120 mg PO DAILY Lidocaine 5% Oint [Xylocaine 5% Oint] 1 applic TOPICAL TID PRN PRN Reason: Pain Ketoconazole 2% Cream [Nizoral 2%] 1 applic TOPICAL BID hydroCHLOROthiazide [Hydrodiuril] 25 mg PO DAILY Calcium Carbonate 1,000 mg PO BID-W/MEALS Pregabalin [Lyrica] 200 mg PO BID Capsaicin Cream [Trixaicin Cream] 1 applic TOPICAL TID Fluoride (Sodium) [Sodium Fluoride] 1 applic DENTAL HS calcitrioL [Rocaltrol] 0.5 mcg PO DAILY #30 cap Discontinued predniSONE 8 mg PO DAILY Discharge Medication List Calcium Carbonate 1,000 mg PO BID-W/MEALS 06/08/20 [History] Capsaicin Cream [Trixaicin Cream] 1 applic TOPICAL TID 06/08/20 [History] Fluoride (Sodium) [Sodium Fluoride] 1 applic DENTAL HS 06/08/20 [History] Ketoconazole 2% Cream [Nizoral 2%] 1 applic TOPICAL BID 06/08/20 [History] Lidocaine 5% Oint [Xylocaine 5% Oint] 1 applic TOPICAL TID PRN 06/08/20 [History] Pregabalin [Lyrica] 200 mg PO BID 06/08/20 [History] Thyroid,Pork [[place] Thyroid] 120 mg PO DAILY 06/08/20 [History] hydroCHLOROthiazide [Hydrodiuril] 25 mg PO DAILY 06/08/20 [History] Ascorbic Acid [Vitamin C] 1,000 mg PO DAILY tab 06/12/20 [Rx] Dexamethasone [Decadron] 6 mg PO DAILY #10 tablet 06/12/20 [Rx] Ergocalciferol (Vitamin D2) [Vitamin D2 (2000 Iu)] 50 mcg PO DAILY #30 tab 06/12/20 [Rx] Zinc Sulfate [Orazinc] 220 mg PO DAILY cap 06/12/20 [Rx] calcitrioL [Rocaltrol] 0.5 mcg PO DAILY #30 cap 06/12/20 [Rx] Follow up Appointment(s)/Referral(s): Carolyn Mart MD [Medical Doctor] - 06/20/20 4:30 pm (This is a tele health appointment not in the office) Vasquez Mart MD [Primary Care Provider] - 2 Weeks Discharge Disposition: HOME SELF-CARE
== END 2020-06-12 13:41 | disposition home health service (06) | DRG 177 ==
LOC: EC 02:57 → 6NMEDSUR 04:07 → 4SSUR 16:11 → 1SOBS 06-09 08:09 → 4SSUR 06-09 14:41
PROVIDERS: ADMIT Internal Medicine; ATTEND Internal Medicine
PROC: XW033E5 Introduction of Remdesivir Anti-infective into Peripheral Vein, Percutaneous Approach, New Technology Group 5 (ICD-10-PCS; principal; 2020-06-08)
DX: U07.1 COVID-19 (principal); J12.82 Pneumonia due to coronavirus disease 2019; J96.01 Acute respiratory failure with hypoxia; M06.9 Rheumatoid arthritis, unspecified; E89.2 Postprocedural hypoparathyroidism; E83.51 Hypocalcemia; E87.6 Hypokalemia; E89.0 Postprocedural hypothyroidism; G89.4 Chronic pain syndrome; M25.569 Pain in unspecified knee; M19.90 Unspecified osteoarthritis, unspecified site; I10 Essential (primary) hypertension; K21.9 Gastro-esophageal reflux disease without esophagitis; M50.30 Other cervical disc degeneration, unspecified cervical region; M51.36 Other intervertebral disc degeneration, lumbar region; F43.10 Post-traumatic stress disorder, unspecified; Z85.850 Personal history of malignant neoplasm of thyroid; Z79.899 Other long term (current) drug therapy; Z86.73 Personal history of transient ischemic attack (TIA), and cerebral infarction without residual deficits; Z87.820 Personal history of traumatic brain injury; Z88.8 Allergy status to other drugs, medicaments and biological substances; Z91.030 Bee allergy status; Z91.041 Radiographic dye allergy status; Z83.49 Family history of other endocrine, nutritional and metabolic diseases; Z83.3 Family history of diabetes mellitus; Z82.49 Family history of ischemic heart disease and other diseases of the circulatory system
CPT/HCPCS: 36415; 71045; 71275; 80053; 82330; 83605; 83615; 83735; 83970; 85025; 85027; 85379; 85610; 85730; 86140; 93005; 94640; 94760; 96365; 96375; 99291

== ENCOUNTER → 2021-01-18 | Outpatient (CLI) | payer OTHER ==
[2021-01-18 09:14] VITALS: BP 147/82; PULSE 78; RESP 18
--- NOTE | 2021-01-18 11:01 | P.PAINCN ---
History of Present Illness - Reason for Consult Consult date: 01/18/21 - Chief Complaint Neck pain, thoracic pain, and lumbar back pain, and multiple joint pain - History of Present Illness Mr. Chapman is a 55 year old pleasant male patient came to [facility] pain management clinic for follow-up. Patient was following with pain clinic for many years. In general patient was following with [facility] for his pain, and autoimmune disorder. Patient had history of thyroid cancer status post Synthroid introduced generalized ALLERGIC reaction/autoimmune disorder. Patient currently is following with general machine operator planning to taper his steroid medication. Patient wants to wean off his narcotic medication as tolerated. Patient is actively working on his [employer]. Currently he is working more hours secondary to lack of end of workers. Sometimes which she is making his pain worse. He tried cervical needle branch, radiofrequency ablation, thoracic medial branch, and radiofrequency ablation in the past. Which helped him tremendous pain relief. Patient described pain as aching, sharp, throbbing, burning in his feet pain. Patient rated pain 7-8 out of 10 in severity. Which may very her pain level from 5-10 out of 10 in severity. Pain is not radiating to upper, and lower extremities. Pain increases with activities, turning, and lifting. Pain decreases with pain medications and intervention procedures. Overall patient activities- stable . Pain medications helping to some extent. Because of the pain patient is feeling lack of sleep and interest and energy sometimes. Denied any bowel or bladder problems. Patient denies any adverse effects to medications. Not using any walking aids for walking. Patient denied suicidal or homicidal ideations intent or plan. At this time patient also denies any auditory or visual hallucinations. There are no signs of narcotic diversion/misuse/overuse and no new-onset weakness, bowel/bladder incontinence, saddle anesthesia, or no red flag symptoms. Review of Systems All systems: negative Constitutional: Denies chills, Denies fever Eyes: denies blurred vision, denies pain Ears, nose, mouth and throat: Denies headache, Denies sore throat Cardiovascular: Denies chest pain, Denies shortness of breath Respiratory: Denies cough Gastrointestinal: Denies abdominal pain, Denies diarrhea, Denies nausea, Denies vomiting Musculoskeletal: Reports leg numbness/tingling, Reports low back pain, Reports morning stiffness, Reports myalgias, Reports neck pain, Reports neck stiffness Integumentary: Denies pruritus, Denies rash Neurological: Denies numbness, Denies weakness Psychiatric: Denies anxiety, Denies depression Endocrine: Denies fatigue, Denies weight change Past Medical History Past Medical History: Cancer, CVA/TIA, GERD/Reflux, Hypertension, Musculoskeletal Disorder, Osteoarthritis (OA), Thyroid Disorder Additional Past Medical History / Comment(s): Pt states he tested covid + on 06/07/20 at [employer]. 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 Past Anesthesia/Blood Transfusion Reactions: No Reported Reaction Smoking Status: Never smoker - Past Family History Father Family Medical History: Coronary Artery Disease (CAD), Hyperlipidemia Additional Family Medical History / Comment(s): Uncle-myocardial infarction in his 40s Mother Family Medical History: No Reported History Additional Family Medical History / Comment(s): Mother is alive at age 77 with no major medical problems. Sister(s) Additional Family Medical History / Comment(s): Patient has 1 sister with no major medical problems. Patient is for children with no major medical problems. Medications and Allergies Home Medications Medication Instructions Recorded Confirmed Type Calcium Carbonate 1,000 mg PO BID-W/MEALS 06/08/20 01/16/21 History Capsaicin Cream [Trixaicin Cream] 1 applic TOPICAL TID 06/08/20 01/16/21 History Fluoride (Sodium) [Sodium Fluoride] 1 applic DENTAL HS 06/08/20 01/16/21 History Ketoconazole 2% Cream [Nizoral 2%] 1 applic TOPICAL BID 06/08/20 01/16/21 History Lidocaine 5% Oint [Xylocaine 5% 1 applic TOPICAL TID PRN 06/08/20 01/16/21 History Oint] Pregabalin [Lyrica] 200 mg PO BID 06/08/20 01/16/21 History hydroCHLOROthiazide [Hydrodiuril] 25 mg PO DAILY 06/08/20 01/16/21 History Ascorbic Acid [Vitamin C] 1,000 mg PO DAILY tab 06/12/20 01/16/21 Rx Dexamethasone [Decadron] 6 mg PO DAILY #10 tablet 06/12/20 01/16/21 Rx Ergocalciferol (Vitamin D2) 50 mcg PO DAILY #30 tab 06/12/20 01/16/21 Rx [Vitamin D2 (2000 Iu)] Zinc Sulfate [Orazinc] 220 mg PO DAILY cap 06/12/20 01/16/21 Rx calcitrioL [Rocaltrol] 0.5 mcg PO DAILY #30 cap 06/12/20 01/16/21 Rx Levothyroxine Sodium [Tirosint] 200 mcg PO DAILY 01/16/21 01/16/21 History Allergies Allergy/AdvReac Type Severity Reaction Status Date / Time Iodinated Contrast Media Allergy Rash/Hives Verified 01/16/21 10:29 venom-honey bee Allergy Anaphylaxis Verified 01/16/21 10:29 gabapentin AdvReac Severe states Verified 01/16/21 10:29 "HIGH" for 2 days. bupropion AdvReac stomache Verified 01/16/21 10:29 upset,tinnitus,dizziness Physical Exam Vitals: Vital Signs Pulse Resp BP Pulse Ox 01/18/21 09:06 78 18 147/82 100 General: Well-developed, well-nourished, no acute distress HEENT: Normocephalic, and atraumatic Neck: Supple, no neck swelling Psychiatric: Appropriate mood, and affect VISION TEACHER: No focal neurological deficits Musculoskeletal: Upper extremity: Normal strength, and range of motion. Sensation grossly intact Lower extremity: Normal strength, and decreased range of motion secondary to pain Lumbar spine: Paravertebral tenderness: positive , healed lumbar scar Lumbar facet load test : positive Sacroiliac joint tenderness: Negative Multiple trigger points positive over lumbar, thoracic, and cervical area Cervical spine: Paravertebral tenderness: Positive Cervical spine facet inocencio: Positive Cervical spine Spurling test: Negative Results Results: CT of the cervical spine done on 08/10/2016 showed multilevel mild spondylosis, no fractures. There is a mild narrowing of disc space from C3 to C7 with sparing of the endplates. Facet joints are intact. Assessment and Plan Assessment: Cervical spondylosis without myelopathy Thoracic spondylosis without myelopathy Lumbar spondylosis without myelopathy Lumbar postlaminectomy syndrome Myofascial pain syndrome, and chronic pain syndrome Patient had history of unknown arthritis, and autoimmune disorder Plan: 1 Opioid, and psychological risk tools, and scores were reviewed. Diagnoses, prognosis, and multiple treatment options including but not limited to physical therapy, interventional therapy, adjunct medication therapy, narcotic medication, and surgical options were discussed with the patient. And all questions were answered to the patient's satisfaction. #2 Opioid agreement: Patient was thoroughly discussed regarding the medication side effects, complications associated with narcotic use. Patient recommended do not drive while on narcotic medications, any other sedative medications, and illicit drugs including marijuana. Patient clearly understood. Patient has signed narcotic agreement and was again asked to re-read this document and will be given a copy to take home if requested. This document outlines the policies of the [facility]. It specifically counsels the patient to not misuse, overuse, abuse, divert, or sell medications, and to take them as prescribed by only one healthcare provider and store the medications in a safe and preferably locked location. This document also counsels against driving while using narcotic medications and also against using any alcohol or illicit or recreational drugs in conjunction with opioids. The patient verbalized understanding to staff that lack of compliance with any of the above will likely result in failure to renew narcotic prescriptions, possible discharge from the clinic, and possible legal ramifications thereafter. #3 Patient was counseled on importance of regular exercise. Including raman chi, aerobic exercises as tolerated. Which helps for chronic pain, and overall well-being. Patient also counseled regarding importance of weight control rolling chronic pain, and overall other health issues. By altering diet habits, minimizing sugar intake, and processed foods helps in minimizing Inflammation. Also discussed with the patient regarding intermittent fasting. Patient counseled regarding smoking associated with chronic pain, worsening inflammation, and smoking effects on liver, and medication metabolism. And encouraged to stop smoking. #4 consultation: [place] Master- to rule out autoimmune disorder, and planning to decrease his steroids advise as per patient request #5 investigations: MAPS-reviewed , urine drug test- sent #6 interventional procedures: Right-sided cervical C4-C5, C5-C6 and branch radiofrequency ablation. Procedure, complications, and alternatives discussed with the patient #7 medications #1 tramadol 50 mg by mouth Q8 hours to every 12 hours as needed dispense 90 with no refill #2 Lyrica 200 mg by mouth every 12 hours and dispense 60 with no refill #3 naloxone 4 mg intranasal for respiratory depression dispense #2 Medication side effects, complications, long-term consequences discussed with the patient. Patient recommended to contact the pain clinic if noticed any issues with given medications. #8 morphine milligrams equivalents dose ( MME) per day: 15. #9 patient recommended to try TENS unit's, and percussion massage device #10 disposition scheduled to follow up with pain clinic for 4 weeks duration . Time with Patient: Less than 30 PQRS Measure Charge Sheet Measure #130: Documentation of Current Meds in Medical Chart: Patient's medications documented in chart Measure #226: Tobacco Use: Screen & Cessation Intervention: Pt not a tobacco user Measure #111: Pneumonia Vaccination: Pneumococcal vaccine NOT administered or previously given Measure #47: Advance Care Plan: Advance care planning discussed & documented, pt chose/unable to give Measure #412: Opioid Treatment Agreement: Documented signed opioid trtmnt agreemnt min once during opioid trtmnt Measure #408: Opioid Therapy Follow-up Evaluation: Patient had f/u eval minimum every 3 months during opioid therapy Measure #317: Preventitive Care & Scrn High Bld Press & F/U: Pre-hypertensive or hypertensive BP documented, pt will f/u with PCP Measure #128: Body Mass Index (BMI) Screening & Follow-up: BMI documented ABOVE normal parameters - f/u documented Measure #131: Pain Assessment & Follow-up: Pain positive & plan documented Measure #431: Unhealthy Alcohol Use Preventative Care & Scrn: Patient not identified as an unhealthy alcohol user Mode of Arrival: Ambulatory - Pain Location Neck Non-Pharmacological Interventions: Exercise, Heat, Home Exercise, Inactivity, Physical Therapy, Stretching Pharmacological Interventions: Block, Medication, PRN Medication PQRS Narrative: Smoking Status Never smoker Blood Pressure 147/82 Pain Intensity [Neck] 6 Scale Used Numeric (1 - 10) Hx Alcohol Use (MH) No Home Medications: Ambulatory Orders Calcium Carbonate 1,000 mg PO BID-W/MEALS 06/08/20 Capsaicin Cream [Trixaicin Cream] 1 applic TOPICAL TID 06/08/20 Fluoride (Sodium) [Sodium Fluoride] 1 applic DENTAL HS 06/08/20 Ketoconazole 2% Cream [Nizoral 2%] 1 applic TOPICAL BID 06/08/20 Lidocaine 5% Oint [Xylocaine 5% Oint] 1 applic TOPICAL TID PRN 06/08/20 Pregabalin [Lyrica] 200 mg PO BID 06/08/20 hydroCHLOROthiazide [Hydrodiuril] 25 mg PO DAILY 06/08/20 Ascorbic Acid [Vitamin C] 1,000 mg PO DAILY tab 06/12/20 Dexamethasone [Decadron] 6 mg PO DAILY #10 tablet 06/12/20 Ergocalciferol (Vitamin D2) [Vitamin D2 (2000 Iu)] 50 mcg PO DAILY #30 tab 06/12/20 Zinc Sulfate [Orazinc] 220 mg PO DAILY cap 06/12/20 calcitrioL [Rocaltrol] 0.5 mcg PO DAILY #30 cap 06/12/20 Levothyroxine Sodium [Tirosint] 200 mcg PO DAILY 01/16/21
== END ==
LOC: PNWHC3 08:43
DX: M47.812 Spondylosis without myelopathy or radiculopathy, cervical region (principal); M47.814 Spondylosis without myelopathy or radiculopathy, thoracic region; M47.816 Spondylosis without myelopathy or radiculopathy, lumbar region; M96.1 Postlaminectomy syndrome, not elsewhere classified; M79.18 Myalgia, other site; G89.4 Chronic pain syndrome; M19.90 Unspecified osteoarthritis, unspecified site; D89.89 Other specified disorders involving the immune mechanism, not elsewhere classified; I10 Essential (primary) hypertension; K21.9 Gastro-esophageal reflux disease without esophagitis; Z86.73 Personal history of transient ischemic attack (TIA), and cerebral infarction without residual deficits; Z79.899 Other long term (current) drug therapy; Z91.041 Radiographic dye allergy status; Z91.030 Bee allergy status; Z88.6 Allergy status to analgesic agent; Z88.8 Allergy status to other drugs, medicaments and biological substances
CPT/HCPCS: 80307; 99211; G0482

== ENCOUNTER → 2021-01-26 | Outpatient (CLI) | payer OTHER ==
--- NOTE | 2021-01-27 05:35 | MR ---
EXAMINATION TYPE: MR angio head wo/neck wo/w con DATE OF EXAM: 01/26/2021 COMPARISON: None HISTORY: TIA. CONTRAST: Standard multiplanar, multisequence MRI departmental protocol images were obtained without contrast a nd with 9 mL intravenous Gadavist gadolinium contrast. There is arterial flow in the anterior middle and posterior cerebral arteries. There is arterial flow in the vertebrobasilar artery system. I see no evidence of intracranial aneurysm or neovascularity. There is no mass effect. I see no evidence of intracranial hemodynamic stenosis.
== END | disposition home or self-care (01) ==
LOC: RADMRIMAIN 16:09
PROVIDERS: ATTEND Internal Medicine
DX: G45.9 Transient cerebral ischemic attack, unspecified (principal)
CPT/HCPCS: 70544; 70549; A9585

== ENCOUNTER 2021-03-12 09:49 | Inpatient (IN) | payer OTHER ==
[2021-03-12 11:31] LABS: Basophils # (A) 0.1 k/uL (0-0.2); Basophils % (A) 1 %; Eosinophils # (A) 0.1 k/uL (0-0.7); Eosinophils % (A) 1 %; HCT 45.4 % (39.0-53.0); HGB 15.7 gm/dL (13.0-17.5); Lymphocytes # (A) 1.7 k/uL (1.0-4.8); Lymphocytes % (A) 15 %; MCH 29.9 pg (25.0-35.0); MCHC 34.7 g/dL (31.0-37.0); MCV 86.1 fL (80.0-100.0); Mean Platelet Volume 7.2; Monocytes # (A) 0.9 k/uL (0-1.0); Monocytes % (A) 7 %; Neutrophils # (A) 8.7 k/uL (1.3-7.7); Neutrophils % (A) 74 %; Platelet Count 281 k/uL (150-450); RBC 5.27 m/uL (4.30-5.90); RDW 12.4 % (11.5-15.5); WBC 11.8 k/uL (3.8-10.6)
[2021-03-12 11:44] LABS: ALT 25 U/L (4-49); AST 30 U/L (17-59); African American GFR (CKD) >90 (>60 ml/min/1.73 sqM); Albumin 4.2 g/dL (3.5-5.0); Alkaline Phosphatase 67 U/L (38-126); Amylase 57 U/L (30-110); Anion Gap 11 mmol/L; Blood Urea Nitrogen 20 mg/dL (9-20); Calcium 7.9 mg/dL (8.4-10.2); Carbon Dioxide 27 mmol/L (22-30); Chloride 100 mmol/L (98-107); Glucose 81 mg/dL (74-99); Lipase 78 U/L (23-300); Non-African American GFR(CKD) 87 (>60 ml/min/1.73 sqM); Potassium 4.3 mmol/L (3.5-5.1); Sodium 138 mmol/L (137-145); Total Bilirubin 1.5 mg/dL (0.2-1.3); Total Protein 6.9 g/dL (6.3-8.2)
[2021-03-12] MEDS ORDERED: diphenhydrAMINE 50 MG/ML 1 ML VIAL IVP STA (12:53)
[2021-03-12] MEDS ORDERED: FAMOTIDINE 20 MG/2 ML VIAL IV STA (12:53)
[2021-03-12] MEDS ORDERED: methylPREDNISolone SOD SUCCI 125 MG/2 ML VIAL IV STA (12:53)
[2021-03-12 13:16] LABS: Appearance,Urine Clear (Clear); Bilirubin,Urine Negative (Negative); Blood,Urine Negative (Negative); Color,Urine Yellow; Glucose,Urine (UA) Negative (Negative); Ketones,Urine 1+ (Negative); Leukocyte Esterase,Urine Negative (Negative); Nitrite,Urine Negative (Negative); Protein,Urine Negative (Negative); Specific Gravity,Urine 1.026 (1.001-1.035); Urobilinogen,Urine <2.0 mg/dL (<2.0)
--- NOTE | 2021-03-12 13:33 | ED ---
General Adult HPI - General Chief complaint: Abdominal Pain Stated complaint: Chest tightness, shoulder pain Time Seen by Provider: 03/12/21 12:21 Source: patient Mode of arrival: ambulatory Limitations: no limitations - History of Present Illness Initial comments: 56-year-old male with a past medical history of CVA, hypertension, thyroid disorder, neuropathy, tonic pain syndrome presents to the emergency room for several complaints. Patient states he feels like he has a rock in his stomach. States he hasn't been eating or drinking much over the past few weeks. Patient states that he also has right shoulder pain and some tightness in his chest that he feels radiates up from his abdomen. He denies shortness of breath or dizziness. Denies fever.Patient has no other complaints at this time including shortness of breath, nausea or vomiting, headache, or visual changes. - Related Data Home Medications Medication Instructions Recorded Confirmed Calcium Carbonate 1,000 mg PO BID-W/MEALS 06/08/20 03/12/21 Capsaicin Cream [Trixaicin Cream] 1 applic TOPICAL TID 06/08/20 03/12/21 Fluoride (Sodium) [Sodium Fluoride] 1 applic DENTAL HS 06/08/20 03/12/21 Ketoconazole 2% Cream [Nizoral 2%] 1 applic TOPICAL BID 06/08/20 03/12/21 Lidocaine 5% Oint [Xylocaine 5% 1 applic TOPICAL TID PRN 06/08/20 03/12/21 Oint] Pregabalin [Lyrica] 200 mg PO BID 06/08/20 03/12/21 hydroCHLOROthiazide [Hydrodiuril] 25 mg PO DAILY 06/08/20 03/12/21 Levothyroxine Sodium [Tirosint] 200 mcg PO DAILY 01/16/21 03/12/21 Previous Rx's Medication Instructions Recorded Ascorbic Acid [Vitamin C] 1,000 mg PO DAILY tab 06/12/20 Dexamethasone [Decadron] 6 mg PO DAILY #10 tablet 06/12/20 Ergocalciferol (Vitamin D2) 50 mcg PO DAILY #30 tab 06/12/20 [Vitamin D2 (2000 Iu)] Zinc Sulfate [Orazinc] 220 mg PO DAILY cap 06/12/20 calcitrioL [Rocaltrol] 0.5 mcg PO DAILY #30 cap 06/12/20 Allergies Allergy/AdvReac Type Severity Reaction Status Date / Time Iodinated Contrast Media Allergy Rash/Hives Verified 03/12/21 10:24 venom-honey bee Allergy Anaphylaxis Verified 03/12/21 10:24 gabapentin AdvReac Severe states Verified 03/12/21 10:24 "HIGH" for 2 days. bupropion AdvReac stomache Verified 03/12/21 10:24 upset,tinnitus,dizziness Review of Systems ROS Statement: Those systems with pertinent positive or pertinent negative responses have been documented in the HPI. ROS Other: All systems not noted in ROS Statement are negative. Past Medical History Past Medical History: Cancer, CVA/TIA, GERD/Reflux, Hypertension, Musculoskeletal Disorder, Osteoarthritis (OA), Thyroid Disorder Additional Past Medical History / Comment(s): Hx Covid 06/07/20 at [employer]. 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 History of Any Multi-Drug Resistant Organisms: None Reported Past Surgical History: Back Surgery Additional Past Surgical History / Comment(s): Thyroidectomy-3 total surgeries, parathyroidectomy, vocal cord surgery X4 with removal of non cancerous mass, pain clinic procedures, low back discectomy L4-L5, colonoscopy. Past Anesthesia/Blood Transfusion Reactions: No Reported Reaction Past Psychological History: PTSD Smoking Status: Never smoker Past Alcohol Use History: None Reported Past Drug Use History: None Reported - Past Family History Father Family Medical History: Coronary Artery Disease (CAD), Hyperlipidemia Additional Family Medical History / Comment(s): Uncle-myocardial infarction in his 40s. Mother Family Medical History: No Reported History Additional Family Medical History / Comment(s): Mother is alive at age 77 with no major medical problems. Sister(s) Additional Family Medical History / Comment(s): Patient has 1 sister with no major medical problems. Patient is for children with no major medical problems. General Exam Limitations: no limitations General appearance: alert, in no apparent distress Head exam: Present: atraumatic Eye exam: Present: normal appearance, PERRL, EOMI. Absent: scleral icterus, conjunctival injection ENT exam: Present: normal exam, mucous membranes moist Neck exam: Present: normal inspection, full ROM. Absent: tenderness Respiratory exam: Present: normal lung sounds bilaterally. Absent: respiratory distress, wheezes Cardiovascular Exam: Present: regular rate, normal rhythm, normal heart sounds GI/Abdominal exam: Present: soft, tenderness (generalized abdominal tendernesss, worse on left side.), normal bowel sounds. Absent: distended Course Vital Signs 03/12/21 03/12/21 10:24 14:59 Temperature 98.1 F 98.6 F Pulse Rate 79 84 Respiratory 18 18 Rate Blood Pressure 134/93 139/87 O2 Sat by Pulse 98 100 Oximetry EKG Findings - EKG Comments: EKG Findings:: Normal sinus rhythm, ventricular rate 76, ND interval 136, QTC 44 1 Medical Decision Making - Medical Decision Making Vitals are stable. Patient has generalized mild abdominal tenderness. CBC does show that with psychosis of 11.8. CMP is unremarkable. Urinalysis is positive for 1+ ketones. CT abdomen and pelvis with contrast shows inflammatory changes right lower quadrant with poorly defined fluid collection or phlegmon measuring 3.6 x 3.5 cm adjacent to the cecum and expected location of the appendix. Suggests of contained ruptured appendicitis without shalini air. Only trace adjacent strandy free fluid. Patient was started on Zosyn, lactic acid and blood cultures ordered. Consulted with Dr. Persaud who does accept the admission. - Lab Data Result diagrams: 03/12/21 10:44 03/12/21 10:44 Lab Results 03/12/21 03/12/21 03/12/21 Range/Units 10:44 10:44 10:44 WBC 11.8 H (3.8-10.6) k/uL RBC 5.27 (4.30-5.90) m/uL Hgb 15.7 (13.0-17.5) gm/dL Hct 45.4 (39.0-53.0) % MCV 86.1 (80.0-100.0) fL MCH 29.9 (25.0-35.0) pg MCHC 34.7 (31.0-37.0) g/dL RDW 12.4 (11.5-15.5) % Plt Count 281 (150-450) k/uL MPV 7.2 Neutrophils % 74 % Lymphocytes % 15 % Monocytes % 7 % Eosinophils % 1 % Basophils % 1 % Neutrophils # 8.7 H (1.3-7.7) k/uL Lymphocytes # 1.7 (1.0-4.8) k/uL Monocytes # 0.9 (0-1.0) k/uL Eosinophils # 0.1 (0-0.7) k/uL Basophils # 0.1 (0-0.2) k/uL Sodium 138 (137-145) mmol/L Potassium 4.3 (3.5-5.1) mmol/L Chloride 100 (98-107) mmol/L Carbon Dioxide 27 (22-30) mmol/L Anion Gap 11 mmol/L BUN 20 (9-20) mg/dL Creatinine 0.98 (0.66-1.25) mg/dL Est GFR (CKD-EPI)AfAm >90 (>60 ml/min/1.73 sqM) Est GFR (CKD-EPI)NonAf 87 (>60 ml/min/1.73 sqM) Glucose 81 (74-99) mg/dL Calcium 7.9 L (8.4-10.2) mg/dL Total Bilirubin 1.5 H (0.2-1.3) mg/dL AST 30 (17-59) U/L ALT 25 (4-49) U/L Alkaline Phosphatase 67 (38-126) U/L Troponin I <0.012 (0.000-0.034) ng/mL Total Protein 6.9 (6.3-8.2) g/dL Albumin 4.2 (3.5-5.0) g/dL Amylase 57 (30-110) U/L Lipase 78 (23-300) U/L Urine Color Urine Appearance (Clear) Urine pH (5.0-8.0) Ur Specific [place] (1.001-1.035) Urine Protein (Negative) Urine Glucose (UA) (Negative) Urine Ketones (Negative) Urine Blood (Negative) Urine Nitrite (Negative) Urine Bilirubin (Negative) Urine Urobilinogen (<2.0) mg/dL Ur Leukocyte Esterase (Negative) Coronavirus (PCR) (Not Detectd) 03/12/21 03/12/21 Range/Units 12:59 12:59 WBC (3.8-10.6) k/uL RBC (4.30-5.90) m/uL Hgb (13.0-17.5) gm/dL Hct (39.0-53.0) % MCV (80.0-100.0) fL MCH (25.0-35.0) pg MCHC (31.0-37.0) g/dL RDW (11.5-15.5) % Plt Count (150-450) k/uL MPV Neutrophils % % Lymphocytes % % Monocytes % % Eosinophils % % Basophils % % Neutrophils # (1.3-7.7) k/uL Lymphocytes # (1.0-4.8) k/uL Monocytes # (0-1.0) k/uL Eosinophils # (0-0.7) k/uL Basophils # (0-0.2) k/uL Sodium (137-145) mmol/L Potassium (3.5-5.1) mmol/L Chloride (98-107) mmol/L Carbon Dioxide (22-30) mmol/L Anion Gap mmol/L BUN (9-20) mg/dL Creatinine (0.66-1.25) mg/dL Est GFR (CKD-EPI)AfAm (>60 ml/min/1.73 sqM) Est GFR (CKD-EPI)NonAf (>60 ml/min/1.73 sqM) Glucose (74-99) mg/dL Calcium (8.4-10.2) mg/dL Total Bilirubin (0.2-1.3) mg/dL AST (17-59) U/L ALT (4-49) U/L Alkaline Phosphatase (38-126) U/L Troponin I (0.000-0.034) ng/mL Total Protein (6.3-8.2) g/dL Albumin (3.5-5.0) g/dL Amylase (30-110) U/L Lipase (23-300) U/L Urine Color Yellow Urine Appearance Clear (Clear) Urine pH 6.0 (5.0-8.0) Ur Specific [place] 1.026 (1.001-1.035) Urine Protein Negative (Negative) Urine Glucose (UA) Negative (Negative) Urine Ketones 1+ H (Negative) Urine Blood Negative (Negative) Urine Nitrite Negative (Negative) Urine Bilirubin Negative (Negative) Urine Urobilinogen <2.0 (<2.0) mg/dL Ur Leukocyte Esterase Negative (Negative) Coronavirus (PCR) Not Detected (Not Detectd) Disposition Clinical Impression: Ruptured appendicitis, Leukocytosis Disposition: ADMITTED IP TO THIS HOSP Is patient prescribed a controlled substance at d/c from ED?: No Referrals: Carolyn Mart MD [Primary Care Provider] - 1-2 days Time of Disposition: 15:08
--- NOTE | 2021-03-12 14:01 | XR ---
EXAMINATION TYPE: XR chest 2V DATE OF EXAM: 03/12/2021 COMPARISON: CTA chest and chest x-ray June 08, 2020 HISTORY: Chest tightness and pain. TECHNIQUE: Frontal and lateral views of the chest are obtained. FINDINGS: There is no suspicious new focal air space opacity, pleural effusion, or pneumothorax seen . The cardiac silhouette size is stable and within normal limits. The osseous structures are intac t. IMPRESSION: No acute process. No significant change from prior studies.
--- NOTE | 2021-03-12 14:03 | CT ---
EXAMINATION TYPE: CT abdomen pelvis w con DATE OF EXAM: 03/12/2021 COMPARISON: NONE HISTORY: 56-year-old male Chest tightness, upper abdominal pain TECHNIQUE: Contiguous axial scanning of the abdomen and pelvis following administration of 100 ml Iso cindy 300 IV contrast. Delayed images through the kidneys and coronal/sagittal reconstructions perform ed. CT DLP: 961 mGycm Automated exposure control for dose reduction was used. FINDINGS: Heart normal size without pericardial effusion. Strandy atelectasis dependently in the lower lungs. N o pleural effusion. Tiny hiatal hernia. No focal liver lesion or biliary ductal dilatation. Portal venous system is patent. Gallbladder, adrenal glands, spleen, and pancreas within normal limits. There is a medial right renal cortical cyst measuring 2.5 cm and a smaller cortical cysts on the left measuring 1.3 cm. Bilateral nonobstructive renal calculi, a couple punctate calculi measuring up to 2 mm on the right a nd 3 on the left measuring up to 5 mm. No hydronephrosis. No dilated small bowel, free air. There is focal inflammatory change centered at the cecum with a inflammatory soft tissue thickening, moderate fat stranding, and some tracking fluid. Poorly defined fluid collection here measures 3.6 x 3.5 cm. Some clustered right lower quadrant mesenteric lymph nodes measuring up to 7 mm. Otherwise, no mesent bear or retroperitoneal lymphadenopathy. Circumferential bladder wall thickening. Bladder nondistended. Prostate gland measures 5.1 cm wide. T heir symmetry strandy fluid in the pelvis. No pelvic lymphadenopathy. Bones: Mild degenerative change of the hips. Hypertrophic facet arthropathy. Grade 1 retrolisthesis L 3-L4 and L4-L5 with moderate degenerative disease. Laminectomy change L4 level. IMPRESSION: 1. INFLAMMATORY CHANGES RIGHT LOWER QUADRANT WITH POORLY DEFINED FLUID COLLECTION/PHLEGMON MEASURING 3.6 X 3.5 CM ADJACENT TO THE CECUM IN THE EXPECTED LOCATION OF THE APPENDIX. FINDINGS SUGGEST A CONTA INED, RUPTURED APPENDICITIS. NO DAHIANA FREE AIR. ONLY TRACE ADJACENT STRANDY FREE FLUID. 2. CIRCUMFERENTIAL BLADDER WALL THICKENING COULD REFLECT CHRONIC BLADDER WALL HYPERTROPHY OR CYSTITIS . CLINICALLY CORRELATE.
[2021-03-12] MEDS ORDERED: MORPHINE SULFATE 4 MG/ML SYRINGE IVP STA (14:29)
[2021-03-12] MEDS ORDERED: PIPERACILLIN-TAZOBACTAM 3.375 GM in SODIUM CHLORIDE 0.9% 100 ML IVPB STA (14:32)
[2021-03-12] MEDS ORDERED: SODIUM CHLORIDE 0.9% 1,000 ML IV STA ×3 (14:32→15:11)
[2021-03-12] MEDS ORDERED: ONDANSETRON 4 MG/2 ML VIAL IVP PRN (15:09)
[2021-03-12] MEDS ORDERED: NALOXONE 0.4 MG/ML 1 ML VIAL IV PRN (15:09)
[2021-03-12] MEDS: MORPHINE SULFATE 4 MG/ML SYRINGE IV PRN ×2 (18:17→23:26)
[2021-03-12] MEDS: PIPERACILLIN-TAZOBACTAM 3.375 GM in SODIUM CHLORIDE 0.9% 100 ML IVPB SCH (23:25)
[2021-03-13] MEDS: PIPERACILLIN-TAZOBACTAM 3.375 GM in SODIUM CHLORIDE 0.9% 100 ML IVPB SCH ×3 (01:10→15:53)
[2021-03-13] MEDS: MORPHINE SULFATE 4 MG/ML SYRINGE IV PRN (09:04)
--- NOTE | 2021-03-13 10:01 | P.GSHP ---
History of Present Illness H&P Date: 03/13/21 CHIEF COMPLAINT: Abdominal pain and Right shoulder pain. HISTORY OF PRESENT ILLNESS: This is a 56-year-old male who presents to the hospital with complaints of lower abdominal pain and right shoulder pain. Patient also complained of some chest tightness with the shoulder pain and that the pain. He reports that he has chronic pain in which she takes pain medication. Symptoms started on 03/02/2021. But due to the continuation of his symptoms he came in for further evaluation. He reports that due to his chronic pain he felt that it may have masked his abdominal pain. He reports having nause a. He denies any fever or chills. The chest tightness and shoulder discomfort has resolved. EKG normal sinus rhythm. Troponin negative. Denies any cardiac history. Computed tomography scan findings were concerning for a contained ruptured appendicitis. Patient did have leukocytosis on admission. Patient started on antibiotics and is scheduled for surgery today. Patient reports since being on antibiotics and pain medication he is feeling better today. He denies any prior abdominal surgeries. PAST MEDICAL HISTORY: Cancer, CVA/TIA, GERD/Reflux, Hypertension, Musculoskeletal Disorder, O steoarthritis (OA), Thyroid DisorderHx Covid 06/07/20 at [employer]. 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 PAST SURGICAL HISTORY: Thyroidectomy-3 total surgeries, parathyroidectomy, vocal cord surgery X4 with removal of non cancerous mass, pain clinic procedures, low back discectomy L4- L5, colonoscopy. MEDICATIONS: See list. ALLERGIES: See list. SOCIAL HISTORY: No illicit drug use. REVIEW OF SYSTEMS: CONSTITUTIONAL: Denies fever or chills. HEENT: Denies blurred vision, vision changes, or eye pain. Denies hemoptysis CARDIOVASCULAR: Denies chest pain or pressure. RESPIRATORY: No shortness of breath. GASTROINTESTINAL: See HPI for pertinent findings HEMATOLOGIC: Denies bleeding disorders. GENITOURINARY: Denies any blood in urine or increased urinary frequency. SKIN: Denies pruitis. Denies rash. PHYSICAL EXAM: VITAL SIGNS: Reviewed GENERAL: Well-developed in no acute distress. HEENT: No sclera icterus. Extraocular movements grossly intact. Moist buccal mucosa. Head is atraumatic, normocephalic. No nasal drainage. ABDOMEN: Soft. Nondistended. Tenderness to palpation of the lower abdomen. Patient did just receive pain medication NEUROLOGIC: Alert and oriented. Cranial nerves II through XII grossly intact. LABORATORY DATA: WBC is 11.8 Hgb 15.7 platelets 281 Sodium 138 potassium 4.3 BUN 20 creatinine 0.98 Lactic acid 1.2 Total bili 1.5 LFTs normal Troponin negative Lipase 78 Urinalysis negative for infection COVID-19 not detected IMAGING: Computed tomography scan abdomen and pelvis inflammatory changes right lower quadrant with poorly defined fluid collection/phlegmon measuring 3.6 x 3.5 cm adjacent to the cecum and the expected location of the appendix. Findings suggest a contained ruptured appendicitis. No shalini free air. Only trace adjacent strandy free fluid. Circumferential bladder wall thickening could reflect chronic bladder wall hypertrophy or cystitis. Clinically cortical. Chest x-ray no acute process. Neurosurgery changes from prior studies EKG normal sinus rhythm ASSESSMENT: 1. Ruptured appendicitis 2. Abdominal pain PLAN: -Patient scheduled for exploratory laparotomy today with Dr. Persaud -Continue antibiotics -Keep patient nothing by mouth -Continue IV fluids -Continue pain medication as needed Physician Senior Manager note has been reviewed by physician. Signing provider agrees with the documented findings, assessment, and plan of care. Past Medical History Past Medical History: Cancer, CVA/TIA, GERD/Reflux, Hypertension, Musculoskeletal Disorder, Osteoarthritis (OA), Thyroid Disorder Additional Past Medical History / Comment(s): Hx Covid 06/07/20 at [employer]. 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 History of Any Multi-Drug Resistant Organisms: None Reported Past Surgical History: Back Surgery Additional Past Surgical History / Comment(s): Thyroidectomy-3 total surgeries, parathyroidectomy, vocal cord surgery X4 with removal of non cancerous mass, pain clinic procedures, low back discectomy L4-L5, colonoscopy. Past Anesthesia/Blood Transfusion Reactions: No Reported Reaction Past Psychological History: PTSD Smoking Status: Never smoker Past Alcohol Use History: None Reported Past Drug Use History: None Reported - Past Family History Father Family Medical History: Coronary Artery Disease (CAD), Hyperlipidemia Additional Family Medical History / Comment(s): Uncle-myocardial infarction in his 40s. Mother Family Medical History: No Reported History Additional Family Medical History / Comment(s): Mother is alive at age 77 with no major medical problems. Sister(s) Additional Family Medical History / Comment(s): Patient has 1 sister with no major medical problems. Patient is for children with no major medical problems. Medications and Allergies Home Medications Medication Instructions Recorded Confirmed Type Calcium Carbonate 500 mg PO BID-W/MEALS 06/08/20 03/12/21 History Ketoconazole 2% Cream [Nizoral 2%] 1 applic TOPICAL BID PRN 06/08/20 03/12/21 History Lidocaine 5% Oint [Xylocaine 5% 1 applic TOPICAL TID PRN 06/08/20 03/12/21 History Oint] Pregabalin [Lyrica] 200 mg PO BID 06/08/20 03/12/21 History hydroCHLOROthiazide [Hydrodiuril] 25 mg PO DAILY 06/08/20 03/12/21 History Levothyroxine Sodium [Tirosint] 200 mcg PO DAILY 01/16/21 03/12/21 History Acetaminophen Tab [Tylenol Tab] 1,000 mg PO Q6HR PRN 03/12/21 03/12/21 History Aspirin EC [Ecotrin Low Dose] 81 mg PO DAILY 03/12/21 03/12/21 History Baclofen 5 mg PO TID PRN 03/12/21 03/12/21 History Capsaicin 0.025% Cream 1 applic TOPICAL TID PRN 03/12/21 03/12/21 History Cholecalciferol (Vitamin D3) 125 mcg PO DAILY 03/12/21 03/12/21 History [Vitamin D3 (125 MCG = 5,000 IU)] Ibuprofen [Motrin Ib] 800 mg PO Q8H PRN 03/12/21 03/12/21 History Losartan [Cozaar] 25 mg PO DAILY 03/12/21 03/12/21 History Ondansetron Odt [Zofran Odt] 4 mg PO QID PRN 03/12/21 03/12/21 History Zinc 50 mg PO DAILY 03/12/21 03/12/21 History calcitrioL [Rocaltrol] 0.25 mcg PO BID 03/12/21 03/12/21 History predniSONE 8 mg PO W/BRKFST 03/12/21 03/12/21 History traMADol HCL 50 mg PO Q8H PRN 03/12/21 03/12/21 History Allergies Allergy/AdvReac Type Severity Reaction Status Date / Time Iodinated Contrast Media Allergy Rash/Hives Verified 03/12/21 15:51 venom-honey bee Allergy Anaphylaxis Verified 03/12/21 15:51 gabapentin AdvReac Severe states Verified 03/12/21 15:51 "HIGH" for 2 days. bupropion AdvReac stomache Verified 03/12/21 15:51 upset,tinnitus,dizziness Surgical - Exam Vital Signs Temp Pulse Resp BP Pulse Ox 98.1 F 79 18 134/93 98 03/12/21 10:24 03/12/21 10:24 03/12/21 10:24 03/12/21 10:24 03/12/21 10:24 Results - Labs 03/12/21 10:44 03/12/21 10:44 Abnormal Lab Results - Last 24 Hours (Table) 03/12/21 03/12/21 03/12/21 Range/Units 10:44 10:44 12:59 WBC 11.8 H (3.8-10.6) k/uL Neutrophils # 8.7 H (1.3-7.7) k/uL Calcium 7.9 L (8.4-10.2) mg/dL Total Bilirubin 1.5 H (0.2-1.3) mg/dL Urine Ketones 1+ H (Negative) Diabetes panel 03/12/21 Range/Units 10:44 Sodium 138 (137-145) mmol/L Potassium 4.3 (3.5-5.1) mmol/L Chloride 100 (98-107) mmol/L Carbon Dioxide 27 (22-30) mmol/L BUN 20 (9-20) mg/dL Creatinine 0.98 (0.66-1.25) mg/dL Glucose 81 (74-99) mg/dL Calcium 7.9 L (8.4-10.2) mg/dL AST 30 (17-59) U/L ALT 25 (4-49) U/L Alkaline Phosphatase 67 (38-126) U/L Total Protein 6.9 (6.3-8.2) g/dL Albumin 4.2 (3.5-5.0) g/dL Calcium panel 03/12/21 Range/Units 10:44 Calcium 7.9 L (8.4-10.2) mg/dL Albumin 4.2 (3.5-5.0) g/dL Pituitary panel 03/12/21 Range/Units 10:44 Sodium 138 (137-145) mmol/L Potassium 4.3 (3.5-5.1) mmol/L Chloride 100 (98-107) mmol/L Carbon Dioxide 27 (22-30) mmol/L BUN 20 (9-20) mg/dL Creatinine 0.98 (0.66-1.25) mg/dL Glucose 81 (74-99) mg/dL Calcium 7.9 L (8.4-10.2) mg/dL Adrenal panel 03/12/21 Range/Units 10:44 Sodium 138 (137-145) mmol/L Potassium 4.3 (3.5-5.1) mmol/L Chloride 100 (98-107) mmol/L Carbon Dioxide 27 (22-30) mmol/L BUN 20 (9-20) mg/dL Creatinine 0.98 (0.66-1.25) mg/dL Glucose 81 (74-99) mg/dL Calcium 7.9 L (8.4-10.2) mg/dL Total Bilirubin 1.5 H (0.2-1.3) mg/dL AST 30 (17-59) U/L ALT 25 (4-49) U/L Alkaline Phosphatase 67 (38-126) U/L Total Protein 6.9 (6.3-8.2) g/dL Albumin 4.2 (3.5-5.0) g/dL
[2021-03-13] MEDS ORDERED: KETOROLAC 30 MG/ML 1 ML VIAL ONE (11:06)
[2021-03-13] MEDS ORDERED: IV FLUID CONTINUATION 1,000 ML IV ONE (11:10)
[2021-03-13] MEDS ORDERED: KETOROLAC 15 MG/ML 1 ML VIAL IVP ONE (11:10)
[2021-03-13] MEDS ORDERED: HEPARIN SODIUM,PORCINE/PF 5,000 UNIT/0.5 ML SYRINGE SQ ONE (12:10)
--- NOTE | 2021-03-13 12:10 | P.CONS ---
History of Present Illness - Reason for Consult Consult date: 03/12/21 Medical management Requesting physician: Jhony Persaud - Chief Complaint The pain and rupture appendix - History of Present Illness HISTORY OF PRESENT ILLNESS 56-year-old male one of our office patient with past medical history of hypertension, hypothyroidism, COVID-19 back in May 2020 and history of CVA who apparently developed to have significant abdominal pain Neurontin the umbilical area moving toward the right lower quadrant started around March 02 and become much worse around patient developed much worsening symptoms today with his abdominal pain developed to have right-sided shoulder pain and discomfort along with chest pain. Ended up coming to the emergency department at [facility] was seen and evaluated with high suspicion for appendicitis patient CAT scan end up showing mild rupture. Patient was started on IV antibiotics seen general surgery might require to go for intervention for appendectomy possibly drain along with culture and IV antibiotics. REVIEW OF SYSTEMS Constitutional: No fever, no chills, no night sweats. No weight change. No weakness, fatigue or lethargy. No daytime sleepiness. EENT: No headache. No blurred vision or double vision, no loss of vision. No loss of Hearing, no ringing in the ears, no dizziness. No nasal drainage or congestion. No epistaxis. No sore throat. Lungs: No shortness of breath, cough, no sputum production. No wheezing. Cardiovascular: No chest pain, no lower extremity edema. No palpitations. No paroxysmal nocturnal dyspnea. No orthopnea. No lightheadedness or dizziness. No syncopal episodes. Abdominal: positive abdominal pain with nausea no vomiting mild constipation no bloody bowel movement. Genitourinary: No dysuria, increased frequency, urgency. No urinary retention. Musculoskeletal: No myalgias. No muscle weakness, no gait dysfunction, no frequent falls. No back pain. No neck pain. Integumentary: No wounds, no lesions. No rash or pruritus. No unusual bruising. No change in hair or nails. Neurologic: No aphasia. No facial droop. No change in mentation. No head injury. No headache. No paralysis. No paresthesia. Psychiatric: No depression. No anxiety. No mood swings. Endocrine: No abnormal blood sugars. No weight change. No excessive sweating or thirst. No cold intolerance. 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 He is single and has 4 children. FAMILY HISTORY followed by had a 70 from acute NC post hernia repair. Mother is living at age 79 with no major medical problem. Patient has 2 siblings both living and well and 4 children with no major health problem. PHYSICAL EXAMINATION Gen: This is well-developed laying in bed since having significant pain and discomfort in the right lower quadrant area with tender abdomen does not look in any respiratory distress. HEENT: Head is atraumatic, normocephalic. Pupils equal, round. Sclerae is anicteric. NECK: Supple. No JVD. No lymphadenopathy. No thyromegaly. LUNGS: Clear to auscultation. No wheezes or rhonchi. No intercostal retractions. HEART: Regular rate and rhythm. No murmur. ABDOMEN: Soft. significant tenderness in the right lower quadrant area with hyper bowel sounds. EXTREMITIES: No pedal edema. No calf tenderness. NEUROLOGICAL: Patient is awake, alert and oriented x3. Cranial nerves 2 through 12 are grossly intact. ASSESSMENT AND PLAN 1.subacute/acute appendicitis with rupture appendix, patient will continue IV antibiotic will require probably go for surgical intervention to remove the appendix and even drainage to along with continued antibiotic for the next week to 10 days. 2 hypertension: Remain on losartan 25 mg a day along with Hydrea diarrheal 25 mg daily. 3 chronic neuropathy: Has been on Lyrica total of 200 mg a day resume medication. 4 edema: Continue diuretics with Hydrea diarrheal 25 g a day. 5 hypothyroidism: Continue levothyroxine at 200 g daily. 7 chronic pain management: Continue tramadol along with Lyrica. 8 GI prophylaxis: Continue patient on Protonix IV. 9 DVT prophylaxis: Patient be on heparin 5000 units subcutaneous twice a day. 10. COVID-[address] Persaud thank you very much for the consult psych can be any further help to please let me know. . Past Medical History Past Medical History: Cancer, CVA/TIA, GERD/Reflux, Hypertension, Musculoskeletal Disorder, Osteoarthritis (OA), Thyroid Disorder Additional Past Medical History / Comment(s): Hx Covid 06/07/20 at [employer]. 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 History of Any Multi-Drug Resistant Organisms: None Reported Past Surgical History: Back Surgery Additional Past Surgical History / Comment(s): Thyroidectomy-3 total surgeries, parathyroidectomy, vocal cord surgery X4 with removal of non cancerous mass, pain clinic procedures, low back discectomy L4-L5, colonoscopy. Past Anesthesia/Blood Transfusion Reactions: No Reported Reaction Past Psychological History: PTSD Smoking Status: Never smoker Past Alcohol Use History: None Reported Past Drug Use History: None Reported - Past Family History Father Family Medical History: Coronary Artery Disease (CAD), Hyperlipidemia Additional Family Medical History / Comment(s): Uncle-myocardial infarction in his 40s. Mother Family Medical History: No Reported History Additional Family Medical History / Comment(s): Mother is alive at age 77 with no major medical problems. Sister(s) Additional Family Medical History / Comment(s): Patient has 1 sister with no major medical problems. Patient is for children with no major medical problems. Medications and Allergies Home Medications Medication Instructions Recorded Confirmed Type Calcium Carbonate 500 mg PO BID-W/MEALS 06/08/20 03/12/21 History Ketoconazole 2% Cream [Nizoral 2%] 1 applic TOPICAL BID PRN 06/08/20 03/12/21 History Lidocaine 5% Oint [Xylocaine 5% 1 applic TOPICAL TID PRN 06/08/20 03/13/21 History Oint] Pregabalin [Lyrica] 200 mg PO BID 06/08/20 03/12/21 History hydroCHLOROthiazide [Hydrodiuril] 25 mg PO DAILY 06/08/20 03/12/21 History Levothyroxine Sodium [Tirosint] 200 mcg PO DAILY 01/16/21 03/12/21 History Acetaminophen Tab [Tylenol Tab] 1,000 mg PO Q6HR PRN 03/12/21 03/12/21 History Aspirin EC [Ecotrin Low Dose] 81 mg PO DAILY 03/12/21 03/12/21 History Baclofen 5 mg PO TID PRN 03/12/21 03/13/21 History Capsaicin 0.025% Cream 1 applic TOPICAL TID PRN 03/12/21 03/13/21 History Cholecalciferol (Vitamin D3) 125 mcg PO DAILY 03/12/21 03/12/21 History [Vitamin D3 (125 MCG = 5,000 IU)] Ibuprofen [Motrin Ib] 800 mg PO Q8H PRN 03/12/21 03/13/21 History Losartan [Cozaar] 25 mg PO DAILY 03/12/21 03/12/21 History Ondansetron Odt [Zofran Odt] 4 mg PO QID PRN 03/12/21 03/13/21 History Zinc 50 mg PO DAILY 03/12/21 03/12/21 History calcitrioL [Rocaltrol] 0.25 mcg PO BID 03/12/21 03/12/21 History predniSONE 8 mg PO W/BRKFST 03/12/21 03/12/21 History traMADol HCL 50 mg PO Q8H PRN 03/12/21 03/12/21 History Allergies Allergy/AdvReac Type Severity Reaction Status Date / Time Iodinated Contrast Media Allergy Rash/Hives Verified 03/12/21 15:51 venom-honey bee Allergy Anaphylaxis Verified 03/12/21 15:51 gabapentin AdvReac Severe states Verified 03/12/21 15:51 "HIGH" for 2 days. bupropion AdvReac stomache Verified 03/12/21 15:51 upset,tinnitus,dizziness Physical Exam Vitals: Vital Signs Temp Pulse Resp BP Pulse Ox 03/12/21 14:59 98.6 F 84 18 139/87 100 03/12/21 10:24 98.1 F 79 18 134/93 98 Intake and Output 03/12/21 03/12/21 03/12/21 06:59 14:59 22:59 Other: Weight 88.451 kg Results CBC & Chem 7: 03/12/21 10:44 03/12/21 10:44 Labs: Abnormal Lab Results - Last 24 Hours (Table) 03/12/21 03/12/21 03/12/21 Range/Units 10:44 10:44 12:59 WBC 11.8 H (3.8-10.6) k/uL Neutrophils # 8.7 H (1.3-7.7) k/uL Calcium 7.9 L (8.4-10.2) mg/dL Total Bilirubin 1.5 H (0.2-1.3) mg/dL Urine Ketones 1+ H (Negative)
[2021-03-13] MEDS ORDERED: DEXAMETHASONE SOD PHOSPHATE 4 MG/ML 1 ML VIAL IV ONE (12:18)
[2021-03-13] MEDS ORDERED: ONDANSETRON 4 MG/2 ML VIAL IVP ONE (12:19)
[2021-03-13] MEDS ORDERED: HEPARIN SODIUM,PORCINE 5,000 UNIT/ML 1 ML VIAL SQ ONE (12:20)
[2021-03-13] MEDS ORDERED: HYDROCORTISONE SUCCINATE 100 MG/2 ML VIAL IVP ONE (12:32)
[2021-03-13] MEDS ORDERED: ROCURONIUM 10 MG/ML (5 ML VIAL) IV ONE (12:38)
[2021-03-13] MEDS ORDERED: SUCCINYLCHOLINE CHLORIDE 100 MG/5 ML SYR IV ONE (12:38)
[2021-03-13] MEDS ORDERED: GLYCOPYRROLATE 0.2 MG/ML 2 ML VIAL ONE (12:38)
[2021-03-13] MEDS ORDERED: PROPOFOL 10 MG/ML 20 ML VIAL IV ONE (12:38)
[2021-03-13] MEDS ORDERED: HYDROmorphone (PF) 1 MG/ML ONE (12:38)
[2021-03-13] MEDS ORDERED: ePHEDrine 50 MG/ML 1 ML AMP ONE (12:38)
[2021-03-13] MEDS ORDERED: MIDAZOLAM 2 MG/2 ML VIAL ONE ×2 (12:38)
[2021-03-13] MEDS ORDERED: LIDOCAINE 1% INJ 10MG/ML (20 ML MDV) ONE (12:38)
[2021-03-13] MEDS ORDERED: NEOSTIGMINE 1 MG/ML 10 ML VIAL ONE (12:38)
[2021-03-13] MEDS ORDERED: KETOROLAC 15 MG/ML 1 ML VIAL ONE (12:38)
[2021-03-13] MEDS ORDERED: WATER FOR INJECTION, STERILE 10 ML VIAL IV ONE (12:38)
[2021-03-13] MEDS ORDERED: SODIUM CHLORIDE 0.9% 50 ML with ceFAZolin 2,000 MG IV ONE ×2 (13:09)
--- NOTE | 2021-03-13 13:34 | P.OP ---
Date of Procedure: 03/13/21 Preoperative Diagnosis: History of chronic perforated appendicitis Postoperative Diagnosis: Same Procedure(s) Performed: Right colectomy Anesthesia: NIK Surgeon: Jhony Persaud Estimated Blood Loss (ml): 10 Pathology: other (Ileocolectomy) Condition: stable Disposition: PACU Description of Procedure: The patient's placed on the operative table in the supine position. He received general endotracheal tube anesthesia. His abdomen is palpated. There is no mass in the right lower quadrant. The abdomen was prepped and draped usual fashion. The skin was incised in midline. The abdomen was entered. The Bookwalter tract with wound. The patient had a mass of the junction between the right colon and terminal ileum. The suspect be appendicitis. The appendix appeared to be grossly inflamed. The right colon mobilized. And then the small bowel was transected with J stable. In the right colon was transected with VELVET stapler. Using the Enseal device the mesentery the bowel was divided. The specimens of pathology. A cytocidal Herve stable next the skin created during with the TA and VELVET stapler. A 3-0 GI silk sutures used for crotch stitch. The abdomen was irrigated. There is no bleeding seen. The fascia is closed loop #1 PDS suture. Skin was closed kira. Patient top she will was sent to recovery room in stable condition.
[2021-03-13] MEDS ORDERED: ACETAMINOPHEN TAB 500 MG TAB PO PRN (13:40)
--- NOTE | 2021-03-13 13:44 | P.PN ---
Subjective Progress Note Date: 03/13/21 HISTORY OF PRESENT ILLNESS 56-year-old male one of our office patient with past medical history of hypertension, hypothyroidism, COVID-19 back in May 2020 and history of CVA who apparently developed to have significant abdominal pain Neurontin the umbilical area moving toward the right lower quadrant started around March 02 and become much worse around patient developed much worsening symptoms today with his abdominal pain developed to have right-sided shoulder pain and discomfort along with chest pain. Ended up coming to the emergency department at [facility] was seen and evaluated with high suspicion for appendicitis patient CAT scan end up showing mild rupture. Patient was started on IV antibiotics seen general surgery might require to go for intervention for appendectomy possibly drain along with culture and IV antibiotics. 03/13: Patient has gone for exploratory laparotomy scheduled Dr. Persaud today. She is afebrile, heart rate 63, blood pressure 120/74, pulse ox 97% on room air. REVIEW OF SYSTEMS Constitutional: No fever, no chills, no night sweats. No weight change. No weakness, fatigue or lethargy. No daytime sleepiness. EENT: No headache. No blurred vision or double vision, no loss of vision. No loss of Hearing, no ringing in the ears, no dizziness. No nasal drainage or congestion. No epistaxis. No sore throat. Lungs: No shortness of breath, cough, no sputum production. No wheezing. Cardiovascular: No chest pain, no lower extremity edema. No palpitations. No paroxysmal nocturnal dyspnea. No orthopnea. No lightheadedness or dizziness. No syncopal episodes. Abdominal: positive abdominal pain with nausea no vomiting mild constipation no bloody bowel movement. Genitourinary: No dysuria, increased frequency, urgency. No urinary retention. Musculoskeletal: No myalgias. No muscle weakness, no gait dysfunction, no frequent falls. No back pain. No neck pain. Integumentary: No wounds, no lesions. No rash or pruritus. No unusual bruising. No change in hair or nails. Neurologic: No aphasia. No facial droop. No change in mentation. No head injury. No headache. No paralysis. No paresthesia. Psychiatric: No depression. No anxiety. No mood swings. Endocrine: No abnormal blood sugars. No weight change. No excessive sweating or thirst. No cold intolerance. PHYSICAL EXAMINATION Gen: This is well-developed laying in bed since having significant pain and discomfort in the right lower quadrant area with tender abdomen does not look in any respiratory distress. HEENT: Head is atraumatic, normocephalic. Pupils equal, round. Sclerae is anicteric. NECK: Supple. No JVD. No lymphadenopathy. No thyromegaly. LUNGS: Clear to auscultation. No wheezes or rhonchi. No intercostal retractions. HEART: Regular rate and rhythm. No murmur. ABDOMEN: Soft. significant tenderness in the right lower quadrant area with hyper bowel sounds. EXTREMITIES: No pedal edema. No calf tenderness. NEUROLOGICAL: Patient is awake, alert and oriented x3. Cranial nerves 2 through 12 are grossly intact. ASSESSMENT AND PLAN 1.subacute/acute appendicitis with rupture appendix, patient will continue IV antibiotic the form of Zosyn, exploratory laparotomy today. 2 hypertension: Continue losartan 25 mg a day tomorrow with parameters. Pavithra nue to hold hydrochlorothiazide 25 mg daily. 3 chronic neuropathy: Has been on Lyrica total of 200 mg a day resume medication. 4 edema. 5 hypothyroidism: Continue levothyroxine at 200 g daily. 7 chronic pain management: Continue tramadol along with Lyrica. 8 GI prophylaxis: Continue patient on Protonix IV. 9 DVT prophylaxis: Patient be on heparin 5000 units subcutaneous twice a day. 10. COVID-[address] Persaud thank you very much for the consult, if I can be any further help please let me know. Impression and plan of care have been directed as dictated by the signing physician. Cari Mcclellan nurse practitioner acting as scribe for signing physician. Objective - Vital Signs Vital signs: Vital Signs Temp 98.0 F 03/13/21 10:44 Pulse 63 03/13/21 10:44 Resp 18 03/13/21 10:44 BP 120/74 03/13/21 10:44 Pulse Ox 97 03/13/21 10:44 Intake & Output 03/12/21 03/13/21 03/13/21 18:59 06:59 18:59 Intake Total 600 Balance 600 Weight 88.451 kg Intake: Intake, IV Titration 600 Amount Sodium Chloride 0.9% 1, 600 000 ml @ 75 mls/hr IV . [id number] STA Rx#:[id number] - Labs CBC & Chem 7: 03/12/21 10:44 03/12/21 10:44 Labs: Abnormal Lab Results - Last 24 Hours (Table) 03/12/21 03/12/21 03/12/21 Range/Units 10:44 10:44 12:59 WBC 11.8 H (3.8-10.6) k/uL Neutrophils # 8.7 H (1.3-7.7) k/uL Calcium 7.9 L (8.4-10.2) mg/dL Total Bilirubin 1.5 H (0.2-1.3) mg/dL Urine Ketones 1+ H (Negative)
[2021-03-13] MEDS: HYDROmorphone 1 MG/ML 1 ML SYRINGE IVP ONE ×2 (13:58→14:03)
[2021-03-13] MEDS ORDERED: MIDAZOLAM 2 MG/2 ML VIAL IVP ONE (14:13)
[2021-03-13] MEDS: fentaNYL (PF) 50 MCG/ML 2 ML AMP IVP ONE ×4 (14:14→14:31)
[2021-03-13] MEDS ORDERED: SODIUM CHLORIDE 0.9% 1,000 ML IV ONE ×2 (14:34)
[2021-03-13] MEDS: HYDROmorphone 1 MG/ML 1 ML SYRINGE IVP PRN ×3 (15:55→23:08)
[2021-03-13] MEDS: CALCIUM CARBONATE 500 MG CHEWABLE PO SCH (15:55)
[2021-03-13] MEDS: PREGABALIN 100 MG CAP PO SCH (23:08)
[2021-03-14] MEDS: PIPERACILLIN-TAZOBACTAM 3.375 GM in SODIUM CHLORIDE 0.9% 100 ML IVPB SCH ×3 (00:44→16:51)
[2021-03-14] MEDS: HYDROmorphone 1 MG/ML 1 ML SYRINGE IVP PRN ×4 (01:53→21:30)
[2021-03-14] MEDS: LEVOTHYROXINE 100 MCG TAB PO SCH ×2 (06:14→09:47)
[2021-03-14 08:25] LABS: Basophils % (A) 0 %; Eosinophils % (A) 0 %; HCT 38.2 % (39.0-53.0); HGB 12.9 gm/dL (13.0-17.5); Lymphocytes # (A) 1.3 k/uL (1.0-4.8); Lymphocytes % (A) 8 %; MCH 29.3 pg (25.0-35.0); MCHC 33.8 g/dL (31.0-37.0); MCV 86.8 fL (80.0-100.0); Mean Platelet Volume 7.1; Monocytes # (A) 0.8 k/uL (0-1.0); Monocytes % (A) 5 %; Neutrophils % (A) 85 %; Platelet Count 261 k/uL (150-450); RDW 12.3 % (11.5-15.5); WBC 16.4 k/uL (3.8-10.6)
[2021-03-14 08:42] LABS: Calcium 6.7 mg/dL (8.4-10.2); Potassium 4.4 mmol/L (3.5-5.1)
[2021-03-14] MEDS: ENOXAPARIN 40 MG/0.4 ML SYRINGE SQ SCH (09:47)
[2021-03-14] MEDS: LOSARTAN 25 MG TAB PO SCH (09:47)
[2021-03-14] MEDS: CALCIUM CARBONATE 500 MG CHEWABLE PO SCH ×2 (09:47→16:56)
[2021-03-14] MEDS: PREGABALIN 100 MG CAP PO SCH ×3 (09:48→21:24)
[2021-03-14] MEDS: CHOLECALCIFEROL 125 MCG (5000 IU) TABLET PO SCH (09:48)
[2021-03-14] MEDS: traMADol 50 MG TAB PO PRN (09:48)
[2021-03-14] MEDS ORDERED: SODIUM CHLORIDE 0.9% 1,000 ML IV SCH (11:15)
--- NOTE | 2021-03-14 12:50 | P.PN ---
Subjective Progress Note Date: 03/14/21 HISTORY OF PRESENT ILLNESS 56-year-old male one of our office patient with past medical history of hypertension, hypothyroidism, COVID-19 back in May 2020 and history of CVA who apparently developed to have significant abdominal pain Neurontin the umbilical area moving toward the right lower quadrant started around March 02 and become much worse around patient developed much worsening symptoms today with his abdominal pain developed to have right-sided shoulder pain and discomfort along with chest pain. Ended up coming to the emergency department at [facility] was seen and evaluated with high suspicion for appendicitis patient CAT scan end up showing mild rupture. Patient was started on IV antibiotics seen general surgery might require to go for intervention for appendectomy possibly drain along with culture and IV antibiotics. 03/13: Patient has gone for exploratory laparotomy scheduled Dr. Persaud today. He is afebrile, heart rate 63, blood pressure 120/74, pulse ox 97% on room air. 03/14: Yesterday, patient underwent right colectomy, ileocolectomy for chronic perforated appendicitis. Patient is seen on the [facility] floor. He has been afebrile, heart rate 80, blood pressure 105/69, pulse ox 93% on room air. Repeat blood work reveals WBC 16.4, hemoglobin 12.9. Electrolytes are normal. BUN 23 creatinine 1.46. Blood sugar 123. IV fluids will be resumed at 75 mL per hour. Patient is currently on clear liquid diet. Patient states that he has been burping at least once each time he gets up and walks. He states he is ambulated 6 times. His pain is controlled. He has not passed any significant gas. No bowel movement. REVIEW OF SYSTEMS Constitutional: No fever, no chills, no night sweats. No weight change. No weakness, fatigue or lethargy. No daytime sleepiness. EENT: No headache. No blurred vision or double vision, no loss of vision. No loss of Hearing, no ringing in the ears, no dizziness. No nasal drainage or congestion. No epistaxis. No sore throat. Lungs: No shortness of breath, cough, no sputum production. No wheezing. Cardiovascular: No chest pain, no lower extremity edema. No palpitations. No paroxysmal nocturnal dyspnea. No orthopnea. No lightheadedness or dizziness. No syncopal episodes. Abdominal: positive abdominal pain with nausea no vomiting mild constipation no bloody bowel movement. Genitourinary: No dysuria, increased frequency, urgency. No urinary retention. Musculoskeletal: No myalgias. No muscle weakness, no gait dysfunction, no frequent falls. No back pain. No neck pain. Integumentary: No wounds, no lesions. No rash or pruritus. No unusual br uising. No change in hair or nails. Neurologic: No aphasia. No facial droop. No change in mentation. No head injury. No headache. No paralysis. No paresthesia. Psychiatric: No depression. No anxiety. No mood swings. Endocrine: No abnormal blood sugars. No weight change. No excessive sweating or thirst. No cold intolerance. PHYSICAL EXAMINATION Gen: This is well-developed laying in bed since having significant pain and discomfort in the right lower quadrant area with tender abdomen does not look in any respiratory distress. HEENT: Head is atraumatic, normocephalic. Pupils equal, round. Sclerae is anicteric. NECK: Supple. No JVD. No lymphadenopathy. No thyromegaly. LUNGS: Clear to auscultation. No wheezes or rhonchi. No intercostal retractions. HEART: Regular rate and rhythm. No murmur. ABDOMEN: Soft. significant tenderness in the right lower quadrant area with hyper bowel sounds. EXTREMITIES: No pedal edema. No calf tenderness. NEUROLOGICAL: Patient is awake, alert and oriented x3. Cranial nerves 2 through 12 are grossly intact. ASSESSMENT AND PLAN 1.subacute appendicitis with rupture appendix, patient will continue IV antibiotic the form of Zosyn, status post right colectomy, ileocolectomy. Pathology is pending. 2 hypertension: Continue losartan 25 mg a day tomorrow with parameters. Continue to hold hydrochlorothiazide 25 mg daily. 3 chronic neuropathy: Has been on Lyrica total of 200 mg a day resume me dication. 4 edema. 5 hypothyroidism: Continue levothyroxine at 200 g daily. 7 chronic pain management: Continue tramadol along with Lyrica. 8 GI prophylaxis: Continue patient on Protonix IV. 9 DVT prophylaxis: Patient be on heparin 5000 units subcutaneous twice a day. 10. COVID-19 testing was negative. 11. Acute kidney injury. Patient will be resumed on IV fluids at 75 mL/h, recheck lab work in the morning Dr. Persaud thank you very much for the consult, if I can be any further help please let me know. Impression and plan of care have been directed as dictated by the signing phys iciisma. Crai Mcclellan nurse practitioner acting as scribe for signing physician. Objective - Vital Signs Vital signs: Vital Signs Temp 97.8 F 03/14/21 02:00 Pulse 80 03/14/21 02:00 Resp 16 03/14/21 02:00 BP 105/69 03/14/21 02:00 Pulse Ox 93 L 03/14/21 02:00 Intake & Output 03/13/21 03/14/21 03/14/21 18:59 06:59 18:59 Intake Total 1200 400 Output Total 65 500 Balance 1135 -100 Intake: IV 1100 Intake, IV Titration 100 Amount Piperacillin-Tazobactam 3 100 .375 gm In Sodium Chloride 0.9% 100 ml @ 25 mls/hr IVPB Q8HR [facility] Rx# :[id number] Oral 400 Output: Urine 40 500 Estimated Blood Loss 25 - Labs CBC & Chem 7: 03/14/21 08:07 03/14/21 08:07 Labs: Abnormal Lab Results - Last 24 Hours (Table) 03/14/21 03/14/21 Range/Units 08:07 08:07 WBC 16.4 H (3.8-10.6) k/uL Hgb 12.9 L (13.0-17.5) gm/dL Hct 38.2 L (39.0-53.0) % Neutrophils # 14.0 H (1.3-7.7) k/uL BUN 23 H (9-20) mg/dL Creatinine 1.46 H (0.66-1.25) mg/dL Glucose 123 H (74-99) mg/dL Calcium 6.7 L (8.4-10.2) mg/dL Microbiology - Last 24 Hours (Table) 03/12/21 14:58 Blood Culture - Preliminary Blood No Growth after 24 hours 03/12/21 14:58 Blood Culture - Preliminary Blood No Growth after 24 hours
[2021-03-14] MEDS ORDERED: SODIUM CHLORIDE 0.9% 1,000 ML IV ONE (12:53)
--- NOTE | 2021-03-14 13:08 | P.PN ---
Subjective Progress Note Date: 03/14/21 CHIEF COMPLAINT: Chronic perforated appendicitis HISTORY OF PRESENT ILLNESS: Patient is status post right colectomy. Postop day #1 patient did not receive IV fluids through the evening. He reports that he is feeling dry. He has had increase in his creatinine up to 1.46 and urine output slightly decreased. Medicine service to place patient on normal saline at 75 mL an hour this morning. Patient denies any nausea or vomiting. He reports abdominal pain. He is having flatus. He has been up ambulating. Santos catheter has been removed. Afebrile. WBC is 16.4 hemoglobin 12.9 and platelets 261 creatinine 1.46 PHYSICAL EXAM: VITAL SIGNS: Reviewed. GENERAL: Well-developed in no acute distress. HEENT: No sclera icterus. Extraocular movements grossly intact. Moist buccal mucosa. Head is atraumatic, normocephalic. ABDOMEN: Soft. Nondistended. Tenderness with palpation around abdominal incision. Patient has minimal blood drainage in the umbilicus. Otherwise incision clean dry and intact NEUROLOGIC: Alert and oriented. Cranial nerves II through XII grossly intact. ASSESSMENT: 1. chronic perforated appendicitis status post right colectomy 2. Acute kidney injury PLAN: -Patient will receive 1 L IV fluid bolus -Increase IV fluid rate to 130 mL per hour -Add [place] for pain control -Continue clear liquid diet -Continue antibiotics -Encourage patient to ambulate -Encourage patient to use incentive spirometer -DVT prophylaxis Lovenox -GI prophylaxis Protonix Physician Receiving Manager note has been reviewed by physician. Signing provider agrees with the documented findings, assessment, and plan of care. Objective - Vital Signs Vital signs: Vital Signs Temp 98.8 F 03/14/21 09:10 Pulse 80 03/14/21 09:10 Resp 16 03/14/21 09:10 BP 111/73 03/14/21 09:10 Pulse Ox 97 03/14/21 09:10 Intake & Output 03/13/21 03/14/21 03/14/21 18:59 06:59 18:59 Intake Total 1200 400 600 Output Total 65 500 200 Balance 1135 -100 400 Intake: IV 1100 Intake, IV Titration 100 Amount Piperacillin-Tazobactam 3 100 .375 gm In Sodium Chloride 0.9% 100 ml @ 25 mls/hr IVPB Q8HR [facility] Rx# :[id number] Oral 400 600 Output: Urine 40 500 200 Uretheral (Santos) 200 Estimated Blood Loss 25 - Labs CBC & Chem 7: 03/14/21 08:07 03/14/21 08:07 Labs: Abnormal Lab Results - Last 24 Hours (Table) 03/14/21 03/14/21 Range/Units 08:07 08:07 WBC 16.4 H (3.8-10.6) k/uL Hgb 12.9 L (13.0-17.5) gm/dL Hct 38.2 L (39.0-53.0) % Neutrophils # 14.0 H (1.3-7.7) k/uL BUN 23 H (9-20) mg/dL Creatinine 1.46 H (0.66-1.25) mg/dL Glucose 123 H (74-99) mg/dL Calcium 6.7 L (8.4-10.2) mg/dL Microbiology - Last 24 Hours (Table) 03/12/21 14:58 Blood Culture - Preliminary Blood No Growth after 24 hours 03/12/21 14:58 Blood Culture - Preliminary Blood No Growth after 24 hours
[2021-03-14] MEDS: SODIUM CHLORIDE 0.9% 1,000 ML IV SCH (13:21)
[2021-03-15] MEDS: PIPERACILLIN-TAZOBACTAM 3.375 GM in SODIUM CHLORIDE 0.9% 100 ML IVPB SCH ×4 (01:09→23:52)
[2021-03-15] MEDS: HYDROmorphone 1 MG/ML 1 ML SYRINGE IVP PRN ×2 (01:12→05:58)
[2021-03-15] MEDS: LEVOTHYROXINE PO SCH (05:59)
[2021-03-15] MEDS: SODIUM CHLORIDE 0.9% 1,000 ML IV SCH ×4 (05:59→20:27)
[2021-03-15] MEDS ORDERED: TIROSINT PO SCH (06:30)
[2021-03-15 07:19] LABS: HCT 36.1 % (39.0-53.0); MCH 29.6 pg (25.0-35.0); MCHC 33.3 g/dL (31.0-37.0); MCV 88.8 fL (80.0-100.0); Mean Platelet Volume 7.1; Platelet Count 249 k/uL (150-450); RBC 4.07 m/uL (4.30-5.90); RDW 12.6 % (11.5-15.5); WBC 11.6 k/uL (3.8-10.6)
[2021-03-15 07:34] LABS: Potassium 4.3 mmol/L (3.5-5.1); Total Bilirubin 0.9 mg/dL (0.2-1.3); Total Protein 5.4 g/dL (6.3-8.2)
[2021-03-15 07:49] LABS: Calcium 5.9 mg/dL (8.4-10.2)
[2021-03-15] MEDS: CALCIUM CARBONATE 500 MG CHEWABLE PO SCH ×2 (08:58→16:32)
[2021-03-15] MEDS: PANTOPRAZOLE 40 MG TABLET PO SCH (08:58)
[2021-03-15] MEDS: traMADol 50 MG TAB PO PRN (08:58)
[2021-03-15] MEDS: PREGABALIN 100 MG CAP PO SCH ×3 (08:59→20:23)
[2021-03-15] MEDS: LOSARTAN 25 MG TAB PO SCH (08:59)
[2021-03-15] MEDS: ENOXAPARIN 40 MG/0.4 ML SYRINGE SQ SCH (08:59)
[2021-03-15] MEDS: CHOLECALCIFEROL 125 MCG (5000 IU) TABLET PO SCH (08:59)
[2021-03-15] MEDS ORDERED: predniSONE 1 MG TAB PO SCH (10:45)
[2021-03-15] MEDS ORDERED: CALCIUM GLUCONATE 2 GM in SODIUM CHLORIDE 0.9% 100 ML IVPB ONE (11:00)
[2021-03-15] MEDS: HYDROCORTISONE SUCCINATE 100 MG/2 ML VIAL IV SCH ×3 (11:29→20:18)
[2021-03-15] MEDS: HYDROcodone/APAP 5-325MG 1 EACH TAB PO PRN (11:30)
--- NOTE | 2021-03-15 12:44 | P.PN ---
Subjective Progress Note Date: 03/15/21 HISTORY OF PRESENT ILLNESS 56-year-old male one of our office patient with past medical history of hypertension, hypothyroidism, COVID-19 back in May 2020 and history of CVA who apparently developed to have significant abdominal pain Neurontin the umbilical area moving toward the right lower quadrant started around March 02 and become much worse around patient developed much worsening symptoms today with his abdominal pain developed to have right-sided shoulder pain and discomfort along with chest pain. Ended up coming to the emergency department at [facility] was seen and evaluated with high suspicion for appendicitis patient CAT scan end up showing mild rupture. Patient was started on IV antibiotics seen general surgery might require to go for intervention for appendectomy possibly drain along with culture and IV antibiotics. 03/13: Patient has gone for exploratory laparotomy scheduled Dr. Persaud today. He is afebrile, heart rate 63, blood pressure 120/74, pulse ox 97% on room air. 03/14: Yesterday, patient underwent right colectomy, ileocolectomy for chronic perforated appendicitis. Patient is seen on the [facility] floor. He has been afebrile, heart rate 80, blood pressure 105/69, pulse ox 93% on room air. Repeat blood work reveals WBC 16.4, hemoglobin 12.9. Electrolytes are normal. BUN 23 creatinine 1.46. Blood sugar 123. IV fluids will be resumed at 75 mL per hour. Patient is currently on clear liquid diet. Patient states that he has been burping at least once each time he gets up and walks. He states he is ambulated 6 times. His pain is controlled. He has not passed any significant gas. No bowel movement. 03/15: Patient is stating that his pain is uncontrolled. He denies having any nausea vomiting. He is taking little sips of liquid. He had one episode of small amount of flatulence this morning, no burping. Patient will be started on hydrocortisone 100 mg 3 times daily for 24 hours and then Cortef 10 mg twice daily and hold prednisone. Patient has been afebrile, heart rate 71, blood pressure 112/63, pulse ox 91-93% on room air.repeat blood work reveals WBC 11.6, hemoglobin 12.0. Calcium came back at 5.9 and ionized calcium 3.5. Calcium gluconate 2 g ordered for now and recheck tomorrow. Pathology revealed the REVIEW OF SYSTEMS Constitutional: No fever, no chills, no night sweats. No weight change. No weakness, fatigue or lethargy. No daytime sleepiness. EENT: No headache. No blurred vision or double vision, no loss of vision. No loss of Hearing, no ringing in the ears, no dizziness. No nasal drainage or congestion. No epistaxis. No sore throat. Lungs: No shortness of breath, cough, no sputum production. No wheezing. Cardiovascular: No chest pain, no lower extremity edema. No palpitations. No paroxysmal nocturnal dyspnea. No orthopnea. No lightheadedness or dizziness. No syncopal episodes. Abdominal: positive abdominal pain with nausea no vomiting mild constipation no bloody bowel movement. Genitourinary: No dysuria, increased frequency, urgency. No urinary retention. Musculoskeletal: No myalgias. No muscle weakness, no gait dysfunction, no frequent falls. No back pain. No neck pain. Integumentary: No wounds, no lesions. No rash or pruritus. No unusual bruising. No change in hair or nails. Neurologic: No aphasia. No facial droop. No change in mentation. No head injury. No headache. No paralysis. No paresthesia. Psychiatric: No depression. No anxiety. No mood swings. Endocrine: No abnormal blood sugars. No weight change. No excessive sweating or thirst. No cold intolerance. PHYSICAL EXAMINATION Gen: This is well-developed laying in bed in no acute respiratory distress. HEENT: Head is atraumatic, normocephalic. Pupils equal, round. Sclerae is anicteric. NECK: Supple. No JVD. No lymphadenopathy. No thyromegaly. LUNGS: Clear to auscultation. No wheezes or rhonchi. No intercostal retrac tions. HEART: Regular rate and rhythm. No murmur. ABDOMEN: Soft. significant tenderness in the right lower quadrant area with no bowel sounds. EXTREMITIES: No pedal edema. No calf tenderness. NEUROLOGICAL: Patient is awake, alert and oriented x3. Cranial nerves 2 through 12 are grossly intact. ASSESSMENT AND PLAN 1.subacute appendicitis with rupture appendix, patient will continue IV antibiotic the form of Zosyn, status post right colectomy, ileocolectomy. Pathology as above. 2 hypertension: Continue losartan 25 mg a day tomorrow with parameters. Continue to hold hydrochlorothiazide 25 mg daily. 3 chronic neuropathy: Has been on Lyrica total of 200 mg a day resume medication. 4 edema. 5 hypothyroidism: Continue levothyroxine at 200 g daily. 7 chronic pain management: Continue tramadol along with Lyrica. 8 GI prophylaxis: Continue patient on Protonix IV. 9 DVT prophylaxis: Patient be on heparin 5000 units subcutaneous twice a day. 10. COVID-19 testing was negative. 11. Acute kidney injury, resolved. Dr. Persaud thank you very much for the consult, if I can be any further help please let me know. Impression and plan of care have been directed as dictated by the signing physician. Cari Mcclellan nurse practitioner acting as scribe for signing physician. Objective - Vital Signs Vital signs: Vital Signs Temp 98.8 F 03/15/21 08:03 Pulse 71 03/15/21 08:03 Resp 16 03/15/21 08:03 BP 112/63 03/15/21 08:03 Pulse Ox 91 L 03/15/21 08:03 Intake & Output 03/14/21 03/15/21 03/15/21 18:59 06:59 18:59 Intake Total 3450 Output Total 200 500 Balance 3250 -500 Intake: Intake, IV Titration 2250 Amount Piperacillin-Tazobactam 3 200 .375 gm In Sodium Chloride 0.9% 100 ml @ 25 mls/hr IVPB Q8HR [facility] Rx# :[id number] Sodium Chloride 0.9% 1, 600 000 ml @ 130 mls/hr IV . Q7H42M [facility] Rx#:[id number] Sodium Chloride 0.9% 1, 450 000 ml @ 75 mls/hr IV . [id number] [facility] Rx#:[id number] Sodium Chloride 0.9% 1, 1000 000 ml @ 999 mls/hr IV . Q1H1M [facility] Rx#:[id number] Oral 1200 Output: Urine 200 500 Uretheral (Santos) 200 Other: Voiding Method Indwelling Catheter Indwelling Catheter Toilet - Labs CBC & Chem 7: 03/15/21 06:35 03/15/21 06:35 Labs: Abnormal Lab Results - Last 24 Hours (Table) 03/15/21 03/15/21 Range/Units 06:35 06:35 WBC 11.6 H (3.8-10.6) k/uL RBC 4.07 L (4.30-5.90) m/uL Hgb 12.0 L (13.0-17.5) gm/dL Hct 36.1 L (39.0-53.0) % Chloride 108 H (98-107) mmol/L Calcium 5.9 L* (8.4-10.2) mg/dL Total Protein 5.4 L (6.3-8.2) g/dL Albumin 3.0 L (3.5-5.0) g/dL Microbiology - Last 24 Hours (Table) 03/12/21 14:58 Blood Culture - Preliminary Blood No Growth after 48 hours 03/12/21 14:58 Blood Culture - Preliminary Blood No Growth after 48 hours
[2021-03-15] MEDS: HYDROmorphone 0.5 MG/0.5 ML SYRINGE IVP PRN ×4 (13:18→23:58)
--- NOTE | 2021-03-15 13:22 | P.PN ---
Subjective Progress Note Date: 03/15/21 CHIEF COMPLAINT: Chronic perforated appendicitis HISTORY OF PRESENT ILLNESS: Patient is status post right colectomy. Postop day #2 patient reports that his abdominal pain is not controlled. He has been up and ambulating. He is having flatus. Denies any nausea or vomiting. Patient reports that he is urinating without difficulty. Afebrile. WBC is down from 16.4-11.6 hemoglobin 12 creatinine is down from 1.46-1.21 calcium level is low at 5.9 and ionized calcium 3.5 medicine service has ordered 2 g of calcium gluconate. PHYSICAL EXAM: VITAL SIGNS: Reviewed. GENERAL: Well-developed in no acute distress. HEENT: No sclera icterus. Extraocular movements grossly intact. Moist buccal mucosa. Head is atraumatic, normocephalic. ABDOMEN: Soft. Nondistended. Tenderness with palpation around abdominal incision. Incisional dressing clean dry and intact NEUROLOGIC: Alert and oriented. Cranial nerves II through XII grossly intact. ASSESSMENT: 1. Chronic perforated appendicitis status post right colectomy 2. Acute kidney injury. Kidney function improving PLAN: -And IV Dilaudid 0.5 IV every 2 hours as needed for pain -Continue IV fluids -Continue clear liquid diet -Continue antibiotics -Encourage patient to ambulate -Encourage patient to use incentive spirometer -DVT prophylaxis Lovenox -GI prophylaxis Protonix Physician Sap Ppm Consultant note has been reviewed by physician. Signing provider agrees with the documented findings, assessment, and plan of care. Objective - Vital Signs Vital signs: Vital Signs Temp 98.8 F 03/15/21 08:03 Pulse 71 03/15/21 08:03 Resp 16 03/15/21 08:03 BP 112/63 03/15/21 08:03 Pulse Ox 91 L 03/15/21 08:03 Intake & Output 03/14/21 03/15/21 03/15/21 18:59 06:59 18:59 Intake Total 3450 Output Total 200 500 Balance 3250 -500 Intake: Intake, IV Titration 2250 Amount Piperacillin-Tazobactam 3 200 .375 gm In Sodium Chloride 0.9% 100 ml @ 25 mls/hr IVPB Q8HR [facility] Rx# :[id number] Sodium Chloride 0.9% 1, 600 000 ml @ 130 mls/hr IV . Q7H42M [facility] Rx#:[id number] Sodium Chloride 0.9% 1, 450 000 ml @ 75 mls/hr IV . [id number] [facility] Rx#:[id number] Sodium Chloride 0.9% 1, 1000 000 ml @ 999 mls/hr IV . Q1H1M [facility] Rx#:[id number] Oral 1200 Output: Urine 200 500 Uretheral (Santos) 200 Other: Voiding Method Indwelling Catheter Indwelling Catheter Toilet - Labs CBC & Chem 7: 03/15/21 06:35 03/15/21 06:35 Labs: Abnormal Lab Results - Last 24 Hours (Table) 03/15/21 03/15/21 03/15/21 Range/Units 06:35 06:35 09:25 WBC 11.6 H (3.8-10.6) k/uL RBC 4.07 L (4.30-5.90) m/uL Hgb 12.0 L (13.0-17.5) gm/dL Hct 36.1 L (39.0-53.0) % Chloride 108 H (98-107) mmol/L Calcium 5.9 L* (8.4-10.2) mg/dL Ionized Calcium Tracy 3.5 L* (4.5-5.3) mg/dL Total Protein 5.4 L (6.3-8.2) g/dL Albumin 3.0 L (3.5-5.0) g/dL Microbiology - Last 24 Hours (Table) 03/12/21 14:58 Blood Culture - Preliminary Blood No Growth after 48 hours 03/12/21 14:58 Blood Culture - Preliminary Blood No Growth after 48 hours
[2021-03-16] MEDS: HYDROmorphone 0.5 MG/0.5 ML SYRINGE IVP PRN ×2 (02:51→05:31)
[2021-03-16] MEDS: SODIUM CHLORIDE 0.9% 1,000 ML IV SCH ×3 (05:30→19:50)
[2021-03-16] MEDS: LEVOTHYROXINE PO SCH (05:31)
[2021-03-16 06:41] LABS: HCT 36.1 % (39.0-53.0); MCHC 33.1 g/dL (31.0-37.0); MCV 87.6 fL (80.0-100.0); Mean Platelet Volume 7.3; Platelet Count 256 k/uL (150-450); RBC 4.12 m/uL (4.30-5.90); RDW 12.3 % (11.5-15.5); WBC 11.8 k/uL (3.8-10.6)
[2021-03-16 06:55] LABS: Ionized Calcium 3.7 mg/dL (4.5-5.3)
[2021-03-16] MEDS: HYDROCORTISONE 10 MG TAB PO SCH ×2 (09:35→20:28)
[2021-03-16] MEDS: LOSARTAN 25 MG TAB PO SCH (09:35)
[2021-03-16] MEDS: CALCIUM CARBONATE 500 MG CHEWABLE PO SCH ×2 (09:35→17:33)
[2021-03-16] MEDS: PANTOPRAZOLE 40 MG TABLET PO SCH (09:36)
[2021-03-16] MEDS: CHOLECALCIFEROL 125 MCG (5000 IU) TABLET PO SCH (09:36)
[2021-03-16] MEDS: ENOXAPARIN 40 MG/0.4 ML SYRINGE SQ SCH (09:36)
[2021-03-16] MEDS: PREGABALIN 100 MG CAP PO SCH ×2 (09:36→19:51)
[2021-03-16] MEDS: HYDROmorphone 1 MG/ML 1 ML SYRINGE IVP PRN ×2 (09:37→19:50)
[2021-03-16] MEDS: PIPERACILLIN-TAZOBACTAM 3.375 GM in SODIUM CHLORIDE 0.9% 100 ML IVPB SCH ×2 (09:37→17:33)
[2021-03-16 11:01] LABS: Albumin 3.2 g/dL (3.8-4.9); Albumin/Globulin Ratio 1.88 (1.60-3.17); Anion Gap 14.1 mmol/L (10.00-18.00); BUN/Creat Ratio 12.78 Ratio (12.00-20.00); Blood Urea Nitrogen 11.5 mg/dL (9.0-27.0); Calcium 6.2 mg/dL (8.7-10.3); Carbon Dioxide 24.9 mmol/L (20.0-27.5); Globulin 1.7 g/dL (1.6-3.3); Non-African American GFR(CKD) 95.8 (60.0-200.0); Potassium 3.9 mmol/L (3.5-5.5); Total Bilirubin 0.5 mg/dL (0.30-1.20); Total Protein 4.9 g/dL (6.2-8.2)
[2021-03-16] MEDS ORDERED: CALCIUM GLUCONATE 2 GM in SODIUM CHLORIDE 0.9% 100 ML IVPB ONE (12:00)
--- NOTE | 2021-03-16 12:08 | P.PN ---
Subjective Progress Note Date: 03/16/21 CHIEF COMPLAINT: Chronic perforated appendicitis HISTORY OF PRESENT ILLNESS: Patient is status post right colectomy. Postop day #3 patient's abdominal pain is better controlled today. He is having flatus and bowel movements. Denies any nausea or vomiting. Currently on a full liquid diet. Afebrile. WBC is 11.8 hemoglobin 12 ionized calcium 3.7 creatinine 0.9 Patient seen and examined with Dr. Persaud PHYSICAL EXAM: VITAL SIGNS: Reviewed. GENERAL: Well-developed in no acute distress. HEENT: No sclera icterus. Extraocular movements grossly intact. Moist buccal mucosa. Head is atraumatic, normocephalic. ABDOMEN: Soft. Nondistended. NEUROLOGIC: Alert and oriented. Cranial nerves II through XII grossly intact. ASSESSMENT: 1. Chronic perforated appendicitis status post right colectomy 2. Acute kidney injury resolved 3. Hypocalcemia. Calcium being replaced by medicine service PLAN: -Advance diet as tolerated to regular -Continue IV fluids -Continue antibiotics -Encourage patient to ambulate -Encourage patient to use incentive spirometer -DVT prophylaxis Lovenox -GI prophylaxis Protonix Physician [employer] note has been reviewed by physician. Signing provider agrees with the documented findings, assessment, and plan of care. Objective - Vital Signs Vital signs: Vital Signs Temp 97.6 F 03/16/21 05:07 Pulse 76 03/16/21 05:07 Resp 16 03/16/21 05:07 BP 125/78 03/16/21 05:07 Pulse Ox 94 L 03/16/21 05:07 Intake & Output 03/15/21 03/16/21 03/16/21 18:59 06:59 18:59 Intake Total 1140 Balance 1140 Intake: Intake, IV Titration 1140 Amount Piperacillin-Tazobactam 3 100 .375 gm In Sodium Chloride 0.9% 100 ml @ 25 mls/hr IVPB Q8HR [facility] Rx# :[id number] Sodium Chloride 0.9% 1, 1040 000 ml @ 130 mls/hr IV . Q7H42M [facility] Rx#:[id number] Other: Voiding Method Toilet Toilet - Labs CBC & Chem 7: 03/16/21 06:12 03/16/21 06:12 Labs: Abnormal Lab Results - Last 24 Hours (Table) 03/16/21 03/16/21 Range/Units 06:12 06:12 WBC 11.8 H (3.8-10.6) k/uL RBC 4.12 L (4.30-5.90) m/uL Hgb 12.0 L (13.0-17.5) gm/dL Hct 36.1 L (39.0-53.0) % Glucose 130 H (70-110) mg/dL Calcium 6.2 L* (8.7-10.3) mg/dL Ionized Calcium Tracy 3.7 L (4.5-5.3) mg/dL Total Protein 4.9 L (6.2-8.2) g/dL Albumin 3.2 L (3.8-4.9) g/dL Microbiology - Last 24 Hours (Table) 03/12/21 14:58 Blood Culture - Preliminary Blood No Growth after 72 hours 03/12/21 14:58 Blood Culture - Preliminary Blood No Growth after 72 hours
[2021-03-16] MEDS: HYDROcodone/APAP 5-325MG 1 EACH TAB PO PRN ×2 (12:17→16:14)
--- NOTE | 2021-03-16 16:06 | P.PN ---
Subjective Progress Note Date: 03/16/21 HISTORY OF PRESENT ILLNESS 56-year-old male one of our office patient with past medical history of hypertension, hypothyroidism, COVID-19 back in May 2020 and history of CVA who apparently developed to have significant abdominal pain Neurontin the umbilical area moving toward the right lower quadrant started around March 02 and become much worse around patient developed much worsening symptoms today with his abdominal pain developed to have right-sided shoulder pain and discomfort along with chest pain. Ended up coming to the emergency department at [facility] was seen and evaluated with high suspicion for appendicitis patient CAT scan end up showing mild rupture. Patient was started on IV antibiotics seen general surgery might require to go for intervention for appendectomy possibly drain along with culture and IV antibiotics. 03/13: Patient has gone for exploratory laparotomy scheduled Dr. Persaud today. He is afebrile, heart rate 63, blood pressure 120/74, pulse ox 97% on room air. 03/14: Yesterday, patient underwent right colectomy, ileocolectomy for chronic perforated appendicitis. Patient is seen on the [facility] floor. He has been afebrile, heart rate 80, blood pressure 105/69, pulse ox 93% on room air. Repeat blood work reveals WBC 16.4, hemoglobin 12.9. Electrolytes are normal. BUN 23 creatinine 1.46. Blood sugar 123. IV fluids will be resumed at 75 mL per hour. Patient is currently on clear liquid diet. Patient states that he has been burping at least once each time he gets up and walks. He states he is ambulated 6 times. His pain is controlled. He has not passed any significant gas. No bowel movement. 03/15: Patient is stating that his pain is uncontrolled. He denies having any nausea vomiting. He is taking little sips of liquid. He had one episode of small amount of flatulence this morning, no burping. Patient will be started on hydrocortisone 100 mg 3 times daily for 24 hours and then Cortef 10 mg twice daily and hold prednisone. Patient has been afebrile, heart rate 71, blood pressure 112/63, pulse ox 91-93% on room air.repeat blood work reveals WBC 11.6, hemoglobin 12.0. Calcium came back at 5.9 and ionized calcium 3.5. Calcium gluconate 2 g ordered for now and recheck tomorrow. Pathology revealed the 03/16: Patient states he has had a bowel movement and pain is much improved. He is passing gas as well. No nausea or vomiting. He is tolerating a full liquid diet. Patient is afebrile, heart rate 60, blood pressure 132/81, pulse ox 94% on room air. WBC 11.8, hemoglobin 12. Electrolytes and renal function normal. Repeat calcium explained to and ionized calcium is 3.7. Patient will be ordered for calcium gluconate 2 g today and recheck levels tomorrow. REVIEW OF SYSTEMS Constitutional: No fever, no chills, no night sweats. No weight change. No we akness, fatigue or lethargy. No daytime sleepiness. EENT: No headache. No blurred vision or double vision, no loss of vision. No loss of Hearing, no ringing in the ears, no dizziness. No nasal drainage or congestion. No epistaxis. No sore throat. Lungs: No shortness of breath, cough, no sputum production. No wheezing. Cardiovascular: No chest pain, no lower extremity edema. No palpitations. No paroxysmal nocturnal dyspnea. No orthopnea. No lightheadedness or dizziness. No syncopal episodes. Abdominal: positive abdominal pain with nausea no vomiting mild constipation no bloody bowel movement. Genitourinary: No dysuria, increased frequency, urgency. No urinary retention. Musculoskeletal: No myalgias. No muscle weakness, no gait dysfunction, no frequent falls. No back pain. No neck pain. Integumentary: No wounds, no lesions. No rash or pruritus. No unusual bruising. No change in hair or nails. Neurologic: No aphasia. No facial droop. No change in mentation. No head injury. No headache. No paralysis. No paresthesia. Psychiatric: No depression. No anxiety. No mood swings. Endocrine: No abnormal blood sugars. No weight change. No excessive sweating or thirst. No cold intolerance. PHYSICAL EXAMINATION Gen: This is well-developed laying in bed in no acute respiratory distress. HEENT: Head is atraumatic, normocephalic. Pupils equal, round. Sclerae is anicteric. NECK: Supple. No JVD. No lymphadenopathy. No thyromegaly. LUNGS: Clear to auscultation. No wheezes or rhonchi. No intercostal retractions. HEART: Regular rate and rhythm. No murmur. ABDOMEN: Soft. minimal tenderness in the right lower quadrant area with no bowel sounds. EXTREMITIES: No pedal edema. No calf tenderness. NEUROLOGICAL: Patient is awake, alert and oriented x3. Cranial nerves 2 through 12 are grossly intact. ASSESSMENT AND PLAN 1.subacute appendicitis with rupture appendix, patient will continue IV antibiotic the form of Zosyn, status post right colectomy, ileocolectomy. Pathology as above. 2 hypertension: Continue losartan 25 mg daily with parameters. Continue to hold hydrochlorothiazide 25 mg daily. 3 chronic neuropathy: Has been on Lyrica total of 200 mg a day resume medication. 4 edema. 5 hypothyroidism: Continue levothyroxine at 200 g daily. 7 chronic pain management: Continue tramadol along with Lyrica. 8 GI prophylaxis: Continue patient on Protonix IV. 9 DVT prophylaxis: Patient be on heparin 5000 units subcutaneous twice a day. 10. COVID-19 testing was negative. 11. Acute kidney injury, resolved. Dr. Persaud thank you very much for the consult, if I can be any further help please let me know. Impression and plan of care have been directed as dictated by the signing physician. Cari Mcclellan nurse practitioner acting as scribe for signing physician. Objective - Vital Signs Vital signs: Vital Signs Temp 97.6 F 03/16/21 05:07 Pulse 76 03/16/21 05:07 Resp 16 03/16/21 05:07 BP 125/78 03/16/21 05:07 Pulse Ox 94 L 03/16/21 05:07 Intake & Output 03/15/21 03/16/21 03/16/21 18:59 06:59 18:59 Intake Total 1140 Balance 1140 Intake: Intake, IV Titration 1140 Amount Piperacillin-Tazobactam 3 100 .375 gm In Sodium Chloride 0.9% 100 ml @ 25 mls/hr IVPB Q8HR [facility] Rx# :[id number] Sodium Chloride 0.9% 1, 1040 000 ml @ 130 mls/hr IV . Q7H42M [facility] Rx#:[id number] Other: Voiding Method Toilet Toilet - Labs CBC & Chem 7: 03/16/21 06:12 03/16/21 06:12 Labs: Abnormal Lab Results - Last 24 Hours (Table) 03/16/21 03/16/21 Range/Units 06:12 06:12 WBC 11.8 H (3.8-10.6) k/uL RBC 4.12 L (4.30-5.90) m/uL Hgb 12.0 L (13.0-17.5) gm/dL Hct 36.1 L (39.0-53.0) % Glucose 130 H (70-110) mg/dL Calcium 6.2 L* (8.7-10.3) mg/dL Ionized Calcium Tracy 3.7 L (4.5-5.3) mg/dL Total Protein 4.9 L (6.2-8.2) g/dL Albumin 3.2 L (3.8-4.9) g/dL Microbiology - Last 24 Hours (Table) 03/12/21 14:58 Blood Culture - Preliminary Blood No Growth after 72 hours 03/12/21 14:58 Blood Culture - Preliminary Blood No Growth after 72 hours
[2021-03-16 22:37] VITALS: RESP 16
[2021-03-17] MEDS: PIPERACILLIN-TAZOBACTAM 3.375 GM in SODIUM CHLORIDE 0.9% 100 ML IVPB SCH ×3 (00:32→16:56)
[2021-03-17] MEDS: SODIUM CHLORIDE 0.9% 1,000 ML IV SCH ×3 (04:11→17:04)
[2021-03-17] MEDS: HYDROmorphone 1 MG/ML 1 ML SYRINGE IVP PRN ×2 (05:16→19:48)
[2021-03-17] MEDS: LEVOTHYROXINE PO SCH (05:16)
[2021-03-17] MEDS: HYDROCORTISONE 10 MG TAB PO SCH ×2 (08:33→20:55)
[2021-03-17] MEDS: PANTOPRAZOLE 40 MG TABLET PO SCH (08:33)
[2021-03-17] MEDS: PREGABALIN 100 MG CAP PO SCH ×2 (08:33→20:54)
[2021-03-17] MEDS: CALCIUM CARBONATE 500 MG CHEWABLE PO SCH ×2 (08:33→16:58)
[2021-03-17] MEDS: CHOLECALCIFEROL 125 MCG (5000 IU) TABLET PO SCH (08:33)
[2021-03-17] MEDS: LOSARTAN 25 MG TAB PO SCH (08:33)
[2021-03-17] MEDS: ENOXAPARIN 40 MG/0.4 ML SYRINGE SQ SCH (08:34)
[2021-03-17] MEDS: BACLOFEN 10 MG TAB PO PRN ×2 (08:34→16:55)
--- NOTE | 2021-03-17 10:59 | P.PN ---
Subjective Progress Note Date: 03/17/21 Principal diagnosis: Appendicitis Patient had some abdominal bloating last night that has resolved. He is having bowel movements and flatus. Appetite is good he states. Says his baclofen helped. Currently on full liquids. Objective - Vital Signs Vital signs: Vital Signs Temp 97.7 F 03/17/21 04:54 Pulse 54 L 03/17/21 04:54 Resp 16 03/17/21 04:54 BP 131/82 03/17/21 04:54 Pulse Ox 94 L 03/17/21 04:54 Intake & Output 03/16/21 03/17/21 03/17/21 18:59 06:59 18:59 Intake Total 1000 Balance 1000 Intake: Oral 1000 Other: Voiding Method Toilet Toilet # Voids 2 3 - Exam Abdomen: Soft, mild distention, mild diffuse tenderness, dressing clean and dry - Labs CBC & Chem 7: 03/16/21 06:12 03/16/21 06:12 Labs: Abnormal Lab Results - Last 24 Hours (Table) 03/16/21 03/17/21 Range/Units 06:12 06:11 Glucose 130 H (70-110) mg/dL Calcium 6.2 L* (8.7-10.3) mg/dL Ionized Calcium Tracy 3.7 L 4.0 L (4.5-5.3) mg/dL Total Protein 4.9 L (6.2-8.2) g/dL Albumin 3.2 L (3.8-4.9) g/dL Microbiology - Last 24 Hours (Table) 03/12/21 14:58 Blood Culture - Preliminary Blood No Growth after 96 hours 03/12/21 14:58 Blood Culture - Preliminary Blood No Growth after 96 hours Assessment and Plan (1) Ruptured appendicitis Narrative/Plan: Patient doing fairly well today. Continue full liquids for now. Abdominal binder at this time. Increase activity. Current Visit: Yes Status: Acute Code(s): K35.32 - ACUTE APPENDICITIS WITH PERF AND LOC PERITONITIS, W/O ABSCS SNOMED Code(s): 72106117
--- NOTE | 2021-03-17 11:53 | P.PN ---
Subjective Progress Note Date: 03/17/21 HISTORY OF PRESENT ILLNESS 56-year-old male one of our office patient with past medical history of hypertension, hypothyroidism, COVID-19 back in May 2020 and history of CVA who apparently developed to have significant abdominal pain Neurontin the umbilical area moving toward the right lower quadrant started around March 02 and become much worse around patient developed much worsening symptoms today with his abdominal pain developed to have right-sided shoulder pain and discomfort along with chest pain. Ended up coming to the emergency department at [facility] was seen and evaluated with high suspicion for appendicitis patient CAT scan end up showing mild rupture. Patient was started on IV antibiotics seen general surgery might require to go for intervention for appendectomy possibly drain along with culture and IV antibiotics. 03/13: Patient has gone for exploratory laparotomy scheduled Dr. Persaud today. He is afebrile, heart rate 63, blood pressure 120/74, pulse ox 97% on room air. 03/14: Yesterday, patient underwent right colectomy, ileocolectomy for chronic perforated appendicitis. Patient is seen on the [facility] floor. He has been afebrile, heart rate 80, blood pressure 105/69, pulse ox 93% on room air. Repeat blood work reveals WBC 16.4, hemoglobin 12.9. Electrolytes are normal. BUN 23 creatinine 1.46. Blood sugar 123. IV fluids will be resumed at 75 mL per hour. Patient is currently on clear liquid diet. Patient states that he has been burping at least once each time he gets up and walks. He states he is ambulated 6 times. His pain is controlled. He has not passed any significant gas. No bowel movement. 03/15: Patient is stating that his pain is uncontrolled. He denies having any nausea vomiting. He is taking little sips of liquid. He had one episode of small amount of flatulence this morning, no burping. Patient will be started on hydrocortisone 100 mg 3 times daily for 24 hours and then Cortef 10 mg twice daily and hold prednisone. Patient has been afebrile, heart rate 71, blood pressure 112/63, pulse ox 91-93% on room air.repeat blood work reveals WBC 11.6, hemoglobin 12.0. Calcium came back at 5.9 and ionized calcium 3.5. Calcium gluconate 2 g ordered for now and recheck tomorrow. Pathology revealed the 03/16: Patient states he has had a bowel movement and pain is much improved. He is passing gas as well. No nausea or vomiting. He is tolerating a full liquid diet. Patient is afebrile, heart rate 60, blood pressure 132/81, pulse ox 94% on room air. WBC 11.8, hemoglobin 12. Electrolytes and renal function normal. Repeat calcium explained to and ionized calcium is 3.7. Patient will be ordered for calcium gluconate 2 g today and recheck levels tomorrow. 03/17: Patient is anxious about going home. States that he is still having some pain mostly in the incisional area. However he found that the baclofen has helped. Patient has had a bowel movement and is tolerating his diet well. He did have some abdominal bloating overnight however that has resolved. His dressing is clean and dry. Patient remained afebrile, heart rate 54, respirations 16, blood pressure 131/82 and pulse ox 94% on room air. We will continue with baclofen. order an abdominal binder to help with discomfort. Patient remains on IV antibiotics at this time. REVIEW OF SYSTEMS Constitutional: No fever, no chills, no night sweats. No weight change. No weakness, fatigue or lethargy. No daytime sleepiness. EENT: No headache. No blurred vision or double vision, no loss of vision. No loss of Hearing, no ringing in the ears, no dizziness. No nasal drainage or congestion. No epistaxis. No sore throat. Lungs: No shortness of breath, cough, no sputum production. No wheezing. Cardiovascular: No chest pain, no lower extremity edema. No palpitations. No paroxysmal nocturnal dyspnea. No orthopnea. No lightheadedness or dizziness. No syncopal episodes. Abdominal: positive abdominal pain with nausea no vomiting mild constipation no bloody bowel movement. Genitourinary: No dysuria, increased frequency, urgency. No urinary retention. Musculoskeletal: No myalgias. No muscle weakness, no gait dysfunction, no frequent falls. No back pain. No neck pain. Integumentary: No wounds, no lesions. No rash or pruritus. No unusual bruising. No change in hair or nails. Neurologic: No aphasia. No facial droop. No change in mentation. No head injury. No headache. No paralysis. No paresthesia. Psychiatric: No depression. No anxiety. No mood swings. Endocrine: No abnormal blood sugars. No weight change. No excessive sweating or thirst. No cold intolerance. PHYSICAL EXAMINATION Gen: This is well-developed laying in bed in no acute respiratory distress. HEENT: Head is atraumatic, normocephalic. Pupils equal, round. Sclerae is a nicteric. NECK: Supple. No JVD. No lymphadenopathy. No thyromegaly. LUNGS: Clear to auscultation. No wheezes or rhonchi. No intercostal retractions. HEART: Regular rate and rhythm. No murmur. ABDOMEN: Soft. minimal tenderness in the right lower quadrant area with no bowel sounds. EXTREMITIES: No pedal edema. No calf tenderness. NEUROLOGICAL: Patient is awake, alert and oriented x3. Cranial nerves 2 through 12 are grossly intact. ASSESSMENT AND PLAN 1.subacute appendicitis with rupture appendix, patient will continue IV antibiotic the form of Zosyn, status post right colectomy, ileocolectomy. Pathology as above. Continue baclofen for pain management, abdominal binder to be added. 2 hypertension: Continue losartan 25 mg daily with parameters. Continue to hold hydrochlorothiazide 25 mg daily. 3 chronic neuropathy: Has been on Lyrica total of 200 mg a day resume medication. 4 edema. 5 hypothyroidism: Continue levothyroxine at 200 g daily. 7 chronic pain management: Continue tramadol along with Lyrica. 8 GI prophylaxis: Continue patient on Protonix IV. 9 DVT prophylaxis: Patient be on heparin 5000 units subcutaneous twice a day. 10. COVID-19 testing was negative. 11. Acute kidney injury, resolved. Dr. Persaud thank you very much for the consult, if I can be any further help please let me know. Impression and plan of care have been directed as dictated by the signing physician. Esha Hammer nurse practitioner acting as scribe for signing physician. Objective - Vital Signs Vital signs: Vital Signs Temp 97.7 F 03/17/21 04:54 Pulse 54 L 03/17/21 04:54 Resp 16 03/17/21 04:54 BP 131/82 03/17/21 04:54 Pulse Ox 94 L 03/17/21 04:54 Intake & Output 03/16/21 03/17/21 03/17/21 18:59 06:59 18:59 Intake Total 1000 480 Balance 1000 480 Intake: Oral 1000 480 Other: Voiding Method Toilet Toilet # Voids 2 3 - Labs CBC & Chem 7: 03/16/21 06:12 03/16/21 06:12 Labs: Abnormal Lab Results - Last 24 Hours (Table) 03/17/21 Range/Units 06:11 Ionized Calcium Tracy 4.0 L (4.5-5.3) mg/dL Microbiology - Last 24 Hours (Table) 03/12/21 14:58 Blood Culture - Preliminary Blood No Growth after 96 hours 03/12/21 14:58 Blood Culture - Preliminary Blood No Growth after 96 hours
[2021-03-17] MEDS: HYDROcodone/APAP 5-325MG 1 EACH TAB PO PRN (13:59)
[2021-03-17] MEDS: traMADol 50 MG TAB PO PRN (17:02)
[2021-03-17] MEDS: HYDROcodone/APAP 10-325MG 1 EACH TAB PO PRN (20:55)
[2021-03-18] MEDS: PIPERACILLIN-TAZOBACTAM 3.375 GM in SODIUM CHLORIDE 0.9% 100 ML IVPB SCH ×2 (00:06→12:41)
[2021-03-18] MEDS: SODIUM CHLORIDE 0.9% 1,000 ML IV SCH (02:06)
[2021-03-18 04:33] VITALS: BP 144/87; PULSE 56; TEMP 97.8
[2021-03-18] MEDS: LEVOTHYROXINE PO SCH (04:55)
[2021-03-18] MEDS: HYDROcodone/APAP 10-325MG 1 EACH TAB PO PRN ×2 (05:04→10:36)
[2021-03-18] MEDS: CALCIUM CARBONATE 500 MG CHEWABLE PO SCH (09:27)
[2021-03-18] MEDS: LOSARTAN 25 MG TAB PO SCH (09:27)
[2021-03-18] MEDS: PANTOPRAZOLE 40 MG TABLET PO SCH (09:27)
[2021-03-18] MEDS: ENOXAPARIN 40 MG/0.4 ML SYRINGE SQ SCH (09:27)
[2021-03-18] MEDS: PREGABALIN 100 MG CAP PO SCH (09:27)
[2021-03-18] MEDS: CHOLECALCIFEROL 125 MCG (5000 IU) TABLET PO SCH (09:28)
[2021-03-18] MEDS: HYDROCORTISONE 10 MG TAB PO SCH (09:28)
--- NOTE | 2021-03-18 10:36 | P.PN ---
Subjective Progress Note Date: 03/18/21 Principal diagnosis: Appendicitis Patient doing better today. Says he is not requiring as much pain medications. Tolerating diet. Still has a mild headache. Does not feel bloated. Having bowel function. He would like to go home. Objective - Vital Signs Vital signs: Vital Signs Temp 97.8 F 03/18/21 04:30 Pulse 56 L 03/18/21 04:30 Resp 16 03/18/21 04:30 BP 144/87 03/18/21 04:30 Pulse Ox 95 03/18/21 04:30 Intake & Output 03/17/21 03/18/21 03/18/21 18:59 06:59 18:59 Intake Total 2740 Balance 2740 Intake: Intake, IV Titration 1300 Amount Sodium Chloride 0.9% 1, 1300 000 ml @ 130 mls/hr IV . Q7H42M [facility] Rx#:[id number] Oral 1440 Other: Voiding Method Toilet Toilet # Voids 5 - Exam Abdomen: Soft, nondistended, mild tenderness, dressing clean and dry - Labs CBC & Chem 7: 03/16/21 06:12 03/16/21 06:12 Labs: Microbiology - Last 24 Hours (Table) 03/12/21 14:58 Blood Culture - Preliminary Blood No Growth after 120 hours 03/12/21 14:58 Blood Culture - Preliminary Blood No Growth after 120 hours Assessment and Plan (1) Ruptured appendicitis Narrative/Plan: Patient doing better today. Continue diet as tolerated. Medical service already rounded and said the patient can go home. Patient is agreeable to that. We'll discharge. Follow-up with Dr. Persaud. Current Visit: Yes Status: Acute Code(s): K35.32 - ACUTE APPENDICITIS WITH PERF AND LOC PERITONITIS, W/O ABSCS SNOMED Code(s): 71154986
--- NOTE | 2021-03-18 12:16 | P.PN ---
Subjective Progress Note Date: 03/18/21 HISTORY OF PRESENT ILLNESS 56-year-old male one of our office patient with past medical history of hypertension, hypothyroidism, COVID-19 back in May 2020 and history of CVA who apparently developed to have significant abdominal pain Neurontin the umbilical area moving toward the right lower quadrant started around March 02 and become much worse around patient developed much worsening symptoms today with his abdominal pain developed to have right-sided shoulder pain and discomfort along with chest pain. Ended up coming to the emergency department at [facility] was seen and evaluated with high suspicion for appendicitis patient CAT scan end up showing mild rupture. Patient was started on IV antibiotics seen general surgery might require to go for intervention for appendectomy possibly drain along with culture and IV antibiotics. 03/13: Patient has gone for exploratory laparotomy scheduled Dr. Persaud today. He is afebrile, heart rate 63, blood pressure 120/74, pulse ox 97% on room air. 03/14: Yesterday, patient underwent right colectomy, ileocolectomy for chronic perforated appendicitis. Patient is seen on the [facility] floor. He has been afebrile, heart rate 80, blood pressure 105/69, pulse ox 93% on room air. Repeat blood work reveals WBC 16.4, hemoglobin 12.9. Electrolytes are normal. BUN 23 creatinine 1.46. Blood sugar 123. IV fluids will be resumed at 75 mL per hour. Patient is currently on clear liquid diet. Patient states that he has been burping at least once each time he gets up and walks. He states he is ambulated 6 times. His pain is controlled. He has not passed any significant gas. No bowel movement. 03/15: Patient is stating that his pain is uncontrolled. He denies having any nausea vomiting. He is taking little sips of liquid. He had one episode of small amount of flatulence this morning, no burping. Patient will be started on hydrocortisone 100 mg 3 times daily for 24 hours and then Cortef 10 mg twice daily and hold prednisone. Patient has been afebrile, heart rate 71, blood pressure 112/63, pulse ox 91-93% on room air.repeat blood work reveals WBC 11.6, hemoglobin 12.0. Calcium came back at 5.9 and ionized calcium 3.5. Calcium gluconate 2 g ordered for now and recheck tomorrow. Pathology revealed the 03/16: Patient states he has had a bowel movement and pain is much improved. He is passing gas as well. No nausea or vomiting. He is tolerating a full liquid diet. Patient is afebrile, heart rate 60, blood pressure 132/81, pulse ox 94% on room air. WBC 11.8, hemoglobin 12. Electrolytes and renal function normal. Repeat calcium explained to and ionized calcium is 3.7. Patient will be ordered for calcium gluconate 2 g today and recheck levels tomorrow. 03/17: Patient is anxious about going home. States that he is still having some pain mostly in the incisional area. However he found that the baclofen has helped. Patient has had a bowel movement and is tolerating his diet well. He did have some abdominal bloating overnight however that has resolved. His dressing is clean and dry. Patient remained afebrile, heart rate 54, respirations 16, blood pressure 131/82 and pulse ox 94% on room air. We will continue with baclofen. order an abdominal binder to help with discomfort. Patient remains on IV antibiotics at this time. 03/18: Patient is found resting comfortably in the bed. He was up in his room multiple times. On the requiring 1 dose of Dilaudid in the evening. He still having some incisional pain. Finding that the abdominal binder has helped. Patient has had a bowel movement and tolerating diet without any difficulties. His dressing is clean and dry. Patient remains afebrile, heart rate 56, respirations 16, blood pressure 144/87 pulse ox 95% on room air. Patient is able to go home from the medical standpoint. REVIEW OF SYSTEMS Constitutional: No fever, no chills, no night sweats. No weight change. No weakness, fatigue or lethargy. No daytime sleepiness. EENT: No headache. No blurred vision or double vision, no loss of vision. No loss of Hearing, no ringing in the ears, no dizziness. No nasal drainage or congestion. No epistaxis. No sore throat. Lungs: No shortness of breath, cough, no sputum production. No wheezing. Cardiovascular: No chest pain, no lower extremity edema. No palpitations. No paroxysmal nocturnal dyspnea. No orthopnea. No lightheadedness or dizziness. No syncopal episodes. Abdominal: positive abdominal pain with nausea no vomiting mild constipation no bloody bowel movement. Genitourinary: No dysuria, increased frequency, urgency. No urinary retention. Musculoskeletal: No myalgias. No muscle weakness, no gait dysfunction, no frequent falls. No back pain. No neck pain. Integumentary: No wounds, no lesions. No rash or pruritus. No unusual bruising. No change in hair or nails. Neurologic: No aphasia. No facial droop. No change in mentation. No head injury. No headache. No paralysis. No paresthesia. Psychiatric: No depression. No anxiety. No mood swings. Endocrine: No abnormal blood sugars. No weight change. No excessive sweating or thirst. No cold intolerance. PHYSICAL EXAMINATION Gen: This is well-developed laying in bed in no acute respiratory distress. HEENT: Head is atraumatic, normocephalic. Pupils equal, round. Sclerae is anicteric. NECK: Supple. No JVD. No lymphadenopathy. No thyromegaly. LUNGS: Clear to auscultation. No wheezes or rhonchi. No intercostal retractions. HEART: Regular rate and rhythm. No murmur. ABDOMEN: Soft. minimal tenderness in the right lower quadrant area with no bowel sounds. EXTREMITIES: No pedal edema. No calf tenderness. NEUROLOGICAL: Patient is awake, alert and oriented x3. Cranial nerves 2 through 12 are grossly intact. ASSESSMENT AND PLAN 1.subacute appendicitis with rupture appendix, status post right colectomy, ileocolectomy. Pathology as above. Levaquin ordered, Continue baclofen for pain management, abdominal binder to be added. 2 hypertension: Continue losartan 25 mg daily with parameters. Continue to hold hydrochlorothiazide 25 mg daily. 3 chronic neuropathy: Has been on Lyrica total of 200 mg a day resume medication. 4 edema. 5 hypothyroidism: Continue levothyroxine at 200 g daily. 7 chronic pain management: Continue tramadol along with Lyrica. 8 GI prophylaxis: Continue patient on Protonix IV. 9 DVT prophylaxis: Patient be on heparin 5000 units subcutaneous twice a day. 10. COVID-19 testing was negative. 11. Acute kidney injury, resolved. Dr. Persaud thank you very much for the consult, if I can be any further help please let me know. Impression and plan of care have been directed as dictated by the signing physician. Esha Kamendat nurse practitioner acting as scribe for signing physician. Objective - Vital Signs Vital signs: Vital Signs Temp 97.8 F 03/18/21 04:30 Pulse 56 L 03/18/21 04:30 Resp 16 03/18/21 04:30 BP 144/87 03/18/21 04:30 Pulse Ox 95 03/18/21 04:30 Intake & Output 03/17/21 03/18/21 03/18/21 18:59 06:59 18:59 Intake Total 2740 Balance 2740 Intake: Intake, IV Titration 1300 Amount Sodium Chloride 0.9% 1, 1300 000 ml @ 130 mls/hr IV . Q7H42M [facility] Rx#:[id number] Oral 1440 Other: Voiding Method Toilet Toilet # Voids 5 - Labs CBC & Chem 7: 03/16/21 06:12 03/16/21 06:12 Labs: Microbiology - Last 24 Hours (Table) 03/12/21 14:58 Blood Culture - Preliminary Blood No Growth after 120 hours 03/12/21 14:58 Blood Culture - Preliminary Blood No Growth after 120 hours
== END 2021-03-18 14:30 | disposition home health service (06) | DRG 330 ==
LOC: EC 09:49 → 3NCARDOBS 15:38 → 5NMEDONC 03-15 18:12
PROVIDERS: ADMIT Surgery; ATTEND Surgery
PROC: 0DTF0ZZ Resection of Right Large Intestine, Open Approach (ICD-10-PCS; principal; 2021-03-13 10:00)
DX: K35.32 Acute appendicitis with perforation, localized peritonitis, and gangrene, without abscess (principal); N17.9 Acute kidney failure, unspecified; E83.51 Hypocalcemia; G89.29 Other chronic pain; E03.9 Hypothyroidism, unspecified; G62.9 Polyneuropathy, unspecified; I10 Essential (primary) hypertension; H93.13 Tinnitus, bilateral; G62.0 Drug-induced polyneuropathy; T38.1X5A Adverse effect of thyroid hormones and substitutes, initial encounter; Z20.822 Contact with and (suspected) exposure to COVID-19; F43.10 Post-traumatic stress disorder, unspecified; Z85.850 Personal history of malignant neoplasm of thyroid; Z86.16 Personal history of COVID-19; Z98.890 Other specified postprocedural states; Z79.82 Long term (current) use of aspirin; Z79.890 Hormone replacement therapy; Z79.899 Other long term (current) drug therapy; Z92.3 Personal history of irradiation; Z86.73 Personal history of transient ischemic attack (TIA), and cerebral infarction without residual deficits; Z82.49 Family history of ischemic heart disease and other diseases of the circulatory system; Z84.89 Family history of other specified conditions
CPT/HCPCS: 36415; 71046; 74177; 80048; 80053; 81003; 82150; 82330; 83605; 83690; 84484; 85025; 85027; 87040; 87635; 88307; 93005; 96361; 96365; 96375

== ENCOUNTER → 2021-03-12 | Outpatient (CLI) | payer OTHER ==
[2021-03-12 08:41] VITALS: BP 124/79; PULSE 76; RESP 18; TEMP 98.2
--- NOTE | 2021-03-12 17:10 | P.PN ---
Subjective Progress Note Date: 03/12/21 Principal diagnosis: This is follow-up visit for this patient, a 56 yr old male with a history of severe and chronic cervical back pain secondary to cervical facet arthropathy and cervical radiculopathy. States his pain level is 6-7/10, dull and achy and provoked with flexion, extension, lateral flexion and rotation. It is also worse at night when his neck is positioned for several hours without activity. Alleviated with heat application. Procedures completed include Thoracic RFA in 2019. Cervical MRA, cervical x-ray and L shoulder x-ray reviewed with pt. Pt has a cervical RFA scheduled on 03/23/2021. Pt would like refills of Tramadol and Lyrica. UDS from 01/18/2021 reviewed and consistent. Patients currently on Baclofen and Capsacin topical cream. Patient is currently doing a home exercise stretching program. He has tried physical therapy 4 years ago, chiropractics 3 years ago. Patient does not use cane/walker for ambulation. Patient has tried heat application to alleviate pain. Patient denies any side effects of the medication, denies excessive drowsiness or sleepiness, denies suicidal ideation and reports that the current pain medication is helping to control pain and improve activity of daily living. Patient denies any motor or sensory deficits. Patient denies any fever or night sweats, denies any change in the bowel movements or urination. Pain lasted more than 3 months. Patient tried conservative treatment without success. Physical Examination : Constitutional : Cooperative , not in acute distress . HEENT : Neck supple. No lymphadenopathy. No thyromegaly with normal thyroid size. Eyes : no ptosis , no icterus, no photophobia. ENT : normal hearing. Normal oropharynx. No thrush. Respiratory : Chest clear to auscultations bilaterally. No wheezing. No rhonchi. Cardiovascular : Regular rate and rhythm. S1 / S2. No S3. No S4. Gastrointestinal : Abdomen soft. No tenderness. Bowel sounds x 4 intact. No organomegaly. Genitourinary : Deferred. Neurologic : Cranial nerve II to XII intact. No focal neurological deficits. Psychatric : Alert & oriented x 3. Matching mood & appropriate affect. Judgment & insight intact. Lymphatic : No lymphadenopathy. Musculoskeletal Cervical spine : Motor bulk/ tone/ strength 5/5 Bilateral upper extremities 5/5 Cervical Facet Loading Test positive Cervical Distraction positive Lumbar spine : Motor bulk/ tone/ strength lower extremities/thigh and legs 5/5 Deep tendon reflexes : normal Knee Jerk. Normal Ankle Jerk Lumbar facet Loading Test positive Straight Leg Raise test positive at 30 degree at left or right Lawrence test positive right and positive left Range of motion: Range of motion in flexion of the lumbar spine 30 degrees Range of motion range of motion of extension of the lumbar spine Severe tenderness over the Sacroiliac joint on the right , left side Gaenslen's test Herbert test Distraction test Provocation test Positive tenderness over the sacroiliac joint Assessment and plan : Chronic cervical pain secondary to cervical facet arthropathy and radiculopathy. Thoracic spondylosis with facet arthropathy without myelopathy Cervical RFA scheduled on 03/23/2021 Medications refilled. MAPS reviewed and consistent. UDS reviewed and consistent. Chronic and current use of high-risk medication (Opioids). The patient was counseled about risk of opioid use, psychological risk associated with opioids and was orally counseled to not overuse , divert or sell dictations to take medications as prescribed only and to restore medication in safe location. The patient was counseled against driving while using narcotic medications and also not to use alcohol or any illicit recreational drugs. The patient's verbalized understanding that the lack of compliance will result in failure to renew narcotic prescription and possible discharge from the clinic. Diagnoses, prognosis, and treatment options including but not limited to physical therapy, surgical interventions, interventional therapies, and medication management including narcotics and adjuvant medication were discussed with the patient and all the questions answered. I have spent 31 minutes on patient care today. The time was used to review the medical records including relevant urine studies and Prescription history (MAPs), review of the available imaging, evaluation and examination of the patient, coordination of care with the medical staff and if applicable referring physicians, as well as creation of the medical record. PQRS Measures: Smoking Status Never smoker Blood Pressure 124/79 Pain Intensity [Generalized] 5 Scale Used Numeric (1 - 10) Hx Alcohol Use (MH) No Objective - Vital Signs Vital signs: Vital Signs Temp 98.2 F 03/12/21 08:36 Pulse 76 03/12/21 08:36 Resp 18 03/12/21 08:36 BP 124/79 03/12/21 08:36 Pulse Ox
== END ==
LOC: PNWHC3 07:47
PROVIDERS: ATTEND Physician Assistant Medical
DX: M47.22 Other spondylosis with radiculopathy, cervical region (principal); M47.814 Spondylosis without myelopathy or radiculopathy, thoracic region; G89.29 Other chronic pain; Z79.891 Long term (current) use of opiate analgesic; Z91.041 Radiographic dye allergy status; Z91.030 Bee allergy status; Z88.5 Allergy status to narcotic agent; Z88.8 Allergy status to other drugs, medicaments and biological substances
CPT/HCPCS: 99211

== ENCOUNTER → 2021-04-09 | Outpatient (CLI) | payer OTHER ==
--- NOTE | 2021-04-09 08:16 | P.PN ---
Subjective Progress Note Date: 04/09/21 Principal diagnosis: A 56 yr old male with a history of severe and chronic low back pain secondary to lumbar degenerative disc diseases and lumbar spondylosis with facet arthropathy presents today for medication refills. Patient states his pain is in his not right shoulder, right elbow, left wrist and lower back. Pain level is 7/10, dull/ achy/ but sharp/ shooting towards the elbow, wrists and buttocks. Pain is provoked by bending and twisting . Pain is alleviated with medications and injections, physical therapy four years ago, chiropractic treatments when they are [facility] by [facility], massage, rest and a home exercise regimen . States that Adrián works but needs it a little more frequently. Patient is currently on Tramadol 50mg BID prn Patient denies any side effects of the medication(s), denies excessive drowsiness or sleepiness, denies suicidal ideation and reports that the current pain medication is helping to control the pain and improve activities of daily living. Patient denies any motor or sensory deficits. Patient denies any fever or night sweats, denies any change in the bowel movements or urination. Physical Examination: -Constitutional: Cooperative. Not in acute distress . -HEENT: Neck is supple. No lymphadenopathy. No thyromegaly. Normal thyroid size. Eyes: No ptosis , no icterus, no photophobia. ENT: No auditory deficits. Normal oropharynx. No Thrush. - Respiratory: Chest clear to auscultations bilaterally. No wheezing. No rhonchi. - Cardiovascular: Regular rate and rhythm. S1 / S2 , no S3 , no S4. - Gastrointestinal: Abdomen soft no tenderness. Bowel sounds positive in all four quadrants. No organomegaly. - Genitourinary: Deferred. - Neurologic: Cranial nerve II to XII intact. No focal neurological deficits. - Psychatric: Alert & oriented x 3. Matching mood & appropriate affect. Judgment and insight intact. - Lymphatic: No Lymphadenopathy. - Musculoskeletal: Cervical spine: Muscle bulk/ tone/ strength in the bilateral upper extremities normal. Facet loading test cervical area positive. Lumbar spine: Motor bulk/ tone/ strength lower extremities , thigh and legs : 5/5 Deep tendon reflexes : Normal Knee Jerk. Normal Ankle Jerk . Lumbar Facet Loading Test positive Vertebral body tenderness to palpation over L3-L5 Straight Leg Raise: positive at 30 degree right side/ left side Lawrence test: positive right side / left side Range of motion: Flexion of the lumbar spine 60 degrees Range of motion: Extension of the lumbar spine <20 degrees Severe tenderness over the Sacroiliac joint: right side / left side Assessment and plan: Chronic low back pain secondary to lumbar degenerative disc disease , l umbar spondylosis with facet arthropathy without myelopathy Recommendation to increase Tramadol frequency to TID prn Chronic and current use of high-risk medication (Opioids). The patient was counseled about risk of opioid use, psychological risk associated with opioids and was orally counseled to not overuse , divert or sell medications. Pt is to store medication in a safe location. The patient is counseled against driving while using narcotic medications and also not to use alcohol or any illicit recreational drugs. Patient verbalized understanding that the lack of compliance will result in failure to renew narcotic prescription(s) as well as possible discharge from the clinic Diagnoses, prognosis and treatment options including but not limited to physical therapy, surgical interventions, interventional therapies and medication management including narcotics and adjuvant medication were discussed. All patient questions answered Opioid agreement completed and included in charting UDS Jan, 2021 reviewed and consistent for Victor which was filled by another physician per MAPS MAPS reviewed and it was appropriate. Prescription refill for Tramadol 50mg TID prn p#90 with refill I have spent 31 minutes on patient care today. Dr Livingston was available by phone for the evaluation of this patient. The time was used to review the medical records including relevant urine studies and Prescription history (MAPs), review of the available imaging, evaluation and examination of the patient, coordination of care with the medical staff and if applicable referring physicians, as well as creation of the medical record PQRS Measure Charge Sheet PQRS Narrative: Smoking Status Never smoker Pain Intensity [Back] 5 Pain Intensity [Neck] 6 Pain Intensity [Right Shoulder 7 ] Scale Used Numeric (1 - 10) Hx Alcohol Use (MH) No Home Medications: Ambulatory Orders Calcium Carbonate 500 mg PO BID-W/MEALS 06/08/20 Ketoconazole 2% Cream [Nizoral 2%] 1 applic TOPICAL BID PRN 06/08/20 Lidocaine 5% Oint [Xylocaine 5% Oint] 1 applic TOPICAL TID PRN 06/08/20 Pregabalin [Lyrica] 200 mg PO BID 06/08/20 hydroCHLOROthiazide [Hydrodiuril] 25 mg PO DAILY 06/08/20 Levothyroxine Sodium [Tirosint] 200 mcg PO DAILY 01/16/21 Acetaminophen Tab [Tylenol] 1,000 mg PO Q6HR PRN 03/12/21 Aspirin EC [Ecotrin Low Dose] 81 mg PO DAILY 03/12/21 Capsaicin 0.025% Cream 1 applic TOPICAL TID PRN 03/12/21 Cholecalciferol (Vitamin D3) [Vitamin D3 (125 MCG = 5,000 IU)] 125 mcg PO DAILY 03/12/21 Ibuprofen [Motrin Ib] 800 mg PO Q8H PRN 03/12/21 Losartan [Cozaar] 25 mg PO DAILY 03/12/21 Ondansetron Odt [Zofran ODT] 4 mg PO QID PRN 03/12/21 Zinc 50 mg PO DAILY 03/12/21 calcitrioL [Rocaltrol] 0.25 mcg PO BID 03/12/21 Pantoprazole [Protonix] 40 mg PO AC-BRKFST #30 tab 03/17/21 Baclofen [Lioresal] 5 mg PO TID PRN #90 tab 03/18/21 HYDROcodone/APAP 10-325MG [Victor 10-325] 1 tab PO Q4HR PRN 3 Days #18 tab 03/18/21 Hydrocortisone [Cortef] 10 mg PO Q12H #60 tab 03/18/21 Levofloxacin [Levaquin] 500 mg PO DAILY 7 Days #1 tab 03/18/21 traMADol HCL 50 mg PO Q4HR PRN #0 03/18/21
[2021-04-09 09:04] VITALS: BP 144/92; PULSE 74; RESP 18; TEMP 97.7
== END ==
LOC: PNWHC3 07:43
PROVIDERS: ATTEND Physician Assistant Medical
DX: G89.29 Other chronic pain (principal); M51.36 Other intervertebral disc degeneration, lumbar region; M47.816 Spondylosis without myelopathy or radiculopathy, lumbar region; Z79.891 Long term (current) use of opiate analgesic; Z91.041 Radiographic dye allergy status; Z88.8 Allergy status to other drugs, medicaments and biological substances; Z91.030 Bee allergy status; Z88.6 Allergy status to analgesic agent
CPT/HCPCS: 99211

== ENCOUNTER → 2021-04-13 | Day surgery (SDC) | payer OTHER ==
[~2021-04-13] MED LIST changes: +IV FLUID CONTINUATION 1,000 ML IV ONE; +LACTATED RINGERS 1,000 ML IV ONE; -LACTATED RINGERS 1,000 ML IV SCH; +LIDOCAINE 1% (10MG/ML) FOR IV START INTRADERMA ONE; +MIDAZOLAM 2 MG/2 ML VIAL ONE; +ROPIVACAINE 5MG/ML 20ML VIAL ONE; +fentaNYL (PF) 50 MCG/ML 2 ML AMP ONE; +methylPREDNISolone ACETATE 40 MG/ML 1 ML VIAL ONE
[2021-04-13 09:29] VITALS: TEMP 97.5
[2021-04-13 09:35] LABS: Glucose,Whole Blood 89 mg/dL (75-99)
--- NOTE | 2021-04-13 10:08 | P.PCN ---
Date of Procedure: 04/13/21 Procedure(s) Performed: PREOPERATIVE DIAGNOSIS: Cervical spondylosis with Facet Arthropathy without myelopathy. POSTOPERATIVE DIAGNOSIS: Cervical spondylosis with Facet Arthropathy without myelopathy. PROCEDURES: Radiofrequency thermocoagulation, Right C4, C5, C6 medial branch with Fluroscopy [place](fluoroscopy was available in etiology department ) (to denervate the facet joint at Right C4- 5 , C5- 6 ) ANESTHESIA: Monitored anesthesia care as per anesthesia department. EBL: Minimal PROCEDURE INDICATION: The patient with neck pain secondary to cervical arthropathy who had more than 50% relief of her pain with previous diagnostic cervical medial branch block. PROCEDURE DESCRIPTION / TECHNIQUE: The patient was seen and identified in the preoperative area. Risks, benefits, complications, and alternatives were discussed with the patient, the patient agreed to proceed with the procedure and signed the consent. IV was started. Vital signs remained stable throughout the procedure. Patient was taken to the OR and time out was completed. The patient was placed in the prone position on the procedure table. A pillow was placed under the patients chest to increase the cervical interlaminar space. The cervical area was prepped and draped in the usual sterile fashion. Critical pause was taken. Vital signs were closely monitored during the procedure. Conscious sedation was used during the procedure to decrease patients anxiety. Using cross-table lateral fluoroscopy, the centroid of the trapezoid of Right C4, C5, and C6 were identified, marked, and localized with 1% lidocaine. Subsequently, a 20 -lv radiofrequency cannula with a 10-mm active tip was advanced guided by fluoroscopy to the centroid of the trapezoid of Right C4, C5, and C6 . Needle tip position was confirmed at the centroid of the trapezoids of right C4, C5, and C6 with anteroposterior fluoroscopy. Each site then underwent sensory testing at 50 Hz and 0 to 1 volt and motor testing at 2 Hz and 0 to 3 volt with local stimulation, but no radicular symptoms down the arm. Thereafter each sites underwent radiofrequency thermocoagulation at 80 degrees celsius for 90 seconds after injecting 0.5 ml of PF Ropivacaine 0.5 %. After thermocoagulation, 1 ml of the block solution containing Depo-Medrol 40 mg and 3 mL of preservative-free normal saline was injected at the right C4, C5, and C6 levels after negative aspiration of CSF and blood and with no paresthesias. Cannulas were retracted while injecting lidocaine 1% until the needle is out. Skin was cleansed and bandages were applied. COMPLICATIONS: No acute complications. DISPOSITION / PLANS: The patient was placed in a supine position and transferred to the recovery area in a stable condition for observation and was discharged from the recovery room after meeting discharge criteria. Home discharge instructions given to the patient by the staff. The patient was reexamined prior to discharge. The patient will schedule a follow up in the clinic in 2-4 weeks.
[2021-04-13 10:27] VITALS: RESP 16
[2021-04-13 10:39] VITALS: BP 122/80; PULSE 67
--- NOTE | 2021-04-13 10:46 | FL ---
EXAMINATION TYPE: FL guided pain mgmt statistic DATE OF EXAM: 04/13/2021 FLUOROSCOPY Fluoroscopy time of 15 seconds was used during cervical radiofrequency facet block on the right at 3 levels. 2 image/s document/s the procedure.
== END ==
LOC: ORPAIN 08:35
PROVIDERS: ATTEND Specialist
DX: M47.812 Spondylosis without myelopathy or radiculopathy, cervical region (principal); E07.9 Disorder of thyroid, unspecified; Z86.73 Personal history of transient ischemic attack (TIA), and cerebral infarction without residual deficits; K21.9 Gastro-esophageal reflux disease without esophagitis; Z79.2 Long term (current) use of antibiotics; Z79.1 Long term (current) use of non-steroidal anti-inflammatories (NSAID); Z79.891 Long term (current) use of opiate analgesic; Z79.899 Other long term (current) drug therapy; Z88.8 Allergy status to other drugs, medicaments and biological substances; Z91.041 Radiographic dye allergy status
CPT/HCPCS: 64633; 64634; J2250; J1030; J3010; J2795

== ENCOUNTER 2021-08-09 08:58 | Emergency (ER) | payer OTHER ==
[2021-08-09 09:04] VITALS: TEMP 97.7
[2021-08-09] MEDS ORDERED: HYDROcodone/APAP 5-325MG 1 EACH TAB PO STA (09:19)
[2021-08-09] MEDS ORDERED: ACETAMINOPHEN TAB 500 MG TAB PO STA (09:19)
--- NOTE | 2021-08-09 09:20 | ED ---
General Adult HPI - General Chief complaint: Recheck/Abnormal Lab/Rx Stated complaint: High BP Time Seen by Provider: 08/09/21 09:09 Source: patient, RN notes reviewed, old records reviewed Mode of arrival: ambulatory Limitations: no limitations - History of Present Illness Initial comments: Patient is a 56-year-old male with a history of chronic pain syndrome, cancer, thyroid disorder, presents emergency department after being sent in by his pain clinic for elevated blood pressure. Patient's blood pressure is 186/111 here in triage. Has not taken his pain medications all day today. Denies any chest pain, shortness breath, abdominal pain, nausea, vomiting. Denies any other acute complaints at this time. His chronic back pain which is unchanged as well as joint pain which is unchanged. Has been told he may have high blood pressure in the past that is being outpatient. Is on not on medications for it at this time. - Related Data Home Medications Medication Instructions Recorded Confirmed Calcium Carbonate 500 mg PO BID-W/MEALS 06/08/20 08/09/21 Ketoconazole 2% Cream [Nizoral 2%] 1 applic TOPICAL BID PRN 06/08/20 08/09/21 Lidocaine 5% Oint [Xylocaine 5% 1 applic TOPICAL TID PRN 06/08/20 08/09/21 Oint] hydroCHLOROthiazide [Hydrodiuril] 25 mg PO DAILY 06/08/20 08/09/21 Levothyroxine Sodium [Tirosint] 200 mcg PO DAILY 01/16/21 08/09/21 Acetaminophen Tab [Tylenol] 1,000 mg PO Q6HR PRN 03/12/21 08/09/21 Aspirin EC [Ecotrin Low Dose] 81 mg PO DAILY 03/12/21 08/09/21 Capsaicin 0.025% Cream 1 applic TOPICAL TID PRN 03/12/21 08/09/21 Cholecalciferol (Vitamin D3) 125 mcg PO DAILY 03/12/21 08/09/21 [Vitamin D3 (125 MCG = 5,000 IU)] Losartan [Cozaar] 25 mg PO DAILY 03/12/21 08/09/21 calcitrioL [Rocaltrol] 0.25 mcg PO BID 03/12/21 08/09/21 Meloxicam 7.5 mg PO BID 06/12/21 08/09/21 Previous Rx's Medication Instructions Recorded Pantoprazole [Protonix] 40 mg PO AC-BRKFST #30 tab 03/17/21 Baclofen [Lioresal] 5 mg PO TID PRN #90 tab 03/18/21 Hydrocortisone [Cortef] 10 mg PO Q12H #60 tab 03/18/21 HYDROcodone/APAP 5-325MG [[place] 1 tab PO BID PRN 30 Days #60 tab 06/14/21 5-325] Pregabalin [Lyrica] 200 mg PO BID 30 Days #60 cap 06/14/21 HYDROcodone/APAP 5-325MG [[place] 1 tab PO 12 PRN 30 Days #60 tab 08/09/21 5-325] Allergies Allergy/AdvReac Type Severity Reaction Status Date / Time Iodinated Contrast Media Allergy Rash/Hives Verified 08/09/21 09:04 levothyroxine sodium Allergy Swelling Verified 08/09/21 09:04 [From Synthroid] venom-honey bee Allergy Anaphylaxis Verified 08/09/21 09:04 gabapentin AdvReac Severe states Verified 08/09/21 09:04 "HIGH" for 2 days. bupropion AdvReac stomache Verified 08/09/21 09:04 upset,tinnitus,dizziness Review of Systems ROS Statement: Those systems with pertinent positive or pertinent negative responses have been documented in the HPI. Review of Systems: CONST: Denies fever EYES: Denies blurry vision ENT: Denies nasal congestion C/V: Denies Chest pain RESP: Denies shortness of breath GI: Denies abdominal pain : Denies dysuria SKIN: Denies rash. MSK: Endorses chronic joint pain. NEURO: Denies headache ROS Other: All systems not noted in ROS Statement are negative. Past Medical History Past Medical History: Cancer, CVA/TIA, GERD/Reflux, Hypertension, Musculoskele rosmery Disorder, Osteoarthritis (OA), Thyroid Disorder Additional Past Medical History / Comment(s): Hx Covid 06/07/20. 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 History of Any Multi-Drug Resistant Organisms: None Reported Past Surgical History: Appendectomy, Back Surgery Additional Past Surgical History / Comment(s): Thyroidectomy-3 total surgeries, parathyroidectomy, vocal cord surgery X4 with removal of non cancerous mass, pain clinic procedures, low back discectomy L4-L5, colonoscopy. Past Anesthesia/Blood Transfusion Reactions: No Reported Reaction Past Psychological History: PTSD Smoking Status: Never smoker Past Alcohol Use History: None Reported Past Drug Use History: None Reported - Past Family History Father Family Medical History: Coronary Artery Disease (CAD), Hyperlipidemia Additional Family Medical History / Comment(s): Uncle-myocardial infarction in his 40s. Mother Family Medical History: No Reported History Additional Family Medical History / Comment(s): Mother is alive at age 77 with no major medical problems. Sister(s) Additional Family Medical History / Comment(s): Patient has 1 sister with no major medical problems. Patient is for children with no major medical problems. General Exam - General Exam Comments Initial Comments: General: Appears in no acute distress. HEAD: Normal with no signs of head trauma. EYES: PERRLA, EOMI, conjunctiva normal, no discharge. ENT: Hearing grossly intact, normal oropharynx. RESPIRATORY: Clear breath sounds bilaterally. No wheezes, rales, or rhonchi. C/V: Regular rate and rhythm. S1 and S2 auscultated, no edema, peripheral pulses 2+ and intact throughout ABD: Abd is soft, nontender, nondistended EXT: Normal range of motion, no obvious deformity SKIN: No rashes or lesions observed on exposed skin. NEURO: Alert and oriented 4. Limitations: no limitations Course Vital Signs 08/09/21 08/09/21 09:01 09:19 Temperature 97.7 F Pulse Rate 71 Pulse Rate [ 76 Sitting Pulse Oximetery] Respiratory 20 Rate Blood Pressure 186/111 O2 Sat by Pulse 99 Oximetry Medical Decision Making - Medical Decision Making Based on the patient's presentation and physical exam, patient had an isolated high blood pressure reading has not taken any of his pain medications today. He is also under stress as he is quite today. Hypertension may be polyfactorial. Not previously diagnosed with hypertension is not on any antihypertensive medications. We'll repeat his vital signs here, as he is otherwise asymptomatic except for his chronic pain. Blood pressure on repeat was under 180 systolic. I believe it is safe for him to be discharged home at this time with asymptomatic hypertension. He will be given pain medication at this time. I r ecommended he follow up with his PCP in the next few days to keep monitoring his blood pressure to see if he requires antihypertensives. He has no acute complaints at this time. No history of renal disease. No other changes. He was in agreement this plan. Screening EKG was obtained in triage and showed no signs of acute ischemia. I instructed the patient to follow up with their PCP in the next 3 days. I explained that the patient should return to the emergency department if they experience any worsening symptoms. Strict return precautions were discussed with the patient. The patient expressed understanding of these instructions. I answered all questions that the patient had. The patient was discharged home in good condition with their prescriptions and follow up information. - EKG Data -: EKG Interpreted by Me EKG Comments: 12-lead Electrocardiogram Interpretation Note EKG was reviewed and interpreted by myself. 12-lead ECG performed at 0908 is interpreted by me as revealing normal sinus rhythm at a rate of 60 beats per minute. [place] is normal. ID interval is 143 ms, QRS duration is 95 ms, QTc is 415 ms.. There were no ST or T wave abnormalities to suggest myocardial ischemia or injury. R wave progression across the precordium was satisfactory. By my interpretation this EKG is non-diagnostic for acute ischemia. Disposition Clinical Impression: Asymptomatic hypertension, Chronic pain Disposition: HOME SELF-CARE Condition: Good Instructions (If sedation given, give patient instructions): Hypertension (ED) Is patient prescribed a controlled substance at d/c from ED?: No Referrals: Golden Atkinson DO [Primary Care Provider] - 1-2 days Time of Disposition: 09:20
[2021-08-09 09:34] VITALS: BP 167/93; PULSE 62; RESP 18
== END 2021-08-09 09:32 | disposition home or self-care (01) ==
LOC: EC 08:58
DX: I10 Essential (primary) hypertension (principal); G89.4 Chronic pain syndrome; Z86.73 Personal history of transient ischemic attack (TIA), and cerebral infarction without residual deficits; M19.90 Unspecified osteoarthritis, unspecified site; G40.909 Epilepsy, unspecified, not intractable, without status epilepticus; Z79.82 Long term (current) use of aspirin; K21.9 Gastro-esophageal reflux disease without esophagitis; Z79.899 Other long term (current) drug therapy; Z88.8 Allergy status to other drugs, medicaments and biological substances; F43.10 Post-traumatic stress disorder, unspecified; Z91.041 Radiographic dye allergy status; Z91.030 Bee allergy status
CPT/HCPCS: 93005; 99283

== ENCOUNTER → 2021-08-09 | Outpatient (CLI) | payer OTHER ==
[2021-08-09 08:30] VITALS: BP 160/98; PULSE 80; RESP 18; TEMP 98.2
--- NOTE | 2021-08-09 08:39 | P.PN ---
Subjective Progress Note Date: 08/09/21 Principal diagnosis: A 56 yr old male with a history of severe and chronic low back pain secondary to lumbar degenerative disc diseases and lumbar spondylosis with facet arthropathy presents today for medication refills. Pt states he took [place] 5/325mg last night, Lyrica last night and baclofen last night, then states the medications were thrown away in the trash. He would like pain medication TODAY. I told patient that the pharmacy will not fill his prescription early but he may file a police report about the incident and see if that will help. Pain level is 9/10 in intensity, dull/ achy and constant in character originating from his lumbar spine and shooting down towards his LEs. Pain is provoked by weight bearing activities. Pain is alleviated with medications, topicals, injections in the past, alternating heat and ice, physical therapy in the past, home exercise regimen as tolerated, use of a knee support brace and wheelchair as needed, repositioning and rest. Interventional pain procedures completed include Patient is currently on [place] 5/325mg #60, Lyrica 200mg #90 Patient denies any side effects of the medication(s), denies excessive drowsiness or sleepiness, denies suicidal ideation and reports that the current pain medication is helping to control the pain and improve activities of daily living. Patient denies any motor or sensory deficits. Patient denies any fever or night sweats, denies any change in the bowel movements or urination. Physical Examination: -Constitutional: Cooperative. Not in acute distress . -HEENT: Neck is supple. No lymphadenopathy. No thyromegaly. Normal thyroid size. Eyes: No ptosis , no icterus, no photophobia. ENT: No auditory deficits. Normal oropharynx. No Thrush. - Respiratory: Chest clear to auscultations bilaterally. No wheezing. No rhonchi. - Cardiovascular: Regular rate and rhythm. S1 / S2 , no S3 , no S4. - Gastrointestinal: Abdomen soft no tenderness. Bowel sounds positive in all four quadrants. No organomegaly. - Genitourinary: Deferred. - Neurologic: Cranial nerve II to XII intact. No focal neurological deficits. - Psychatric: Alert & oriented x 3. Matching mood & appropriate affect. Judgment and insight intact. - Lymphatic: No Lymphadenopathy. - Musculoskeletal: Cervical spine: Muscle bulk/ tone/ strength in the bilateral upper extremities normal Vertebral body tenderness to palpation over Facet loading test positive Thoracic spine Muscle bulk / tone/ strength in the bilateral paraspinal muscles normal Vertebral body tender to palpation over Facet loading test positive Lumbar spine: Motor bulk/ tone/ strength lower extremities , thigh and legs : 5/5 Deep tendon reflexes : Normal Knee Jerk. Normal Ankle Jerk . Vertebral body tenderness to palpation over L4, L5 Lumbar Facet Loading Test positive Straight Leg Raise: positive at 30 degrees right side/ left side Gaenslen's Test positive Sacral spine : Severe tenderness over the Sacroiliac joint: right side / left side Range of motion: Flexion of the lumbar spine <60 degrees Range of motion: Extension of the lumbar spine <20 degrees Gaenslen's Test positive Herbert's Test positive Lawrence test: positive right side / left side Thigh Thrust Test Sacral Thrust Test Assessment and plan: Chronic low back pain secondary to lumbar degenerative disc disease , lumbar spondylosis with facet arthropathy without myelopathy Chronic and current use of high-risk medication (Opioids). The patient was counseled about risk of opioid use, psychological risk associated with opioids and was orally counseled to not overuse , divert or sell medications. Pt is to store medication in a safe location. The patient is counseled against driving while using narcotic medications and also not to use alcohol or any illicit recreational drugs. Patient verbalized understanding that the lack of compliance will result in failure to renew narcotic prescription(s) as well as possible discharge from the clinic Diagnoses, prognosis and treatment options including but not limited to physical therapy, surgical interventions, interventional therapies and medication management including narcotics and adjuvant medication were discussed. All patient questions answered MAPS reviewed and it was appropriate. UDS collected today 08/09/21. He stated he took his medications yesterday. If his drug screen is negative for medications prescribed, he will be stepped down or discharged from narcotic medications at this clinic. Prescription refill for [place] 5/325mg #60 w one refill. Per MAPS, he has not filled Lyrica since Nov 2020 I have spent 31 minutes on patient care today. Dr Livingston was available by phone for the evaluation of this patient. The time was used to review the medical records including relevant urine studies and Prescription history (MAPs), review of the available imaging, evaluation and examination of the patient, coordination of care with the medical staff and if applicable referring physicians, as well as creation of the medical record PQRS Measure Charge Sheet Mode of Arrival: Ambulatory PQRS Narrative: Smoking Status Never smoker Narcotic Agreement Date Signed 03/12/21 Blood Pressure 160/98 Pain Intensity [Neck] 9 Scale Used Numeric (1 - 10) Hx Alcohol Use (MH) No Home Medications: Ambulatory Orders Calcium Carbonate 500 mg PO BID-W/MEALS 06/08/20 Ketoconazole 2% Cream [Nizoral 2%] 1 applic TOPICAL BID PRN 06/08/20 Lidocaine 5% Oint [Xylocaine 5% Oint] 1 applic TOPICAL TID PRN 06/08/20 hydroCHLOROthiazide [Hydrodiuril] 25 mg PO DAILY 06/08/20 Levothyroxine Sodium [Tirosint] 200 mcg PO DAILY 01/16/21 Acetaminophen Tab [Tylenol] 1,000 mg PO Q6HR PRN 03/12/21 Aspirin EC [Ecotrin Low Dose] 81 mg PO DAILY 03/12/21 Capsaicin 0.025% Cream 1 applic TOPICAL TID PRN 03/12/21 Cholecalciferol (Vitamin D3) [Vitamin D3 (125 MCG = 5,000 IU)] 125 mcg PO DAILY 03/12/21 Losartan [Cozaar] 25 mg PO DAILY 03/12/21 calcitrioL [Rocaltrol] 0.25 mcg PO BID 03/12/21 Pantoprazole [Protonix] 40 mg PO AC-BRKFST #30 tab 03/17/21 Baclofen [Lioresal] 5 mg PO TID PRN #90 tab 03/18/21 Hydrocortisone [Cortef] 10 mg PO Q12H #60 tab 03/18/21 Meloxicam 7.5 mg PO BID 06/12/21 HYDROcodone/APAP 5-325MG [[place] 5-325] 1 tab PO 12 PRN 30 Days #60 tab 06/14/21 HYDROcodone/APAP 5-325MG [[place] 5-325] 1 tab PO BID PRN 30 Days #60 tab 06/14/21 Pregabalin [Lyrica] 200 mg PO BID 30 Days #60 cap 06/14/21
== END ==
LOC: PNWHC3 07:56
PROVIDERS: ATTEND Specialist
DX: M54.50 Low back pain, unspecified (principal); M51.36 Other intervertebral disc degeneration, lumbar region; M47.816 Spondylosis without myelopathy or radiculopathy, lumbar region; G89.29 Other chronic pain; Z79.891 Long term (current) use of opiate analgesic; Z51.81 Encounter for therapeutic drug level monitoring; Z91.041 Radiographic dye allergy status; Z88.8 Allergy status to other drugs, medicaments and biological substances; Z91.030 Bee allergy status
CPT/HCPCS: 80307; 99212; G0482

== ENCOUNTER 2021-09-17 09:46 | Emergency (ER) | payer OTHER ==
[2021-09-17 09:56] VITALS: BP 178/87; PULSE 77; RESP 20; TEMP 97.9
--- NOTE | 2021-09-17 11:21 | ED ---
Lower Extremity Injury HPI - General Chief Complaint: Extremity Injury, Lower Stated Complaint: Knee pain Time Seen by Provider: 09/17/21 10:22 Source: patient Mode of arrival: ambulatory Limitations: no limitations - History of Present Illness Initial Comments: Patient is a 56-year-old male with a past medical history of chronic bilateral knee pain who presents to the emergency department for evaluation of left knee pain. Patient states his knee started hurting more than usual for the past 2 days. Denies reinjury but does admit to living a active lifestyle as he is a [employer] for his occupation therefore is consistently on his feet. Patient states it hurts to bend the left knee. States he took Tylenol 3 with little relief. Patient follows with tire specialist Dr. Valle. Denies fever, chills, and other concerns. - Related Data Home Medications Medication Instructions Recorded Confirmed Calcium Carbonate 500 mg PO BID-W/MEALS 06/08/20 08/09/21 Ketoconazole 2% Cream [Nizoral 2%] 1 applic TOPICAL BID PRN 06/08/20 08/09/21 Lidocaine 5% Oint [Xylocaine 5% 1 applic TOPICAL TID PRN 06/08/20 08/09/21 Oint] hydroCHLOROthiazide [Hydrodiuril] 25 mg PO DAILY 06/08/20 08/09/21 Levothyroxine Sodium [Tirosint] 200 mcg PO DAILY 01/16/21 08/09/21 Acetaminophen Tab [Tylenol] 1,000 mg PO Q6HR PRN 03/12/21 08/09/21 Aspirin EC [Ecotrin Low Dose] 81 mg PO DAILY 03/12/21 08/09/21 Capsaicin 0.025% Cream 1 applic TOPICAL TID PRN 03/12/21 08/09/21 Cholecalciferol (Vitamin D3) 125 mcg PO DAILY 03/12/21 08/09/21 [Vitamin D3 (125 MCG = 5,000 IU)] Losartan [Cozaar] 25 mg PO DAILY 03/12/21 08/09/21 calcitrioL [Rocaltrol] 0.25 mcg PO BID 03/12/21 08/09/21 Meloxicam 7.5 mg PO BID 06/12/21 08/09/21 Previous Rx's Medication Instructions Recorded Pantoprazole [Protonix] 40 mg PO AC-BRKFST #30 tab 03/17/21 Baclofen [Lioresal] 5 mg PO TID PRN #90 tab 03/18/21 Hydrocortisone [Cortef] 10 mg PO Q12H #60 tab 03/18/21 HYDROcodone/APAP 5-325MG [Norman 1 tab PO BID PRN 30 Days #60 tab 06/14/21 5-325] Pregabalin [Lyrica] 200 mg PO BID 30 Days #60 cap 06/14/21 HYDROcodone/APAP 5-325MG [Norman 1 tab PO 12 PRN 30 Days #60 tab 08/09/21 5-325] HYDROcodone/APAP 10-325MG [Norman 1 tab PO Q4HR PRN 3 Days #18 tab 09/17/21 10-325] Allergies Allergy/AdvReac Type Severity Reaction Status Date / Time Iodinated Contrast Media Allergy Rash/Hives Verified 09/17/21 09:56 levothyroxine sodium Allergy Swelling Verified 09/17/21 09:56 [From Synthroid] venom-honey bee Allergy Anaphylaxis Verified 09/17/21 09:56 gabapentin AdvReac Severe states Verified 09/17/21 09:56 "HIGH" for 2 days. bupropion AdvReac stomache Verified 09/17/21 09:56 upset,tinnitus,dizziness Review of Systems ROS Statement: Those systems with pertinent positive or pertinent negative responses have been documented in the HPI. ROS Other: All systems not noted in ROS Statement are negative. Past Medical History Past Medical History: Cancer, CVA/TIA, GERD/Reflux, Hypertension, Musculoskeletal Disorder, Osteoarthritis (OA), Thyroid Disorder Additional Past Medical History / Comment(s): Hx Covid 06/07/20. 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 History of Any Multi-Drug Resistant Organisms: None Reported Past Surgical History: Appendectomy, Back Surgery Additional Past Surgical History / Comment(s): Thyroidectomy-3 total surgeries, parathyroidectomy, vocal cord surgery X4 with removal of non cancerous mass, pain clinic procedures, low back discectomy L4-L5, colonoscopy. Past Anesthesia/Blood Transfusion Reactions: No Reported Reaction Past Psychological History: PTSD Smoking Status: Never smoker Past Alcohol Use History: None Reported Past Drug Use History: None Reported - Past Family History Father Family Medical History: Coronary Artery Disease (CAD), Hyperlipidemia Additional Family Medical History / Comment(s): Uncle-myocardial infarction in his 40s. Mother Family Medical History: No Reported History Additional Family Medical History / Comment(s): Mother is alive at age 77 with no major medical problems. Sister(s) Additional Family Medical History / Comment(s): Patient has 1 sister with no major medical problems. Patient is for children with no major medical problems. General Exam Limitations: no limitations General appearance: alert, in no apparent distress Head exam: Present: atraumatic, normocephalic, normal inspection Eye exam: Present: normal appearance, PERRL, EOMI. Absent: scleral icterus, conjunctival injection, periorbital swelling Neck exam: Present: normal inspection Respiratory exam: Present: normal lung sounds bilaterally. Absent: respiratory distress, wheezes, rales, rhonchi, stridor Left Upper Leg exam: Present: normal inspection, full ROM. Absent: tenderness, swelling Knee exam: Present: full ROM, tenderness (anteriorly, no change in tenderness to palpation according to patient ), effusion (mild medially and laterally ). Absent: normal inspection, swelling, ecchymosis, deformity, crepitus, dislocation, erythema, pain w/ pronation/supination, posterior draw sign, pain/laxity with valgus, pain/laxity with varus Lower Leg exam: Present: normal inspection, full ROM. Absent: tenderness, swelling Course Vital Signs 09/17/21 09:54 Temperature 97.9 F Pulse Rate 77 Respiratory 20 Rate Blood Pressure 178/87 O2 Sat by Pulse 97 Oximetry Medical Decision Making - Medical Decision Making This is a 56-year-old male with a past medical history significant for chronic bilateral knee pain presenting with left knee pain. Thorough history and examination were performed. I did review patient's most recent imaging of the left knee which was MRI in August of 2019. This was significant for a low-grade MCL sprain, tears of both the medial and lateral meniscus, moderate knee joint effusion with mild chronic synovitis, and a leaking Moura's cyst. The left knee is normal in skin color without erythema. There is mild effusion medially and laterally. There is minimal warmth. Full range of motion. There is no pain with passive range of motion. Neurovascularly intact. No fever or chills. This does not appear to be a septic joint. Patient I discussed this case in detail. Imaging not warranted today. Patient will be discharged with symptomatic management and referral to Dr. Valle for further evaluation and management of his knee pain. Return parameters discussed. Patient verbalizes understanding and is agreeable to this plan. Dr. Hickey is my attending. Disposition Clinical Impression: Left anterior knee pain, Effusion, left knee Disposition: HOME SELF-CARE Condition: Good Instructions (If sedation given, give patient instructions): Knee Pain (ED) Additional Instructions: Please take medication as directed. Rest, ice, and elevate the left knee. Follow-up with Dr. Garcia as planned. Return to the emergency department if you experience new, concerning, or worsening symptoms. Prescriptions: HYDROcodone/APAP 10-325MG [Norman 10-325] 1 tab PO Q4HR PRN 3 Days #18 tab PRN Reason: Pain Is patient prescribed a controlled substance at d/c from ED?: Yes If prescribed controlled substance>3 days was MAPS reviewed?: Yes Referrals: Golden Atkinson DO [Primary Care Provider] - 1-2 days Cory Valle MD [STAFF PHYSICIAN] - 1-2 days Decision Time: 11:21
== END 2021-09-17 11:28 | disposition home or self-care (01) ==
LOC: EC 09:46
DX: M25.462 Effusion, left knee (principal); Z91.030 Bee allergy status; K21.9 Gastro-esophageal reflux disease without esophagitis; I10 Essential (primary) hypertension; Z86.73 Personal history of transient ischemic attack (TIA), and cerebral infarction without residual deficits; Z91.041 Radiographic dye allergy status; Z88.8 Allergy status to other drugs, medicaments and biological substances; Z88.9 Allergy status to unspecified drugs, medicaments and biological substances
CPT/HCPCS: 99283

== ENCOUNTER → 2021-09-27 | Outpatient (CLI) | payer OTHER ==
--- NOTE | 2021-09-27 15:07 | P.PAINPG ---
PQRS Measure Charge Sheet Comment: A 56 yr old male with a history of severe and chronic neck pain secondary to degenerative disc diseases and spondylosis with facet arthropathy presents today for medication refills and Cervical pain. Pain level is currently at 7/10 in intensity, constant, dull & achy in the mid aspects of his cervical spine without radiation of pain. Pain is provoked by inactivity. Pain is alleviated with medications (Ivanhoe, Lyrica), topicals, ice, heat, PT in 2019, home stretching regimen, repositioning and rest. Patient is currently on Ivanhoe 10/325mg from the ER 1 week ago, Lyrica from the [facility] (per pt, though [facility]S has not filled it since Nov 2020) Patient denies any side effects of the medication(s), denies excessive drowsiness or sleepiness, denies suicidal ideation and reports that the current pain medication is helping to control the pain and improve activities of daily living. Patient denies any motor or sensory deficits. Patient denies any fever or night sweats, denies any change in the bowel movements or urination. Physical Examination: -Constitutional: Cooperative. Not in acute distress . - Neurologic: Cranial nerve II to XII intact. No focal neurological deficits. - Psychatric: Alert & oriented x 3. Matching mood & appropriate affect. Judgment and insight intact. - Musculoskeletal: Cervical spine: Muscle bulk/ tone/ strength in the bilateral upper extremities normal Vertebral body tenderness to palpation over C4, C5 Spurling test positive Distraction test positive Facet loading test positive Thoracic spine Muscle bulk / tone/ strength in the bilateral paraspinal muscles normal Vertebral body tender to palpation over Facet loading test positive Lumbar spine: Motor bulk/ tone/ strength lower extremities , thigh and legs : 5/5 Deep tendon reflexes : Normal Knee Jerk. Normal Ankle Jerk . Vertebral body tenderness to palpation over Lumbar Facet Loading Test positive Straight Leg Raise: positive at 30 degrees right side/ left side Gaenslen's Test positive Sacral spine : Severe tenderness over the Sacroiliac joint: right side / left side Range of motion: Flexion of the lumbar spine <60 degrees Range of motion: Extension of the lumbar spine <20 degrees Gaenslen's Test positive Herbert's Test positive Lawrence test: positive right side / left side Thigh Thrust Test Sacral Thrust Test Assessment and plan: Chronic neck pain secondary to degenerative disc disease , spondylosis with facet arthropathy without myelopathy No longer filling narcotics as pt is in violation of Narcotics agreement. Pt has stated he is filling Lyrica routinely, though MAPS does not designate that. UDS is negative for Lyrica medication prescribed. Pt also was receiving Ivanhoe 5/325mg from this clinic and also filled Ivanhoe 10/325mg from the ER approx 10 days ago. Recommendation of x ray of cervical spine Re: M50.30 and PT of the cervical spine x 6 weeks. Dx M 50.30 Chronic and current use of high-risk medication (Opioids). The patient was counseled about risk of opioid use, psychological risk associated with opioids and was orally counseled to not overuse , divert or sell medications. Pt is to store medication in a safe location. The patient is counseled against driving while using narcotic medications and also not to use alcohol or any illicit recreational drugs. Patient verbalized understanding that the lack of compliance will result in failure to renew narcotic prescription(s) as well as possible discharge from the clinic Diagnoses, prognosis and treatment options including but not limited to physical therapy, surgical interventions, interventional therapies and medication management including narcotics and adjuvant medication were discussed. All patient questions answered MAPS reviewed and it was appropriate. I have spent less than 30 minutes on patient care today. Dr Livingston was av ailable by phone for the evaluation of this patient. The time was used to review the medical records including relevant urine studies and Prescription history (MAPs), review of the available imaging, evaluation and examination of the patient, coordination of care with the medical staff and if applicable referring physicians, as well as creation of the medical record PQRS Narrative: Smoking Status Never smoker Narcotic Agreement Date Signed 03/12/21 Hx Alcohol Use (MH) No Home Medications: Ambulatory Orders Calcium Carbonate 500 mg PO BID-W/MEALS 06/08/20 Ketoconazole 2% Cream [Nizoral 2%] 1 applic TOPICAL BID PRN 06/08/20 Lidocaine 5% Oint [Xylocaine 5% Oint] 1 applic TOPICAL TID PRN 06/08/20 hydroCHLOROthiazide [Hydrodiuril] 25 mg PO DAILY 06/08/20 Levothyroxine Sodium [Tirosint] 200 mcg PO DAILY 01/16/21 Acetaminophen Tab [Tylenol] 1,000 mg PO Q6HR PRN 03/12/21 Aspirin EC [Ecotrin Low Dose] 81 mg PO DAILY 03/12/21 Capsaicin 0.025% Cream 1 applic TOPICAL TID PRN 03/12/21 Cholecalciferol (Vitamin D3) [Vitamin D3 (125 MCG = 5,000 IU)] 125 mcg PO DAILY 03/12/21 Losartan [Cozaar] 25 mg PO DAILY 03/12/21 calcitrioL [Rocaltrol] 0.25 mcg PO BID 03/12/21 Pantoprazole [Protonix] 40 mg PO AC-BRKFST #30 tab 03/17/21 Baclofen [Lioresal] 5 mg PO TID PRN #90 tab 03/18/21 Hydrocortisone [Cortef] 10 mg PO Q12H #60 tab 03/18/21 Meloxicam 7.5 mg PO BID 06/12/21 HYDROcodone/APAP 5-325MG [Ivanhoe 5-325] 1 tab PO BID PRN 30 Days #60 tab 06/14/21 Pregabalin [Lyrica] 200 mg PO BID 30 Days #60 cap 06/14/21 HYDROcodone/APAP 5-325MG [Ivanhoe 5-325] 1 tab PO 12 PRN 30 Days #60 tab 08/09/21 HYDROcodone/APAP 10-325MG [Ivanhoe 10-325] 1 tab PO Q4HR PRN 3 Days #18 tab 09/17/21 Controlled Substance Measures - Controlled Substance Measures Is patient prescribed a controlled substance at discharge?: No
[2021-09-27 15:11] VITALS: BP 160/120; PULSE 81; RESP 16; TEMP 98.2
== END ==
LOC: PNWHC3 14:39
PROVIDERS: ATTEND Specialist
DX: M50.30 Other cervical disc degeneration, unspecified cervical region (principal); M47.812 Spondylosis without myelopathy or radiculopathy, cervical region; G89.29 Other chronic pain; Z79.891 Long term (current) use of opiate analgesic; Z91.041 Radiographic dye allergy status; Z91.030 Bee allergy status; Z88.8 Allergy status to other drugs, medicaments and biological substances
CPT/HCPCS: 99211

== ENCOUNTER → 2021-11-16 | Outpatient (CLI) | payer OTHER ==
--- NOTE | 2021-11-16 13:10 | MR ---
EXAMINATION TYPE: MR knee LT wo con DATE OF EXAM: 11/16/2021 COMPARISON: None available at this time. HISTORY: Knee pain TECHNIQUE: Multiplanar, multisequence imaging of the left knee is performed without IV contrast. FINDINGS: MEDIAL MENISCUS: Oblique tear involving the posterior horn and body of the posterior horn. Anterior h orn appears to be intact. LATERAL MENISCUS: Anterior and posterior horns are intact without tear. CRUCIATE LIGAMENTS: There is thickening and increased signal within the ACL compatible with strain an d partial tear. No evidence for full-thickness tear. The PCL is intact. COLLATERAL LIGAMENTS: The medial collateral ligament and lateral collateral ligament complex are inta ct and unremarkable. EXTENSOR MECHANISM: Visualized quadriceps and patellar tendons are intact. EFFUSION: Moderate complex suprapatellar joint effusion. POPLITEAL CYST: Complex popliteal cyst measuring 5.1 x 2.8 cm. TRICOMPARTMENT SPACES: Moderate narrowing patellofemoral joint space and medial tibiofemoral joint sp trena. CARTILAGE: Severe cartilaginous thinning with subchondral edema medial femoral condyle. BONE MARROW SIGNAL: No focal abnormal marrow signal is appreciated. OTHER: No additional significant abnormality is appreciated. IMPRESSION: 1. ACL strain with partial tear noted. 2. Oblique tear posterior horn and body medial meniscus. 3. Complex septated Moura's cyst #4 changes of osteoarthritis as noted.
== END | disposition home or self-care (01) ==
LOC: RADMRIMAIN 11:21
PROVIDERS: ATTEND Orthopaedic Surgery
DX: M17.12 Unilateral primary osteoarthritis, left knee (principal); M23.322 Other meniscus derangements, posterior horn of medial meniscus, left knee; S83.512A Sprain of anterior cruciate ligament of left knee, initial encounter; X58.XXXA Exposure to other specified factors, initial encounter

== ENCOUNTER 2021-11-17 01:24 | Emergency (ER) | payer OTHER ==
[2021-11-17] MEDS ORDERED: SODIUM CHLORIDE 0.9% 1,000 ML IV STA (01:43)
[2021-11-17] MEDS ORDERED: MORPHINE SULFATE 4 MG/ML SYRINGE IV STA (01:43)
[2021-11-17] MEDS ORDERED: ONDANSETRON 4 MG/2 ML VIAL IVP STA (01:43)
[2021-11-17 01:50] VITALS: RESP 16
--- NOTE | 2021-11-17 01:51 | ED ---
Abdominal Pain HPI - General Chief Complaint: Abdominal Pain Stated Complaint: Abdominal Pain Time Seen by Provider: 11/17/21 01:41 Source: EMS, RN notes reviewed, old records reviewed Mode of arrival: EMS Limitations: no limitations - History of Present Illness Initial Comments: This 56-year-old male presented today for evaluation of abdominal pain sig nificant abdominal pain with nausea no vomiting no travel history no sick contacts patient has been complaining of abdominal pain throughout the day. Patient has no recent travel history. No fevers. He does have a positive history of appendicitis with surgery. Complicated. Patient's current pain is right-sided severity with sudden onset MD Complaint: abdominal pain, flank pain (Right-sided) -: hour(s) Location: RLQ, suprapubic, R flank Radiation: R flank Migration to: suprapubic Severity: severe Severity scale (1-10): 8 Quality: aching, sharp Consistency: constant Improves With: nothing Worsens With: nothing Context: recent surgery/procedure (Patient has had appendicitis surgery nothing recent) Associated Symptoms: nausea Treatments Prior to Arrival: other (0) - Related Data Home Medications Medication Instructions Recorded Confirmed Calcium Carbonate 500 mg PO BID-W/MEALS 06/08/20 08/09/21 Ketoconazole 2% Cream [Nizoral 2%] 1 applic TOPICAL BID PRN 06/08/20 08/09/21 Lidocaine 5% Oint [Xylocaine 5% 1 applic TOPICAL TID PRN 06/08/20 08/09/21 Oint] hydroCHLOROthiazide [Hydrodiuril] 25 mg PO DAILY 06/08/20 08/09/21 Levothyroxine Sodium [Tirosint] 200 mcg PO DAILY 01/16/21 08/09/21 Acetaminophen Tab [Tylenol] 1,000 mg PO Q6HR PRN 03/12/21 08/09/21 Aspirin EC [Ecotrin Low Dose] 81 mg PO DAILY 03/12/21 08/09/21 Capsaicin 0.025% Cream 1 applic TOPICAL TID PRN 03/12/21 08/09/21 Cholecalciferol (Vitamin D3) 125 mcg PO DAILY 03/12/21 08/09/21 [Vitamin D3 (125 MCG = 5,000 IU)] Losartan [Cozaar] 25 mg PO DAILY 03/12/21 08/09/21 calcitrioL [Rocaltrol] 0.25 mcg PO BID 03/12/21 08/09/21 Meloxicam 7.5 mg PO BID 06/12/21 08/09/21 Previous Rx's Medication Instructions Recorded Pantoprazole [Protonix] 40 mg PO AC-BRKFST #30 tab 03/17/21 Baclofen [Lioresal] 5 mg PO TID PRN #90 tab 03/18/21 Hydrocortisone [Cortef] 10 mg PO Q12H #60 tab 03/18/21 HYDROcodone/APAP 5-325MG [Barnard 1 tab PO BID PRN 30 Days #60 tab 06/14/21 5-325] Pregabalin [Lyrica] 200 mg PO BID 30 Days #60 cap 06/14/21 HYDROcodone/APAP 5-325MG [Barnard 1 tab PO 12 PRN 30 Days #60 tab 08/09/21 5-325] HYDROcodone/APAP 10-325MG [Barnard 1 tab PO Q4HR PRN 3 Days #18 tab 09/17/21 10-325] Allergies Allergy/AdvReac Type Severity Reaction Status Date / Time Iodinated Contrast Media Allergy Rash/Hives Verified 11/17/21 01:50 levothyroxine sodium Allergy Swelling Verified 11/17/21 01:50 [From Synthroid] venom-honey bee Allergy Anaphylaxis Verified 11/17/21 01:50 gabapentin AdvReac Severe states Verified 11/17/21 01:50 "HIGH" for 2 days. bupropion AdvReac stomache Verified 11/17/21 01:50 upset,tinnitus,dizziness Review of Systems ROS Statement: Those systems with pertinent positive or pertinent negative responses have been documented in the HPI. ROS Other: All systems not noted in ROS Statement are negative. Past Medical History Past Medical History: Cancer, CVA/TIA, GERD/Reflux, Hypertension, Musculoskeletal Disorder, Osteoarthritis (OA), Thyroid Disorder Additional Past Medical History / Comment(s): Hx Covid 06/07/20. 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 History of Any Multi-Drug Resistant Organisms: None Reported Past Surgical History: Appendectomy, Back Surgery, Cholecystectomy Additional Past Surgical History / Comment(s): Thyroidectomy-3 total surgeries, parathyroidectomy, vocal cord surgery X4 with removal of non cancerous mass, pain clinic procedures, low back discectomy L4-L5, colonoscopy. Past Anesthesia/Blood Transfusion Reactions: No Reported Reaction Past Psychological History: PTSD Smoking Status: Never smoker - Past Family History Father Family Medical History: Coronary Artery Disease (CAD), Hyperlipidemia Additional Family Medical History / Comment(s): Uncle-myocardial infarction in his 40s. Mother Family Medical History: No Reported History Additional Family Medical History / Comment(s): Mother is alive at age 77 with no major medical problems. Sister(s) Additional Family Medical History / Comment(s): Patient has 1 sister with no m ajor medical problems. Patient is for children with no major medical problems. General Exam Limitations: no limitations General appearance: alert, in no apparent distress Head exam: Present: atraumatic, normocephalic, normal inspection Eye exam: Present: normal appearance, PERRL, EOMI. Absent: scleral icterus, conjunctival injection, periorbital swelling ENT exam: Present: normal exam, mucous membranes moist Neck exam: Present: normal inspection. Absent: tenderness, meningismus, lymphadenopathy Respiratory exam: Present: normal lung sounds bilaterally. Absent: respiratory distress, wheezes, rales, rhonchi, stridor Cardiovascular Exam: Present: regular rate, normal rhythm, normal heart sounds. Absent: systolic murmur, diastolic murmur, rubs, gallop, clicks GI/Abdominal exam: Present: soft, normal bowel sounds. Absent: distended, tenderness, guarding, rebound, rigid Extremities exam: Present: normal inspection, full ROM, normal capillary refill. Absent: tenderness, pedal edema, joint swelling, calf tenderness Back exam: Present: normal inspection Neurological exam: Present: alert, oriented X3, CN II-XII intact Psychiatric exam: Present: normal affect, normal mood Skin exam: Present: warm, dry, intact, normal color. Absent: rash Course Vital Signs 11/17/21 01:47 Temperature 99.4 F Pulse Rate 55 L Respiratory 16 Rate Blood Pressure 132/75 O2 Sat by Pulse 98 Oximetry - Reevaluation(s) Reevaluation #1: 11/17/21 02:07 Medical records reviewed Reevaluation #2: 11/17/21 03:39 Symptoms resolved here in the ER Reevaluation #3: 11/17/21 03:39 Patient informed results and questions answered Medical Decision Making - Medical Decision Making 56 male with history of appendicitis rupture and significant surgery comes in with right lower quadrant abdominal pain severe. Patient symptoms are resolved here in the ER computed tomography scan is normal lab values are normal and he can be discharged home - Lab Data Result diagrams: 11/17/21 01:55 11/17/21 01:55 Lab Results 11/17/21 11/17/21 11/17/21 Range/Units 01:55 01:55 01:55 WBC 7.2 (3.8-10.6) k/uL RBC 4.44 (4.30-5.90) m/uL Hgb 13.3 (13.0-17.5) gm/dL Hct 38.8 L (39.0-53.0) % MCV 87.4 (80.0-100.0) fL MCH 30.0 (25.0-35.0) pg MCHC 34.3 (31.0-37.0) g/dL RDW 12.6 (11.5-15.5) % Plt Count 267 (150-450) k/uL MPV 8.0 Neutrophils % 61 % Lymphocytes % 28 % Monocytes % 5 % Eosinophils % 2 % Basophils % 1 % Neutrophils # 4.4 (1.3-7.7) k/uL Lymphocytes # 2.0 (1.0-4.8) k/uL Monocytes # 0.4 (0-1.0) k/uL Eosinophils # 0.1 (0-0.7) k/uL Basophils # 0.0 (0-0.2) k/uL PT 10.2 (9.0-12.0) sec INR 0.9 (<1.2) APTT 22.6 (22.0-30.0) sec Sodium 141 (137-145) mmol/L Potassium 3.7 (3.5-5.1) mmol/L Chloride 105 (98-107) mmol/L Carbon Dioxide 24 (22-30) mmol/L Anion Gap 12 mmol/L BUN 28 H (9-20) mg/dL Creatinine 1.05 (0.66-1.25) mg/dL Est GFR (CKD-EPI)AfAm >90 (>60 ml/min/1.73 sqM) Est GFR (CKD-EPI)NonAf 80 (>60 ml/min/1.73 sqM) Glucose 86 (74-99) mg/dL Plasma Lactic Acid Vivek (0.7-2.0) mmol/L Calcium 8.0 L (8.4-10.2) mg/dL Total Bilirubin 0.4 (0.2-1.3) mg/dL AST 27 (17-59) U/L ALT 26 (4-49) U/L Alkaline Phosphatase 58 (38-126) U/L Total Protein 5.9 L (6.3-8.2) g/dL Albumin 3.9 (3.5-5.0) g/dL Amylase 54 (30-110) U/L Lipase 124 (23-300) U/L 11/17/21 Range/Units 01:55 WBC (3.8-10.6) k/uL RBC (4.30-5.90) m/uL Hgb (13.0-17.5) gm/dL Hct (39.0-53.0) % MCV (80.0-100.0) fL MCH (25.0-35.0) pg MCHC (31.0-37.0) g/dL RDW (11.5-15.5) % Plt Count (150-450) k/uL MPV Neutrophils % % Lymphocytes % % Monocytes % % Eosinophils % % Basophils % % Neutrophils # (1.3-7.7) k/uL Lymphocytes # (1.0-4.8) k/uL Monocytes # (0-1.0) k/uL Eosinophils # (0-0.7) k/uL Basophils # (0-0.2) k/uL PT (9.0-12.0) sec INR (<1.2) APTT (22.0-30.0) sec Sodium (137-145) mmol/L Potassium (3.5-5.1) mmol/L Chloride (98-107) mmol/L Carbon Dioxide (22-30) mmol/L Anion Gap mmol/L BUN (9-20) mg/dL Creatinine (0.66-1.25) mg/dL Est GFR (CKD-EPI)AfAm (>60 ml/min/1.73 sqM) Est GFR (CKD-EPI)NonAf (>60 ml/min/1.73 sqM) Glucose (74-99) mg/dL Plasma Lactic Acid Vivek 1.7 (0.7-2.0) mmol/L Calcium (8.4-10.2) mg/dL Total Bilirubin (0.2-1.3) mg/dL AST (17-59) U/L ALT (4-49) U/L Alkaline Phosphatase (38-126) U/L Total Protein (6.3-8.2) g/dL Albumin (3.5-5.0) g/dL Amylase (30-110) U/L Lipase (23-300) U/L - Radiology Data Radiology results: report reviewed (CT of the abdomen and pelvis is negative for acute disease), image reviewed Disposition Clinical Impression: Abdominal pain Disposition: HOME SELF-CARE Condition: Good Instructions (If sedation given, give patient instructions): Abdominal Pain (ED) Is patient prescribed a controlled substance at d/c from ED?: No Referrals: [facility],Clinic [Primary Care Provider] - 1-2 days Time of Disposition: 03:45
[2021-11-17 02:17] LABS: ALT 26 U/L (4-49); AST 27 U/L (17-59); African American GFR (CKD) >90 (>60 ml/min/1.73 sqM); Albumin 3.9 g/dL (3.5-5.0); Alkaline Phosphatase 58 U/L (38-126); Amylase 54 U/L (30-110); Anion Gap 12 mmol/L; Blood Urea Nitrogen 28 mg/dL (9-20); Carbon Dioxide 24 mmol/L (22-30); Chloride 105 mmol/L (98-107); Glucose 86 mg/dL (74-99); INR 0.9 (<1.2); Lipase 124 U/L (23-300); Non-African American GFR(CKD) 80 (>60 ml/min/1.73 sqM); Partial Thromboplastin Time 22.6 sec (22.0-30.0); Potassium 3.7 mmol/L (3.5-5.1); Prothrombin Time 10.2 sec (9.0-12.0); Sodium 141 mmol/L (137-145); Total Bilirubin 0.4 mg/dL (0.2-1.3); Total Protein 5.9 g/dL (6.3-8.2)
--- NOTE | 2021-11-17 02:24 | CT ---
EXAMINATION TYPE: CT abdomen pelvis wo con DATE OF EXAM: 11/17/2021 COMPARISON: 03/12/2021 HISTORY: Right sided abd pain x 1 day. Cholecystectomy, Appendectomy. Prior on synapse. CT DLP: 618 mGycm Automated exposure control for dose reduction was used. Images obtained with no contrast from the diaphragm to the floor the pelvis. The lung bases are clear. No pleural effusion. Heart size is normal. No pericardial effusion. Liver a nd spleen are intact. The bile duct are not dilated. Gallbladder appears normal. There is no pancreat ic mass. Stomach is large. There is no adrenal mass. Kidneys have normal size. There are multiple bilateral renal calculi up to 7 mm. There is some fullness of the right renal pelvis and right ureter. There is mild right-sided pr oximal periureteral edema. There is 3 mm obstructing calculus in the mid right ureter. There is 2.5 c m cortical cyst medial right kidney. No evidence of solid renal mass. No retroperitoneal adenopathy. There are multiple surgical clips at the right colon. This could be partial right hemicolectomy. There is no mesenteric edema. No ascites or free air. No sign of a bowel obstruction. Bladder distend s smoothly. No inguinal hernia. No pelvic mass. No free fluid in the pelvis. The lumbar vertebrae have normal alignment. There is degenerative disc space narrowing throughout the lumbar spine and more severe at L3-4 and L4-5. No compression fracture. There is apparent laminectom y of L4. Sacroiliac joints are intact. The bony pelvis is intact. The hip joints are intact. IMPRESSION: Obstructing calculus in the mid right ureter with right-sided hydronephrosis and hydroureter. Multipl e bilateral renal calculi. Previous right colon surgery. Renal obstruction appears new compared to old exam. Renal calculi are i ncreased compared to old exam.
[2021-11-17 02:46] LABS: Basophils % (A) 1 %; Eosinophils # (A) 0.1 k/uL (0-0.7); Eosinophils % (A) 2 %; HCT 38.8 % (39.0-53.0); HGB 13.3 gm/dL (13.0-17.5); Lymphocytes % (A) 28 %; MCHC 34.3 g/dL (31.0-37.0); MCV 87.4 fL (80.0-100.0); Monocytes # (A) 0.4 k/uL (0-1.0); Monocytes % (A) 5 %; Neutrophils # (A) 4.4 k/uL (1.3-7.7); Neutrophils % (A) 61 %; Platelet Count 267 k/uL (150-450); RBC 4.44 m/uL (4.30-5.90); RDW 12.6 % (11.5-15.5); WBC 7.2 k/uL (3.8-10.6)
[2021-11-17] MEDS ORDERED: ACET/COD 300 MG/30 MG STARTER PACK 6 TAB BTL PO STA (03:40)
[2021-11-17] MEDS ORDERED: ONDANSETRON 4 MG ODT STARTER PACK 2 TAB BTL PO STA (03:40)
[2021-11-17 04:02] VITALS: BP 128/76; PULSE 58; TEMP 97.6
== END 2021-11-17 04:02 | disposition home or self-care (01) ==
LOC: EC 01:24
DX: R10.9 Unspecified abdominal pain (principal); K21.9 Gastro-esophageal reflux disease without esophagitis; Z79.83 Long term (current) use of bisphosphonates; I10 Essential (primary) hypertension; Z79.899 Other long term (current) drug therapy; Z91.041 Radiographic dye allergy status; Z88.8 Allergy status to other drugs, medicaments and biological substances; Z91.030 Bee allergy status
CPT/HCPCS: 36415; 80053; 82150; 83605; 83690; 85025; 85610; 85730; 74176; 99284; 96374; 96375; 96361; J2270; J2405; S0119

== ENCOUNTER → 2022-01-01 | Outpatient (CLI) | payer OTHER ==
[2022-01-01 23:41] LABS: Basophils # (A) 0.05 X 10*3/uL (0.00-0.10); Basophils % (A) 0.6 %; Eosinophils # (A) 0.01 X 10*3/uL (0.04-0.35); Eosinophils % (A) 0.1 %; HCT 44.8 % (39.6-50.0); HGB 15.3 g/dL (13.0-17.0); Immature Grans, Automated 0.5 %; Lymphocytes # (A) 1.65 X 10*3/uL (0.90-5.00); Lymphocytes % (A) 18.9 %; MCH 29.1 pg (27.0-32.0); MCHC 34.2 g/dL (32.0-37.0); MCV 85.2 fL (80.0-97.0); Mean Platelet Volume 10.3 fL (9.5-12.2); Monocytes # (A) 0.49 X 10*3/uL (0.20-1.00); Monocytes % (A) 5.6 %; NRBC Per 100 WBC 0 /100 WBCS (0.0-0.0); Neutrophils % (A) 74.3 %; Platelet Count 248 X 10*3/uL (140-440); RBC 5.26 X 10*6/uL (4.40-5.60); RDW 11.9 % (11.5-14.5); WBC 8.74 X 10*3/uL (4.50-10.00)
[2022-01-02 01:38] LABS: Anion Gap 13.3 mmol/L (10.00-18.00); Carbon Dioxide 26.9 mmol/L (20.0-27.5); Potassium 4.5 mmol/L (3.5-5.5)
== END | disposition home or self-care (01) ==
LOC: LABPAT 15:48
PROVIDERS: ATTEND Orthopaedic Surgery
DX: Z01.812 Encounter for preprocedural laboratory examination (principal); M23.92 Unspecified internal derangement of left knee
CPT/HCPCS: 80051; 85025; 93005

== ENCOUNTER 2022-01-04 07:46 | Day surgery (SDC) | payer OTHER ==
[2022-01-02 13:36] VITALS: BMI 27.1
--- NOTE | 2022-01-03 12:08 | P.HPOR ---
History of Present Illness H&P Date: 01/03/22 Chief Complaint: Left knee pain The patient is a 56-year-old male who presents with progressive left knee pain for the past year worsening recently. He's having medial pain along with swelling, locking, and giving way. He notes he's been limping. He tried medications in addition to injections with partial temporary relief. He notes daily pain that limits him. Review of Systems As per HPI Past Medical History Past Medical History: Cancer, CVA/TIA, GERD/Reflux, Hypertension, Musculoskeletal Disorder, Osteoarthritis (OA), Thyroid Disorder Additional Past Medical History / Comment(s): Hx Covid 06/07/20. 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 History of Any Multi-Drug Resistant Organisms: None Reported Past Surgical History: Appendectomy, Back Surgery, Cholecystectomy Additional Past Surgical History / Comment(s): Thyroidectomy-3 total surgeries, parathyroidectomy, vocal cord surgery X5-6 with removal of non cancerous mass, pain clinic procedures, low back discectomy L4-L5, colonoscopy. Past Anesthesia/Blood Transfusion Reactions: No Reported Reaction Past Psychological History: PTSD Additional Psychological History / Comment(s): . Smoking Status: Never smoker Past Alcohol Use History: None Reported, Rare Additional Past Alcohol Use History / Comment(s): . Past Drug Use History: None Reported - Past Family History Father Family Medical History: Coronary Artery Disease (CAD), Hyperlipidemia Additional Family Medical History / Comment(s): Uncle-myocardial infarction in his 40s. Mother Family Medical History: No Reported History Additional Family Medical History / Comment(s): . Sister(s) Additional Family Medical History / Comment(s): Patient has 1 sister with no major medical problems. Patient is for children with no major medical problems. Brother(s) Family Medical History: Diabetes Mellitus, Hypertension Medications and Allergies Home Medications Medication Instructions Recorded Confirmed Type Calcium Carbonate 500 mg PO QID 06/08/20 01/02/22 History Lidocaine 5% Oint [Xylocaine 5% 1 applic TOPICAL TID PRN 06/08/20 01/02/22 History Oint] hydroCHLOROthiazide [Hydrodiuril] 25 mg PO DAILY 06/08/20 08/09/21 History Levothyroxine Sodium [Tirosint] 200 mcg PO DAILY 01/16/21 01/02/22 History Aspirin EC [Ecotrin Low Dose] 81 mg PO DAILY 03/12/21 01/02/22 History Losartan [Cozaar] 25 mg PO DAILY 03/12/21 01/02/22 History calcitrioL [Rocaltrol] 0.25 mcg PO BID 03/12/21 01/02/22 History HYDROcodone/APAP 5-325MG [[place] 1 tab PO TID PRN 01/02/22 01/02/22 History 5-325] Magnesium (Unknown Dose) 1 dose PO DAILY 01/02/22 History Multivitamins, Thera [Multivitamin 1 tab PO DAILY 01/02/22 01/02/22 History (formulary)] Pregabalin [Lyrica] 400 mg PO DAILY 01/02/22 01/02/22 History Tamsulosin HCl [Flomax] 0.4 mg PO DAILY 01/02/22 01/02/22 History Vitamin E (Unknown Dose) 1 dose PO DAILY 01/02/22 History Allergies Allergy/AdvReac Type Severity Reaction Status Date / Time Iodinated Contrast Media Allergy Rash/Hives Verified 01/02/22 13:08 levothyroxine sodium Allergy Swelling, Verified 01/02/22 13:37 [From Synthroid] Neuropathy venom-honey bee Allergy Anaphylaxis Verified 01/02/22 13:08 gabapentin AdvReac Severe states Verified 01/02/22 13:08 "HIGH" for 2 days. bupropion AdvReac stomache Verified 01/02/22 13:08 upset,tinnitus,dizziness Physical Examination - Knee left Appearance: effusion Effusion grade: grade 3 Varus alignment in stance: 5 degrees Tenderness with palpation: medial, lateral Pain: with flexion Gait: limping ROM: extension: -10 degrees ROM: flexion: 100 degrees Crepitus with motion: Yes Strength: extension: 5/5 Strength: flexion: 5/5 Meniscal tests: medial meniscal tests: positive Results The patient is a well-developed well-nourished male approximate 6 foot tall, 202 pounds of mesomorphic habitus. HEENT exam is nonfocal, neck is supple. He has painless passive motion of his left hip. Straight leg raise is negative. His distal neurovascular appears intact in the left lower extremity. - Diagnostic results Knee MRI: image reviewed (Left knee MRI shows a posterior medial meniscal tear along with medial compartment degenerative changes.) Assessment and Plan Assessment: Left knee internal derangement/symptomatic medial meniscal tear Left knee medial compartment DJD Plan: I talked with the patient regarding his condition along with treatment options. At this point is having persistent pain and mechanical symptoms despite conservative measures. After thorough discussion he opted to proceed with surgery. We'll progress with arthroscopic evaluation with probable partial medial meniscectomy. We will likely perform that as an outpatient procedure. Risks and benefits were discussed at length in layman's terms. Time with Patient: Less than 30
[~2022-01-04 07:46] MED LIST changes: +DEXAMETHASONE SOD PHOSPHATE 4 MG/ML 1 ML VIAL IV ONE; -IV FLUID CONTINUATION 1,000 ML IV ONE; -LACTATED RINGERS 1,000 ML IV ONE; +LACTATED RINGERS 1,000 ML IV SCH; -LIDOCAINE 1% (10MG/ML) FOR IV START INTRADERMA ONE; +LIDOCAINE 1% (10MG/ML) FOR IV START INTRADERMA PRN; +MIDAZOLAM 2 MG/2 ML VIAL IV PRN; -MIDAZOLAM 2 MG/2 ML VIAL ONE; +ONDANSETRON 4 MG/2 ML VIAL IVP ONE; -ROPIVACAINE 5MG/ML 20ML VIAL ONE; -fentaNYL (PF) 50 MCG/ML 2 ML AMP ONE; -methylPREDNISolone ACETATE 40 MG/ML 1 ML VIAL ONE
[2022-01-04] MEDS ORDERED: MIDAZOLAM 2 MG/2 ML VIAL ONE (08:46)
[2022-01-04] MEDS ORDERED: fentaNYL (PF) 50 MCG/ML 2 ML AMP ONE (08:46)
[2022-01-04] MEDS ORDERED: SUCCINYLCHOLINE CHLORIDE 200 MG/10 ML VIAL IV ONE (08:46)
[2022-01-04] MEDS ORDERED: LIDOCAINE 2% INJ 20 MG/ML (2 ML VIAL) ONE (08:46)
[2022-01-04] MEDS ORDERED: PROPOFOL 10 MG/ML 20 ML VIAL IV ONE (08:46)
[2022-01-04] MEDS ORDERED: PHENYLEPHRINE-0.9% NACL SYG 1,000 MCG/10 ML SYRINGE ONE (08:46)
--- NOTE | 2022-01-04 09:38 | P.OP ---
Date of Procedure: 01/04/22 Preoperative Diagnosis: Left knee internal derangement Postoperative Diagnosis: Left knee posterior medial meniscal tear/posterior lateral meniscal tear/grade 4 chondral defect medial femoral condyle Procedure(s) Performed: Left knee arthroscopic partial medial meniscectomy/partial lateral meniscectomy/microfracture medial femoral condyle Anesthesia: NIK Surgeon: Cory Valle Estimated Blood Loss (ml): 10 Pathology: none sent Condition: stable Disposition: PACU Indications for Procedure: The patient's a 56-year-old male who presents with progressive left knee pain and mechanical symptoms despite conservative measures. A discussion of the risks and benefits of operative intervention versus continued conservative measures was made with patient. He opted to proceed with surgery. Operative risks to include infection, neurovascular injury, development of blood clots, possible incomplete resolution of symptoms, possible worsening symptoms and need for subsequent procedures was discussed. Informed consent was obtained. Operative Findings: As below Description of Procedure: The patient was brought to the operating room, and after induction of general anesthesia examined the left knee. Collaterals were stable, Kulwinder was negative, and posterior drawer was negative. The left lower extremity was prepped and draped in a normal fashion. A superior lateral portal was made through a 3 mm skin incision superior and lateral to the patella. This was used for outflow. A lateral portal was made through a 5 mm vertical skin incision lateral to the patella tendon above the joint line. Diagnostic arthroscopy was performed. On inspection of the medial compartment, a complex tear involving the posterior horn of the medial meniscus in the white-red junction was noted. This was debrided back to stable base with straight baskets and a motorized shaver. A large grade 4 chondral defect was noted involving the medial distal aspect medial femoral condyle. Microfracture was performed with a power pick b reaching the subchondral surface down to the bone marrow elements. On inspection of the notch, the anterior cruciate ligament appeared to be intact. On inspection of the lateral compartment, and oblique tear involving the posterior horn was noted in the white-white junction. This was debrided back to stable base with a motorized shaver. On inspection of the patellofemoral articulation, there was grade 2-3 chondral changes diffusely.. The gutters were clear debris. The knee was then thoroughly irrigated. The portals were closed with Steri-Strips. A sterile dressing was applied in addition to a compression stocking. The patient was awoken from general anesthesia and transferred to recovery room in good condition. Blood loss was estimated at 10 mL. No complications were incurred.
[2022-01-04 09:54] VITALS: TEMP 97.2
[2022-01-04] MEDS: HYDROmorphone 0.5 MG/0.5 ML SYRINGE IVP PRN ×4 (09:59→10:24)
[2022-01-04] MEDS ORDERED: KETOROLAC 15 MG/ML 1 ML VIAL IVP ONE (10:12)
[2022-01-04] MEDS: LACTATED RINGERS 1,000 ML IV ONE ×2 (10:20→11:12)
[2022-01-04] MEDS ORDERED: LACTATED RINGERS 1,000 ML IV ONE (10:20)
[2022-01-04] MEDS ORDERED: HYDROcodone/APAP 5-325MG 1 EACH TAB ONE (10:58)
[2022-01-04] MEDS ORDERED: HYDROcodone/APAP 5-325MG 1 EACH TAB PO ONE (11:01)
[2022-01-04 12:04] VITALS: BP 109/70; PULSE 70; RESP 16
== END 2022-01-04 12:35 | disposition home or self-care (01) ==
LOC: OR 07:46
PROVIDERS: ATTEND Orthopaedic Surgery
DX: S83.242A Other tear of medial meniscus, current injury, left knee, initial encounter (principal); S83.282A Other tear of lateral meniscus, current injury, left knee, initial encounter; K21.9 Gastro-esophageal reflux disease without esophagitis; I10 Essential (primary) hypertension; M19.90 Unspecified osteoarthritis, unspecified site; E07.9 Disorder of thyroid, unspecified; G43.909 Migraine, unspecified, not intractable, without status migrainosus; G89.29 Other chronic pain; Z90.49 Acquired absence of other specified parts of digestive tract; Z98.890 Other specified postprocedural states; Z90.89 Acquired absence of other organs; F43.10 Post-traumatic stress disorder, unspecified; Z83.438 Family history of other disorder of lipoprotein metabolism and other lipidemia; Z82.49 Family history of ischemic heart disease and other diseases of the circulatory system; Z79.899 Other long term (current) drug therapy; Z86.73 Personal history of transient ischemic attack (TIA), and cerebral infarction without residual deficits
CPT/HCPCS: 29880; 29879; J2250; J0330; J1100; J0690; J2405; J3010; J1885; J2370; J2704; J1170; J2001

== ENCOUNTER 2022-02-05 15:01 | Emergency (ER) | payer OTHER ==
[2022-02-05 15:44] VITALS: RESP 16; TEMP 98
--- NOTE | 2022-02-05 16:07 | XR ---
EXAMINATION TYPE: XR chest 2V DATE OF EXAM: 02/05/2022 COMPARISON: Chest x-ray March 12, 2021 HISTORY: Chest pain. TECHNIQUE: Frontal and lateral views of the chest are obtained. FINDINGS: There is no suspicious new focal air space opacity, pleural effusion, or pneumothorax seen . The cardiac silhouette size is stable and within normal limits. The osseous structures are intac t. IMPRESSION: No acute process. No significant change from prior.
[2022-02-05 16:52] LABS: Basophils # (A) 0.1 k/uL (0-0.2); Basophils % (A) 1 %; Eosinophils # (A) 0.1 k/uL (0-0.7); Eosinophils % (A) 1 %; HCT 42.2 % (39.0-53.0); HGB 14.6 gm/dL (13.0-17.5); Lymphocytes % (A) 21 %; MCH 29.8 pg (25.0-35.0); MCHC 34.7 g/dL (31.0-37.0); MCV 85.9 fL (80.0-100.0); Mean Platelet Volume 7.8; Monocytes # (A) 0.7 k/uL (0-1.0); Monocytes % (A) 7 %; Neutrophils # (A) 6.4 k/uL (1.3-7.7); Neutrophils % (A) 67 %; Platelet Count 266 k/uL (150-450); RBC 4.91 m/uL (4.30-5.90); RDW 12.1 % (11.5-15.5); WBC 9.6 k/uL (3.8-10.6)
[2022-02-05 17:05] LABS: ALT 34 U/L (4-49); AST 29 U/L (17-59); African American GFR (CKD) >90 (>60 ml/min/1.73 sqM); Albumin 4.5 g/dL (3.5-5.0); Alkaline Phosphatase 56 U/L (38-126); Anion Gap 8 mmol/L; Blood Urea Nitrogen 20 mg/dL (9-20); Calcium 8.5 mg/dL (8.4-10.2); Carbon Dioxide 27 mmol/L (22-30); Chloride 105 mmol/L (98-107); Glucose 94 mg/dL (74-99); Magnesium 1.8 mg/dL (1.6-2.3); Non-African American GFR(CKD) 80 (>60 ml/min/1.73 sqM); Potassium 4.3 mmol/L (3.5-5.1); Sodium 140 mmol/L (137-145); Total Bilirubin 0.7 mg/dL (0.2-1.3); Total Protein 6.6 g/dL (6.3-8.2)
--- NOTE | 2022-02-05 17:54 | US ---
EXAMINATION TYPE: US venous doppler duplex LE DATE OF EXAM: 02/05/2022 5:35 PM COMPARISON: NONE CLINICAL HISTORY: swelling to legs discoloration. swelling in bilateral legs SIDE PERFORMED: Bilateral TECHNIQUE: The lower extremity deep venous system is examined utilizing real time linear array sonog mamadou with graded compression, doppler sonography and color-flow sonography. VESSELS IMAGED: Common Femoral Vein Deep Femoral Vein Greater Saphenous Vein * Femoral Vein Popliteal Vein Small Saphenous Vein * Proximal Calf Veins (* superficial vessels) Right Leg: Negative for DVT. Moura's cyst seen measuring 5.2 x 4.0 x 2.9cm Left Leg: Negative for DVT. Moura's cyst measuring 4.6 x 3.4 x 2.4cm Grayscale, color doppler, spectral doppler imaging performed of the deep veins of the lower extremiti es. There is normal flow, compressibility, vascular waveforms. IMPRESSION: 1. No evidence of deep vein thrombosis of either lower extremity. 2. Bilateral popliteal fossa cyst.
--- NOTE | 2022-02-05 19:06 | ED ---
Extremity Problem HPI - General Chief complaint: Extremity Problem,Nontraumatic Stated complaint: Swelling in both legs,DVT Time Seen by Provider: 02/05/22 19:01 Source: patient, RN notes reviewed Mode of arrival: ambulatory Limitations: no limitations - History of Present Illness Initial comments: pleasant 56-year-old male presents to the emergency back complaining of right leg swelling. To a lesser extent, the left leg as well. Otoscopic knee lorie sneha of the left knee on January 04. No headache, no fever or chills, no changes in vision or hearing, no sore throat or difficulty with speech, no neck pain, no chest pain or shortness of breath, no abdominal pain, no nausea or vomiting, no changes in urination or bowel movements, no numbness or tingling, no skin rashes or lesions. Past medical, surgical, social, and family history reviewed. MD Complaint: extremity swelling - Related Data Home Medications Medication Instructions Recorded Confirmed Calcium Carbonate 500 mg PO QID 06/08/20 01/04/22 Lidocaine 5% Oint [Xylocaine 5% 1 applic TOPICAL TID PRN 06/08/20 01/04/22 Oint] hydroCHLOROthiazide [Hydrodiuril] 25 mg PO DAILY 06/08/20 01/04/22 Levothyroxine Sodium [Tirosint] 200 mcg PO DAILY 01/16/21 01/04/22 Aspirin EC [Ecotrin Low Dose] 81 mg PO DAILY 03/12/21 01/04/22 Losartan [Cozaar] 25 mg PO DAILY 03/12/21 01/04/22 calcitrioL [Rocaltrol] 0.25 mcg PO BID 03/12/21 01/04/22 HYDROcodone/APAP 5-325MG [[place] 1 tab PO TID PRN 01/02/22 01/04/22 5-325] Magnesium (Unknown Dose) 1 dose PO DAILY 01/02/22 01/04/22 Multivitamins, Thera [Multivitamin 1 tab PO DAILY 01/02/22 01/04/22 (formulary)] Pregabalin [Lyrica] 400 mg PO DAILY 01/02/22 01/04/22 Tamsulosin HCl [Flomax] 0.4 mg PO DAILY 01/02/22 01/04/22 Vitamin E (Unknown Dose) 1 dose PO DAILY 01/02/22 01/04/22 Previous Rx's Medication Instructions Recorded Naproxen [Naprosyn] 375 mg PO Q12HR PRN #12 tablet 02/05/22 Allergies Allergy/AdvReac Type Severity Reaction Status Date / Time Iodinated Contrast Media Allergy Rash/Hives Verified 01/02/22 13:08 levothyroxine sodium Allergy Swelling, Verified 01/02/22 13:37 [From Synthroid] Neuropathy venom-honey bee Allergy Anaphylaxis Verified 01/02/22 13:08 gabapentin AdvReac Severe states Verified 01/02/22 13:08 "HIGH" for 2 days. bupropion AdvReac stomache Verified 01/02/22 13:08 upset,tinnitus,dizziness Review of Systems ROS Statement: Those systems with pertinent positive or pertinent negative responses have been documented in the HPI. ROS Other: All systems not noted in ROS Statement are negative. Past Medical History Past Medical History: Cancer, CVA/TIA, GERD/Reflux, Hypertension, Musculoskeletal Disorder, Osteoarthritis (OA), Thyroid Disorder Additional Past Medical History / Comment(s): Hx Covid 06/07/20. 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 History of Any Multi-Drug Resistant Organisms: None Reported Past Surgical History: Appendectomy, Back Surgery, Cholecystectomy Additional Past Surgical History / Comment(s): Thyroidectomy-3 total surgeries, parathyroidectomy, vocal cord surgery X4 with removal of non cancerous mass, pain clinic procedures, low back discectomy L4-L5, colonoscopy. Past Anesthesia/Blood Transfusion Reactions: No Reported Reaction Past Psychological History: PTSD Past Alcohol Use History: None Reported - Past Family History Father Family Medical History: Coronary Artery Disease (CAD), Hyperlipidemia Additional Family Medical History / Comment(s): Uncle-myocardial infarction in his 40s. Mother Family Medical History: No Reported History Additional Family Medical History / Comment(s): . Sister(s) Additional Family Medical History / Comment(s): Patient has 1 sister with no major medical problems. Patient is for children with no major medical problems. Brother(s) Family Medical History: Diabetes Mellitus, Hypertension General Exam Limitations: no limitations General appearance: alert, in no apparent distress Head exam: Present: atraumatic, normocephalic, normal inspection Eye exam: Present: normal appearance, PERRL, EOMI. Absent: scleral icterus, conjunctival injection, periorbital swelling ENT exam: Present: normal exam, mucous membranes moist Neck exam: Present: normal inspection. Absent: tenderness, meningismus, lymphadenopathy Respiratory exam: Present: normal lung sounds bilaterally. Absent: respiratory distress, wheezes, rales, rhonchi, stridor Cardiovascular Exam: Present: regular rate, normal rhythm, normal heart sounds. Absent: systolic murmur, diastolic murmur, rubs, gallop, clicks GI/Abdominal exam: Present: soft, normal bowel sounds. Absent: distended, tenderness, guarding, rebound, rigid Extremities exam: Present: normal inspection, full ROM, normal capillary refill. Absent: tenderness, pedal edema, joint swelling, calf tenderness Back exam: Present: normal inspection Neurological exam: Present: alert, oriented X3, CN II-XII intact Psychiatric exam: Present: normal affect, normal mood Skin exam: Present: warm, dry, intact, normal color. Absent: rash Course Vital Signs 02/05/22 02/05/22 15:40 20:37 Temperature 98 F Pulse Rate 90 64 Respiratory 16 16 Rate Blood Pressure 155/99 146/90 O2 Sat by Pulse 97 97 Oximetry - Reevaluation(s) Reevaluation #1: 02/05/22 21:09 Medical record is reviewed Symptoms are improved here in the emergency department Patient is informed of results and questions answered Patient in no distress Medical Decision Making - Medical Decision Making Patient presented with nondescript bilateral lower extremity edema days. Does not appear to be consistent with arterial insufficiency. Patient has good neurovascular status. There is only scant edema noted to the bilateral ankle area. Differential diagnosis includes CHF, dependent edema, nephrogenic edema, after assessment, patient has no evidence of DVT. Since laboratory investigations are within normal limits. Awaiting urinalysis. Also possibility this could be medication related. Patient states that he is on prednisone daily, low-dose which she takes after having a reaction to Synthroid. 3 years. This is not listed in his current medication list. States that he had a recent reduction of the prednisone dosage. - Lab Data Result diagrams: 02/05/22 16:16 02/05/22 16:16 Lab Results 02/05/22 02/05/22 02/05/22 Range/Units 16:16 16:16 16:16 WBC 9.6 (3.8-10.6) k/uL RBC 4.91 (4.30-5.90) m/uL Hgb 14.6 (13.0-17.5) gm/dL Hct 42.2 (39.0-53.0) % MCV 85.9 (80.0-100.0) fL MCH 29.8 (25.0-35.0) pg MCHC 34.7 (31.0-37.0) g/dL RDW 12.1 (11.5-15.5) % Plt Count 266 (150-450) k/uL MPV 7.8 Neutrophils % 67 % Lymphocytes % 21 % Monocytes % 7 % Eosinophils % 1 % Basophils % 1 % Neutrophils # 6.4 (1.3-7.7) k/uL Lymphocytes # 2.0 (1.0-4.8) k/uL Monocytes # 0.7 (0-1.0) k/uL Eosinophils # 0.1 (0-0.7) k/uL Basophils # 0.1 (0-0.2) k/uL Sodium 140 (137-145) mmol/L Potassium 4.3 (3.5-5.1) mmol/L Chloride 105 (98-107) mmol/L Carbon Dioxide 27 (22-30) mmol/L Anion Gap 8 mmol/L BUN 20 (9-20) mg/dL Creatinine 1.05 (0.66-1.25) mg/dL Est GFR (CKD-EPI)AfAm >90 (>60 ml/min/1.73 sqM) Est GFR (CKD-EPI)NonAf 80 (>60 ml/min/1.73 sqM) Glucose 94 (74-99) mg/dL Calcium 8.5 (8.4-10.2) mg/dL Magnesium 1.8 (1.6-2.3) mg/dL Total Bilirubin 0.7 (0.2-1.3) mg/dL AST 29 (17-59) U/L ALT 34 (4-49) U/L Alkaline Phosphatase 56 (38-126) U/L Troponin I <0.012 (0.000-0.034) ng/mL NT-Pro-B Natriuret Pep pg/mL Total Protein 6.6 (6.3-8.2) g/dL Albumin 4.5 (3.5-5.0) g/dL Urine Color Urine Appearance (Clear) Urine pH (5.0-8.0) Ur Specific Rolfe (1.001-1.035) Urine Protein (Negative) Urine Glucose (UA) (Negative) Urine Ketones (Negative) Urine Blood (Negative) Urine Nitrite (Negative) Urine Bilirubin (Negative) Urine Urobilinogen (<2.0) mg/dL Ur Leukocyte Esterase (Negative) 02/05/22 02/05/22 Range/Units 16:16 19:38 WBC (3.8-10.6) k/uL RBC (4.30-5.90) m/uL Hgb (13.0-17.5) gm/dL Hct (39.0-53.0) % MCV (80.0-100.0) fL MCH (25.0-35.0) pg MCHC (31.0-37.0) g/dL RDW (11.5-15.5) % Plt Count (150-450) k/uL MPV Neutrophils % % Lymphocytes % % Monocytes % % Eosinophils % % Basophils % % Neutrophils # (1.3-7.7) k/uL Lymphocytes # (1.0-4.8) k/uL Monocytes # (0-1.0) k/uL Eosinophils # (0-0.7) k/uL Basophils # (0-0.2) k/uL Sodium (137-145) mmol/L Potassium (3.5-5.1) mmol/L Chloride (98-107) mmol/L Carbon Dioxide (22-30) mmol/L Anion Gap mmol/L BUN (9-20) mg/dL Creatinine (0.66-1.25) mg/dL Est GFR (CKD-EPI)AfAm (>60 ml/min/1.73 sqM) Est GFR (CKD-EPI)NonAf (>60 ml/min/1.73 sqM) Glucose (74-99) mg/dL Calcium (8.4-10.2) mg/dL Magnesium (1.6-2.3) mg/dL Total Bilirubin (0.2-1.3) mg/dL AST (17-59) U/L ALT (4-49) U/L Alkaline Phosphatase (38-126) U/L Troponin I (0.000-0.034) ng/mL NT-Pro-B Natriuret Pep 51 pg/mL Total Protein (6.3-8.2) g/dL Albumin (3.5-5.0) g/dL Urine Color Light Yellow Urine Appearance Clear (Clear) Urine pH 6.5 (5.0-8.0) Ur Specific Rolfe 1.017 (1.001-1.035) Urine Protein Negative (Negative) Urine Glucose (UA) Negative (Negative) Urine Ketones Negative (Negative) Urine Blood Negative (Negative) Urine Nitrite Negative (Negative) Urine Bilirubin Negative (Negative) Urine Urobilinogen <2.0 (<2.0) mg/dL Ur Leukocyte Esterase Negative (Negative) - EKG Data -: EKG Interpreted by Me EKG shows normal: sinus rhythm, intervals (nl), QRS complexes (nl), ST-T waves (nl) Rate: normal (73) - Radiology Data Radiology results: report reviewed ( Bilateral lower extremity venous Doppler interpreted by me reveals no evidence of acute pathology. Chest x-ray inte rpreted by me reveals no evidence of acute pathology. Concur with radiology interpretation), image reviewed Disposition Clinical Impression: Peripheral edema Narrative: Chronic bilateral popliteal cysts Disposition: HOME SELF-CARE Condition: Stable Instructions (If sedation given, give patient instructions): Edema (ED) Additional Instructions: Follow-up with your regular physician as directed. Return to the ER immediately if any symptoms worsen, new symptoms arise, or any other problems develop. Elevate your feet as much as possible. Prescriptions: Naproxen [Naprosyn] 375 mg PO Q12HR PRN #12 tablet PRN Reason: Pain Is patient prescribed a controlled substance at d/c from ED?: No Referrals: [facility],Clinic [REFERRING] - 1-2 days Time of Disposition: 21:05
[2022-02-05 20:40] VITALS: BP 146/90; PULSE 64
[2022-02-05] MEDS ORDERED: KETOROLAC 15 MG/ML 1 ML VIAL IM STA (20:42)
[2022-02-05 20:58] LABS: Appearance,Urine Clear (Clear); Bilirubin,Urine Negative (Negative); Blood,Urine Negative (Negative); Color,Urine Light Yellow; Glucose,Urine (UA) Negative (Negative); Ketones,Urine Negative (Negative); Leukocyte Esterase,Urine Negative (Negative); Nitrite,Urine Negative (Negative); PH, Urine 6.5 (5.0-8.0); Protein,Urine Negative (Negative); Specific Gravity,Urine 1.017 (1.001-1.035); Urobilinogen,Urine <2.0 mg/dL (<2.0)
== END 2022-02-05 21:31 | disposition home or self-care (01) ==
LOC: EC 15:01
DX: M71.21 Synovial cyst of popliteal space [Baker], right knee (principal); G45.9 Transient cerebral ischemic attack, unspecified; I10 Essential (primary) hypertension; E07.9 Disorder of thyroid, unspecified; M19.90 Unspecified osteoarthritis, unspecified site; Z79.890 Hormone replacement therapy; Z79.84 Long term (current) use of oral hypoglycemic drugs; Z79.82 Long term (current) use of aspirin; Z91.041 Radiographic dye allergy status; Z88.8 Allergy status to other drugs, medicaments and biological substances; Z88.9 Allergy status to unspecified drugs, medicaments and biological substances; Z91.030 Bee allergy status; Z86.16 Personal history of COVID-19; Z90.49 Acquired absence of other specified parts of digestive tract
CPT/HCPCS: 99284; 96372; 93005; 83880; 80053; 83735; 84484; 85025; 71046; 93970; J1885

== ENCOUNTER → 2022-08-21 | Outpatient (CLI) | payer OTHER ==
--- NOTE | 2022-08-23 23:46 | MR ---
EXAMINATION TYPE: MR knee RT wo con DATE OF EXAM: 08/21/2022 COMPARISON: NONE HISTORY: ARJUN KNEE PAIN with clicking and swelling for 2 years. TECHNIQUE: Multiplanar, multisequence images of the knee is performed without IV contrast. FINDINGS: MEDIAL MENISCUS: Horizontal increased signal does not definitively extend to articular surface. LATERAL MENISCUS: Marked abnormal labrum meniscus with remnant posterior horn having increased signal and tiny fragment from the anterior horn. Large displaced central fragment noted. CRUCIATE LIGAMENTS: The anterior and posterior cruciate ligaments are intact and unremarkable. COLLATERAL LIGAMENTS: The medial collateral ligament and lateral collateral ligament complex are inta ct. Medial bowing of the medial collateral ligament.. EXTENSOR MECHANISM: Visualized quadriceps and patellar tendons are intact. EFFUSION: Moderate size suprapatellar joint effusion. POPLITEAL CYST: Moderate size popliteal/krishnamurthy cyst measuring 6.3 cm long axis sagittal image 12. TRICOMPARTMENT SPACES: Moderate tricompartment joint space loss and spurring. CARTILAGE: Full-thickness cartilaginous loss lateral tibiofemoral compartment. BONE MARROW SIGNAL: Areas of diminished T1 and increased T2 signal lateral tibial femoral compartment noted. OTHER: No additional significant abnormality is appreciated. IMPRESSION: 1. Surgically absent or large displaced tear of the lateral meniscus. If history of prior surgery or a Partial meniscectomy then there is noted full-thickness tear through the posterior horn of the late ral meniscus. 2. Moderate to severe tricompartment degenerative changes greatest lateral tibiofemoral compartment a s detailed above. 3. Moderate-sized suprapatellar joint effusion. 4. Moderate-sized popliteal cyst. 5. At least intrasubstance tear posterior horn medial meniscus.
--- NOTE | 2022-08-25 19:47 | MR ---
EXAMINATION TYPE: MR knee LT wo con DATE OF EXAM: 08/21/2022 COMPARISON: 11/16/2021 HISTORY: 57-year-old male M25.561 ARJUN KNEE PAIN TECHNIQUE: Multiplanar, multisequence imaging of the left knee is performed without IV contrast. FINDINGS: Marked thickening and inhomogeneous signal along the intact ACL fibers suggesting extensive mucoid de generation. Interval development of 1.9 cm ganglion cyst posterior to the proximal fibers. The PCL and MCL are intact. Some heterogeneous signal proximal LCL proper suggesting old sprain. Ther e is heterogeneous signal of the popliteus tendon. Otherwise, LCL complex appears intact. There is mild extrusion of the body of the medial meniscus. Severe complex multidirectional tear of t he body extending into the posterior horn. Miniscule fibers seem to remain intact at the posterior ro ot. Overall progression in extensive complex tearing of the medial meniscus. Progression in severe cartilage loss throughout the mid aspect of the medial compartment. Progression in degenerative subchondral marrow signal changes. Mild superficial cartilage irregularity throughout the lateral compartment with marginal spurring. In terval development of a deep cartilage fissure measuring 3 mm wide and 1.6 cm AP along the mid to pos terior weightbearing aspect of the lateral femoral condyle. Large oblique tear redemonstrated anterior horn of the lateral meniscus. Inner margin radial tear magdy r the posterior root of the lateral meniscus which is new. Mild diffuse thinning of articular cartilage within the patellofemoral compartment with moderate cart ilage fissuring in the mid central patella. Findings slightly progressed from prior exam. Extensor mechanism is intact but with heterogeneous thickening of the quadriceps insertion and also d eep fibers of the patellar tendon origin. Some prominent edema/trace fluid distention of the prepatellar bursa. Moderate joint effusion with moderate chronic synovitis. Ongoing leakage of the moderate size multilocular Moura's cyst measuring 6.4 x 2.3 cm. Normal popliteal artery anatomy and muscle bulk. No suspicious bone marrow replacement. IMPRESSION: 1. Progressive, now severe medial compartmental OA. Further progression in complex, multidirectional tears throughout the medial meniscus. Partial extrusion of the body with only miniscule posterior colton t fibers remaining intact. 2. New inner margin radial tear near the posterior root of the lateral meniscus. Redemonstrated large oblique tear of the anterior horn. Development of a new deep cartilage fissure measuring 3 mm wide a nd 1.6 cm AP along the mid to posterior weightbearing aspect of the lateral femoral condyle. 3. Mild patellofemoral compartmental OA slightly progressed. 4. Extensive mucoid degeneration of the ACL redemonstrated. Development of a 1.9 cm ganglion cyst pos terior to the proximal fibers. 5. Moderate joint effusion with moderate chronic synovitis and ongoing leakage of a moderate-sized Ba ker's cyst. Trace prepatellar bursal effusion. 6. Mild quadriceps insertional tendinosis and mild proximal patellar tendinosis.
== END | disposition home or self-care (01) ==
LOC: RADMRIMAIN 09:19
PROVIDERS: ATTEND Orthopaedic Surgery Sports Medicine
DX: M17.0 Bilateral primary osteoarthritis of knee (principal); S83.241A Other tear of medial meniscus, current injury, right knee, initial encounter; S83.282A Other tear of lateral meniscus, current injury, left knee, initial encounter; M71.22 Synovial cyst of popliteal space [Baker], left knee; M71.21 Synovial cyst of popliteal space [Baker], right knee; M25.462 Effusion, left knee; M25.461 Effusion, right knee; M67.462 Ganglion, left knee; M65.88 Other synovitis and tenosynovitis, other site; X58.XXXA Exposure to other specified factors, initial encounter

== ENCOUNTER 2022-09-18 06:15 | Day surgery (SDC) | payer OTHER ==
[2022-09-16 13:25] VITALS: BMI 27.1
--- NOTE | 2022-09-17 17:23 | P.HPOR ---
History of Present Illness H&P Date: 09/17/22 Subjective: This is a 57 year old male that presents today for follow up evaluation regarding several year history of intermittent pain along the radial aspect of his left wrist. He has seen Dr. Garcia in the past, most recently around two years ago, who performed radioscaphoid steroid injections which provided some relief. Today he complains of pain mainly with any type of lifting or radial deviation of the wrist. He complains of pain that starts at the base of the thumb and extends up to the forearm. He denies any injury or inciting event and has no other areas of complaints at this time. He had a first dorsal compartment steroid injection back in 04/08/22 with good relief but his symptoms have returned. Physical Examination: LUE: AIN/PIN/Radial/Ulnar/Median motor intact. Radial/Ulnar/Median SILT. 2+/4 Radial/Ulnar pulses palpated. 5/5 APB, 5/5 FDI. Positive Finkelsteins, negative CMC grind, negative Durkan's compression. Wrist F/E 85/60. Minimally tender to palpation at radiocarpal joint, negative scaphoid shift. Imaging: X-Rays of the left wrist 3V reviewed from prior visit demonstrate mild/moderate radioscaphoid arthritis. Advanced DJD at small finger PIP joint. Impression: 1.)Left DeQuervains tenosynovitis Plan: Diagnosis and treatment options were discussed with the patient. He would like to pursue left wrist first dorsal compartment release since he has failed conservative treatment. Risks and benefits of surgery including bleeding, infection, damage to surrounding tissue, need for further surgery, residual numbness were discussed and the patient wished to go forward with surgery. The patient was agreeable with this plan. 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 History of Any Multi-Drug Resistant Organisms: None Reported Past Surgical History: Appendectomy, Back Surgery, Cholecystectomy Additional Past Surgical History / Comment(s): Thyroidectomy-3 total surgeries, parathyroidectomy, vocal cord surgery X4 with removal of non cancerous mass, pain clinic procedures, low back discectomy L4-L5, colonoscopy. 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 Past Drug Use History: None Reported - Past Family History Father Family Medical History: Coronary Artery Disease (CAD), Hyperlipidemia Additional Family Medical History / Comment(s): Uncle-myocardial infarction in his 40s. Mother Family Medical History: No Reported History Additional Family Medical History / Comment(s): . Sister(s) Additional Family Medical History / Comment(s): Patient has 1 sister with no major medical problems. Patient is for children with no major medical problems. Brother(s) Family Medical History: Diabetes Mellitus, Hypertension Medications and Allergies Home Medications Medication Instructions Recorded Confirmed Type Levothyroxine Sodium [Tirosint] 200 mcg PO DAILY 01/16/21 09/16/22 History Losartan [Cozaar] 25 mg PO DAILY 03/12/21 09/16/22 History Multivitamins, Thera [Multivitamin 1 tab PO DAILY 01/02/22 09/16/22 History (formulary)] Cholecalciferol [Vitamin D3 (25 25 mcg PO DAILY 09/16/22 09/16/22 History Mcg = 1000 Iu)] HYDROcodone/APAP 10-325MG [[place] 1 tab PO Q6HR PRN 09/16/22 09/16/22 History 10-325] Vitamin B Complex 1 each PO DAILY 09/16/22 09/16/22 History predniSONE 7.5 mg PO DAILY 09/16/22 09/16/22 History Allergies Allergy/AdvReac Type Severity Reaction Status Date / Time Iodinated Contrast Media Allergy Rash/Hives Verified 01/02/22 13:08 levothyroxine sodium Allergy Swelling, Verified 01/02/22 13:37 [From Synthroid] Neuropathy venom-honey bee Allergy Swelling Verified 09/16/22 13:04 gabapentin AdvReac Severe states Verified 01/02/22 13:08 "HIGH" for 2 days. bupropion AdvReac stomache Verified 01/02/22 13:08 upset,tinnitus,dizziness Physical Examination Osteopathic Statement: *. No significant issues noted on an osteopathic structural exam other than those noted in the History and Physical/Consult.
[~2022-09-18 06:15] MED LIST changes: +Pre Op ABX Message 1 EACH MISC MISCELLANE ONE
[2022-09-18 06:50] VITALS: RESP 16; TEMP 97.2
[2022-09-18] MEDS ORDERED: HYDROCORTISONE SUCCINATE 100 MG/2 ML VIAL IVP ONE (06:59)
[2022-09-18] MEDS ORDERED: HYDROmorphone 0.5 MG/0.5 ML SYRINGE IVP PRN (07:00)
[2022-09-18] MEDS ORDERED: BUPIVACAINE (PF) 0.5% 30 ML VIAL SQ ONE ×2 (07:16→07:28)
[2022-09-18] MEDS ORDERED: LIDOCAINE 2% INJ 20 MG/ML SQ ONE ×2 (07:17→07:28)
[2022-09-18] MEDS ORDERED: fentaNYL (PF) 50 MCG/ML 2 ML AMP ONE (07:20)
[2022-09-18] MEDS ORDERED: MIDAZOLAM 2 MG/2 ML VIAL ONE (07:20)
[2022-09-18] MEDS ORDERED: PROPOFOL 10 MG/ML 20 ML VIAL IV ONE (07:20)
--- NOTE | 2022-09-18 07:53 | P.OP ---
Date of Procedure: 09/18/22 Preoperative Diagnosis: Left DeQuervains tenosynovitis Postoperative Diagnosis: Left DeQuervains tenosynovitis Procedure(s) Performed: Left first dorsal compartment release Anesthesia: MAC Surgeon: Dc Wu Manufacturing Teacher #1: Fortunato Workman Estimated Blood Loss (ml): 5 Pathology: none sent Condition: stable Disposition: PACU Description of Procedure: This is a 57 year old male who presents today for a left first dorsal compartment release after having failed conservative treatment. Risks and benefits of surgery were discussed with the patient including bleeding, damage to surrounding tissue, infection, need for further surgery as well as risks of anesthesia including pulmonary embolism and even and the patient wished to proceed with surgical intervention. The patients was seen in the pre-operative area by myself. Consent and H&P were completed and updated. The correct extremity was marked in the pre-operative area by myself and all other questions were answered. Operative Narrative: The patient was brought to the operating room by the department of anesthesia. They remained on the portable stretcher and a rolling hand table was brought to the side of the operative extremity. The patient was then drifted off to sleep by the department of anesthesia. A nonsterile tourniquet was then applied to the operative extremity and the left upper extremity was then prepped and draped in normal sterile fashion. Pre-operative time out was performed indicating the correct patient, procedure and laterality. All in the room agreed. MAC anesthesia was utilized and a 50:50 mixture of 1% Lidocaine and 0.5% bupivacaine was injected into the subcutaneous tissues of the radial wrist skin, 10ccs total. Pre-operative antibiotics were given prior to skin incision. The operative extremity was the exsanguinated with an esmarch bandage and the tourniquet was inflated to 250mmHg. 15 blade scalpel was used to make a horizontal skin incision centered over the first dorsal compartment of the left wrist. Blunt dissection was taken down to the proximal edge of the first dorsal compartment while taking care to identify and protect branches of the superficial radial sensory nerve. The first dorsal compartment was released in its entirety from proximal to distal. APL and EPB tendons were identified and there was an accessory EPB tendon in a separate compartment and this was also released. Skin closure was performed with 4-0 Monocryl suture, Mastisol and steri strips. Sterile soft dressing was applied consisting of 4x4's cast padding and an trena wrap. The patient was then woken by the department of anesthesia and transferred to PACU in stable condition. Fortunato ARDON was present to assist in the procedure. Dc Wu D.O. Orthopedic Hand/Upper Extremity Surgeon
[2022-09-18 08:18] VITALS: BP 159/85; PULSE 68
== END 2022-09-18 08:43 | disposition home or self-care (01) ==
LOC: OR 06:15
PROVIDERS: ATTEND Orthopaedic Surgery Hand Surgery
DX: M65.4 Radial styloid tenosynovitis [de Quervain] (principal); G89.29 Other chronic pain; I10 Essential (primary) hypertension; M19.90 Unspecified osteoarthritis, unspecified site; Z86.73 Personal history of transient ischemic attack (TIA), and cerebral infarction without residual deficits; Z90.49 Acquired absence of other specified parts of digestive tract; Z90.89 Acquired absence of other organs; Z86.59 Personal history of other mental and behavioral disorders; Z82.49 Family history of ischemic heart disease and other diseases of the circulatory system; Z83.42 Family history of familial hypercholesterolemia; Z79.899 Other long term (current) drug therapy; Z83.3 Family history of diabetes mellitus
CPT/HCPCS: 25000; J2001; J2250; J1100; J1720; J2405; J3010; J2704

== ENCOUNTER 2023-04-30 16:21 | Inpatient (IN) | payer OTHER ==
--- NOTE | 2023-04-30 16:39 | ED ---
General Adult HPI <Víctor Hickey - Last Filed: 04/30/23 20:37> <Zoey Maloney - Last Filed: 05/01/23 11:39> - General Stated complaint: rib fracture Time Seen by Provider: 04/30/23 16:26 - History of Present Illness Initial comments: The patient is a 58-year-old gentleman with history of neuropathy, chronic pain and a small vessel disease who presents emergency room with complaints of right- sided rib and abdominal pain that started after he slipped and fell into the side of the trailer. The patient was seen at an urgent care and diagnosed with a fracture of the 11th rib. He continues to have significant chest and abdominal pain so was sent over to the emergency room via EMS. The patient states it feels as is approximately is spasming. He denies any hemoptysis. Has not urinated or had a bowel movement since the fall therefore is unsure if there is any blood in the urine or the stool. He is not on any anticoagulation. Patient takes [place] for chronic pain as well as a medication for neuropathy. Of note patient after initial evaluation. He has had intermittent ongoing thyroid issues that he has been referred to an other spatial scientist for. He has not seen an other spatial scientist but has not upcoming appointment in the next week or 2 weeks. He has had a history of low calcium and TSH issues more recently but they do not know why. (Zoey Maloney) - Related Data Home Medications Medication Instructions Recorded Confirmed Losartan [Cozaar] 12.5 mg PO DAILY 03/12/21 04/30/23 HYDROcodone/APAP 10-325MG [[place] 1 tab PO QID 09/16/22 04/30/23 10-325] Vitamin B Complex 1 cap PO DAILY 09/16/22 04/30/23 predniSONE 10 mg PO DAILY 09/16/22 04/30/23 Adalimumab [Humira(Cf) Pen] 40 mg SQ Q14D 04/30/23 04/30/23 Alpha Lipoic Acid 600 mg PO DAILY 04/30/23 04/30/23 Calcium Carbonate [Calcium] 600 mg PO BID 04/30/23 04/30/23 Latanoprost [Latanoprost 0.005%] 1 drop BOTH EYES HS 04/30/23 04/30/23 Levothyroxine Sodium [Tirosint] 200 mcg PO DAILY 04/30/23 04/30/23 Melatonin 10 mg PO HS 04/30/23 04/30/23 Omeprazole [PriLOSEC] 20 mg PO AC-BID 04/30/23 04/30/23 Pregabalin [Lyrica] 200 mg PO HS 04/30/23 04/30/23 calcitrioL 0.25 mcg PO DAILY 04/30/23 04/30/23 Allergies Allergy/AdvReac Type Severity Reaction Status Date / Time Iodinated Contrast Media Allergy Rash/Hives Verified 04/30/23 21:56 levothyroxine sodium Allergy Swelling, Verified 04/30/23 21:56 [From Synthroid] Neuropathy venom-honey bee Allergy Swelling Verified 04/30/23 21:56 gabapentin AdvReac Severe states Verified 04/30/23 21:56 "HIGH" for 2 days. bupropion AdvReac stomache Verified 04/30/23 21:56 upset,tinnitus,dizziness Review of Systems ROS Other: All systems not noted in ROS Statement are negative. <Víctor Hickey - Last Filed: 04/30/23 20:37> ROS Other: All systems not noted in ROS Statement are negative. <Zoey Maloney - Last Filed: 05/01/23 11:39> ROS Statement: Those systems with pertinent positive or pertinent negative responses have been documented in the HPI. Past Medical History Past Medical History: Cancer, CVA/TIA, GERD/Reflux, Hypertension, Musculoskeletal Disorder, Osteoarthritis (OA), Thyroid Disorder Additional Past Medical History / Comment(s): Hx Covid 06/07/20. 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 History of Any Multi-Drug Resistant Organisms: None Reported Past Surgical History: Appendectomy, Back Surgery, Cholecystectomy Additional Past Surgical History / Comment(s): Thyroidectomy-3 total surgeries, parathyroidectomy, vocal cord surgery X4 with removal of non cancerous mass, pain clinic procedures, low back discectomy L4-L5, colonoscopy. Past Anesthesia/Blood Transfusion Reactions: No Reported Reaction Additional Psychological History / Comment(s): Pt is independent. He is going t hru a divorce. He has his children every Wed and every other weekend. Past Alcohol Use History: None Reported Additional Past Alcohol Use History / Comment(s): Patient is a lifelong non- smoker, no marijuana or illicit drug use. 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 - Past Family History Father Family Medical History: Coronary Artery Disease (CAD), Hyperlipidemia Additional Family Medical History / Comment(s): Uncle-myocardial infarction in his 40s. Mother Family Medical History: No Reported History Additional Family Medical History / Comment(s): . Sister(s) Additional Family Medical History / Comment(s): Patient has 1 sister with no major medical problems. Patient is for children with no major medical problems. Brother(s) Family Medical History: Diabetes Mellitus, Hypertension <Zoey Maloney - Last Filed: 05/01/23 11:39> General Exam Limitations: no limitations General appearance: alert, in no apparent distress Head exam: Present: atraumatic Eye exam: Present: normal appearance ENT exam: Present: normal exam Neck exam: Present: normal inspection, full ROM Respiratory exam: Present: normal lung sounds bilaterally, chest wall tenderness (mild pain of the right lower lateral ribs without any ecchymosis or erythema. No swelling. No flail chest.), other. Absent: respiratory distress, wheezes, rales, rhonchi, stridor Cardiovascular Exam: Present: regular rate GI/Abdominal exam: Present: soft, tenderness (tenderness over RUQ with no rebound tenderness or ecchymosis.) Extremities exam: Present: full ROM Back exam: Present: full ROM Neurological exam: Present: alert, oriented X3, CN II-XII intact Psychiatric exam: Present: normal affect, normal mood Skin exam: Present: warm, dry <Zoey Maloney - Last Filed: 05/01/23 11:39> Course <Zoey Maloney - Last Filed: 05/01/23 11:39> Vital Signs 04/30/23 04/30/23 04/30/23 16:36 20:10 21:21 Temperature 98.6 F 97.7 F 97.8 F Pulse Rate 64 68 Pulse Rate [ 60 Pulse Oximetery ] Respiratory 16 18 16 Rate Blood Pressure 148/92 145/84 Blood Pressure 150/95 [Right Arm Supine] O2 Sat by Pulse 96 100 98 Oximetry - Reevaluation(s) Reevaluation #1: 04/30/23 19:58 Patient's spasming improved slightly with Benadryl. We'll give her Valium to see if this helps further improve the spasms. I did speak with the patient regarding his calcium levels. He does state that he more recently had abnormal electrolytes and calcium levels that they believe is secondary to his thyroid. He is supposed to be seeing a in the other spatial scientist in the next week or 2 for further testing however he has not had that follow-up at this time. They are monitoring his TSH levels. 04/30/23 19:59 Did discuss with him that we are going to reevaluate the calcium levels as well as a few other lab studies and my attending physician Dr. Hickey will follow the studies and will finalize and admission versus discharge plan with him. (Zoey Maloney) Medical Decision Making - Lab Data Result diagrams: 04/30/23 17:00 04/30/23 19:45 <Víctor Hickey - Last Filed: 04/30/23 20:37> - Lab Data Result diagrams: 04/30/23 17:00 04/30/23 19:45 - Radiology Data Radiology results: image reviewed (SUSPECTED lower 11-12th rib fracture, no obvious abdominal trauma, report pending) <Zoey Maloney - Last Filed: 05/01/23 11:39> - Medical Decision Making Patient admitted for treatment of hypocalcemia. Admitted to Dr. Huggins who is aware of patient. Patient placed on calcium gluconate every 6 hours for 24 hours with repeat BMP and magnesium ordered for the morning. Patient will be monitored on telemetry. EKG interpreted by myself, sinus bradycardia, rate of 57, KS interval 138, QRS duration 94, QTc 460 (Víctor Hickey) Was pt. sent in by a medical professional or institution (, PA, THERMOSPRAY OPERATOR, urgent care, hospital, or usp...) When possible be specific @ -[No] Did you speak to anyone other than the patient for history (EMS, parent, family, police, friend...)? What history was obtained from this source @ -Family member at bedside Did you review nursing and triage notes (agree or disagree)? Why? @ -[I reviewed and agree with nursing and triage notes] Were old charts reviewed (outside hosp., previous admission, EMS record, old EKG, old radiological studies, urgent care reports/EKG's, usp records)? Report findings @ -[No old charts were reviewed] Differential Diagnosis (chest pain, altered mental status, abdominal pain women, abdominal pain men, vaginal bleeding, weakness, fever, dyspnea, syncope, headache, dizziness, GI bleed, back pain, seizure, CVA, palpatations, mental health, m rib fracture, liver laceration, internal bleeding, kidney contusion, abdominal contusion, muscle spasm, electrolyte abnormalities EKG interpreted by me (3pts min.). @ -[As above], evaluated by Dr Hickey X-rays interpreted by me (1pt min.). @ -[None done] CT interpreted by me (1pt min.). @ -CT is negative for any trauma complications or internal bleeding, no kidney contusion, no pneumothorax, possible fracture of the 11th rib seen but not definitive. ct report pending. U/S interpreted by me (1pt. min.). @ -[None done] Diagnosis: suspected right rib fracture, right rib and flank contusion, abdominal spasm, hypocalcemia Acute patient care and final disposition will be transfered to Dr hickey for follow up of final lab results, ct report and admission vs discharge plan. he will speak with any admitting physicians as needed. patient is stable at this time. (Zoey Maloney) - Lab Data Lab Results 04/30/23 04/30/23 04/30/23 Range/Units 17:00 17:00 17:00 WBC 5.5 (3.8-10.6) k/uL RBC 4.40 (4.30-5.90) m/uL Hgb 13.5 (13.0-17.5) gm/dL Hct 38.4 L (39.0-53.0) % MCV 87.2 (80.0-100.0) fL MCH 30.7 (25.0-35.0) pg MCHC 35.2 (31.0-37.0) g/dL RDW 12.0 (11.5-15.5) % Plt Count 187 (150-450) k/uL MPV 7.2 Neutrophils % 68 % Lymphocytes % 24 % Monocytes % 6 % Eosinophils % 0 % Basophils % 0 % Neutrophils # 3.7 (1.3-7.7) k/uL Lymphocytes # 1.3 (1.0-4.8) k/uL Monocytes # 0.3 (0-1.0) k/uL Eosinophils # 0.0 (0-0.7) k/uL Basophils # 0.0 (0-0.2) k/uL Sodium 137 (137-145) mmol/L Potassium 4.2 (3.5-5.1) mmol/L Chloride 107 (98-107) mmol/L Carbon Dioxide 25 (22-30) mmol/L Anion Gap 5 mmol/L BUN 19 (9-20) mg/dL Creatinine 0.79 (0.66-1.25) mg/dL Est GFR (CKD-EPI)AfAm >90 (>60 ml/min/1.73 sqM) Est GFR (CKD-EPI)NonAf >90 (>60 ml/min/1.73 sqM) Glucose 104 H (74-99) mg/dL Calcium 5.6 L* (8.4-10.2) mg/dL Ionized Calcium Tracy (4.5-5.3) mg/dL Magnesium (1.6-2.3) mg/dL Total Bilirubin 1.0 (0.2-1.3) mg/dL AST 32 (17-59) U/L ALT 34 (4-49) U/L Alkaline Phosphatase 51 (38-126) U/L Total Protein 5.7 L (6.3-8.2) g/dL Albumin 3.5 (3.5-5.0) g/dL TSH (0.465-4.680) mIU/L Free T4 (0.78-2.19) ng/dL PTH Intact (14.0-72.0) pg/mL Urine Color Colorless Urine Appearance Clear (Clear) Urine pH 7.0 (5.0-8.0) Ur Specific [place] 1.030 (1.001-1.035) Urine Protein Negative (Negative) Urine Glucose (UA) Negative (Negative) Urine Ketones Negative (Negative) Urine Blood Negative (Negative) Urine Nitrite Negative (Negative) Urine Bilirubin Negative (Negative) Urine Urobilinogen <2.0 (<2.0) mg/dL Ur Leukocyte Esterase Negative (Negative) 04/30/23 04/30/23 Range/Units 19:45 19:45 WBC (3.8-10.6) k/uL RBC (4.30-5.90) m/uL Hgb (13.0-17.5) gm/dL Hct (39.0-53.0) % MCV (80.0-100.0) fL MCH (25.0-35.0) pg MCHC (31.0-37.0) g/dL RDW (11.5-15.5) % Plt Count (150-450) k/uL MPV Neutrophils % % Lymphocytes % % Monocytes % % Eosinophils % % Basophils % % Neutrophils # (1.3-7.7) k/uL Lymphocytes # (1.0-4.8) k/uL Monocytes # (0-1.0) k/uL Eosinophils # (0-0.7) k/uL Basophils # (0-0.2) k/uL Sodium 138 (137-145) mmol/L Potassium 4.0 (3.5-5.1) mmol/L Chloride 106 (98-107) mmol/L Carbon Dioxide 26 (22-30) mmol/L Anion Gap 6 mmol/L BUN 17 (9-20) mg/dL Creatinine 0.78 (0.66-1.25) mg/dL Est GFR (CKD-EPI)AfAm >90 (>60 ml/min/1.73 sqM) Est GFR (CKD-EPI)NonAf >90 (>60 ml/min/1.73 sqM) Glucose 97 (74-99) mg/dL Calcium 5.7 L* (8.4-10.2) mg/dL Ionized Calcium [place] 3.3 L* (4.5-5.3) mg/dL Magnesium 1.6 (1.6-2.3) mg/dL Total Bilirubin (0.2-1.3) mg/dL AST (17-59) U/L ALT (4-49) U/L Alkaline Phosphatase (38-126) U/L Total Protein (6.3-8.2) g/dL Albumin (3.5-5.0) g/dL TSH 0.157 L (0.465-4.680) mIU/L Free T4 1.85 (0.78-2.19) ng/dL PTH Intact 2.5 L (14.0-72.0) pg/mL Urine Color Urine Appearance (Clear) Urine pH (5.0-8.0) Ur Specific [place] (1.001-1.035) Urine Protein (Negative) Urine Glucose (UA) (Negative) Urine Ketones (Negative) Urine Blood (Negative) Urine Nitrite (Negative) Urine Bilirubin (Negative) Urine Urobilinogen (<2.0) mg/dL Ur Leukocyte Esterase (Negative) Disposition Is patient prescribed a controlled substance at d/c from ED?: No Time of Disposition: 20:38 <Víctor Hickey - Last Filed: 04/30/23 20:37> <Zoey Maloney - Last Filed: 05/01/23 11:39> Clinical Impression: Hypocalcemia, Suspected fracture of rib, Contusion, flank Disposition: ADMITTED IP TO THIS HOSP Condition: Stable
[2023-04-30] MEDS: methylPREDNISolone SOD SUCCI 125 MG/2 ML VIAL IV STA (17:10)
[2023-04-30] MEDS: diphenhydrAMINE 50 MG/ML 1 ML VIAL IVP STA (17:11)
[2023-04-30 17:32] LABS: Basophils % (A) 0 %; Eosinophils % (A) 0 %; HCT 38.4 % (39.0-53.0); HGB 13.5 gm/dL (13.0-17.5); Lymphocytes # (A) 1.3 k/uL (1.0-4.8); Lymphocytes % (A) 24 %; MCH 30.7 pg (25.0-35.0); MCHC 35.2 g/dL (31.0-37.0); MCV 87.2 fL (80.0-100.0); Mean Platelet Volume 7.2; Monocytes # (A) 0.3 k/uL (0-1.0); Monocytes % (A) 6 %; Neutrophils # (A) 3.7 k/uL (1.3-7.7); Neutrophils % (A) 68 %; Platelet Count 187 k/uL (150-450); WBC 5.5 k/uL (3.8-10.6)
[2023-04-30 17:55] LABS: ALT 34 U/L (4-49); AST 32 U/L (17-59); African American GFR (CKD) >90 (>60 ml/min/1.73 sqM); Albumin 3.5 g/dL (3.5-5.0); Alkaline Phosphatase 51 U/L (38-126); Anion Gap 5 mmol/L; Blood Urea Nitrogen 19 mg/dL (9-20); Carbon Dioxide 25 mmol/L (22-30); Chloride 107 mmol/L (98-107); Glucose 104 mg/dL (74-99); Non-African American GFR(CKD) >90 (>60 ml/min/1.73 sqM); Potassium 4.2 mmol/L (3.5-5.1); Sodium 137 mmol/L (137-145); Total Protein 5.7 g/dL (6.3-8.2)
[2023-04-30 18:01] LABS: Calcium 5.6 mg/dL (8.4-10.2)
--- NOTE | 2023-04-30 19:48 | CT ---
EXAMINATION TYPE: CT ChestAbdPelvis w con CT DLP: 1123.7 mGycm, Automated exposure control for dose reduction was used. DATE OF EXAM: 04/30/2023 6:45 PM COMPARISON: None. CLINICAL INDICATION:Male, 58 years old with history of pain chest and abdomen s/p trauma,known rib fx ; [facility], trauma Technique: CT ChestAbdPelvis w con; Multiple axial images were obtained. Two-dimensional coronal and sagittal reconstructions were obtained. Contrast used:100ml mL of Isovue 300 with IV Contrast, Oral contrast used: without Oral Contrast Findings: CHEST: LUNGS/ PLEURA: No focal consolidation, pneumothorax or pleural effusion. AIRWAY: Patent and unremarkable. HEART: Size within normal limits. MEDIASTINUM: No gross evidence of adenopathy. VASCULATURE: No aortic aneurysm. MUSCULOSKELETAL: No acute osseous abnormalities. SOFT TISSUES/LYMPH NODES: Unremarkable. LOWER NECK: No significant findings. ABDOMEN: ABDOMEN LIVER: Simple appearing hepatic cyst. GALLBLADDER AND BILE DUCTS: Unremarkable. PANCREAS: Unremarkable. SPLEEN: Unremarkable. ADRENAL GLANDS: Unremarkable. KIDNEYS AND URETERS: No obstructive uropathy. Extrarenal pelves bilaterally. Bilateral nonobstructing calculi measuring up to 3 mm on the right and 4 mm on the left. Right renal cyst. PELVIS BLADDER: Unremarkable REPRODUCTIVE: Prostate is enlarged in size measuring 4.6 cm in transverse dimension. ABDOMEN & PELVIS STOMACH AND BOWEL: No evidence of bowel obstruction. Postsurgical changes of the right colon. Scatter ed colonic diverticula. PERITONEUM: No evidence of pneumoperitoneum or free fluid. VASCULATURE: No evidence of aortic aneurysm. MUSCULOSKELETAL: No acute osseous abnormalities LYMPH NODES: No gross evidence for lymphadenopathy. SOFT TISSUE/ABDOMINAL WALL: Unremarkable IMPRESSION: 1. No definitive acute traumatic process within the abdomen or pelvis. Known rib fracture is not def initively visualized. 2. Nonobstructing bilateral renal calculi. 3. Colonic diverticulosis. 4. Prostatomegaly, correlate with serum PSA
[2023-04-30 20:15] LABS: Ionized Calcium 3.3 mg/dL (4.5-5.3)
[2023-04-30 20:24] LABS: African American GFR (CKD) >90 (>60 ml/min/1.73 sqM); Anion Gap 6 mmol/L; Blood Urea Nitrogen 17 mg/dL (9-20); Carbon Dioxide 26 mmol/L (22-30); Chloride 106 mmol/L (98-107); Glucose 97 mg/dL (74-99); Magnesium 1.6 mg/dL (1.6-2.3); Non-African American GFR(CKD) >90 (>60 ml/min/1.73 sqM); Sodium 138 mmol/L (137-145)
[2023-04-30] MEDS: CALCIUM GLUCONATE IN NACL 1 GM in SALINE 1 100ML.BAG IVPB ONE (20:28)
[2023-04-30 20:29] LABS: Calcium 5.7 mg/dL (8.4-10.2)
[2023-04-30] MEDS ORDERED: NALOXONE 0.4 MG/ML 1 ML VIAL IV PRN (20:36)
[2023-04-30 20:51] LABS: Appearance,Urine Clear (Clear); Bilirubin,Urine Negative (Negative); Blood,Urine Negative (Negative); Color,Urine Colorless; Glucose,Urine (UA) Negative (Negative); Ketones,Urine Negative (Negative); Leukocyte Esterase,Urine Negative (Negative); Nitrite,Urine Negative (Negative); Protein,Urine Negative (Negative); Urobilinogen,Urine <2.0 mg/dL (<2.0)
[2023-04-30] MEDS: HYDROmorphone 0.5 MG/0.5 ML SYRINGE IVP PRN (22:10)
[2023-04-30 23:41] LABS: T4, Free (Free Thyroxine) 1.85 ng/dL (0.78-2.19)
--- NOTE | 2023-05-01 00:19 | P.HPIM ---
History of Present Illness H&P Date: 04/30/23 Chief Complaint: right abd spasm and rib pain 58-year-old male with inflammatory arthritis, history of hypocalcemia status post parathyroidectomy with thyroidectomy Patient coming into the hospital for evaluation due to spasms on his right side he reports having an accident earlier where he slipped and fell to his side next to his trailer resulted to trauma to his right rib cage since then he noticed some spasms when he tries to breathe he feels it in his diaphragm along with some pain over his rib cage for which she decided to come in for evaluation he was seen at an urgent care and was diagnosed with fractured right 11th rib and due to uncontrollable pain he was sent to the emergency room Patient denies any fevers or chills denies any coughing denies any history of blood clots denies any recent travel or hospital stay denies any leg pain he denies any changes in bowel or urinary habits denies any nausea vomiting denies any GI bleeding patient is not on any blood thinners Patient reports long history of neuropathy in his hands and feet for which he takes Neurontin and Acton at home he also reports history of hypocalcemia for which she is on supplementation with frequent episodes of low potassium level since his thyroid and parathyroid surgery patient also voices [facility] which [facility] the amount of testing that he can get done Patient denies any illicit drugs or heavy alcohol Patient denies any cardiac history review of systems Pertinent positives as noted in HPI. All other systems were reviewed and are negative on exam Constitutional: No acute distress, conversant, pleasant Eyes: Anicteric sclerae, moist conjunctiva, Pupils equal round reactive to light ENMT: NC/AT Oropharynx clear, no erythema, or exudates Neck: Supple, no masses, or JVD No carotid bruits No thyromegaly Lungs: Clear to auscultation Clear to percussion Normal respiratory effort, no accessory muscle use Cardiovascular: Heart regular in rate and rhythm, No murmurs, gallops, or rubs No peripheral edema Abdominal: Soft Nontender, no guarding, rebound or rigidity Abdomen moving with respiration Normoactive bowel sounds No hepatomegaly, No splenomegaly No palpable mass No abdominal wall hernia noted Skin: No ecchymosis or open wounds over the right side of the chest Extremities: No digital cyanosis No clubbing Pedal pulses intact and symmetrical Radial pulses intact and symmetrical No calf tenderness Psychiatric: Alert and oriented to person, place and time Appropriate affect fair judgement Neuro Muscles Strength 5/5 in all 4 extremities Sensation to light touch grossly present throughout Cranial nerves II-XII grossly intact Past Medical History Past Medical History: Cancer, CVA/TIA, GERD/Reflux, Hypertension, Musculoskeletal Disorder, Osteoarthritis (OA), Thyroid Disorder Additional Past Medical History / Comment(s): Hx Covid 06/07/20. 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 History of Any Multi-Drug Resistant Organisms: None Reported Past Surgical History: Appendectomy, Back Surgery, Cholecystectomy Additional Past Surgical History / Comment(s): Thyroidectomy-3 total surgeries, parathyroidectomy, vocal cord surgery X4 with removal of non cancerous mass, pain clinic procedures, low back discectomy L4-L5, colonoscopy. Past Anesthesia/Blood Transfusion Reactions: No Reported Reaction Additional Psychological History / Comment(s): Pt is independent. He is going thru a divorce. He has his children every Wed and every other weekend. Past Alcohol Use History: None Reported Additional Past Alcohol Use History / Comment(s): Patient is a lifelong non- smoker, no marijuana or illicit drug use. Patient is a disabled . 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 - Past Family History Father Family Medical History: Coronary Artery Disease (CAD), Hyperlipidemia Additional Family Medical History / Comment(s): Uncle-myocardial infarction in his 40s. Mother Family Medical History: No Reported History Additional Family Medical History / Comment(s): . Sister(s) Additional Family Medical History / Comment(s): Patient has 1 sister with no major medical problems. Patient is for children with no major medical problems. Brother(s) Family Medical History: Diabetes Mellitus, Hypertension Medications and Allergies Home Medications Medication Instructions Recorded Confirmed Type Losartan [Cozaar] 12.5 mg PO DAILY 03/12/21 04/30/23 History HYDROcodone/APAP 10-325MG [[place] 1 tab PO QID 09/16/22 04/30/23 History 10-325] Vitamin B Complex 1 cap PO DAILY 09/16/22 04/30/23 History predniSONE 10 mg PO DAILY 09/16/22 04/30/23 History Adalimumab [Humira(Cf) Pen] 40 mg SQ Q14D 04/30/23 04/30/23 History Alpha Lipoic Acid 600 mg PO DAILY 04/30/23 04/30/23 History Calcium Carbonate [Calcium] 600 mg PO BID 04/30/23 04/30/23 History Latanoprost [Latanoprost 0.005%] 1 drop BOTH EYES HS 04/30/23 04/30/23 History Levothyroxine Sodium [Tirosint] 200 mcg PO DAILY 04/30/23 04/30/23 History Melatonin 10 mg PO HS 04/30/23 04/30/23 History Omeprazole [PriLOSEC] 20 mg PO AC-BID 04/30/23 04/30/23 History Pregabalin [Lyrica] 200 mg PO HS 04/30/23 04/30/23 History calcitrioL 0.25 mcg PO DAILY 04/30/23 04/30/23 History Allergies Allergy/AdvReac Type Severity Reaction Status Date / Time Iodinated Contrast Media Allergy Rash/Hives Verified 04/30/23 21:56 levothyroxine sodium Allergy Swelling, Verified 04/30/23 21:56 [From Synthroid] Neuropathy venom-honey bee Allergy Swelling Verified 04/30/23 21:56 gabapentin AdvReac Severe states Verified 04/30/23 21:56 "HIGH" for 2 days. bupropion AdvReac stomache Verified 04/30/23 21:56 upset,tinnitus,dizziness Physical Exam Vitals: Vital Signs Temp Pulse Pulse Resp BP BP Pulse Ox 04/30/23 22:05 97.7 F 60 20 150/95 100 04/30/23 21:21 97.8 F 68 16 145/84 98 04/30/23 16:36 98.6 F 64 16 148/92 96 Intake and Output 04/30/23 04/30/23 05/01/23 14:59 22:59 06:59 Other: Weight 90.718 kg Results CBC & Chem 7: 04/30/23 17:00 04/30/23 19:45 Labs: Abnormal Lab Results - Last 24 Hours (Table) 04/30/23 04/30/23 04/30/23 Range/Units 17:00 17:00 19:45 Hct 38.4 L (39.0-53.0) % Glucose 104 H (74-99) mg/dL Calcium 5.6 L* 5.7 L* (8.4-10.2) mg/dL Ionized Calcium Tracy 3.3 L* (4.5-5.3) mg/dL Total Protein 5.7 L (6.3-8.2) g/dL TSH 0.157 L (0.465-4.680) mIU/L Assessment and Plan Assessment: 58-year-old male with inflammatory arthritis for which he takes Humira and chronic prednisone also has history of thyroidectomy and parathyroidectomy with frequent episodes of hypocalcemia for which she is on supplementation is coming in for evaluation of refractory right rib cage pain after a fall I discussed the case with ED doctor accepted the admission for refractory right rib cage pain due to 11th rib fracture and significant hypocalcemia with anticipated length of stay less than 2 midnights Refractory right rib cage pain secondary to falling and right 11th rib fracture Continue with Acton as needed Dilaudid for breakthrough pain 0.5 mg IV push every [address] of the chest abdomen pelvis showed no acute pathology, also showed bilateral nonobstructive renal calculi Significant hypocalcemia multifactorial secondary to history of parathyroidectomy and corticosteroids induced secondary to chronic prednisone intake Calcium level 5.6 Ionized calcium 3.3 Magnesium level 1.6 Potassium level 4.2 Follow-up PTH level Follow-up vitamin D3 25 hydroxy level Follow-up phosphorus level Currently on replacement with IV calcium gluconate ordered 1 g IV piggyback every 6 hours x 4 Once finished initiate oral replacement Continue with calcitriol home medication Cardiac monitoring Hypothyroid Free T41.85 Unremarkable Continue with thyroid supplementation Full code DVT prophylaxis heparin subcu 3 times daily
[2023-05-01] MEDS: HYDROcodone/APAP 10-325MG 1 EACH TAB PO PRN (00:42)
[2023-05-01] MEDS: MELATONIN 5 MG TABLET PO SCH (00:42)
[2023-05-01] MEDS: PREGABALIN 100 MG CAP PO SCH (00:42)
[2023-05-01 01:27] LABS: Phosphorus 4.4 mg/dL (2.5-4.5)
[2023-05-01] MEDS: CALCIUM GLUCONATE IN NACL 1 GM in SALINE 1 100ML.BAG IVPB SCH (04:04)
[2023-05-01] MEDS: LEVOTHYROXINE SODIUM 200 MCG PO SCH (06:19)
[2023-05-01] MEDS: PANTOPRAZOLE 40 MG TABLET PO SCH (06:31)
[2023-05-01] MEDS: MAGNESIUM OXIDE 400 MG TAB PO SCH (08:33)
[2023-05-01] MEDS: ACETAMINOPHEN TAB 325 MG TAB PO PRN (08:34)
[2023-05-01] MEDS: LOSARTAN 25 MG TAB PO SCH (08:34)
[2023-05-01] MEDS: CALCIUM CARBONATE 500 MG CHEWABLE PO SCH (08:34)
[2023-05-01] MEDS: predniSONE 10 MG TAB PO SCH (08:34)
[2023-05-01] MEDS: MAGNESIUM SULFATE-D5W PMX 1 GM in DEXTROSE/WATER 1 100ML.BAG IVPB SCH (09:27)
[2023-05-01] MEDS: NON FORMULARY DRUG (Vitamin B Complex [Vitamin B Complex] 1 EACH Capsule) PO SCH (09:27)
[2023-05-01 11:33] LABS: African American GFR (CKD) >90 (>60 ml/min/1.73 sqM); Anion Gap 10 mmol/L; Blood Urea Nitrogen 21 mg/dL (9-20); Carbon Dioxide 22 mmol/L (22-30); Chloride 106 mmol/L (98-107); Glucose 122 mg/dL (74-99); Magnesium 2.1 mg/dL (1.6-2.3); Non-African American GFR(CKD) >90 (>60 ml/min/1.73 sqM); Potassium 4.3 mmol/L (3.5-5.1); Sodium 138 mmol/L (137-145)
[2023-05-01 11:42] LABS: Calcium 6.4 mg/dL (8.4-10.2)
[2023-05-01] MEDS: diazePAM 2 MG TAB PO PRN (12:22)
[2023-05-01] MEDS: CALCIUM GLUCONATE IN NACL 2 GM in SALINE 1 100ML.BAG IVPB SCH (13:01)
--- NOTE | 2023-05-01 13:52 | P.NPCON ---
History of Present Illness - History of Present Illness Patient is a 58-year-old male with underlying autoimmune disorder and hypothy roidism. Patient has history of hyperparathyroidism and is status post parathyroidectomy many years ago. He has had hypocalcemia on and off and is currently maintained on calcitriol. Patient is in the process of having care transferred to [facility] from the [place]. 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 Patient states that his Rocaltrol was decreased about 2 to 3 weeks ago. Patient was admitted to the hospital after a fall. Calcium was noted to be 5.6. Patient denied any cramps or twitching however he did have cramping in his hands provide blood pressure cuff was on. Review of Systems As per HPI Past Medical History Past Medical History: Cancer, CVA/TIA, GERD/Reflux, Hypertension, Musculoskeletal Disorder, Osteoarthritis (OA), Thyroid Disorder Additional Past Medical History / Comment(s): Hx Covid 06/07/20. 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 History of Any Multi-Drug Resistant Organisms: None Reported Past Surgical History: Appendectomy, Back Surgery, Cholecystectomy Additional Past Surgical History / Comment(s): Thyroidectomy-3 total surgeries, parathyroidectomy, vocal cord surgery X4 with removal of non cancerous mass, pain clinic procedures, low back discectomy L4-L5, colonoscopy. Past Anesthesia/Blood Transfusion Reactions: No Reported Reaction Additional Psychological History / Comment(s): Pt is independent. He is going thru a divorce. He has his children every Wed and every other weekend. Past Alcohol Use History: None Reported Additional Past Alcohol Use History / Comment(s): Patient is a lifelong non- smoker, no marijuana or illicit drug use. 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 - Past Family History Father Family Medical History: Coronary Artery Disease (CAD), Hyperlipidemia Additional Family Medical History / Comment(s): Uncle-myocardial infarction in his 40s. Mother Family Medical History: No Reported History Additional Family Medical History / Comment(s): . Sister(s) Additional Family Medical History / Comment(s): Patient has 1 sister with no major medical problems. Patient is for children with no major medical problems. Brother(s) Family Medical History: Diabetes Mellitus, Hypertension Medications and Allergies Home Medications Medication Instructions Recorded Confirmed Type Losartan [Cozaar] 12.5 mg PO DAILY 03/12/21 04/30/23 History HYDROcodone/APAP 10-325MG [[place] 1 tab PO QID 09/16/22 04/30/23 History 10-325] Vitamin B Complex 1 cap PO DAILY 09/16/22 04/30/23 History predniSONE 10 mg PO DAILY 09/16/22 04/30/23 History Adalimumab [Humira(Cf) Pen] 40 mg SQ Q14D 04/30/23 04/30/23 History Alpha Lipoic Acid 600 mg PO DAILY 04/30/23 04/30/23 History Calcium Carbonate [Calcium] 600 mg PO BID 04/30/23 04/30/23 History Latanoprost [Latanoprost 0.005%] 1 drop BOTH EYES HS 04/30/23 04/30/23 History Levothyroxine Sodium [Tirosint] 200 mcg PO DAILY 04/30/23 04/30/23 History Melatonin 10 mg PO HS 04/30/23 04/30/23 History Omeprazole [PriLOSEC] 20 mg PO AC-BID 04/30/23 04/30/23 History Pregabalin [Lyrica] 200 mg PO HS 04/30/23 04/30/23 History calcitrioL 0.25 mcg PO DAILY 04/30/23 04/30/23 History Allergies Allergy/AdvReac Type Severity Reaction Status Date / Time Iodinated Contrast Media Allergy Rash/Hives Verified 04/30/23 21:56 levothyroxine sodium Allergy Swelling, Verified 04/30/23 21:56 [From Synthroid] Neuropathy venom-honey bee Allergy Swelling Verified 04/30/23 21:56 gabapentin AdvReac Severe states Verified 04/30/23 21:56 "HIGH" for 2 days. bupropion AdvReac stomache Verified 04/30/23 21:56 upset,tinnitus,dizziness Physical Exam Vitals: Vital Signs Temp Pulse Pulse Resp BP BP Pulse Ox 05/01/23 11:22 70 17 164/91 96 05/01/23 08:24 97.4 F L 67 15 138/70 97 05/01/23 04:00 69 18 102/58 96 05/01/23 00:00 76 18 122/71 97 04/30/23 22:05 97.7 F 60 20 150/95 100 04/30/23 21:21 97.8 F 68 16 145/84 98 04/30/23 20:10 97.7 F 60 18 150/95 100 04/30/23 16:36 98.6 F 64 16 148/92 96 Intake and Output 04/30/23 05/01/23 05/01/23 22:59 06:59 14:59 Intake Total 118 Balance 118 Intake: Oral 118 Other: Weight 90.718 kg Patient is awake, comfortable, no acute distress Examination of the heart S1 and S2 Examination of the lungs bilateral breath sounds are heard Abdomen is soft nontender Examination of lower extremities shows no edema. Results - Lab Results Most recent lab results Calcium 6.4 mg/dL (8.4-10.2) L* 05/01/23 10:59 Phosphorus 4.4 mg/dL (2.5-4.5) 05/01/23 00:40 Magnesium 2.1 mg/dL (1.6-2.3) 05/01/23 10:59 04/30/23 17:00 05/01/23 10:59 Assessment and Plan Assessment: 1. Hypocalcemia status post parathyroidectomy many years ago. Currently m aintained on calcitriol the dose of which was recently decreased per patient. Calcitriol dose will be increased. Calcium has improved. Patient is an ideal candidate for Natpara which is synthetic parathyroid hormone. This can be ordered as outpatient through the endocrinology clinic. 2. Underlying autoimmune disorder 3. Hypothyroidism Plan: Continue increased dose of calcitriol and calcium supplements. Patient is advised to follow-up with endocrinology and he should be started on Natpara which is synthetic parathyroid hormone. This will need to be ordered through the endocrinology office as outpatient. Thank you for the consultation. We will continue to follow the patient with you during his hospitalization.
[2023-05-01] MEDS: CYCLOBENZAPRINE 5 MG TAB PO PRN (17:59)
--- NOTE | 2023-05-01 18:17 | P.PN ---
Subjective Progress Note Date: 05/01/23 (delayed charting seen at 0930) Patient is a 58-year-old male with a history of inflammatory arthritis, prior thyroid cancer resulting in thyroidectomy and parathyroidectomy with persistent hypocalcemia following with endocrinology here and [facility] who initially presented to the urgent care with complaints of right-sided rib pain. While there he was diagnosed with a fractured right 11th rib and was sent to the emergency department due to uncontrolled pain. On arrival here he underwent extensive evaluation. Initial vital signs were within normal limits. Initial laboratory analysis was unremarkable for calcium of 5.6. Patient was noted to have persistent muscle spasms and therefore was started on IV calcium replacement therapy and admitted for further monitoring. Patient seen and examined at bedside. He continues to have a feeling of clicking in his chest with deep inspiration. His muscle spasms are better than yesterday. He reports that he is supposed to be getting an increased dose of [facility]riol but [facility] approximately 6 months ago to 0.25 prior he was on 0.5. He does follow with local endocrinology with Dr. Odom. He also reports that he is waiting for multiple medication changes from the [place] due to him not having any bowel nerve fibers. Vital signs reviewed General: Nontoxic, no distress, appears at stated age Cardiovascular: S1S2 reg, no murmur Lungs: CTA bilateral, no rhonchi, no rales, no accessory muscle use Abdominal: Soft, nontender to palpation, no guarding Ext: No gross muscle atrophy, no edema b/l lower extremities, no contractures Neuro: CN II-XI grossly intact, no focal neuro deficits Psych: Alert, oriented, appropriate affect Assessment/Plan: Severe hypocalcemia despite outpatient treatment with calcitriol -Follow calcium levels -Increase calcitriol to 0.5 mcg daily, start Tums 500 mg oral 4 times daily. -Nephrology consulted: Recommendations reviewed patient should be continued on increased dose of calcitriol and calcium supplements. Will need to follow-up with endocrinology for possible Natpara. -Dr. David's office was contacted by nursing and patient has scheduled outpatient follow-up on 05/05/2023 Persistent right-sided pain -Start Valium 2 mg 3 times daily as needed for pain Hypothyroidism, surgically induced -Continue with Tirosint 200 mcg daily Reactive inflammatory arthritis -Continue with prednisone 10 mg daily Chronic: Hypertension GERD Degenerative disc disease Imaging: None new Data Review: Basic metabolic profile remarkable for BUN 21 and calcium of 6.4. DVT prophylaxis: Early ambulation Anticipated discharge date: In a.m. Anticipated discharge place: Home This dictation was prepared using [employer] 3D voice recognition software. Though every attempt is made to correct errors during dictation some may still exist. Objective - Vital Signs Vital signs: Vital Signs Temp 98.0 F 05/01/23 16:00 Pulse 57 L 05/01/23 16:00 Resp 17 05/01/23 16:00 BP 119/61 05/01/23 16:00 Pulse Ox 96 05/01/23 16:00 FiO2 Intake & Output 04/30/23 05/01/23 05/01/23 18:59 06:59 18:59 Intake Total 562 Balance 562 Weight 90.718 kg 90.718 kg Intake: Oral 562 Other: # Voids 1 - Labs CBC & Chem 7: 04/30/23 17:00 05/01/23 10:59 Labs: Abnormal Lab Results - Last 24 Hours (Table) 04/30/23 04/30/23 05/01/23 Range/Units 19:45 19:45 10:59 BUN 21 H (9-20) mg/dL Glucose 122 H (74-99) mg/dL Calcium 5.7 L* 6.4 L* (8.4-10.2) mg/dL Ionized Calcium [place] 3.3 L* (4.5-5.3) mg/dL TSH 0.157 L (0.465-4.680) mIU/L PTH Intact 2.5 L (14.0-72.0) pg/mL
[2023-05-01] MEDS: LATANOPROST 0.005% OPHTH DROPS 2.5 ML BTL BOTH EYES SCH (21:38)
[2023-05-02 08:51] VITALS: TEMP 97.9
[2023-05-02 11:34] VITALS: BP 135/80; PULSE 65; RESP 17
[2023-05-02 12:41] LABS: HCT 42.2 % (39.0-53.0); HGB 14.2 gm/dL (13.0-17.5); MCH 29.8 pg (25.0-35.0); MCHC 33.5 g/dL (31.0-37.0); MCV 88.9 fL (80.0-100.0); Mean Platelet Volume 7.4; Platelet Count 163 k/uL (150-450); RBC 4.75 m/uL (4.30-5.90); RDW 12.1 % (11.5-15.5); WBC 8.6 k/uL (3.8-10.6)
[2023-05-02 12:55] LABS: African American GFR (CKD) >90 (>60 ml/min/1.73 sqM); Anion Gap 6 mmol/L; Blood Urea Nitrogen 29 mg/dL (9-20); Calcium 6.7 mg/dL (8.4-10.2); Carbon Dioxide 26 mmol/L (22-30); Chloride 107 mmol/L (98-107); Glucose 91 mg/dL (74-99); Magnesium 1.7 mg/dL (1.6-2.3); Non-African American GFR(CKD) >90 (>60 ml/min/1.73 sqM); Potassium 4.3 mmol/L (3.5-5.1); Sodium 139 mmol/L (137-145)
--- NOTE | 2023-05-02 15:41 | P.DS ---
Providers Date of admission: 04/30/23 20:37 Expected date of discharge: 05/02/23 Attending physician: Mao Huggins MD Consults: 05/01/23 08:17 Consult Physician Routine Consulting Provider: Sarah Linares Consult Reason/Comments: hypocalcemia Do you want consulting provider notified?: Yes Primary care physician: [facility] Hospital Course: Discharge Diagnosis: Severe hypocalcemia despite outpatient treatment with calcitriol Persistent right-sided pain related to known rib fracture and hypocalcemia Hypothyroidism, surgically induced Reactive inflammatory arthritis Hypertension GERD Degenerative disc disease Hospital Course: Patient is a 58-year-old male with a history of inflammatory arthritis, prior thyroid cancer resulting in thyroidectomy and parathyroidectomy with persistent hypocalcemia following with endocrinology here and [facility] who initially presented to the urgent care with complaints of right-sided rib pain. While there he was diagnosed with a fractured right 11th rib and was sent to the emergency department due to uncontrolled pain. On arrival here he underwent extensive evaluation. Initial vital signs were within normal limits. Initial laboratory analysis was unremarkable for calcium of 5.6. Patient was noted to have persistent muscle spasms and therefore was started on IV calcium replacement therapy and admitted for further monitoring. His calcitriol was increased. After aggressive calcium supplementation his calcium improved to 6.7. His muscle spasms improved greatly as well as his abdominal discomfort. He was determined stable for discharge home. Follow-up: Outpatient follow-up with Dr. Odom's office on 05/05/2023. Increase calcitriol to 0.5 mg daily. Add Tums 500 mg 3 times daily for the next 7 days then can resume prior calcium supplementation. Follow-up with his specialist at [facility] Patient seen and examined at bedside. Doing better. Pain is better. Overall feeling well and feels comfortable going home. Vital signs reviewed and stable. General: Nontoxic, no distress, appears at stated age Lungs: Chest rise equal bilateral, no accessory muscle use Ext: No gross muscle atrophy, no edema b/l lower extremities, no contractures Neuro: CN II-XI grossly intact, no focal neuro deficits Psych: Alert, oriented, appropriate affect A total of 35 minutes of time were spent preparing this complex discharge summary. Patient was discharged on 05/02/23. This dictation was prepared using Pollen voice recognition software. Though every attempt is made to correct errors during dictation some may still exist. Patient Condition at Discharge: Stable Plan - Discharge Summary Discharge Rx Participant: No New Discharge Prescriptions: New calcitrioL 0.5 mcg PO DAILY #30 capsule Calcium Carbonate [Tums] 500 mg PO TID tab Cyclobenzaprine [Flexeril] 5 mg PO TID PRN #15 tab PRN Reason: Muscle Spasm Continue Losartan [Cozaar] 12.5 mg PO DAILY predniSONE 10 mg PO DAILY HYDROcodone/APAP 10-325MG [[place] 10-325] 1 tab PO QID Levothyroxine Sodium [Tirosint] 200 mcg PO DAILY Latanoprost [Latanoprost 0.005%] 1 drop BOTH EYES HS Adalimumab [Humira(Cf) Pen] 40 mg SQ Q14D Pregabalin [Lyrica] 200 mg PO HS Vitamin B Complex 1 cap PO DAILY Omeprazole [PriLOSEC] 20 mg PO AC-BID Melatonin 10 mg PO HS Calcium Carbonate [Calcium] 600 mg PO BID Alpha Lipoic Acid 600 mg PO DAILY Discontinued calcitrioL 0.25 mcg PO DAILY Discharge Medication List Losartan [Cozaar] 12.5 mg PO DAILY 03/12/21 [History] HYDROcodone/APAP 10-325MG [[place] 10-325] 1 tab PO QID 09/16/22 [History] Vitamin B Complex 1 cap PO DAILY 09/16/22 [History] predniSONE 10 mg PO DAILY 09/16/22 [History] Adalimumab [Humira(Cf) Pen] 40 mg SQ Q14D 04/30/23 [History] Alpha Lipoic Acid 600 mg PO DAILY 04/30/23 [History] Calcium Carbonate [Calcium] 600 mg PO BID 04/30/23 [History] Latanoprost [Latanoprost 0.005%] 1 drop BOTH EYES HS 04/30/23 [History] Levothyroxine Sodium [Tirosint] 200 mcg PO DAILY 04/30/23 [History] Melatonin 10 mg PO HS 04/30/23 [History] Omeprazole [PriLOSEC] 20 mg PO AC-BID 04/30/23 [History] Pregabalin [Lyrica] 200 mg PO HS 04/30/23 [History] Calcium Carbonate [Tums] 500 mg PO TID tab 05/02/23 [Rx] Cyclobenzaprine [Flexeril] 5 mg PO TID PRN #15 tab 05/02/23 [Rx] calcitrioL 0.5 mcg PO DAILY #30 capsule 05/02/23 [Rx] Follow up Appointment(s)/Referral(s): [facility] [REFERRING] - Lida Odom [STAFF PHYSICIAN] - 05/05/23 10:15 am (Friday) [facility] [Primary Care Provider] - 1-2 days Patient Instructions/Handouts: Rib Fracture (DC), Hypocalcemia (DC) Activity/Diet/Wound Care/Special Instructions: Activity: As tolerated Diet: Regular Special Instructions: Take tums three times daily for the next 7 days, after you complete that resume your calcium 600 mg as taking prior Could consider Natpara (synthetic parathyroid hormone) if endocrinology is in agreement Thank you for trusting us with your care, we wish you well on your journey to better health. Discharge/Stand Alone Forms: Who Do I Call?, Community Resources, Help In The Home Discharge Disposition: HOME SELF-CARE
--- NOTE | 2023-05-04 22:19 | P.PN ---
Subjective Patient is seen for f/u for hypocalcemia secondary to hypoparathyroidism with h/o parathroidectomy. Maintained on calcitriol and calcium supplements. Feeling better. Labs are pending this morning. Calcium improved. 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 Hypocalcemia status post parathyroidectomy many years ago. Currently maintained on calcitriol the dose of which was recently decreased per patient. Calcitriol dose will be increased. Calcium has improved. Patient is an ideal candidate for Natpara which is synthetic parathyroid hormone. This can be ordered as outpatient through the endocrinology clinic. 2. Underlying autoimmune disorder 3. Hypothyroidism Plan: Continue increased dose of calcitriol and calcium supplements. Patient is advised to follow-up with endocrinology and he should be started on Natpara which is synthetic parathyroid hormone. This will need to be ordered through the endocrinology office as outpatient.
== END 2023-05-02 16:31 | disposition home or self-care (01) | DRG 641 ==
LOC: EC 16:21 → 3SCARD 20:37
PROVIDERS: ADMIT Internal Medicine; ATTEND Internal Medicine
DX: E83.51 Hypocalcemia (principal); S22.31XA Fracture of one rib, right side, initial encounter for closed fracture; G89.29 Other chronic pain; K21.9 Gastro-esophageal reflux disease without esophagitis; I10 Essential (primary) hypertension; M06.4 Inflammatory polyarthropathy; E89.0 Postprocedural hypothyroidism; T38.0X5A Adverse effect of glucocorticoids and synthetic analogues, initial encounter; W01.0XXA Fall on same level from slipping, tripping and stumbling without subsequent striking against object, initial encounter; H54.7 Unspecified visual loss; Z98.890 Other specified postprocedural states; Z90.89 Acquired absence of other organs; Z79.52 Long term (current) use of systemic steroids; Z79.899 Other long term (current) drug therapy; Z79.890 Hormone replacement therapy; Z88.8 Allergy status to other drugs, medicaments and biological substances; Z91.030 Bee allergy status; Z91.041 Radiographic dye allergy status; Z85.850 Personal history of malignant neoplasm of thyroid; Z86.73 Personal history of transient ischemic attack (TIA), and cerebral infarction without residual deficits; Z86.16 Personal history of COVID-19
CPT/HCPCS: 36415; 71260; 74177; 80048; 80053; 81003; 82306; 82330; 83735; 83970; 84100; 84439; 84443; 85025; 85027; 93005; 96365; 96375; 99285

== ENCOUNTER 2023-05-30 18:21 | Emergency (ER) | payer OTHER ==
--- NOTE | 2023-05-30 18:51 | ED ---
Lower Extremity Injury HPI - General Chief Complaint: Extremity Injury, Lower Stated Complaint: L leg numbness-sent by urgent care Time Seen by Provider: 05/30/23 18:44 Source: RN notes reviewed - History of Present Illness Initial Comments: Is a pleasant 58-year-old male who presents to the emergency department with symptoms of left-sided sciatica which started on Friday night. Patient ended going to [facility] on Friday and had a computed tomography scan done as her spine which showed degenerative disc disease, especially affecting the L5-S1 area. Patient describing pain down the back of his left leg is colder than the right. Patient also states he's had some nausea which he is relating to the pain. Denying any chest pain or shortness of breath. No fever. No problems with bowel movement. Patient has previously had sciatica on the right side. Patient currently taking both pain medications and corticosteroids. No headache, no fever or chills, no changes in vision or hearing, no sore throat or difficulty with speech, no neck pain, no chest pain or shortness of breath, no abdominal pain, no nausea or vomiting, no changes in urination or bowel movements, no skin rashes or lesions. Past medical, surgical, social, and family history reviewed. - Related Data Home Medications Medication Instructions Recorded Confirmed Losartan [Cozaar] 12.5 mg PO DAILY 03/12/21 05/30/23 Vitamin B Complex 1 cap PO DAILY 09/16/22 05/30/23 Levothyroxine Sodium [Tirosint] 200 mcg PO DAILY 04/30/23 05/30/23 Melatonin 5 mg PO HS PRN 04/30/23 05/30/23 Pregabalin [Lyrica] 100 mg PO TID 04/30/23 05/30/23 Calcium Carbonate [Calcium] 600 mg PO TID 05/30/23 05/30/23 HYDROcodone/APAP 10-325MG [[place] 1 tab PO QID PRN 05/30/23 05/30/23 10-325] buprenorphine HCL [Belbuca] 300 mcg BUCCAL DAILY 05/30/23 05/30/23 methocarbamoL [Robaxin-750] 750 mg PO Q6H PRN 05/30/23 05/30/23 predniSONE 50 mg PO DAILY 05/30/23 05/30/23 Previous Rx's Medication Instructions Recorded Ondansetron Odt [Zofran Odt] 4 mg PO Q6HR PRN #20 tab 05/30/23 Allergies Allergy/AdvReac Type Severity Reaction Status Date / Time Iodinated Contrast Media Allergy Rash/Hives Verified 05/30/23 19:39 levothyroxine sodium Allergy Swelling, Verified 05/30/23 19:39 [From Synthroid] Neuropathy venom-honey bee Allergy Swelling Verified 05/30/23 19:39 gabapentin AdvReac Severe states Verified 05/30/23 19:39 "HIGH" for 2 days. bupropion AdvReac stomache Verified 05/30/23 19:39 upset,tinnitus,dizziness Review of Systems ROS Statement: Those systems with pertinent positive or pertinent negative responses have been documented in the HPI. ROS Other: All systems not noted in ROS Statement are negative. Past Medical History Past Medical History: Cancer, CVA/TIA, GERD/Reflux, Hypertension, Musculoskeletal Disorder, Osteoarthritis (OA), Thyroid Disorder Additional Past Medical History / Comment(s): Hx Covid 06/07/20. 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 History of Any Multi-Drug Resistant Organisms: None Reported Past Surgical History: Appendectomy, Back Surgery, Cholecystectomy Additional Past Surgical History / Comment(s): Thyroidectomy-3 total surgeries, parathyroidectomy, vocal cord surgery X4 with removal of non cancerous mass, pain clinic procedures, low back discectomy L4-L5, colonoscopy. Past Anesthesia/Blood Transfusion Reactions: No Reported Reaction Additional Psychological History / Comment(s): Pt is independent. He is going thru a divorce. He has his children every Wed and every other weekend. Past Alcohol Use History: None Reported Additional Past Alcohol Use History / Comment(s): Patient is a lifelong non- smoker, no marijuana or illicit drug use. 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 - Past Family History Father Family Medical History: Coronary Artery Disease (CAD), Hyperlipidemia Additional Family Medical History / Comment(s): Uncle-myocardial infarction in his 40s. Mother Family Medical History: No Reported History Additional Family Medical History / Comment(s): . Sister(s) Additional Family Medical History / Comment(s): Patient has 1 sister with no major medical problems. Patient is for children with no major medical problems. Brother(s) Family Medical History: Diabetes Mellitus, Hypertension General Exam General appearance: alert, in no apparent distress Head exam: Present: atraumatic, normocephalic, normal inspection Eye exam: Present: normal appearance, PERRL, EOMI. Absent: scleral icterus, conjunctival injection, periorbital swelling ENT exam: Present: normal exam, mucous membranes moist, normal external ear exam Neck exam: Present: normal inspection. Absent: tenderness, meningismus, lymphadenopathy Respiratory exam: Present: normal lung sounds bilaterally. Absent: respiratory distress, wheezes, rales, rhonchi, stridor Cardiovascular Exam: Present: regular rate, normal rhythm, normal heart sounds, other (Peripheral pulses 2+/regards to dorsalis pedis and posterior tibial. Bilaterally). Absent: systolic murmur, diastolic murmur, rubs, gallop, clicks GI/Abdominal exam: Present: soft, normal bowel sounds. Absent: distended, tenderness, guarding, rebound, rigid Extremities exam: Present: normal inspection, full ROM, normal capillary refill, other (Peripheral pulses 2+4 by both palpation and Doppler.). Absent: tenderness, pedal edema, joint swelling, calf tenderness Back exam: Present: normal inspection, other (Range of motion limited by pain. No erythema or crepitus. No deformity. No skin rashes or lesions.). Absent: paraspinal tenderness, vertebral tenderness Neurological exam: Present: alert, oriented X3, CN II-XII intact, other (Positive straight leg raise at about 30 on the left. DTRs intact. Great toe Center sign. 5. Sensation intact.) Psychiatric exam: Present: normal affect, normal mood Skin exam: Present: warm, dry, intact, normal color. Absent: rash Course Vital Signs 05/30/23 18:43 Temperature 97.9 F Pulse Rate 76 Respiratory 18 Rate Blood Pressure 148/85 O2 Sat by Pulse 100 Oximetry Medical Decision Making - Medical Decision Making Was pt. sent in by a medical professional or institution? @ -Something by the telephone nurse Did you speak to anyone other than the patient for history? @ -no Did you review nursing and triage notes? @ -agree Were old charts reviewed? @ -ED the computed tomography scan from Friday from [facility] Differential Diagnosis? @ -Differential diagnosis includes but not limited to: Sciatica, does not appear to be consistent with vascular injury or DVT. This was infectious process. This was cauda equina syndrome. Patient has no problems with bowel movements urination. Is able to ambulate. No saddle anesthesia. Patient has no fever, no direct trauma, no immunosuppression pain mostly in the left sciatic nerve distribution. EKG interpreted by me (3pts min.)? @ -[none] X-rays interpreted by me (1pt min.)? @ -[none] CT interpreted by me (1pt min.)? @ -From [facility]--multilevel degenerative disc disease U/S interpreted by me (1pt. min.)? @ -[none] What testing was considered but not performed? (CT, X-rays, U/S, labs)? Why? @ [CT, X-rays, U/S, labs? Why?] What meds were considered but not given? Why? @ -[none] Did you discuss the management of the patient with other professionals? @ -no Did you reconcile home meds? @ -[none] Was smoking cessation discussed for >3mins.? @ -[none] Was critical care preformed (if so, how long)? @ -[none] Were there social determinants of health that impacted care today? How? (Homelessness, low income, unemployed, alcoholism, drug addiction, transportation, low edu. Level, literacy, decrease access to med. care, senior living, rehab)? @ -Chronic pain under pain management Was there de-escalation of care discussed even if they declined? (Discuss DNR or withdrawal of care, Hospice)? @ -no What co-morbidities impacted this encounter? (DM, HTN, Smoking, COPD, CAD, Cancer, CVA, Hep., AIDS, mental health diagnosis, sleep apnea, morbid obesity)? @ -Chronic pain Was patient admitted / discharged? @ -Stable, improved by discharge Undiagnosed new problem with uncertain prognosis? @ -[none] Drug Therapy requiring intensive monitoring for toxicity (Heparin, Nitro, Insulin, Cardizem)? @ -[none] Were any procedures done? @ -[none] Diagnosis/symptom? @ -Left-sided sciatica Acute, or Chronic, or Acute on Chronic? @ -Acute Uncomplicated (without systemic symptoms) or Complicated (systemic symptoms)? @ -[default] Side effects of treatment? @ -[none] Exacerbation, Progression, or Severe Exacerbation] @ -[no] Poses a threat to life or bodily function? @ -Unlikely Patient is already on buprenorphine. CT previously so he was on [place] tendons. Patient and pain management. Patient was given a prescription for prednisone 50 mg daily by an outside facility from [facility] on Friday. Degenerative disc disease including the L5-S1. Patient was given a dose of morphine, Zofran ODT, and ketorolac here. Patient was also seen and assessed with ED attending physician. Peripheral pulses intact. No evidence of infectious process. No evidence of vascular injury. Not consistent with DVT. Consistent with sciatica. Patient states that he did not take his prednisone today. Advised finishing the course of prednisone 50 mg a day for 5 days. Follow-up with regular physician. Patient told to return immediately if any symptoms consistent with cauda equina syndrome develop. In terms worsen or any other problems arise. Patient was also seen and assessed by the ED attending physician, Dr. Garcia Patient was told to return to the ER for any signs or symptoms worsen. Told to return immediately if any other problems arise. All questions answered. Treatment plan discussed. Patient in agreement Every effort has been made to ensure accuracy of this dictation. However, due to the limitations of electronic medical records and dictation devices, errors in charting still occur. Disposition Clinical Impression: Left sided sciatica Disposition: HOME SELF-CARE Condition: Stable Instructions (If sedation given, give patient instructions): Sciatica (ED) Additional Instructions: Follow-up with your regular physician as directed. Return to the ER immediately if any symptoms worsen, new symptoms arise, or any other problems develop. call Friday to make a follow-up with your primary care provider. Is patient prescribed a controlled substance at d/c from ED?: No Referrals: [facility] [Primary Care Provider] - 06/02/23 Time of Disposition: 20:02
[2023-05-30] MEDS: ONDANSETRON ODT 4 MG TAB PO STA (19:13)
[2023-05-30] MEDS: MORPHINE SULFATE 4 MG/ML SYRINGE IM STA (19:14)
[2023-05-30] MEDS: KETOROLAC 15 MG/ML 1 ML VIAL IM STA (20:22)
[2023-05-30 21:02] VITALS: BP 162/97; PULSE 59; RESP 16; TEMP 98.2
== END 2023-05-30 20:41 | disposition home or self-care (01) ==
LOC: EC 18:21
DX: M54.32 Sciatica, left side (principal)
CPT/HCPCS: 99283; 96372 ×2; J2270; J1885

== ENCOUNTER 2023-06-14 12:49 | Emergency (ER) | payer OTHER ==
[2023-06-14 13:24] VITALS: RESP 18
[2023-06-14] MEDS: methylPREDNISolone SOD SUCCI 125 MG/2 ML VIAL IV STA (13:26)
--- NOTE | 2023-06-14 13:28 | ED ---
General Adult HPI - General Chief complaint: Back Pain/Injury Stated complaint: Back Pain Time Seen by Provider: 06/14/23 13:00 Source: patient, RN notes reviewed, old records reviewed Mode of arrival: EMS Limitations: no limitations - History of Present Illness Initial comments: This is a 58-year-old male who presents to the emergency department complaining of back pain and pain radiating down his left leg and he states the bottom his feet are also very tingly. Patient states this is typical of his back issues however he stopped steroids a few days ago and the symptoms came back. Patient states he is trying to get into see somebody at the [facility] as but has been unsuccessful. Patient states he has been here multiple times for his back pain he is also been to [place] and [place]. Patient states he has no new symptoms today no injury however the symptoms are coming back it since he stopped the steroids. Patient states he is in a pain clinic. Patient states he receives medication from the pain clinic. - Related Data Home Medications Medication Instructions Recorded Confirmed Losartan [Cozaar] 12.5 mg PO DAILY 03/12/21 05/30/23 Vitamin B Complex 1 cap PO DAILY 09/16/22 05/30/23 Levothyroxine Sodium [Tirosint] 200 mcg PO DAILY 04/30/23 05/30/23 Melatonin 5 mg PO HS PRN 04/30/23 05/30/23 Pregabalin [Lyrica] 100 mg PO TID 04/30/23 05/30/23 Calcium Carbonate [Calcium] 600 mg PO TID 05/30/23 05/30/23 HYDROcodone/APAP 10-325MG [[place] 1 tab PO QID PRN 05/30/23 05/30/23 10-325] buprenorphine HCL [Belbuca] 300 mcg BUCCAL BID 05/30/23 05/30/23 methocarbamoL [Robaxin-750] 750 mg PO Q6H PRN 05/30/23 05/30/23 predniSONE 50 mg PO DAILY 05/30/23 05/30/23 Previous Rx's Medication Instructions Recorded Ondansetron Odt [Zofran Odt] 4 mg PO Q6HR PRN #20 tab 05/30/23 predniSONE [Deltasone] 30 mg PO BID #15 tab 06/14/23 Allergies Allergy/AdvReac Type Severity Reaction Status Date / Time Iodinated Contrast Media Allergy Rash/Hives Verified 06/14/23 12:57 levothyroxine sodium Allergy Swelling, Verified 06/14/23 12:57 [From Synthroid] Neuropathy venom-honey bee Allergy Swelling Verified 06/14/23 12:57 gabapentin AdvReac Severe states Verified 06/14/23 12:57 "HIGH" for 2 days. bupropion AdvReac stomache Verified 06/14/23 12:57 upset,tinnitus,dizziness Review of Systems ROS Statement: Those systems with pertinent positive or pertinent negative responses have been documented in the HPI. ROS Other: All systems not noted in ROS Statement are negative. Past Medical History Past Medical History: Cancer, CVA/TIA, GERD/Reflux, Hypertension, Musculoskeletal Disorder, Osteoarthritis (OA), Thyroid Disorder Additional Past Medical History / Comment(s): Hx Covid 06/07/20. 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 History of Any Multi-Drug Resistant Organisms: None Reported Past Surgical History: Appendectomy, Back Surgery, Cholecystectomy Additional Past Surgical History / Comment(s): Thyroidectomy-3 total surgeries, parathyroidectomy, vocal cord surgery X4 with removal of non cancerous mass, pain clinic procedures, low back discectomy L4-L5, colonoscopy. Past Anesthesia/Blood Transfusion Reactions: No Reported Reaction Past Psychological History: PTSD Smoking Status: Never smoker Past Alcohol Use History: None Reported Past Drug Use History: None Reported - Past Family History Father Family Medical History: Coronary Artery Disease (CAD), Hyperlipidemia Additional Family Medical History / Comment(s): Uncle-myocardial infarction in his 40s. Mother Family Medical History: No Reported History Additional Family Medical History / Comment(s): . Sister(s) Additional Family Medical History / Comment(s): Patient has 1 sister with no major medical problems. Patient is for children with no major medical problems. Brother(s) Family Medical History: Diabetes Mellitus, Hypertension General Exam - General Exam Comments Initial Comments: GENERAL: Patient is well-developed and well-nourished. Patient is nontoxic and well- hydrated and is in no acute distress. ENT: Neck is soft and supple. No significant lymphadenopathy is noted. Oropharynx is clear. Moist mucous membranes. Neck has full range of motion without eliciting any pain. EYES: The sclera were anicteric and conjunctiva were pink and moist. Extraocular movements were intact and pupils were equal round and reactive to light. Eyelids were unremarkable. PULMONARY: Unlabored respirations. Good breath sounds bilaterally. No audible rales rhonchi or wheezing was noted. CARDIOVASCULAR: There is a regular rate and rhythm without any murmurs gallops or rubs. ABDOMEN: Soft and nontender with normal bowel sounds. SKIN: Skin is clear with no lesions or rashes and otherwise unremarkable. NEUROLOGIC: Patient is alert and oriented x3. Cranial nerves II through XII are grossly intact. Motor and sensory are also intact. Normal speech, volume and content. Symmetrical smile. Straight leg test was negative bilaterally. Perineum exam with normal sensation. MUSCULOSKELETAL: Normal extremities with adequate strength and full range of motion. LYMPHATICS: No significant lymphadenopathy is noted PSYCHIATRIC: Normal psychiatric evaluation. Limitations: no limitations Course Vital Signs 06/14/23 12:51 Temperature 98.0 F Pulse Rate 87 Respiratory 18 Rate Blood Pressure 151/102 O2 Sat by Pulse 97 Oximetry Medical Decision Making - Medical Decision Making Was pt. sent in by a medical professional or institution (, PA, DIRECTOR SALES TRAINING, urgent care, hospital, or fpc...) When possible be specific @ -No Did you speak to anyone other than the patient for history (EMS, parent, family, police, friend...)? What history was obtained from this source @ -No Did you review nursing and triage notes (agree or disagree)? Why? @ -I reviewed and agree with nursing and triage notes Were old charts reviewed (outside hosp., previous admission, EMS record, old EKG, old radiological studies, urgent care reports/EKG's, fpc records)? Report findings @ -No old charts were reviewed Differential Diagnosis? @ -Differential Back Pain: Strain, zoster, cauda equina syndrome, epidural abscess, vertebral osteomyelitis, discitis, fracture, subluxation, disc herniation, DJD, spinal stenosis, dissection, AAA, pancreatitis, peptic ulcer disease, pyelonephritis, kidney stone, this is not meant to be an all-inclusive list. EKG interpreted by me (3pts min.). @ -As above X-rays interpreted by me (1pt min.). @ -None done CT interpreted by me (1pt min.). @ -None done U/S interpreted by me (1pt. min.). @ -None done What testing was considered but not performed or refused? (CT, X-rays, U/S, labs)? Why? @ -None What meds were considered but not given or refused? Why? @ -None Did you discuss the management of the patient with other professionals (professionals i.e. , PA, DIRECTOR SALES TRAINING, lab, RT, psych nurse, nephrology social worker, drum tester, teacher, officer lieutenant, egg caser)? Give summary @ -No Was smoking cessation discussed for >3mins.? @ -No Was critical care preformed (if so, how long)? @ -No Were there social determinants of health that impacted care today? How? (Homelessness, low income, unemployed, alcoholism, drug addiction, transportation, low edu. Level, literacy, decrease access to med. care, longterm, rehab)? @ -No Was there de-escalation of care discussed even if they declined (Discuss DNR or withdrawal of care, Hospice)? DNR status @ -No What co-morbidities impacted this encounter? (DM, HTN, Smoking, COPD, CAD, Cancer, CVA, ARF, Chemo, Hep., AIDS, mental health diagnosis, sleep apnea, morbid obesity)? @ -None Was patient admitted / discharged? Hospital course, mention meds given and route, prescriptions, significant lab abnormalities, going to OR and other pertinent info. @ -Patient was requesting steroids. I gave the patient Solu-Medrol 125 and after an hour I will back and reevaluated the patient he stated that the tingling sensation on the bottom of his feet has already resolved. Undiagnosed new problem with uncertain prognosis? @ -No Drug Therapy requiring intensive monitoring for toxicity (Heparin, Nitro, Insulin, Cardizem)? @ -No Were any procedures done? @ -No Diagnosis/symptom? @ -Chronic back pain with radiculopathy Acute, or Chronic, or Acute on Chronic? @ -Chronic Uncomplicated (without systemic symptoms) or Complicated (systemic symptoms)? @ -Uncomplicated Side effects of treatment? @ -No Exacerbation, Progression, or Severe Exacerbation? @ -No Poses a threat to life or bodily function? How? (Chest pain, [place], [place], pneumonia, PE, COPD, DKA, ARF, appy, cholecystitis, CVA, Diverticulitis, Homicidal, Suicidal, threat to staff... and all critical care pts) @ -No Disposition Clinical Impression: Sciatica, Chronic back pain Disposition: HOME SELF-CARE Instructions (If sedation given, give patient instructions): Sciatica (ED) Prescriptions: predniSONE [Deltasone] 30 mg PO BID #15 tab Is patient prescribed a controlled substance at d/c from ED?: No Referrals: [facility] [Primary Care Provider] - 1-2 days Time of Disposition: 14:59
[2023-06-14 15:51] VITALS: BP 136/99; PULSE 77; TEMP 98.1
== END 2023-06-14 15:19 | disposition home or self-care (01) ==
LOC: EC 12:49
DX: G89.29 Other chronic pain (principal); M54.30 Sciatica, unspecified side; M54.10 Radiculopathy, site unspecified; Z91.041 Radiographic dye allergy status; Z88.8 Allergy status to other drugs, medicaments and biological substances; Z91.030 Bee allergy status
CPT/HCPCS: 99284; 96374; J2930

== ENCOUNTER 2023-07-14 12:35 | Emergency (ER) | payer OTHER ==
--- NOTE | 2023-07-14 12:57 | ED ---
General Adult HPI - General Chief complaint: Extremity Problem,Nontraumatic Stated complaint: Swelling L leg Time Seen by Provider: 07/14/23 12:45 Source: patient, RN notes reviewed, old records reviewed Mode of arrival: ambulatory Limitations: no limitations - History of Present Illness Initial comments: This is a 58-year-old male who presents to the emergency department stating that he has chronic back problems. Patient states he has multiple discs bulging. Patient states he had chronic numbness to both of his legs more the left than the right and chronic slight weakness to the left which is slowly progressing. Patient states about 2 and half weeks ago he fell and hurt his right shoulder and it hurts in the lateral aspect of the right shoulder. Patient states it was a fall from standing. Patient also states since Friday he has noticed increased tingling to his left leg from the knee down and he thinks there is more swelling left leg than normal. Patient denies any calf pain. Patient is able to bear weight but occasionally feels weak - Related Data Home Medications Medication Instructions Recorded Confirmed Losartan [Cozaar] 12.5 mg PO DAILY 03/12/21 05/30/23 Vitamin B Complex 1 cap PO DAILY 09/16/22 05/30/23 Levothyroxine Sodium [Tirosint] 200 mcg PO DAILY 04/30/23 05/30/23 Melatonin 5 mg PO HS PRN 04/30/23 05/30/23 Pregabalin [Lyrica] 100 mg PO TID 04/30/23 05/30/23 Calcium Carbonate [Calcium] 600 mg PO TID 05/30/23 05/30/23 HYDROcodone/APAP 10-325MG [[place] 1 tab PO QID PRN 05/30/23 05/30/23 10-325] buprenorphine HCL [Belbuca] 300 mcg BUCCAL BID 05/30/23 05/30/23 methocarbamoL [Robaxin-750] 750 mg PO Q6H PRN 05/30/23 05/30/23 predniSONE 50 mg PO DAILY 05/30/23 05/30/23 Previous Rx's Medication Instructions Recorded Ondansetron Odt [Zofran Odt] 4 mg PO Q6HR PRN #20 tab 05/30/23 predniSONE [Deltasone] 30 mg PO BID #15 tab 06/14/23 Allergies Allergy/AdvReac Type Severity Reaction Status Date / Time Iodinated Contrast Media Allergy Rash/Hives Verified 07/14/23 12:53 levothyroxine sodium Allergy Swelling, Verified 07/14/23 12:53 [From Synthroid] Neuropathy venom-honey bee Allergy Swelling Verified 07/14/23 12:53 gabapentin AdvReac Severe states Verified 07/14/23 12:53 "HIGH" for 2 days. bupropion AdvReac stomache Verified 07/14/23 12:53 upset,tinnitus,dizziness Review of Systems ROS Statement: Those systems with pertinent positive or pertinent negative responses have been documented in the HPI. ROS Other: All systems not noted in ROS Statement are negative. Past Medical History Past Medical History: Cancer, CVA/TIA, GERD/Reflux, Hypertension, Musculoskeletal Disorder, Osteoarthritis (OA), Thyroid Disorder Additional Past Medical History / Comment(s): Hx Covid 06/07/20. 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 History of Any Multi-Drug Resistant Organisms: None Reported Past Surgical History: Appendectomy, Back Surgery, Cholecystectomy Additional Past Surgical History / Comment(s): Thyroidectomy-3 total surgeries, parathyroidectomy, vocal cord surgery X4 with removal of non cancerous mass, pain clinic procedures, low back discectomy L4-L5, colonoscopy. Past Anesthesia/Blood Transfusion Reactions: No Reported Reaction Past Psychological History: PTSD Smoking Status: Never smoker Past Alcohol Use History: None Reported Past Drug Use History: None Reported - Past Family History Father Family Medical History: Coronary Artery Disease (CAD), Hyperlipidemia Additional Family Medical History / Comment(s): Uncle-myocardial infarction in his 40s. Mother Family Medical History: No Reported History Additional Family Medical History / Comment(s): . Sister(s) Additional Family Medical History / Comment(s): Patient has 1 sister with no major medical problems. Patient is for children with no major medical problems. Brother(s) Family Medical History: Diabetes Mellitus, Hypertension General Exam - General Exam Comments Initial Comments: GENERAL Patient is well-developed and well-nourished. Patient is in mild distress. EYES Patient's pupils are equal and round. Extraocular motion is intact SKIN Unremarkable NEURO The patient is alert and oriented x 3 PYSCH Patient has normal interpersonal interactions. MUSCULOSKELETAL Patient has some lateral shoulder tenderness on the right. Patient's legs are very scantly swollen and equal bilaterally patient has no calf pain no gross abnormality no swelling of the knee or around the knee no areas of erythema. Patient has a negative straight leg test. Limitations: no limitations Course Vital Signs 07/14/23 12:44 Temperature 98.3 F Pulse Rate 88 Respiratory 20 Rate Blood Pressure 148/98 O2 Sat by Pulse 95 Oximetry Medical Decision Making - Medical Decision Making Was pt. sent in by a medical professional or institution (, PA, PROCESSES CHEMICAL DESIGN ENGINEER, urgent care, hospital, or assisted...) When possible be specific @ -No Did you speak to anyone other than the patient for history (EMS, parent, family, police, friend...)? What history was obtained from this source @ -No Did you review nursing and triage notes (agree or disagree)? Why? @ -I reviewed and agree with nursing and triage notes Were old charts reviewed (outside hosp., previous admission, EMS record, old EKG, old radiological studies, urgent care reports/EKG's, assisted records)? Report findings @ -No old charts were reviewed Differential Diagnosis (chest pain, altered mental status, abdominal pain women, abdominal pain men, vaginal bleeding, weakness, fever, dyspnea, syncope, headache, dizziness, GI bleed, back pain, seizure, CVA, palpatations, mental health, musculoskeletal)? @ -Differential Musculoskeletal Muscular strain, contusion, ligament sprain, fracture, arthritis, septic arthritis, bursitis, cellulitis, muscle spasm, nerve compression, DVT, arterial occlusion, herpes zoster, electrolyte abnormality, tumor.... This is not meant to be in all inclusive list EKG interpreted by me (3pts min.). @ -As above X-rays interpreted by me (1pt min.). @ -None done CT interpreted by me (1pt min.). @ -None done U/S interpreted by me (1pt. min.). @ -None done What testing was considered but not performed or refused? (CT, X-rays, U/S, labs)? Why? @ -None What meds were considered but not given or refused? Why? @ -None Did you discuss the management of the patient with other professionals (professionals i.e. , PA, PROCESSES CHEMICAL DESIGN ENGINEER, lab, RT, psych nurse, social insurance specialist, electrical technician instructor, teacher, radiation officer, human services case manager)? Give summary @ -No Was smoking cessation discussed for >3mins.? @ -No Was critical care preformed (if so, how long)? @ -No Were there social determinants of health that impacted care today? How? (Home lessness, low income, unemployed, alcoholism, drug addiction, transportation, low edu. Level, literacy, decrease access to med. care, snf, rehab)? @ -No Was there de-escalation of care discussed even if they declined (Discuss DNR or withdrawal of care, Hospice)? DNR status @ -No What co-morbidities impacted this encounter? (DM, HTN, Smoking, COPD, CAD, Cancer, CVA, ARF, Chemo, Hep., AIDS, mental health diagnosis, sleep apnea, morbid obesity)? @ -None Was patient admitted / discharged? Hospital course, mention meds given and route, prescriptions, significant lab abnormalities, going to OR and other pertinent info. @ -I ordered x-rays of the patient's back and shoulder because he stated he fell 2 and half weeks ago and patient refused to do either he stated he does not think he broke anything. [place] back into reevaluate him and speak with him and he says he came in because there was swelling on his legs but he states today the swelling is almost not there at all so he does not want to be seen any further and does not want any further workup and states that he will follow-up with an orthopedic surgeon. I made multiple attempts to try to get the patient to do some further workup and he refused. Undiagnosed new problem with uncertain prognosis? @ -No Drug Therapy requiring intensive monitoring for toxicity (Heparin, Nitro, Insulin, Cardizem)? @ -No Were any procedures done? @ -No Diagnosis/symptom? @ -Chronic back pain Acute, or Chronic, or Acute on Chronic? @ -Chronic Uncomplicated (without systemic symptoms) or Complicated (systemic symptoms)? @ -Uncomplicated Side effects of treatment? @ -No Exacerbation, Progression, or Severe Exacerbation? @ -No Poses a threat to life or bodily function? How? (Chest pain, [place], [place], pneumonia, PE, COPD, DKA, ARF, appy, cholecystitis, CVA, Diverticulitis, Homicidal, Suicidal, threat to staff... and all critical care pts) @ -No Diagnosis/symptom? @ -Contusion shoulder Acute, or Chronic, or Acute on Chronic? @ -No acute Uncomplicated (without systemic symptoms) or Complicated (systemic symptoms)? @ -Complicated Side effects of treatment? @ -None Exacerbation, Progression, or Severe Exacerbation] @ -No Poses a threat to life or bodily function? @ -No Disposition Clinical Impression: Contusion of shoulder, Chronic back pain Disposition: HOME SELF-CARE Instructions (If sedation given, give patient instructions): Chronic Back Pain (DC), Contusion in Adults (ED) Is patient prescribed a controlled substance at d/c from ED?: No Referrals: [facility],Clinic [Primary Care Provider] - 1-2 days Time of Disposition: 14:55
[2023-07-14] MEDS: KETOROLAC 15 MG/ML 1 ML VIAL IM STA (13:18)
[2023-07-14 15:24] VITALS: BP 140/96; PULSE 86; RESP 18; TEMP 97.9
== END 2023-07-14 15:03 | disposition home or self-care (01) ==
LOC: EC 12:35
DX: S40.011A Contusion of right shoulder, initial encounter (principal); G89.29 Other chronic pain; M54.9 Dorsalgia, unspecified; Z91.041 Radiographic dye allergy status; Z88.8 Allergy status to other drugs, medicaments and biological substances; Z91.030 Bee allergy status; Z86.73 Personal history of transient ischemic attack (TIA), and cerebral infarction without residual deficits; Z86.16 Personal history of COVID-19; W19.XXXA Unspecified fall, initial encounter
CPT/HCPCS: 99283; 96372; J1885

== ENCOUNTER 2023-07-23 14:02 | Observation (INO) | payer OTHER ==
--- NOTE | 2023-07-23 14:46 | ED ---
General Adult HPI - General Source: patient, RN notes reviewed Mode of arrival: ambulatory Limitations: no limitations <Yeimi Rubi - Last Filed: 07/23/23 14:45> <Erik Llanos - Last Filed: 07/23/23 17:25> - General Chief complaint: Extremity Problem,Nontraumatic Stated complaint: L leg swelling Time Seen by Provider: 07/23/23 14:19 - History of Present Illness Initial comments: Quick Note-this is a 58-year-old male with a past medical history of neuropathy and chronic lower back pain presents emergency department chief complaint of lower back pain and pain in his left leg. States that his left leg has been swollen over the past few weeks. Patient is also having symptoms of paresthesias in his bilateral lower extremities which is chronic for him. (Yeimi Rubi) - Related Data Home Medications Medication Instructions Recorded Confirmed Losartan [Cozaar] 12.5 mg PO DAILY 03/12/21 05/30/23 Vitamin B Complex 1 cap PO DAILY 09/16/22 05/30/23 Levothyroxine Sodium [Tirosint] 200 mcg PO DAILY 04/30/23 05/30/23 Melatonin 5 mg PO HS PRN 04/30/23 05/30/23 Pregabalin [Lyrica] 100 mg PO TID 04/30/23 05/30/23 Calcium Carbonate [Calcium] 600 mg PO TID 05/30/23 05/30/23 HYDROcodone/APAP 10-325MG [[place] 1 tab PO QID PRN 05/30/23 05/30/23 10-325] buprenorphine HCL [Belbuca] 300 mcg BUCCAL BID 05/30/23 05/30/23 methocarbamoL [Robaxin-750] 750 mg PO Q6H PRN 05/30/23 05/30/23 predniSONE 50 mg PO DAILY 05/30/23 05/30/23 Previous Rx's Medication Instructions Recorded Ondansetron Odt [Zofran Odt] 4 mg PO Q6HR PRN #20 tab 05/30/23 predniSONE [Deltasone] 30 mg PO BID #15 tab 06/14/23 Allergies Allergy/AdvReac Type Severity Reaction Status Date / Time Iodinated Contrast Media Allergy Rash/Hives Verified 07/14/23 12:53 levothyroxine sodium Allergy Swelling, Verified 07/14/23 12:53 [From Synthroid] Neuropathy venom-honey bee Allergy Swelling Verified 07/14/23 12:53 gabapentin AdvReac Severe states Verified 07/14/23 12:53 "HIGH" for 2 days. bupropion AdvReac stomache Verified 07/14/23 12:53 upset,tinnitus,dizziness Review of Systems ROS Other: All systems not noted in ROS Statement are negative. <Yeimi Rubi - Last Filed: 07/23/23 14:45> ROS Other: All systems not noted in ROS Statement are negative. <Erik Llanos - Last Filed: 07/23/23 17:25> ROS Statement: Those systems with pertinent positive or pertinent negative responses have been documented in the HPI. Past Medical History Past Medical History: Cancer, CVA/TIA, GERD/Reflux, Hypertension, Musculoskeletal Disorder, Osteoarthritis (OA), Thyroid Disorder Additional Past Medical History / Comment(s): Hx Covid 06/07/20. 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 History of Any Multi-Drug Resistant Organisms: None Reported Past Surgical History: Appendectomy, Back Surgery, Cholecystectomy Additional Past Surgical History / Comment(s): Thyroidectomy-3 total surgeries, parathyroidectomy, vocal cord surgery X4 with removal of non cancerous mass, pain clinic procedures, low back discectomy L4-L5, colonoscopy. Past Anesthesia/Blood Transfusion Reactions: No Reported Reaction Past Psychological History: PTSD Smoking Status: Never smoker Past Alcohol Use History: None Reported Past Drug Use History: None Reported - Past Family History Father Family Medical History: Coronary Artery Disease (CAD), Hyperlipidemia Additional Family Medical History / Comment(s): Uncle-myocardial infarction in his 40s. Mother Family Medical History: No Reported History Additional Family Medical History / Comment(s): . Sister(s) Additional Family Medical History / Comment(s): Patient has 1 sister with no major medical problems. Patient is for children with no major medical problems. Brother(s) Family Medical History: Diabetes Mellitus, Hypertension <Yeimi Rubi - Last Filed: 05/15/24 14:45> General Exam Limitations: no limitations <StielerFinaYeimi - Last Filed: 07/23/23 14:45> Limitations: no limitations, language barrier General appearance: alert, in no apparent distress Head exam: Present: atraumatic, normocephalic Eye exam: Present: normal appearance. Absent: scleral icterus, conjunctival injection ENT exam: Present: normal oropharynx Neck exam: Present: normal inspection Respiratory exam: Present: normal lung sounds bilaterally. Absent: respiratory distress, wheezes, rales, rhonchi, stridor, accessory muscle use Cardiovascular Exam: Present: regular rate, normal rhythm, normal heart sounds. Absent: systolic murmur, diastolic murmur, rubs, gallop GI/Abdominal exam: Present: soft. Absent: distended, tenderness, guarding, rebound, rigid, mass Extremities exam: Present: normal inspection, normal capillary refill. Absent: pedal edema, calf tenderness Left Hip exam: Present: normal inspection Upper Leg exam: Present: normal inspection, full ROM. Absent: tenderness, swelling Knee exam: Present: normal inspection, full ROM. Absent: tenderness, swelling Lower Leg exam: Present: normal inspection, full ROM. Absent: tenderness, swelling Ankle exam: Present: normal inspection, full ROM. Absent: tenderness, swelling Foot/Toe exam: Present: full ROM, ecchymosis (The left third toe is dusky at the distal phalanx.). Absent: tenderness, swelling, abrasion, laceration, deformity, crepitus, dislocation, erythema, amputation Back exam: Present: normal inspection. Absent: CVA tenderness (R), CVA tenderness (L) Neurological exam: Present: alert. Absent: motor sensory deficit Skin exam: Present: warm, dry, intact, other (See extremity exam). Absent: rash <Erik Llanos - Last Filed: 07/23/23 17:25> - General Exam Comments Initial Comments: Visual Physical Exam Vital signs reviewed General: Well-appearing, nontoxic, no acute distress. Head: Normocephalic, atraumatic Eyes: PERRLA, EOMI ENT: Airway patent Chest: Nonlabored breathing Skin: No visual rash, normal skin tone Neuro: Alert and oriented 3 Musculoskeletal: No gross abnormalities (Stieler,Yeimi) Course Vital Signs 07/23/23 14:34 Temperature 98.4 F Pulse Rate 79 Respiratory 18 Rate Blood Pressure 160/91 O2 Sat by Pulse 97 Oximetry Medical Decision Making <Yeimi Rubi - Last Filed: 07/23/23 14:45> - Lab Data Result diagrams: 07/23/23 16:14 07/23/23 16:14 <Erik Llanos - Last Filed: 07/23/23 17:25> - Medical Decision Making I completed the quick note portion of this chart signed Yeimi Ruib PA-C (Yeimi Rubi) - Lab Data Lab Results 07/23/23 07/23/23 07/23/23 Range/Units 16:14 16:14 16:14 WBC 6.9 (3.8-10.6) k/uL RBC 4.92 (4.30-5.90) m/uL Hgb 14.5 (13.0-17.5) gm/dL Hct 42.7 (39.0-53.0) % MCV 86.6 (80.0-100.0) fL MCH 29.4 (25.0-35.0) pg MCHC 33.9 (31.0-37.0) g/dL RDW 12.2 (11.5-15.5) % Plt Count 225 (150-450) k/uL MPV 7.3 Neutrophils % 65 % Lymphocytes % 24 % Monocytes % 7 % Eosinophils % 0 % Basophils % 1 % Neutrophils # 4.5 (1.3-7.7) k/uL Lymphocytes # 1.6 (1.0-4.8) k/uL Monocytes # 0.5 (0-1.0) k/uL Eosinophils # 0.0 (0-0.7) k/uL Basophils # 0.0 (0-0.2) k/uL Sodium 137 (137-145) mmol/L Potassium 4.2 (3.5-5.1) mmol/L Chloride 105 (98-107) mmol/L Carbon Dioxide 28 (22-30) mmol/L Anion Gap 4 mmol/L BUN 18 (9-20) mg/dL Creatinine 0.80 (0.66-1.25) mg/dL Est GFR (CKD-EPI)AfAm >90 (>60 ml/min/1.73 sqM) Est GFR (CKD-EPI)NonAf >90 (>60 ml/min/1.73 sqM) Glucose 106 H (74-99) mg/dL Plasma Lactic Acid Vivek 1.6 (0.7-2.0) mmol/L Calcium 6.7 L (8.4-10.2) mg/dL Total Bilirubin 0.8 (0.2-1.3) mg/dL AST 31 (17-59) U/L ALT 31 (4-49) U/L Alkaline Phosphatase 48 (38-126) U/L Total Protein 5.9 L (6.3-8.2) g/dL Albumin 3.7 (3.5-5.0) g/dL TSH 0.944 (0.465-4.680) mIU/L Disposition <Yeimi Rubi - Last Filed: 07/23/23 14:45> <Erik Llanos - Last Filed: 07/23/23 17:25> Referrals: ,Clinic [Primary Care Provider] - 1-2 days
--- NOTE | 2023-07-23 15:36 | US ---
EXAMINATION TYPE: US venous doppler duplex LE LT DATE OF EXAM: 07/23/2023 3:16 PM COMPARISON: NONE CLINICAL INDICATION: Male, 58 years old with history of swelling and redness; bilateral feet numbness and discoloration. Patient states he has some bulging discs. SIDE PERFORMED: Left TECHNIQUE: The lower extremity deep venous system is examined utilizing real time linear array sonog mamadou with graded compression, doppler sonography and color-flow sonography. VESSELS IMAGED: Common Femoral Vein Deep Femoral Vein Greater Saphenous Vein * Femoral Vein Popliteal Vein Small Saphenous Vein * Proximal Calf Veins (* superficial vessels) Left Leg: Negative for DVT IMPRESSION: Grayscale, color doppler, spectral doppler imaging performed of the deep veins of the lo wer extremities. There is normal flow, compressibility, vascular waveforms.
[2023-07-23 16:38] LABS: Basophils % (A) 1 %; Eosinophils % (A) 0 %; HCT 42.7 % (39.0-53.0); HGB 14.5 gm/dL (13.0-17.5); Lymphocytes # (A) 1.6 k/uL (1.0-4.8); Lymphocytes % (A) 24 %; MCH 29.4 pg (25.0-35.0); MCHC 33.9 g/dL (31.0-37.0); MCV 86.6 fL (80.0-100.0); Mean Platelet Volume 7.3; Monocytes # (A) 0.5 k/uL (0-1.0); Monocytes % (A) 7 %; Neutrophils # (A) 4.5 k/uL (1.3-7.7); Neutrophils % (A) 65 %; Platelet Count 225 k/uL (150-450); RBC 4.92 m/uL (4.30-5.90); RDW 12.2 % (11.5-15.5); WBC 6.9 k/uL (3.8-10.6)
[2023-07-23 16:51] LABS: ALT 31 U/L (4-49); AST 31 U/L (17-59); African American GFR (CKD) >90 (>60 ml/min/1.73 sqM); Albumin 3.7 g/dL (3.5-5.0); Alkaline Phosphatase 48 U/L (38-126); Anion Gap 4 mmol/L; Blood Urea Nitrogen 18 mg/dL (9-20); Calcium 6.7 mg/dL (8.4-10.2); Carbon Dioxide 28 mmol/L (22-30); Chloride 105 mmol/L (98-107); Glucose 106 mg/dL (74-99); Non-African American GFR(CKD) >90 (>60 ml/min/1.73 sqM); Potassium 4.2 mmol/L (3.5-5.1); Sodium 137 mmol/L (137-145); Total Bilirubin 0.8 mg/dL (0.2-1.3); Total Protein 5.9 g/dL (6.3-8.2)
[2023-07-23] MEDS ORDERED: RX INFO: IV CONTRAST WAS GIVEN 1 EACH MISC MISCELLANE PRN (17:06)
[2023-07-23] MEDS: methylPREDNISolone SOD SUCCI 125 MG/2 ML VIAL IV STA (17:20)
[2023-07-23] MEDS: FAMOTIDINE 20 MG/2 ML VIAL IV STA (17:22)
[2023-07-23] MEDS: diphenhydrAMINE 50 MG/ML 1 ML VIAL IVP STA (17:22)
[2023-07-23] MEDS: HYDROcodone/APAP 5-325MG 1 EACH TAB PO STA (17:22)
--- NOTE | 2023-07-23 18:49 | CT ---
EXAMINATION TYPE: CT angio lower extremity LT CT DLP: 1290.2 mGycm, Automated exposure control for dose reduction was used. DATE OF EXAM: 07/23/2023 6:25 PM COMPARISON: None. . CLINICAL INDICATION:Male, 58 years old with history of 3rd toe discoloration; PHH, 3rd toe discolorat ion. TECHNIQUE: Multiple thin slice sub-millimeter images were obtained after administration of contrast. 3-D reconstructed images and maximum intensity projection images were obtained. CT [facility]re [facility] Contrast: Contrast used:100 ml mL of Isovue 370 with IV Contrast, Oral contrast used: None FINDINGS: CTA Lower extremities: Left: The common femoral and superficial femoral arteries are patent. The popliteal artery is patent. Anterior and posterior tibial arteries as well as the peroneal artery are patent. Posterior tibial a rtery cross the ankle. The left anterior tibial artery is occluded just past the ankle series 401 oriana ge 510 There is a large left knee joint effusion. There is a left posterior suspected popliteal Moura 's cyst. IMPRESSION 1. Anterior tibial artery/dorsalis pedis artery appears occluded at the level of the ankle further e valuation with Doppler imaging should be performed. The posterior tibial artery is patent and cross t he ankle. No other areas of high-grade stenosis in the left lower extremity vasculature. 2. Large left knee joint effusion with popliteal fossa cyst. 3. Mild atherosclerosis of the arterial vasculature.
[2023-07-23] MEDS ORDERED: HEPARIN SODIUM 1,000 UN/ML (10ML VL) IV PRN (18:56)
[2023-07-23] MEDS: HEPARIN SOD,PORK IN 0.45% NACL 25,000 UNIT in 0.45% NACL 1 250ML.BAG IV SCH (19:14)
[2023-07-23] MEDS: HEPARIN SODIUM 1,000 UN/ML (10ML VL) IV ONE (19:15)
[2023-07-23 20:08] LABS: INR 1.1 (<1.2); Prothrombin Time 11.6 sec (10.0-12.5)
[2023-07-23 20:12] LABS: Partial Thromboplastin Time >200.0 sec (22.0-30.0)
[2023-07-23] MEDS ORDERED: HYDROcodone/APAP 5-325MG 1 EACH TAB PO PRN (22:28)
[2023-07-23] MEDS ORDERED: ACETAMINOPHEN TAB 325 MG TAB PO PRN (22:28)
[2023-07-23] MEDS ORDERED: ONDANSETRON 4 MG/2 ML VIAL IVP PRN (22:28)
[2023-07-23] MEDS ORDERED: NALOXONE 0.4 MG/ML 1 ML VIAL IV PRN (22:28)
[2023-07-23] MEDS: MORPHINE SULFATE 4 MG/ML SYRINGE IV PRN (23:48)
[2023-07-24] MEDS: SODIUM CHLORIDE 0.9% 1,000 ML IV SCH (01:06)
[2023-07-24] MEDS: PREGABALIN 75 MG CAP PO SCH (01:08)
--- NOTE | 2023-07-24 06:44 | P.HPIM ---
History of Present Illness H&P Date: 07/23/23 Chief Complaint: Left lower extremity increased numbness 58-year-old male with chronic low back pain hypothyroid with history of thyroid cancer, hypertension Patient reports that he is a man with a lot of mysterious conditions he follows up with multiple doctors and always been told that his symptoms are not common. He does report chronic low back pain having some chronic disc issues he follows up with back pain clinic [facility]. He noticed some increased numbness in his left lower extremity usually gets worse with standing up but when he tried to do that he noticed that the numbness was not progressing proximally for which she thought this is a new condition and decided to come into the hospital for evaluation he also been noticing a bleeding blister over the ventral portion of head of the left big toe and has been feeling that his foot is always cold for these reasons he decided to come in for evaluation today. He does report a cyst behind his left knee in the past Morua's cyst which was removed but now he is noticing some increase swelling in his left knee. He also reports some swelling in bilateral hands, normally he cannot make a fist but he feels that this might be getting worse Patient denies any fevers or chills denies any coughing chest pain trouble breathing denies any nausea vomiting abdominal pain denies any discoloration in his foot denies any history of diabetes. He also believes that his neuropathy as result of Synthroid exposure that he developed some strange sensitivity reaction along with his disc herniation review of systems Pertinent positives as noted in HPI. All other systems were reviewed and are negative on exam Constitutional: No acute distress, conversant, pleasant Eyes: Anicteric sclerae, moist conjunctiva, Pupils equal round reactive to light ENMT: NC/AT Oropharynx clear, no erythema, or exudates Neck: Supple, no masses, or JVD No carotid bruits No thyromegaly Lungs: Clear to auscultation Clear to percussion Normal respiratory effort, no accessory muscle use Cardiovascular: Heart regular in rate and rhythm, No murmurs, gallops, or rubs No peripheral edema Abdominal: Soft Nontender, no guarding, rebound or rigidity Abdomen moving with respiration Normoactive bowel sounds Extremities: Swelling on the left knee with fullness in the popliteal fossa no digital cyanosis No clubbing Pedal pulses is not palpable on the left side. Capillary refill is immediate over the left toe foot is warm to the touch no discoloration Radial pulses intact and symmetrical No calf tenderness Psychiatric: Alert and oriented to person, place and time Appropriate affect fair judgement Neuro Muscles Strength 5/5 in all 4 extremities Sensation to light touch grossly present throughout Cranial nerves II-XII grossly intact Past Medical History Past Medical History: Cancer, CVA/TIA, GERD/Reflux, Hypertension, Musculoskeletal Disorder, Osteoarthritis (OA), Thyroid Disorder Additional Past Medical History / Comment(s): Hx Covid 06/07/20. 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 History of Any Multi-Drug Resistant Organisms: None Reported Past Surgical History: Appendectomy, Back Surgery, Cholecystectomy Additional Past Surgical History / Comment(s): Thyroidectomy-3 total surgeries, parathyroidectomy, vocal cord surgery X4 with removal of non cancerous mass, pain clinic procedures, low back discectomy L4-L5, colonoscopy. Past Anesthesia/Blood Transfusion Reactions: No Reported Reaction Past Psychological History: PTSD Smoking Status: Never smoker Past Alcohol Use History: None Reported Past Drug Use History: None Reported - Past Family History Father Family Medical History: Coronary Artery Disease (CAD), Hyperlipidemia Additional Family Medical History / Comment(s): Uncle-myocardial infarction in his 40s. Mother Family Medical History: No Reported History Additional Family Medical History / Comment(s): . Sister(s) Additional Family Medical History / Comment(s): Patient has 1 sister with no major medical problems. Patient is for children with no major medical problems. Brother(s) Family Medical History: Diabetes Mellitus, Hypertension Medications and Allergies Home Medications Medication Instructions Recorded Confirmed Type Losartan [Cozaar] 12.5 mg PO DAILY 03/12/21 07/23/23 History Vitamin B Complex 1 cap PO DAILY 09/16/22 07/23/23 History Levothyroxine Sodium [Tirosint] 200 mcg PO AC-BRKFST 04/30/23 07/23/23 History Melatonin 5 mg PO HS PRN 04/30/23 07/23/23 History Calcitriol(Unknown Dose) 1 dose PO BID 07/23/23 07/23/23 History Pregabalin [Lyrica] 150 mg PO TID 07/23/23 07/23/23 History buprenorphine HCL [Belbuca] 450 mcg BUCCAL BID 07/23/23 07/23/23 History predniSONE 10 mg PO DAILY 07/23/23 07/23/23 History Allergies Allergy/AdvReac Type Severity Reaction Status Date / Time Iodinated Contrast Media Allergy Rash/Hives Verified 07/14/23 12:53 levothyroxine sodium Allergy Swelling, Verified 07/14/23 12:53 [From Synthroid] Neuropathy venom-honey bee Allergy Swelling Verified 07/14/23 12:53 gabapentin AdvReac Severe states Verified 07/14/23 12:53 "HIGH" for 2 days. bupropion AdvReac stomache Verified 07/14/23 12:53 upset,tinnitus,dizziness Physical Exam Vitals: Vital Signs Temp Pulse Resp BP Pulse Ox 07/23/23 18:46 67 18 141/82 99 07/23/23 14:34 98.4 F 79 18 160/91 97 Intake and Output 07/23/23 07/23/23 07/23/23 06:59 14:59 22:59 Other: Weight 89.811 kg Results CBC & Chem 7: 07/23/23 16:14 07/23/23 16:14 Labs: Abnormal Lab Results - Last 24 Hours (Table) 07/23/23 07/23/23 Range/Units 16:14 19:32 APTT >200.0 H* (22.0-30.0) sec Glucose 106 H (74-99) mg/dL Calcium 6.7 L (8.4-10.2) mg/dL Total Protein 5.9 L (6.3-8.2) g/dL Assessment and Plan Assessment: 58-year-old male hypothyroidism, history of thyroid cancer, hypertension coming in for increased numbness over his left lower extremity swelling of the left knee and bleeding blister from the left foot I discussed the case with ED doctor and accepted the admission for vascular evaluation of peripheral arterial disease as evident on CAT scan done in the ED and swelling in the left knee with anticipated length of stay less than 2 midnights Peripheral arterial disease CT angio of the lower extremity showed left anterior tibial artery dorsalis pedis artery occluded at the level of the ankle, posterior tibial artery is patent and crosses the ankle Vascular consult Capillary refill is immediate left left foot, warm to the touch Continue to monitor neurovascular exam Continue with heparin drip P.o. aspirin daily Left knee swelling CT scan also showed large left knee effusion with popliteal fossa cyst Ortho evaluation Hypertension Continue with losartan Peripheral neuropathy Patient takes chronic prednisone 10 mg p.o. daily he claims that this is for his chronic vague symptoms for which they placed him on this medicine besides his intolerance of Synthroid in the past Continue with Lyrica Hypothyroidism Patient indicated that he can only take Tirosint Continue home meds Blood work otherwise unremarkable showing white count of 6.9 hemoglobin 14.5 Sodium 137 potassium 4.2 BUN 18 creatinine 0.8 TSH 0.94 unremarkable Full code DVT prophylaxis on heparin drip GI prophylaxis Pepcid 20 mg p.o. twice daily
[2023-07-24] MEDS: LEVOTHYROXINE SODIUM 200 MCG PO SCH (06:50)
[2023-07-24 06:58] LABS: Basophils % (A) 0 %; Eosinophils % (A) 0 %; HCT 43.3 % (39.0-53.0); HGB 14.5 gm/dL (13.0-17.5); Lymphocytes % (A) 10 %; MCH 29.3 pg (25.0-35.0); MCHC 33.5 g/dL (31.0-37.0); MCV 87.7 fL (80.0-100.0); Mean Platelet Volume 7.7; Monocytes # (A) 0.3 k/uL (0-1.0); Monocytes % (A) 3 %; Neutrophils % (A) 86 %; Platelet Count 247 k/uL (150-450); RBC 4.94 m/uL (4.30-5.90); RDW 12.3 % (11.5-15.5); WBC 9.3 k/uL (3.8-10.6)
[2023-07-24] MEDS ORDERED: PANTOPRAZOLE 40 MG TABLET PO SCH (07:30)
[2023-07-24 08:22] VITALS: BP 125/71; PULSE 65; RESP 17; TEMP 98.2
[2023-07-24] MEDS: FAMOTIDINE 20 MG TAB PO SCH (09:11)
[2023-07-24] MEDS: predniSONE 10 MG TAB PO SCH (09:11)
[2023-07-24] MEDS: LOSARTAN 25 MG TAB PO SCH (09:11)
[2023-07-24] MEDS: ASPIRIN 81 MG PO SCH (09:12)
--- NOTE | 2023-07-24 10:02 | US ---
EXAMINATION TYPE: US arterial LE multi level DATE OF EXAM: 07/24/2023 8:24 AM CLINICAL INDICATION: Male, 58 years old with history of lower extremity pain; Numbness, tingling left leg. Discolouration left foot History of: Smoker: no Hypertension: yes Diabetic: no Hyperlipidemia: no TIA/CVA: yes Previous Vascular Surgery: no MN: no Vascular Ulcers: no Claudication: no Gangrene: no Doppler Waveforms: Right: Multiphasic Left: Multiphasic Right Brachial Pressure: 135 Left Brachial Pressure: 121 Ankle-Brachial Indices: Right: 1.12 Left: 1.09 (Vessel hardening > 1.4; Normal 0.9 - 1.4, Moderate 0.7 - 0.9, Severe 0.5-0.7) Toe Brachial Indices: Right: 0.93 Left: 0.63 IMPRESSION: Normal brachial ankle indices bilaterally. .
[2023-07-24] MEDS: CALCIUM GLUCONATE IN NACL 1 GM in SALINE 1 100ML.BAG IVPB ONE (10:10)
--- NOTE | 2023-07-24 11:01 | XR ---
EXAMINATION TYPE: XR knee complete LT DATE OF EXAM: 07/24/2023 CLINICAL HISTORY: pain TECHNIQUE: Three views of the left knee are obtained. COMPARISON: None. FINDINGS: There is no acute fracture/dislocation. The tri-compartment joint spaces appear mildly na rrowed. The overlying soft tissue appears unremarkable. Moderate suprapatellar joint effusion. IMPRESSION: There is no acute fracture or dislocation ICD 10 NO FRACTURE, INITIAL EVALUATION
--- NOTE | 2023-07-24 11:54 | P.CNOR ---
History of Present Illness - [facility] Consult date: 07/24/23 Requesting physician: Mao Huggins Consult reason: other (left knee swelling and cyst) History of present illness: Patient is a 58-year-old male who presents to the hospital due to low back pain and left lower extremity pain. Orthopedics was consulted due to left knee swelling. Patient was seen at bedside this morning lying; position on 6 N. Patient says he has seen Dr. Valle in the office over the past several years for his knee pain. Patient says he did have a knee arthroscopy performed about [address] Valle. Patient says he is also received lubricating injections in the both knees at various points in the past several years. 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 Patient states he did present to the hospital because of increased swelling in the left lower extremity and some discoloration of the left ankle/foot. Patient feels that he has having swelling migrate [id number] between the left knee and left calf. Ultrasounds of the left lower extremity has been performed and is negative for any DVT. Patient says he does have increased numbness and tingling to the lower extremities when he stands for extended periods of time. Patient denies being a diabetic. Patient denies any previous orthopedic spine surgery. X-ray of the left knee is positive for osteoarthritis in the medial and patellofemoral compartments. Patient denies any loss of bowel/bladder control. Patient denies chest pain, fever, shortness of breath, nausea, vomiting, change in vision, loss of bowel/bladder control Past Medical History Past Medical History: Cancer, CVA/TIA, GERD/Reflux, Hypertension, Mus culoskeletal Disorder, Osteoarthritis (OA), Thyroid Disorder Additional Past Medical History / Comment(s): Hx Covid 06/07/20. 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 History of Any Multi-Drug Resistant Organisms: None Reported Past Surgical History: Appendectomy, Back Surgery, Cholecystectomy Additional Past Surgical History / Comment(s): Thyroidectomy-3 total surgeries, parathyroidectomy, vocal cord surgery X4 with removal of non cancerous mass, [facility] procedures, low back discectomy L4-L5, colonoscopy. Past Anesthesia/Blood Transfusion Reactions: No Reported Reaction Past Psychological History: PTSD Smoking Status: Never smoker Past Alcohol Use History: None Reported Past Drug Use History: None Reported - Past Family History Father Family Medical History: Coronary Artery Disease (CAD), Hyperlipidemia Additional Family Medical History / Comment(s): Uncle-myocardial infarction in his 40s. Mother Family Medical History: No Reported History Additional Family Medical History / Comment(s): . Sister(s) Additional Family Medical History / Comment(s): Patient has 1 sister with no major medical problems. Patient is for children with no major medical problems. Brother(s) Family Medical History: Diabetes Mellitus, Hypertension Medications and Allergies Home Medications Medication Instructions Recorded Confirmed Type Losartan [Cozaar] 12.5 mg PO DAILY 03/12/21 07/23/23 History Vitamin B Complex 1 cap PO DAILY 09/16/22 07/23/23 History Levothyroxine Sodium [Tirosint] 200 mcg PO AC-BRKFST 04/30/23 07/23/23 History Melatonin 5 mg PO HS PRN 04/30/23 07/23/23 History Pregabalin [Lyrica] 150 mg PO TID 07/23/23 07/23/23 History buprenorphine HCL [Belbuca] 450 mcg BUCCAL BID 07/23/23 07/23/23 History predniSONE 10 mg PO DAILY 07/23/23 07/23/23 History calcitrioL [Rocaltrol] 0.25 mcg PO BID 07/24/23 07/24/23 History Allergies Allergy/AdvReac Type Severity Reaction Status Date / Time Iodinated Contrast Media Allergy Rash/Hives Verified 07/14/23 12:53 levothyroxine sodium Allergy Swelling, Verified 07/14/23 12:53 [From Synthroid] Neuropathy venom-honey bee Allergy Swelling Verified 07/14/23 12:53 gabapentin AdvReac Severe states Verified 07/14/23 12:53 "HIGH" for 2 days. bupropion AdvReac stomache Verified 07/14/23 12:53 upset,tinnitus,dizziness Physical Examination Inspection: Negative for any open fractures, significant wounds, erythema or ecchymosis. Positive for fair amount of swelling in the suprapatellar region on the left knee. Minimal swelling along the suprapatellar region on the right lower extremity. Sensation: Equal, symmetric, bilateral checked throughout the upper and lower extremities on exam Palpation: Fair amount of tenderness to ovation over the medial femoral epicondyle on the left. Positive for tenderness to patient bilaterally posteriorly with Moura's cyst. Some minimal tenderness ovation over the left gastrocnemius muscle. NTTP throughout rest of exam Range of motion: Patient is able to flex both knees bilaterally to about 115 degrees without pain. Patient lacks about 5 degrees full extension bilaterally. Motor: 4+/5 in all major motor groups in bilateral lower extremities. Neurovascular: Radial pulse intact, 2+ bilaterally. DP pulses palpable bilaterally. Cap refill under 3 seconds in digits of upper extremities. Special test: Negative anterior drawer bilaterally. Negative valgus and varus stress test bilaterally. Negative Homans bilaterally. Results - Labs Labs: Abnormal Lab Results - Last 24 Hours (Table) 07/23/23 07/23/23 07/24/23 Range/Units 16:14 19:32 00:57 Neutrophils # (1.3-7.7) k/uL APTT >200.0 H* 52.4 H (22.0-30.0) sec Glucose 106 H (74-99) mg/dL Calcium 6.7 L (8.4-10.2) mg/dL Total Protein 5.9 L (6.3-8.2) g/dL 07/24/23 07/24/23 Range/Units 06:03 06:03 Neutrophils # 8.0 H (1.3-7.7) k/uL APTT 58.0 H (22.0-30.0) sec Glucose (74-99) mg/dL Calcium (8.4-10.2) mg/dL Total Protein (6.3-8.2) g/dL H & H 07/23/23 07/24/23 Range/Units 16:14 06:03 Hgb 14.5 14.5 (13.0-17.5) gm/dL Hct 42.7 43.3 (39.0-53.0) % Coagulation 07/23/23 Range/Units 19:32 INR 1.1 (<1.2) Result Diagrams: 07/24/23 06:03 07/23/23 16:14 - Diagnostic results Knee x-ray: report reviewed, image reviewed (X-ray of the left knee is positive for small effusion. Positive for medial compartment osteoarthritis as well as patellofemoral compartment arthritis. Negative for any fractures or dislocations) Assessment and Plan Assessment: 1. Left knee osteoarthritis Plan: 1. Left knee osteoarthritis - X-ray of the left knee is positive for small effusion. Positive for medial compartment osteoarthritis as well as pat ellofemoral compartment arthritis. Negative for any fractures or dislocations. On exam patient does not present with any significant pain with both passive and active range of motion in the bilateral knees. Patient does have a small effusion to the left knee. Patient has followed up with Dr. Valle in the outpatient setting in the past for his knee. Patient may take Tylenol or ibuprofen to help with pain and swelling to the knee. May apply Voltaren gel topically to help with arthritic flareups. Ice the knee and elevate as needed. At this time we are recommending patient to follow-up in the outpatient setting with Dr. Valle in 1 week for further care and possible aspiration if the swel ling in the left knee worsens. Patient is stable from orthopedic standpoint for discharge from hospital. At this time orthopedics is signing off. Please do not hesitate to contact us for any further questions. 2. Appreciate medical management 3. Pain management -Lyrica; Thatcher 4. DVT prophylaxis -heparin; aspirin 5. GI prophylaxis -Pepcid 6. PT/OT -weightbearing as tolerated with walker as needed 7. Encourage incentive parameter use 8. Appreciate consult Time with Patient: Less than 30
--- NOTE | 2023-07-24 12:34 | P.GSCN ---
History of Present Illness Consult date: 07/24/23 Reason for Consult: Arterial insufficiency left foot Requesting physician: Erik Llanos History of present illness: This a 58-year-old male who presented to the emergency department with complaints bilateral lower extremity pain worse on the left with some discoloration to his right toe. He has a past medical history including CVA/TIA, GERD, hypertension, chronic low back pain, history of thyroid cancer status postsurgery and radiation, and peripheral neuropathy. Patient has been complaining about left lower extremity pain he had a venous duplex that was negative for deep vein thrombosis. He had a lower extremity CTA of the left leg that reported occlusion of the anterior tibial artery and dorsalis pedis artery. He was started on a heparin drip. Vascular surgery was consulted for the above. Patient denies any shortness of breath, chest pain, abdominal pain, nausea or vomiting. States left lower extremity pain improved and discoloration has improved as well. He is able to move bilateral lower extremities and has good sensation. Review of Systems A 14 point review systems was completed all pertinent positives and negatives as stated in the HPI. Past Medical History Past Medical History: Cancer, CVA/TIA, GERD/Reflux, Hypertension, Musculoskeletal Disorder, Osteoarthritis (OA), Thyroid Disorder Additional Past Medical History / Comment(s): Hx Covid 06/07/20. 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 History of Any Multi-Drug Resistant Organisms: None Reported Past Surgical History: Appendectomy, Back Surgery, Cholecystectomy Additional Past Surgical History / Comment(s): Thyroidectomy-3 total surgeries, parathyroidectomy, vocal cord surgery X4 with removal of non cancerous mass, pain clinic procedures, low back discectomy L4-L5, colonoscopy. Past Anesthesia/Blood Transfusion Reactions: No Reported Reaction Past Psychological History: PTSD Smoking Status: Never smoker Past Alcohol Use History: None Reported Past Drug Use History: None Reported - Past Family History Father Family Medical History: Coronary Artery Disease (CAD), Hyperlipidemia Additional Family Medical History / Comment(s): Uncle-myocardial infarction in his 40s. Mother Family Medical History: No Reported History Additional Family Medical History / Comment(s): . Sister(s) Additional Family Medical History / Comment(s): Patient has 1 sister with no major medical problems. Patient is for children with no major medical problems. Brother(s) Family Medical History: Diabetes Mellitus, Hypertension Medications and Allergies Home Medications Medication Instructions Recorded Confirmed Type Losartan [Cozaar] 12.5 mg PO DAILY 03/12/21 07/23/23 History Vitamin B Complex 1 cap PO DAILY 09/16/22 07/23/23 History Levothyroxine Sodium [Tirosint] 200 mcg PO AC-BRKFST 04/30/23 07/23/23 History Melatonin 5 mg PO HS PRN 04/30/23 07/23/23 History Pregabalin [Lyrica] 150 mg PO TID 07/23/23 07/23/23 History buprenorphine HCL [Belbuca] 450 mcg BUCCAL BID 07/23/23 07/23/23 History predniSONE 10 mg PO DAILY 07/23/23 07/23/23 History calcitrioL [Rocaltrol] 0.25 mcg PO BID 07/24/23 07/24/23 History Allergies Allergy/AdvReac Type Severity Reaction Status Date / Time Iodinated Contrast Media Allergy Rash/Hives Verified 07/14/23 12:53 levothyroxine sodium Allergy Swelling, Verified 07/14/23 12:53 [From Synthroid] Neuropathy venom-honey bee Allergy Swelling Verified 07/14/23 12:53 gabapentin AdvReac Severe states Verified 07/14/23 12:53 "HIGH" for 2 days. bupropion AdvReac stomache Verified 07/14/23 12:53 upset,tinnitus,dizziness Surgical - Exam Vital Signs Temp Pulse Resp BP Pulse Ox 98.4 F 79 18 160/91 97 07/23/23 14:34 07/23/23 14:34 07/23/23 14:34 07/23/23 14:34 07/23/23 14:34 General appearance: The patient is alert, oriented, appears in no acute distress. HET: Head is normocephalic and atraumatic. Pupils are equal and reactive. Neck: Supple. Heart: Regular. Lungs: Equal expansion, normal respiratory effort. Abdomen: Soft, nontender, nondistended. Extremities: Normal skin color and turgor. Palpable bilateral femoral, PT and DP pulses. Neurological: No focal deficits. Strength and sensation are grossly intact. Results - Labs 07/24/23 06:03 07/23/23 16:14 Abnormal Lab Results - Last 24 Hours (Table) 07/23/23 07/23/23 07/24/23 Range/Units 16:14 19:32 00:57 Neutrophils # (1.3-7.7) k/uL APTT >200.0 H* 52.4 H (22.0-30.0) sec Glucose 106 H (74-99) mg/dL Calcium 6.7 L (8.4-10.2) mg/dL Total Protein 5.9 L (6.3-8.2) g/dL 07/24/23 07/24/23 Range/Units 06:03 06:03 Neutrophils # 8.0 H (1.3-7.7) k/uL APTT 58.0 H (22.0-30.0) sec Glucose (74-99) mg/dL Calcium (8.4-10.2) mg/dL Total Protein (6.3-8.2) g/dL Diabetes panel 07/23/23 Range/Units 16:14 Sodium 137 (137-145) mmol/L Potassium 4.2 (3.5-5.1) mmol/L Chloride 105 (98-107) mmol/L Carbon Dioxide 28 (22-30) mmol/L BUN 18 (9-20) mg/dL Creatinine 0.80 (0.66-1.25) mg/dL Glucose 106 H (74-99) mg/dL Calcium 6.7 L (8.4-10.2) mg/dL AST 31 (17-59) U/L ALT 31 (4-49) U/L Alkaline Phosphatase 48 (38-126) U/L Total Protein 5.9 L (6.3-8.2) g/dL Albumin 3.7 (3.5-5.0) g/dL Thyroid panel 07/23/23 Range/Units 16:14 TSH 0.944 (0.465-4.680) mIU/L Calcium panel 07/23/23 Range/Units 16:14 Calcium 6.7 L (8.4-10.2) mg/dL Albumin 3.7 (3.5-5.0) g/dL Pituitary panel 07/23/23 Range/Units 16:14 Sodium 137 (137-145) mmol/L Potassium 4.2 (3.5-5.1) mmol/L Chloride 105 (98-107) mmol/L Carbon Dioxide 28 (22-30) mmol/L BUN 18 (9-20) mg/dL Creatinine 0.80 (0.66-1.25) mg/dL Glucose 106 H (74-99) mg/dL Calcium 6.7 L (8.4-10.2) mg/dL TSH 0.944 (0.465-4.680) mIU/L Adrenal panel 07/23/23 Range/Units 16:14 Sodium 137 (137-145) mmol/L Potassium 4.2 (3.5-5.1) mmol/L Chloride 105 (98-107) mmol/L Carbon Dioxide 28 (22-30) mmol/L BUN 18 (9-20) mg/dL Creatinine 0.80 (0.66-1.25) mg/dL Glucose 106 H (74-99) mg/dL Calcium 6.7 L (8.4-10.2) mg/dL Total Bilirubin 0.8 (0.2-1.3) mg/dL AST 31 (17-59) U/L ALT 31 (4-49) U/L Alkaline Phosphatase 48 (38-126) U/L Total Protein 5.9 L (6.3-8.2) g/dL Albumin 3.7 (3.5-5.0) g/dL - Imaging Comments: CT angiogram left lower extremity reports anterior tibial artery/dorsalis pedis artery appears occluded at the level of the ankle further evaluation with Doppler imaging should be performed. Posterior tibial artery is patent and crozer ssing ankle. No other area of high-grade stenosis of the left lower extremity vasculature. Large left knee joint effusion with popliteal fossa cyst. Mild arthrosclerosis of the arterial vasculature. Arterial ultrasound bilateral lower extremities reports normal brachial ankle indices bilaterally with multiphasic waveforms bilaterally. Assessment and Plan Assessment: 1. Left lower extremity pain with no evidence of arterial occlusion 2. Chronic low back pain 3. Peripheral neuropathy Plan: 1. Discontinue heparin drip. Patient does not need any anticoagulation. 2. Arterial duplex ordered and reviewed 3. CT angiogram left lower extremity reviewed by vascular surgeon with no evidence of arterial occlusion 4. There is no further indication for any vascular surgical intervention or workup 5. Rest of medical management per primary medical team 6. Patient is cleared from vascular surgery for discharge. Thank you for this consultation, we will sign off at this time. The impression and plan of care has been dictated as directed. Dr. Santos I performed a history and examination of this patient, discussed the same with the dictator. I agree with the dictator's note ,documented as a scribe. Any additional findings or plans will be noted.
--- NOTE | 2023-07-24 12:43 | P.DS ---
Providers Date of admission: 07/23/23 22:28 Expected date of discharge: 07/24/23 Attending physician: Mao Huggins MD Consults: 07/23/23 22:28 Consult Physician Routine Consulting Provider: Hyun Santos Consult Reason/Comments: Arterial insufficiency left foot Do you want consulting provider notified?: Already Contacted 07/24/23 06:48 Consult Physician Routine Consulting Provider: Cory Valle Consult Reason/Comments: left knee swelling and cyst Do you want consulting provider notified?: Yes Primary care physician: [facility] Hospital Course: Discharge Diagnosis: Peripheral arterial disease, nonocclusive. Vascular surgery evaluated, discontinuing heparin drip stating that they have personally reviewed CT angiogram with no evidence of arterial occlusion. Clearing patient from vascular surgery's perspective for discharge Left knee with large joint effusion and popliteal fossa cyst. Orthopedic surgery evaluated stating patient positive for medial compartment osteoarthritis as well as patellofemoral compartment arthritis, recommending patient to apply Voltaren gel topically and take Tylenol and/or ibuprofen for pain management and follow-up outpatient in their office with Dr. Valle in 1 to 2 weeks. Hypertension. Continue with losartan 12.5 mg daily. Peripheral neuropathy. Continue daily medication regimen with prednisone 10 mg daily and Lyrica 150 mg 3 times daily. Hypothyroidism. Patient to continue daily medication regimen with Tirosint 200 mcg daily. Hospital Course: Patient is a 88-year-old male with a past medical history of hypertension, thyroid cancer status post thyroidectomy, GERD, AAA, migraines, history of closed head injury, and degenerative disc disease with chronic neck and back pain. Scented to the emergency department with a chief complaint of left lower extremity numbness. Patient reports having some chronic numbness/tingling of his left lower extremities and follows with [facility] back pain clinic but reports increased numbness of left lower extremity progressively worsening so he came to the emergency department for evaluation. Upon arrival to our facility, patient underwent evaluation. Vital signs showing blood pressure 160/91, heart rate 79, respiratory rate 18, temp 98.4 F, and SpO2 of 97% on room air. Labs completed and reviewed. CBC and BMP unremarkable. Liver profile showing normal findings. TSH 0.944. Venous Doppler left lower extremity negative for DVT. CTA with run-off left Lower extremity showing anterior tibial artery/dorsalis pedis artery appears occluded at the level of the ankle, posterior tibial artery is patent and crossed the ankle, left knee joint effusion with a popliteal fossa cyst, and mild atherosclerosis of the arterial vasculature.Vascular surgery evaluated, discontinuing heparin drip stating that they have personally reviewed CT angiogram with no evidence of arterial occlusion. Clearing patient from vascular surgery's perspective for discharge. Orthopedic surgery evaluated stating patient positive for medial compartment osteoarthritis as well as patellofemoral compartment arthritis, recommending patient to apply Voltaren gel topically and take Tylenol and/or ibuprofen for pain management and follow-up outpatient in their office with Dr. Valle in 1 to 2 weeks. Medically, patient stable for discharge at this time. Patient to follow-up outpatient with PCP in 1 to 2 days and with orthopedic surgery team in 1 to 2 weeks. Physical exam: Vital signs reviewed and stable. General: Nontoxic, no distress and appears stated age. Derm: Skin warm and dry, normal coloration for ethnicity. Head: Atraumatic, normocephalic and symmetric. Eyes: EOMs intact, no lid lag, and anicteric sclera Mouth: no lip lesions, mucus membranes moist Cardiovascular: regular rate and rhythm with normal S1S2, no murmur, positive posterior tibial pulses bilaterally, and cap refill < 2 seconds. Lungs: Respirations even, regular, and unlabored on room air. Lungs CTA bilaterally, no rhonchi, no rales, no wheezing, and no accessory muscle usage. Abdominal: soft, nontender to palpation, no guarding, no appreciable organomegaly Ext: No gross muscle atrophy, no edema, no contractures. Movement and sensation intact. Patient with mild swelling to left knee and mild pain/small area of bruising to proximal joint of left great toe. Neuro: Speech clear, face symmetrical and CN II-XII grossly intact with no noted focal neuro deficits Psych: Alert and oriented to person, place, time, and situation. Appropriate and pleasant affect. A total of 32 minutes of time were spent preparing this complex discharge summary. Pt was discharged on 07/24/2023 at 12:41 PM. Patient was seen independently by Nurse Practitioner. This document was prepared using [employer] dictation software. Please allow for errors in machining engineer while rare they do occur. Sonido Bennett NP rendered care for this patient independently, reviewed the findings and plan as documented in the note above. I did not physically speak with or examine the patient on this date. Patient Condition at Discharge: Stable Plan - Discharge Summary Discharge Rx Participant: No New Discharge Prescriptions: Continue Losartan [Cozaar] 12.5 mg PO DAILY Levothyroxine Sodium [Tirosint] 200 mcg PO AC-BRKFST Pregabalin [Lyrica] 150 mg PO TID buprenorphine HCL [Belbuca] 450 mcg BUCCAL BID Vitamin B Complex 1 cap PO DAILY Melatonin 5 mg PO HS PRN PRN Reason: Insomnia predniSONE 10 mg PO DAILY calcitrioL [Rocaltrol] 0.25 mcg PO BID Discharge Medication List Losartan [Cozaar] 12.5 mg PO DAILY 03/12/21 [History] Vitamin B Complex 1 cap PO DAILY 09/16/22 [History] Levothyroxine Sodium [Tirosint] 200 mcg PO AC-BRKFST 04/30/23 [History] Melatonin 5 mg PO HS PRN 04/30/23 [History] Pregabalin [Lyrica] 150 mg PO TID 07/23/23 [History] buprenorphine HCL [Belbuca] 450 mcg BUCCAL BID 07/23/23 [History] predniSONE 10 mg PO DAILY 07/23/23 [History] calcitrioL [Rocaltrol] 0.25 mcg PO BID 07/24/23 [History] Follow up Appointment(s)/Referral(s): Cory Valle MD [STAFF PHYSICIAN] - 1 Week [facility] [Primary Care Provider] - 1-2 days Patient Instructions/Handouts: Knee Pain (ED) Activity/Diet/Wound Care/Special Instructions: Activity: As tolerated. Take breaks as needed. Diet: Heart healthy and carb consistent diet. Avoid salts, or foods with hidden salts such as canned or boxed foods and frozen dinners. Extra salt makes your heart work harder and traps the fluid in your body for longer. Special Instructions: Take all of your medications as directed and remember to keep all of your doctor's appointments and follow-up as needed. Thank you for allowing us to participate in your care, it was truly a pleasure having you for our patient!!! Discharge Disposition: HOME SELF-CARE
== END 2023-07-24 13:20 | disposition home or self-care (01) ==
LOC: EC 14:02 → 6NMEDSUR 22:28
PROVIDERS: ADMIT Internal Medicine; ATTEND Internal Medicine
DX: I73.9 Peripheral vascular disease, unspecified (principal); M17.12 Unilateral primary osteoarthritis, left knee; M71.22 Synovial cyst of popliteal space [Baker], left knee; I10 Essential (primary) hypertension; G62.9 Polyneuropathy, unspecified; K21.9 Gastro-esophageal reflux disease without esophagitis; E89.0 Postprocedural hypothyroidism; G89.29 Other chronic pain; M54.50 Low back pain, unspecified; Z85.850 Personal history of malignant neoplasm of thyroid; Z86.16 Personal history of COVID-19; Z86.73 Personal history of transient ischemic attack (TIA), and cerebral infarction without residual deficits; Z92.3 Personal history of irradiation; Z79.52 Long term (current) use of systemic steroids; Z79.890 Hormone replacement therapy; Z79.899 Other long term (current) drug therapy
CPT/HCPCS: 36415; 80053; 83605; 84443; 85025; 85610; 85730; 93923; 96365; 96366; 96375; 96376; 99285

== ENCOUNTER → 2023-12-19 | Outpatient (CLI) | payer OTHER ==
--- NOTE | 2023-12-22 09:05 | MR ---
EXAMINATION TYPE: MRI right shoulder without IV contrast DATE OF EXAM: 12/19/2023 COMPARISON: None HISTORY: Right shoulder pain for about 2 years, had tear about 2.5 months ago due to lifting injury TECHNIQUE: Multiplanar, multisequence imaging of the right shoulder is performed without contrast. FINDINGS: Rotator Cuff: Full thickness full width tear of the subscapularis tendon with retraction medial to the glenoid rey uring at least 4.4 cm. Moderate supraspinatus tendinopathy with superimposed partial-thickness intrasubstance tear at its fo otplate (50% thickness) as well as partial-thickness articular tear along its critical zone (less masoud n 50% thickness). Severe infraspinatus tendinopathy with multifocal partial thickness intrasubstance and articular tear s throughout its width. Fluid tracking along the infraspinatus myotendinous junction. Teres minor tendon is intact. Mild subscapularis muscle atrophy. Acromioclavicular Joint: Alignment is intact. No sizable joint effusion. Mild/moderate osteoarthritis including small marginal osteophytes and mild pericapsular edema. Glenohumeral Joint: Alignment is maintained. Full-thickness chondral defect along the posterior glenoid measuring 7 x 9 m m. Full-thickness chondral fissure with small area of delamination at the anterior glenoid. Mild diff use chondral thinning along the superior and inferior humeral head. Tear of the posterosuperior labrum. Small joint effusion with mild synovitis. No discrete osteochondral bodies. Mild generalized pericapsular edema, greatest along the inferior glenohumeral ligament. Biceps Tendon: Split tear of the extracapsular biceps tendon. Moderate intracapsular biceps tendinopathy. No disloca tion or detachment from the labral anchor. Bone marrow signal: Negative for fracture or marrow replacement. Mild degenerative/enthesopathic edema along the greater humeral tuberosity. Other: Small amount of fluid in the subacromial/subdeltoid bursa. IMPRESSION: 1. Full-thickness full width retracted subscapularis tendon tear. 2. Moderate to severe supraspinatus and infraspinatus tendinopathy with multifocal partial thickness intrasubstance and articular tears. 3. Mild/moderate glenohumeral and acromioclavicular joint osteoarthritis as described above. 4. Split tear of the extracapsular biceps tendon. Moderate intracapsular biceps tendinopathy. 5. Small joint effusion. Small amount of fluid in the subacromial/subdeltoid bursa. 6. Mild generalized pericapsular edema which can be seen with adhesive capsulitis or may be reactive. Please correlate. [facility], Workstation: [facility], 12/22/2023 9:03 AM
== END | disposition home or self-care (01) ==
LOC: RADMRIMAIN 18:02
PROVIDERS: ATTEND Internal Medicine
DX: M25.511 Pain in right shoulder

== ENCOUNTER 2024-02-26 23:01 | Emergency (ER) | payer OTHER ==
--- NOTE | 2024-02-27 00:36 | ED ---
Fall HPI - General Chief Complaint: Fall Stated Complaint: Fall Time Seen by Provider: 02/26/24 23:19 Source: patient, RN notes reviewed Mode of arrival: wheelchair Limitations: no limitations - History of Present Illness Initial Comments: This is a 59-year-old male presenting with left knee injury following fall in 2019 ton. Patient states he tripped on wooden stairs, striking his left knee on one of the steps causing pain (8/10). Patient endorses left knee surgery on 01 12 at [facility]. Endorses use of hydrocodone for pain relief patient denies other injuries, loss of consciousness, striking head, neck pain, distal LLE paresthesia, radiculopathy, motor dysfunction. 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 Fall Witnessed: no Place Fall Occurred: other Loss of Consciousness: none Prolonged Down Time?: no Symptoms Prior to Fall: none Location - Extremities: Left: Knee Severity scale (1-10): 8 Context: tripped/slipped Associated Symptoms: unable to walk - Related Data Home Medications Medication Instructions Recorded Confirmed Losartan [Cozaar] 12.5 mg PO DAILY 03/12/21 07/23/23 Vitamin B Complex 1 cap PO DAILY 09/16/22 07/23/23 Levothyroxine Sodium [Tirosint] 200 mcg PO AC-BRKFST 04/30/23 07/23/23 Melatonin 5 mg PO HS PRN 04/30/23 07/23/23 Pregabalin [Lyrica] 150 mg PO TID 07/23/23 07/23/23 buprenorphine HCL [Belbuca] 450 mcg BUCCAL BID 07/23/23 07/23/23 predniSONE 10 mg PO DAILY 07/23/23 07/23/23 calcitrioL [Rocaltrol] 0.25 mcg PO BID 07/24/23 07/24/23 Allergies Allergy/AdvReac Type Severity Reaction Status Date / Time Iodinated Contrast Media Allergy Rash/Hives Verified 02/26/24 23:20 levothyroxine sodium Allergy Swelling, Verified 02/26/24 23:20 [From Synthroid] Neuropathy venom-honey bee Allergy Swelling Verified 02/26/24 23:20 bupropion AdvReac stomache Verified 02/26/24 23:20 upset,tinnitus,dizziness Review of Systems ROS Statement: Those systems with pertinent positive or pertinent negative responses have been documented in the HPI. ROS Other: All systems not noted in ROS Statement are negative. Past Medical History Past Medical History: Cancer, CVA/TIA, GERD/Reflux, Hypertension, Musculoskeletal Disorder, Osteoarthritis (OA), Thyroid Disorder Additional Past Medical History / Comment(s): Hx Covid 06/07/20. 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 History of Any Multi-Drug Resistant Organisms: None Reported Past Surgical History: Appendectomy, Back Surgery, Cholecystectomy, Joint Replacement, Orthopedic Surgery Additional Past Surgical History / Comment(s): Thyroidectomy-3 total surgeries, parathyroidectomy, vocal cord surgery X4 with removal of non cancerous mass, pain clinic procedures, low back discectomy L4-L5, colonoscopy., left wrist, left knee Past Anesthesia/Blood Transfusion Reactions: No Reported Reaction Past Psychological History: PTSD Smoking Status: Never smoker Past Alcohol Use History: None Reported Past Drug Use History: None Reported - Past Family History Father Family Medical History: Coronary Artery Disease (CAD), Hyperlipidemia Additional Family Medical History / Comment(s): Uncle-myocardial infarction in his 40s. Mother Family Medical History: No Reported History Additional Family Medical History / Comment(s): . Sister(s) Additional Family Medical History / Comment(s): Patient has 1 sister with no major medical problems. Patient is for children with no major medical problems. Brother(s) Family Medical History: Diabetes Mellitus, Hypertension General Exam Limitations: no limitations, physical limitation General appearance: alert, in no apparent distress Head exam: Present: atraumatic, normocephalic, normal inspection Eye exam: Present: normal appearance, PERRL, EOMI. Absent: scleral icterus, conjunctival injection, periorbital swelling ENT exam: Present: normal exam, mucous membranes moist Neck exam: Present: normal inspection. Absent: tenderness, meningismus, lymphadenopathy Respiratory exam: Present: normal lung sounds bilaterally. Absent: respiratory distress, wheezes, rales, rhonchi, stridor Cardiovascular Exam: Present: regular rate, normal rhythm, normal heart sounds. Absent: systolic murmur, diastolic murmur, rubs, gallop, clicks GI/Abdominal exam: Present: soft, normal bowel sounds. Absent: distended, tenderness, guarding, rebound, rigid Extremities exam: Present: full ROM, tenderness (Positive left third digit, midd le phalanx edema and crepitus. Neurovascular and motor function intact. Capillary refill less than 2 seconds.), normal capillary refill, other (Positive left subpatellar 2 cm deep vertical laceration without significant pain, tenderness, edema or bleeding). Absent: pedal edema, joint swelling, calf tenderness Back exam: Present: normal inspection Neurological exam: Present: alert, oriented X3, CN II-XII intact Psychiatric exam: Present: normal affect, normal mood Skin exam: Present: warm, dry, intact, normal color. Absent: rash Course Vital Signs 02/26/24 02/27/24 23:21 01:54 Temperature 98.5 F 97.9 F Pulse Rate 76 61 Respiratory 18 17 Rate Blood Pressure 142/83 144/87 O2 Sat by Pulse 97 97 Oximetry Procedures - Laceration Laceration #1 Consent Obtained: verbal consent Indication: laceration Site: lower extremity Size (cm): 2 Description: linear Depth: simple, single layer Anesthetic Used: lidocaine 1% Anesthesia Technique: local infiltration Amount (mls): 3 Pre-repair: irrigated extensively Type of Sutures: nylon Size of Sutures: 4-0 Number of Sutures: 6 Technique: running Patient Tolerated Procedure: well Medical Decision Making - Medical Decision Making Was pt. sent in by a medical professional or institution (, PA, SHADE BANDER, urgent care, hospital, or senior living...) When possible be specific @ -[No] Did you speak to anyone other than the patient for history (EMS, parent, family, police, friend...)? What history was obtained from this source @ -[No] Did you review nursing and triage notes (agree or disagree)? Why? @ -[I reviewed and agree with nursing and triage notes] Were old charts reviewed (outside hosp., previous admission, EMS record, old EKG, old radiological studies, urgent care reports/EKG's, senior living records)? Report findings @ -[No old charts were reviewed] Differential Diagnosis (chest pain, altered mental status, abdominal pain women, abdominal pain men, vaginal bleeding, weakness, fever, dyspnea, syncope, headache, dizziness, GI bleed, back pain, seizure, CVA, palpatations, mental health, musculoskeletal)? @ -[not applicable] EKG interpreted by me (3pts min.). @ -Not done X-rays interpreted by me (1pt min.). @ -[None done] CT interpreted by me (1pt min.). @ -[None done] U/S interpreted by me (1pt. min.). @ -[None done] What testing was considered but not performed or refused? (CT, X-rays, U/S, labs)? Why? @ -[None] What meds were considered but not given or refused? Why? @ -[None] Did you discuss the management of the patient with other professionals (professionals i.e. , PA, SHADE BANDER, lab, RT, psych nurse, social and human services assistant, lofter, teacher, juvenile corrections officer, nurse case manager)? Give summary @ -[No] Was smoking cessation discussed for >3mins.? @ -[No] Was critical care preformed (if so, how long)? @ -[No] Were there social determinants of health that impacted care today? How? (Homelessness, low income, unemployed, alcoholism, drug addiction, transportation, low edu. Level, literacy, decrease access to med. care, [facility], rehab)? @ -[No] Was there de-escalation of care discussed even if they declined (Discuss DNR or withdrawal of care, Hospice)? DNR status @ -[No] What co-morbidities impacted this encounter? (DM, HTN, Smoking, COPD, CAD, Cancer, CVA, ARF, Chemo, Hep., AIDS, mental health diagnosis, sleep apnea, morbid obesity)? @ -[None] Was patient admitted / discharged? Hospital course, mention meds given and route, prescriptions, significant lab abnormalities, going to OR and other pertinent info. @ -[hospital course] Undiagnosed new problem with uncertain prognosis? @ -[No] Drug Therapy requiring intensive monitoring for toxicity (Heparin, Nitro, Insulin, Cardizem)? @ -[No] Were any procedures done? @ -[No] Diagnosis/symptom? @ -[default] Acute, or Chronic, or Acute on Chronic? @ -Acute Uncomplicated (without systemic symptoms) or Complicated (systemic symptoms)? @ -Uncomplicated Side effects of treatment? @ -[No] Exacerbation, Progression, or Severe Exacerbation? @ -[No] Poses a threat to life or bodily function? How? (Chest pain, [place], [place], pneumonia, PE, COPD, DKA, ARF, appy, cholecystitis, CVA, Diverticulitis, Homicidal, Suicidal, threat to staff... and all critical care pts) @ -[No] Disposition Clinical Impression: Fall, Laceration of knee, left, Finger fracture, left Disposition: HOME SELF-CARE Condition: Good Instructions (If sedation given, give patient instructions): Care For Your Stitches (ED), Finger Fracture (ED), Fall Prevention (ED) Additional Instructions: Clean sutures with antibacterial soap and water at least twice daily along with dressing change. Follow-up with PCP for removal in 10 to 14 days. Is patient prescribed a controlled substance at d/c from ED?: No Referrals: Nonstaff,Physician [Primary Care Provider] - 1-2 days Sho Elizalde DO [Doctor of Osteopathic Medicine] - 1-2 days Time of Disposition: 01:56
[2024-02-27] MEDS: LIDOCAINE 1% INJ 10MG/ML (20 ML MDV) SQ ONE (01:24)
[2024-02-27 02:20] VITALS: RESP 17
[2024-02-27 03:29] VITALS: BP 144/89; PULSE 78; TEMP 98
--- NOTE | 2024-02-27 04:47 | XR ---
EXAM: XR Left Knee, 3 Views CLINICAL HISTORY: fall,lac,pain, recent total knee TECHNIQUE: Three views of the left knee. COMPARISON: 07/24/2023. FINDINGS: Interval placement of a bipolar knee arthroplasty in near-anatomic position. Status post retropatellar osteotomy. No acute fracture. Bone mineralization within normal limits. Possible suprapatellar joint effusion. IMPRESSION: Possible suprapatellar joint effusion. Status post bipolar knee arthroplasty in an top position. No acute fracture.
--- NOTE | 2024-02-27 05:00 | XR ---
EXAM: XR Left Hand Complete, 3 or More Views CLINICAL HISTORY: Third digit edema, crepitus TECHNIQUE: Frontal, lateral and oblique views of the left hand. COMPARISON: No relevant prior studies available. FINDINGS: Bones/joints: Joint space narrowing with hypertrophic changes of the proximal interphalangeal joint of the third and fifth digit. No acute fracture. No dislocation. Soft tissues: Mild soft tissue swelling surrounding the third and fifth digits greatest overlying the proximal interphalangeal joint. No radiopaque foreign body. IMPRESSION: Degenerative changes of overlying soft tissue swelling probably the third and fifth digit proximal interphalangeal joint suggestive of a inflammatory arthritis.
== END 2024-02-27 03:35 | disposition home or self-care (01) ==
LOC: EC 23:01
DX: S62.623A Displaced fracture of middle phalanx of left middle finger, initial encounter for closed fracture (principal); S81.012A Laceration without foreign body, left knee, initial encounter; Z91.041 Radiographic dye allergy status; Z91.030 Bee allergy status; Z88.8 Allergy status to other drugs, medicaments and biological substances; Z86.16 Personal history of COVID-19; Z86.73 Personal history of transient ischemic attack (TIA), and cerebral infarction without residual deficits; W01.0XXA Fall on same level from slipping, tripping and stumbling without subsequent striking against object, initial encounter
CPT/HCPCS: 73120; 73562; 12001; 99284; J2003

== ENCOUNTER 2024-07-04 19:55 | Emergency (ER) | payer OTHER ==
[2024-07-04 20:00] VITALS: RESP 18
[2024-07-04 20:04] LABS: Glucose,Whole Blood 128 mg/dL (70-110)
[2024-07-04] MEDS: MORPHINE SULFATE 4 MG/ML SYRINGE IVP STA (20:22)
--- NOTE | 2024-07-04 20:22 | ED ---
Trauma HPI - General Chief Complaint: Trauma Stated Complaint: Fall Time Seen by Provider: 07/04/24 19:57 Source: patient, EMS, RN notes reviewed, old records reviewed Mode of arrival: EMS - History of Present Illness Initial Comments: This is a 59 male presenting from an urgent care on EMS for evaluation of a 25 foot fall. Patient allegedly fell while doing some tree cutting, fell off a 25 [address] ladder all the way to the ground he states he may have broken his fall little bit by catching grabbing onto some branches but the pain is severe severe pain in the neck, this fall occurred a couple hours prior to arrival and the pain has been increasing. No shortness of breath no other complaints no blood thinners history of hypocalcemia MD Complaint: fall, injury, pain, other (Neck pain) -: hour(s) (5) Loss of Consciousness: no Location: head, neck Severity scale (1-10): 10 Consistency: constant Context: mechanical fall Associated Symptoms: denies other symptoms - Related Data Home Medications Medication Instructions Recorded Confirmed Losartan [Cozaar] 12.5 mg PO DAILY 03/12/21 07/23/23 Vitamin B Complex 1 cap PO DAILY 09/16/22 07/23/23 Levothyroxine Sodium [Tirosint] 200 mcg PO AC-BRKFST 04/30/23 07/23/23 Melatonin 5 mg PO HS PRN 04/30/23 07/23/23 Pregabalin [Lyrica] 150 mg PO TID 07/23/23 07/23/23 buprenorphine HCL [Belbuca] 450 mcg BUCCAL BID 07/23/23 07/23/23 predniSONE 10 mg PO DAILY 07/23/23 07/23/23 calcitrioL [Rocaltrol] 0.25 mcg PO BID 07/24/23 07/24/23 Allergies Allergy/AdvReac Type Severity Reaction Status Date / Time Iodinated Contrast Media Allergy Rash/Hives Verified 07/04/24 20:00 levothyroxine sodium Allergy Swelling, Verified 07/04/24 20:00 [From Synthroid] Neuropathy venom-honey bee Allergy Swelling Verified 07/04/24 20:00 bupropion AdvReac stomache Verified 07/04/24 20:00 upset,tinnitus,dizziness Review of Systems ROS Statement: Those systems with pertinent positive or pertinent negative responses have been documented in the HPI. ROS Other: All systems not noted in ROS Statement are negative. Past Medical History Past Medical History: Cancer, CVA/TIA, GERD/Reflux, Hypertension, Musculoskeletal Disorder, Osteoarthritis (OA), Thyroid Disorder Additional Past Medical History / Comment(s): Hx Covid 06/07/20. 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 History of Any Multi-Drug Resistant Organisms: None Reported Past Surgical History: Appendectomy, Back Surgery, Cholecystectomy, Joint Replacement, Orthopedic Surgery Additional Past Surgical History / Comment(s): Thyroidectomy-3 total surgeries, parathyroidectomy, vocal cord surgery X4 with removal of non cancerous mass, pain clinic procedures, low back discectomy L4-L5, colonoscopy., left wrist, left knee Past Anesthesia/Blood Transfusion Reactions: No Reported Reaction Past Psychological History: PTSD Smoking Status: Never smoker Past Alcohol Use History: None Reported Past Drug Use History: None Reported - Past Family History Father Family Medical History: Coronary Artery Disease (CAD), Hyperlipidemia Additional Family Medical History / Comment(s): Uncle-myocardial infarction in his 40s. Mother Family Medical History: No Reported History Additional Family Medical History / Comment(s): . Sister(s) Additional Family Medical History / Comment(s): Patient has 1 sister with no major medical problems. Patient is for children with no major medical problems. Brother(s) Family Medical History: Diabetes Mellitus, Hypertension General Exam General appearance: alert, in no apparent distress Head exam: Present: atraumatic, normocephalic, normal inspection Eye exam: Present: normal appearance, PERRL, EOMI. Absent: scleral icterus, conjunctival injection, periorbital swelling ENT exam: Present: normal exam, mucous membranes moist Neck exam: Present: normal inspection. Absent: tenderness, meningismus, lymphadenopathy Respiratory exam: Present: normal lung sounds bilaterally. Absent: respiratory distress, wheezes, rales, rhonchi, stridor Cardiovascular Exam: Present: regular rate, normal rhythm, normal heart sounds. Absent: systolic murmur, diastolic murmur, rubs, gallop, clicks GI/Abdominal exam: Present: soft, normal bowel sounds. Absent: distended, ten derness, guarding, rebound, rigid Extremities exam: Present: normal inspection, full ROM, normal capillary refill. Absent: tenderness, pedal edema, joint swelling, calf tenderness Back exam: Present: normal inspection Neurological exam: Present: alert, oriented X3, CN II-XII intact Psychiatric exam: Present: normal affect, normal mood Skin exam: Present: warm, dry, intact, normal color. Absent: rash Course Vital Signs 07/04/24 07/04/24 07/04/24 19:56 20:00 20:15 Temperature 98.2 F 98.0 F 97.8 F Pulse Rate 69 Pulse Rate [ 64 58 L Ceramic [employer]er ] Respiratory 18 18 18 Rate Blood Pressure 167/111 Blood Pressure 163/108 151/95 [Left Arm Sitting] O2 Sat by Pulse 99 100 99 Oximetry 07/04/24 07/04/24 07/04/24 20:30 20:45 21:00 Temperature 98.2 F 98.3 F 98.0 F Pulse Rate Pulse Rate [ 74 61 63 [employer] Designer ] Respiratory 18 18 18 Rate Blood Pressure Blood Pressure 157/112 148/96 142/98 [Left Arm Sitting] O2 Sat by Pulse 98 96 98 Oximetry 07/04/24 07/04/24 21:30 22:00 Temperature 98.0 F 97.8 F Pulse Rate Pulse Rate [ 61 66 [employer] Designer ] Respiratory 18 18 Rate Blood Pressure Blood Pressure 152/98 145/97 [Left Arm Sitting] O2 Sat by Pulse 99 98 Oximetry - Reevaluation(s) Reevaluation #1: 07/04/24 22:30 Medical records reviewed Reevaluation #2: 07/04/24 22:30 Patient's pain is improved Reevaluation #3: 07/04/24 22:30 Patient informed of results and questions answered Reevaluation #4: Was pt. sent in by a medical professional or institution (, PA, CALL CENTER MANAGER, urgent care, hospital, or penitentiary...) When possible be specific @ -no Did you speak to anyone other than the patient for history (EMS, parent, family, police, friend...)? What history was obtained from this source @ -no Did you review nursing and triage notes (agree or disagree)? Why? @ -agree Are old charts reviewed (outside hosp., previous admission, EMS record, old EKG, old radiological studies, urgent care reports/EKG's, penitentiary records)? Report findings @ -yes Differential Diagnosis (chest pain, altered mental status, abdominal pain women, abdominal pain men, vaginal bleeding, weakness, fever, dyspnea, syncope, headache, dizziness, GI bleed, back pain, seizure, CVA, palpatations, mental health, musculoskeletal)? @ -prior EKG interpreted by me (3pts min.). @ -yes X-rays interpreted by me (1pt min.). @ -yes negative for acute disease CT interpreted by me (1pt min.). @ -no U/S interpreted by me (1pt. min.). @ -no What testing was considered but not performed or refused? (CT, X-rays, U/S, labs)? Why? @ -none What meds were considered but not given or refused? Why? @ -none Did you discuss the management of the patient with other professionals (professionals i.e. , PA, CALL CENTER MANAGER, lab, RT, psych nurse, social work nurse, clinical resource nurse, teacher, special police officer, disability case manager)? Give summary @ -no Was smoking cessation discussed for >3mins.? @ -no Was critical care preformed (if so, how long)? @ -no Were there social determinants of health that impacted care today? How? (Homelessness, low income, unemployed, alcoholism, drug addiction, transportation, low edu. Level, literacy, decrease access to med. care, [facility], rehab)? @ -none Was there de-escalation of care discussed even if they declined (Discuss DNR or withdrawal of care, Hospice)? DNR status @ -no What co-morbidities impacted this encounter? (DM, HTN, Smoking, COPD, CAD, Cancer, CVA, ARF, Chemo, Hep., AIDS, mental health diagnosis, sleep apnea, morbid obesity)? @ -none Was patient admitted / discharged? Hospital course, mention meds given and route, prescriptions, significant lab abnormalities, going to OR and other pertinent info. @ - Undiagnosed new problem with uncertain prognosis? @ -no Drug Therapy requiring intensive monitoring for toxicity (Heparin, Nitro, Insulin, Cardizem)? @ -no Were any procedures done? @ -no Diagnosis/symptom? @ - Acute, or Chronic, or Acute on Chronic? @ -Acute Uncomplicated (without systemic symptoms) or Complicated (systemic symptoms)? @ -Complicated Side effects of treatment? @ -no Exacerbation, Progression, or Severe Exacerbation? @ -exacerbation Poses a threat to life or bodily function? How? (Chest pain, [place], [place], pneumonia, PE, COPD, DKA, ARF, appy, cholecystitis, CVA, Diverticulitis, Homicidal, Suicidal, threat to staff... and all critical care pts) @ -yes Medical Decision Making - Medical Decision Making 59 male after a fall 2020 5 foot fall level 2 trauma, patient does have no significant head or neck injury no intrathoracic or intra-abdominal injury patient has adequate pain control here in the ER and can be discharged home - Lab Data Result diagrams: 07/04/24 20:00 07/04/24 20:00 Lab Results 07/04/24 07/04/24 07/04/24 Range/Units 19:55 20:00 20:00 WBC 8.77 (4.50-10.00) 10*3/uL RBC 4.76 (4.40-5.60) 10*6/uL Hgb 14.5 (13.0-17.0) g/dL Hct 39.1 L (39.6-50.0) % MCV 82.1 (80.0-97.0) fL MCH 30.5 (27.0-32.0) pg MCHC 37.1 H (32.0-37.0) g/dL Plt Count 233 (140-440) 10*3/uL MPV 10.5 (9.5-12.2) fL Immature Gran % (Auto) 0.5 % Neutrophils % 62.0 % Lymphocytes % 27.6 % Monocytes % 8.8 % Eosinophils % 0.6 % Basophils % 0.5 % Immature Gran # 0.04 (0.00-0.04) 10*3/uL Neutrophils # 5.45 (1.80-7.70) 10*3/uL Lymphocytes # 2.42 (0.90-5.00) 10*3/uL Monocytes # 0.77 (0.20-1.00) 10*3/uL Eosinophils # 0.05 (0.04-0.35) 10*3/uL Basophils # 0.04 (0.00-0.10) 10*3/uL PT 10.9 (10.0-12.5) sec INR 1.0 (<1.2) APTT 23.7 (22.0-30.0) sec Sodium (137-145) mmol/L Potassium (3.5-5.1) mmol/L Chloride (98-107) mmol/L Carbon Dioxide (22-30) mmol/L Anion Gap mmol/L BUN (9-20) mg/dL Creatinine (0.66-1.25) mg/dL Est GFR (CKD-EPI)AfAm (>60 ml/min/1.73 sqM) Est GFR (CKD-EPI)NonAf (>60 ml/min/1.73 sqM) Glucose (74-99) mg/dL POC Glucose (mg/dL) (70-110) mg/dL POC Glu Filament Welder ID Plasma Lactic Acid Vivek (0.7-2.0) mmol/L Calcium (8.4-10.2) mg/dL Total Bilirubin (0.2-1.3) mg/dL AST (17-59) U/L ALT (4-49) U/L Alkaline Phosphatase (38-126) U/L Troponin I (0.000-0.034) ng/mL Total Protein (6.3-8.2) g/dL Albumin (3.5-5.0) g/dL Urine Opiates Screen (NotDetected) Ur Oxycodone Screen (NotDetected) Urine Methadone Screen (NotDetected) Ur Barbiturates Screen (NotDetected) U Tricyclic Antidepress (NotDetected) Ur Phencyclidine Scrn (NotDetected) Ur Amphetamines Screen (NotDetected) U Methamphetamines Scrn (NotDetected) U Benzodiazepines Scrn (NotDetected) Urine Cocaine Screen (NotDetected) U Marijuana (THC) Screen (NotDetected) Serum Alcohol mg/dL Blood Type Recheck No Previous Record Bld Type Recheck Status CABO Indicated Spec Expiration Date 07/07/2024 - 235407/04/24 07/04/24 07/04/24 Range/Units 20:00 20:00 20:00 WBC (4.50-10.00) 10*3/uL RBC (4.40-5.60) 10*6/uL Hgb (13.0-17.0) g/dL Hct (39.6-50.0) % MCV (80.0-97.0) fL MCH (27.0-32.0) pg MCHC (32.0-37.0) g/dL Plt Count (140-440) 10*3/uL MPV (9.5-12.2) fL Immature Gran % (Auto) % Neutrophils % % Lymphocytes % % Monocytes % % Eosinophils % % Basophils % % Immature Gran # (0.00-0.04) 10*3/uL Neutrophils # (1.80-7.70) 10*3/uL Lymphocytes # (0.90-5.00) 10*3/uL Monocytes # (0.20-1.00) 10*3/uL Eosinophils # (0.04-0.35) 10*3/uL Basophils # (0.00-0.10) 10*3/uL PT (10.0-12.5) sec INR (<1.2) APTT (22.0-30.0) sec Sodium 137 (137-145) mmol/L Potassium 4.2 (3.5-5.1) mmol/L Chloride 104 (98-107) mmol/L Carbon Dioxide 21 L (22-30) mmol/L Anion Gap 12 mmol/L BUN 25 H (9-20) mg/dL Creatinine 0.84 (0.66-1.25) mg/dL Est GFR (CKD-EPI)AfAm >90 (>60 ml/min/1.73 sqM) Est GFR (CKD-EPI)NonAf >90 (>60 ml/min/1.73 sqM) Glucose 120 H (74-99) mg/dL POC Glucose (mg/dL) (70-110) mg/dL POC Glu Filament Welder ID Plasma Lactic Acid Vivek 1.7 (0.7-2.0) mmol/L Calcium 6.6 L (8.4-10.2) mg/dL Total Bilirubin 1.2 (0.2-1.3) mg/dL AST 35 (17-59) U/L ALT 33 (4-49) U/L Alkaline Phosphatase 57 (38-126) U/L Troponin I <0.012 (0.000-0.034) ng/mL Total Protein 6.7 (6.3-8.2) g/dL Albumin 4.2 (3.5-5.0) g/dL Urine Opiates Screen (NotDetected) Ur Oxycodone Screen (NotDetected) Urine Methadone Screen (NotDetected) Ur Barbiturates Screen (NotDetected) U Tricyclic Antidepress (NotDetected) Ur Phencyclidine Scrn (NotDetected) Ur Amphetamines Screen (NotDetected) U Methamphetamines Scrn (NotDetected) U Benzodiazepines Scrn (NotDetected) Urine Cocaine Screen (NotDetected) U Marijuana (THC) Screen (NotDetected) Serum Alcohol <10 mg/dL Blood Type Recheck Bld Type Recheck Status Spec Expiration Date 07/04/24 07/04/24 Range/Units 20:02 21:51 WBC (4.50-10.00) 10*3/uL RBC (4.40-5.60) 10*6/uL Hgb (13.0-17.0) g/dL Hct (39.6-50.0) % MCV (80.0-97.0) fL MCH (27.0-32.0) pg MCHC (32.0-37.0) g/dL Plt Count (140-440) 10*3/uL MPV (9.5-12.2) fL Immature Gran % (Auto) % Neutrophils % % Lymphocytes % % Monocytes % % Eosinophils % % Basophils % % Immature Gran # (0.00-0.04) 10*3/uL Neutrophils # (1.80-7.70) 10*3/uL Lymphocytes # (0.90-5.00) 10*3/uL Monocytes # (0.20-1.00) 10*3/uL Eosinophils # (0.04-0.35) 10*3/uL Basophils # (0.00-0.10) 10*3/uL PT (10.0-12.5) sec INR (<1.2) APTT (22.0-30.0) sec Sodium (137-145) mmol/L Potassium (3.5-5.1) mmol/L Chloride (98-107) mmol/L Carbon Dioxide (22-30) mmol/L Anion Gap mmol/L BUN (9-20) mg/dL Creatinine (0.66-1.25) mg/dL Est GFR (CKD-EPI)AfAm (>60 ml/min/1.73 sqM) Est GFR (CKD-EPI)NonAf (>60 ml/min/1.73 sqM) Glucose (74-99) mg/dL POC Glucose (mg/dL) 128 H (70-110) mg/dL POC Glu Filament Welder ID Bradley Quintana Plasma Lactic Acid Vivek (0.7-2.0) mmol/L Calcium (8.4-10.2) mg/dL Total Bilirubin (0.2-1.3) mg/dL AST (17-59) U/L ALT (4-49) U/L Alkaline Phosphatase (38-126) U/L Troponin I (0.000-0.034) ng/mL Total Protein (6.3-8.2) g/dL Albumin (3.5-5.0) g/dL Urine Opiates Screen Detected H (NotDetected) Ur Oxycodone Screen Not Detected (NotDetected) Urine Methadone Screen Detected H (NotDetected) Ur Barbiturates Screen Not Detected (NotDetected) U Tricyclic Antidepress Not Detected (NotDetected) Ur Phencyclidine Scrn Not Detected (NotDetected) Ur Amphetamines Screen Not Detected (NotDetected) U Methamphetamines Scrn Not Detected (NotDetected) U Benzodiazepines Scrn Not Detected (NotDetected) Urine Cocaine Screen Not Detected (NotDetected) U Marijuana (THC) Screen Not Detected (NotDetected) Serum Alcohol mg/dL Blood Type Recheck Bld Type Recheck Status Spec Expiration Date - EKG Data -: EKG Interpreted by Me (EKG is sinus 60 [place] 137 QRS 93 QTc 438) - Radiology Data Radiology results: report reviewed (Chest x-ray CT brain C-spine chest abdomen pelvis negative for acute traumatic injury), image reviewed Disposition Clinical Impression: Fall, Neck pain, Neck sprain Disposition: HOME SELF-CARE Condition: Good Instructions (If sedation given, give patient instructions): Cervical Strain (ED), Cervical Sprain (ED), Acute Neck Pain (ED) Is patient prescribed a controlled substance at d/c from ED?: No Referrals: None,Stated [Primary Care Provider] - 1-2 days Time of Disposition: 22:00
[2024-07-04 20:29] LABS: Basophils # (A) 0.04 10*3/uL (0.00-0.10); Basophils % (A) 0.5 %; Eosinophils # (A) 0.05 10*3/uL (0.04-0.35); Eosinophils % (A) 0.6 %; HCT 39.1 % (39.6-50.0); HGB 14.5 g/dL (13.0-17.0); Lymphocytes # (A) 2.42 10*3/uL (0.90-5.00); Lymphocytes % (A) 27.6 %; MCH 30.5 pg (27.0-32.0); MCHC 37.1 g/dL (32.0-37.0); MCV 82.1 fL (80.0-97.0); Mean Platelet Volume 10.5 fL (9.5-12.2); Monocytes # (A) 0.77 10*3/uL (0.20-1.00); Monocytes % (A) 8.8 %; Neutrophils # (A) 5.45 10*3/uL (1.80-7.70); Platelet Count 233 10*3/uL (140-440); RBC 4.76 10*6/uL (4.40-5.60); WBC 8.77 10*3/uL (4.50-10.00)
[2024-07-04] MEDS: SODIUM CHLORIDE 0.9% 500 ML 500 ML IV STA (20:31)
[2024-07-04] MEDS: diphenhydrAMINE 50 MG/ML 1 ML VIAL IVP STA (20:32)
[2024-07-04] MEDS: FAMOTIDINE 20 MG/2 ML VIAL IV STA (20:32)
[2024-07-04] MEDS: methylPREDNISolone SOD SUCCI 125 MG/2 ML VIAL IV STA (20:32)
[2024-07-04 20:34] LABS: Partial Thromboplastin Time 23.7 sec (22.0-30.0); Prothrombin Time 10.9 sec (10.0-12.5)
[2024-07-04 20:51] LABS: ALT 33 U/L (4-49); African American GFR (CKD) >90 (>60 ml/min/1.73 sqM); Albumin 4.2 g/dL (3.5-5.0); Alcohol <10 mg/dL; Anion Gap 12 mmol/L; Blood Urea Nitrogen 25 mg/dL (9-20); Calcium 6.6 mg/dL (8.4-10.2); Carbon Dioxide 21 mmol/L (22-30); Chloride 104 mmol/L (98-107); Glucose 120 mg/dL (74-99); Non-African American GFR(CKD) >90 (>60 ml/min/1.73 sqM); Sodium 137 mmol/L (137-145); Total Bilirubin 1.2 mg/dL (0.2-1.3); Total Protein 6.7 g/dL (6.3-8.2)
--- NOTE | 2024-07-04 20:55 | XR ---
EXAMINATION TYPE: XR pelvis AP view DATE OF EXAM: 07/04/2024 8:27 PM COMPARISON: None CLINICAL INDICATION: Male, 59 years old with history of Trauma; pain [facility] TECHNIQUE: XR pelvis AP view, examined in a single projection. FINDINGS: There is no evidence of fracture or dislocation. There is no soft tissue abnormality. No a bnormal calcifications are present. The spine appears intact. The hips appear intact. No significant degeneration. IMPRESSION: No acute osseous pathology. [facility], , 07/04/2024 8:52 PM
--- NOTE | 2024-07-04 20:56 | XR ---
EXAMINATION TYPE: XR chest 1V portable DATE OF EXAM: 07/04/2024 8:27 PM COMPARISON: Chest radiographs from 02/05/2022 CLINICAL INDICATION: Male, 59 years old with history of trauma; pain TECHNIQUE: XR chest 1V portable Frontal view of the chest. FINDINGS: Lungs/Pleura: There is no evidence of pleural effusion, focal consolidation, or pneumothorax. Pulmonary vascularity: Unremarkable. Heart/mediastinum: Cardiomediastinal silhouette is unremarkable. Musculoskeletal: No acute osseous pathology. IMPRESSION: No acute cardiopulmonary disease/process. [facility], , 07/04/2024 8:54 PM
[2024-07-04] MEDS: HYDROmorphone 2 MG/ML 1 ML SYRINGE IVP STA ×2 (21:07→22:38)
[2024-07-04 21:19] LABS: AST 35 U/L (17-59); Alkaline Phosphatase 57 U/L (38-126); Potassium 4.2 mmol/L (3.5-5.1)
--- NOTE | 2024-07-04 22:01 | CT ---
EXAMINATION TYPE: CT brain cspine wo con DATE OF EXAM: 07/04/2024 9:06 PM COMPARISON: 12/02/2016 CLINICAL INDICATION: Male, 59 years old with history of trauma; pt complains of right hip and neck pa in after falling off ladder, pain TECHNIQUE: Brain: Multiple axial CT images of the brain were obtained without IV contrast. Cspine: Axial CT images from the skull base to the inferior aspect of T2 we obtained without intraven ous contrast. Coronal and sagittal reformatted images were also reviewed. . CT DLP: 3218 mGycm, Automated exposure control for dose reduction was used. FINDINGS: Brain: Extra-axial spaces: No abnormal extra-axial fluid collections. Ventricular system: Within normal limits Cerebral parenchyma: No acute intraparenchymal hemorrhage or mass effect. The lopez-white junction is well differentiated. Cerebellum: Unremarkable. Mass effect: No evidence of midline shift. Intracranial vasculature: Atherosclerotic calcifications of the intracranial vessels. Soft tissues: Normal. Calvarium/osseous structures: No depressed skull fracture. Paranasal sinuses and mastoid air cells: Clear. Visualized orbits: Orbital contents are intact. Cervical spine: Fracture: None. Osseous structures: Multilevel degenerative disc disease changes with endplate spurring and disc oste ophyte complex's. Vertebral alignment: Within normal limits. Spinal canal/Neural Foramina: No evidence of significant spinal canal narrowing. No evidence for sign ificant neural foraminal stenosis. Neck soft tissues: Prevertebral soft tissues are within normal limits. Other: The airway is patent. Atherosclerosis of the carotid bifurcations. IMPRESSION: 1. No acute intracranial process. 2. No evidence of cervical spine fracture. 3. Moderate multilevel degenerative disc disease. [facility], , 07/04/2024 9:59 PM
--- NOTE | 2024-07-04 22:08 | CT ---
EXAMINATION TYPE: CT ChestAbdPelvis w con DATE OF EXAM: 07/04/2024 9:11 PM COMPARISON: None. CLINICAL INDICATION: Male, 59 years old with history of trauma; PHH, pt complains of right hip and ne ck pain after falling off ladder Technique: CT ChestAbdPelvis w con; Multiple axial images were obtained. Two-dimensional coronal and sagittal reconstructions were obtained. Contrast used:100 mL of Isovue 300 with IV Contrast, (None if empty) Oral contrast used: without Oral Contrast CT DLP: 3218 mGycm, Automated exposure control for dose reduction was used. Findings: CHEST: LUNGS/ PLEURA: No focal consolidation, pneumothorax or pleural effusion. AIRWAY: Patent and unremarkable. HEART: Size within normal limits. No significant coronary artery calcifications. MEDIASTINUM: No gross evidence of adenopathy. VASCULATURE: No aortic aneurysm. MUSCULOSKELETAL: No acute osseous abnormalities. Setting of the thoracic spine. SOFT TISSUES/LYMPH NODES: Unremarkable. LOWER NECK: No significant findings. ABDOMEN: ABDOMEN LIVER: Unremarkable GALLBLADDER AND BILE DUCTS: Unremarkable. PANCREAS: Unremarkable. SPLEEN: Unremarkable. ADRENAL GLANDS: Unremarkable. KIDNEYS AND URETERS: No evidence of hydronephrosis or obstructing renal calculus. The ureters are unr emarkable. rr nonobstructing right 6 mm and left 6 mm renal calculi. Right simple appearing renal cortical 26 mm cyst. No follow-up recommended. PELVIS BLADDER: Unremarkable REPRODUCTIVE: Unremarkable. ABDOMEN & PELVIS STOMACH AND BOWEL: No evidence of bowel obstruction. PERITONEUM/RETROPERITONEUM: No evidence of pneumoperitoneum or free fluid. VASCULATURE: No evidence of aortic aneurysm. MUSCULOSKELETAL: Postsurgical changes of lower lumbar spine. With laminectomy. No evidence for fractu re. Motility is L3 on L4. Straightening of the LYMPH NODES: No gross evidence for lymphadenopathy. SOFT TISSUE/ABDOMINAL WALL: Unremarkable IMPRESSION: 1. No evidence for acute process. The right hip and pelvis are intact. No evidence for spinal fractu re. 2. Bilateral nonobstructing renal calculi. 3. Right simple appearing renal cyst , no follow-up recommended. [facility], , 07/04/2024 10:06 PM
[2024-07-04 22:18] LABS: Amphetamine Screen,Urine Not Detected (NotDetected); Barbiturate Screen,Urine Not Detected (NotDetected); Benzodiazepines Screen,Urine Not Detected (NotDetected); Cocaine Screen,Urine Not Detected (NotDetected); Methadone Screen, Urine Detected (NotDetected); Opiate Screen,Urine Detected (NotDetected); Oxycodone Screen, Urine Not Detected (NotDetected); Phencyclidine Screen,Urine Not Detected (NotDetected); Tricyclic Antidepressant,Urine Not Detected (NotDetected); Urn Cannabinoid Scrn Not Detected (NotDetected)
[2024-07-04] MEDS: CALCIUM CARBONATE 500 MG CHEWABLE PO STA (22:25)
[2024-07-04] MEDS: CALCIUM CHLORIDE 100 MG/ML 10 ML SYRINGE IVP STA (22:26)
[2024-07-04] MEDS: traMADol 50 MG STARTER PACK 3 TAB BTL PO STA (22:36)
[2024-07-04] MEDS: KETOROLAC 15 MG/ML 1 ML VIAL IVP STA (22:37)
[2024-07-04 22:58] VITALS: BP 175/105; PULSE 55; TEMP 98.2
== END 2024-07-04 22:45 | disposition home or self-care (01) ==
LOC: EC 19:55
DX: S13.9XXA Sprain of joints and ligaments of unspecified parts of neck, initial encounter (principal); Z88.8 Allergy status to other drugs, medicaments and biological substances; Z91.030 Bee allergy status; Z91.041 Radiographic dye allergy status; Z86.73 Personal history of transient ischemic attack (TIA), and cerebral infarction without residual deficits; Z86.16 Personal history of COVID-19; W11.XXXA Fall on and from ladder, initial encounter
CPT/HCPCS: 36415; 93005; 86900; 86901; 80053; 83605; 84484; 85025; 85610; 85730; 86850; 80306; 80320; 72170; 71045; 72125; 70450; 71260; 74177; 99285; 96374; 96375 ×6; 96376; 96361; J2270; J1171; J1200; J1885; Q9967; J2919; J1308